=== PATIENT | male | born 1945 ===

== ENCOUNTER 2020-02-23 07:32 | Outpatient (REF) | payer MEDICARE, OTHER, SELFPAY ==
[2020-02-23 10:17] LABS: MANUAL DIFF FLAG NO
[2020-02-23 10:31] LABS: Basophils Percent Auto 0.5 % (0-2); Eosinophils Absolute Auto 0.3 X10*3/uL (0.0-0.4); Eosinophils Percent Auto 4.4 % (0-4); Hematocrit 40.8 % (42-52); Hemoglobin 14.1 g/dl (14.0-18.0); Imm Gran Abs Auto 0.03 X10*3/uL (0.00-0.03); Imm Gran Pct Auto 0.5 % (0.0-0.4); Lymphocytes Absolute Auto 1.1 X10*3/uL (1.2-4.9); Lymphocytes Percent Auto 17.1 % (20-40); Mean Corpuscular HGB Conc 34.6 g/dl (31.0-36.0); Mean Corpuscular Hemoglobin 36.5 pg (27.0-33.0); Mean Corpuscular Volume 105.7 fL (80-98); Mean Platelet Volume 10.1 fL (9.4-12.4); Monocytes Absolute Auto 0.6 X10*3/uL (0.1-1.2); Monocytes Percent Auto 8.9 % (2-11); Neutrophils Absolute Auto 4.4 X10*3/uL (2.0-8.3); Neutrophils Percent Auto 68.6 % (45-73); Platelet Count 221 X10*3/uL (160-400); Red Blood Count 3.86 X10*6/uL (4.60-5.80); Red Cell Distribution Width 12.3 % (11.0-16.0); White Blood Count 6.4 X10*3/uL (4.8-10.8)
[2020-02-23 10:49] LABS: Glucose Urine UA NEG (NEG); Leukocyte Esterase Urine NEG (NEG); Nitrite Urine NEG (NEG); Specific Gravity - Urine 1.025 (1.005-1.025); Urine Blood NEG (NEG); Urine Ketones NEG (NEG); Urine Protein NEG (NEG-TRACE)
[2020-02-23 10:52] LABS: Appearance Urine CLEAR; Color Urine YELLOW
[2020-02-23 10:55] LABS: Alanine Aminotransferase 16 U/L (0-40); Albumin Level 4.1 g/dL (3.5-5.0); Alkaline Phosphatase 52 U/L (39-117); Anion Gap 12 (12-20); Aspartate Amino Transferase 17 U/L (5-37); Bilirubin Total 0.7 mg/dL (0.0-1.0); Blood Urea Nitrogen 16 mg/dL (9-16); Calcium 8.4 mg/dL (8.4-10.2); Carbon Dioxide 27 mmol/L (22-29); Chloride 106 mmol/L (96-108); Cholesterol 116 mg/dL; Estimated Glomerular Filt Rate > 60; Glucose Fasting 90 mg/dL (60-99); HDL Cholesterol 57 mg/dL; LDL Cholesterol Calculated 48 mg/dl; Sodium 141 mmol/L (135-145); Total Protein 6.4 g/dL (6.5-8.0); Triglycerides 58 mg/dL
[2020-02-23 11:16] LABS: Prostate Specific Antigen 1.11 ng/mL (<0.05-4.0)
== END 2020-02-23 07:33 | disposition home or self-care (01) ==
LOC: HO.10HDL 07:32
PROVIDERS: Visit Provider Internal Medicine
DX: I25.10 Atherosclerotic heart disease of native coronary artery without angina pectoris (principal); I10 Essential (primary) hypertension; E78.00 Pure hypercholesterolemia, unspecified; R35.1 Nocturia; M10.9 Gout, unspecified
CPT/HCPCS: 36415; 80053; 80061; 81003; 84153; 84550; 85025

== ENCOUNTER 2020-03-18 16:10 | Outpatient (REF) | payer MEDICARE, OTHER, SELFPAY ==
[2020-03-18 16:57] LABS: Influenza A PCR NEGATIVE (Negative); Influenza B PCR NEGATIVE (Negative); Resp Syncy Virus RNA Qual PCR NEGATIVE (Negative); SARS COV2 PCR INHOUSE NEGATIVE (Negative)
== END 2020-03-18 16:11 | disposition home or self-care (01) ==
LOC: HO.LNP 16:10
PROVIDERS: Visit Provider Internal Medicine
DX: R50.9 Fever, unspecified (principal)
CPT/HCPCS: 0241U

== ENCOUNTER 2020-05-20 09:36 | Outpatient (REF) | payer MEDICARE, OTHER, SELFPAY ==
[2020-05-20 14:01] LABS: MANUAL DIFF FLAG NO
[2020-05-20 14:11] LABS: Basophils Absolute Auto 0.1 X10*3/uL (0.0-0.2); Basophils Percent Auto 0.8 % (0-2); Eosinophils Absolute Auto 0.3 X10*3/uL (0.0-0.4); Eosinophils Percent Auto 4.7 % (0-4); Hematocrit 43.4 % (42-52); Hemoglobin 14.7 g/dl (14.0-18.0); Imm Gran Abs Auto 0.02 X10*3/uL (0.00-0.03); Imm Gran Pct Auto 0.3 % (0.0-0.4); Lymphocytes Absolute Auto 0.9 X10*3/uL (1.2-4.9); Lymphocytes Percent Auto 13.8 % (20-40); Mean Corpuscular HGB Conc 33.9 g/dl (31.0-36.0); Mean Corpuscular Hemoglobin 35.5 pg (27.0-33.0); Mean Corpuscular Volume 104.8 fL (80-98); Mean Platelet Volume 10.2 fL (9.4-12.4); Monocytes Absolute Auto 0.5 X10*3/uL (0.1-1.2); Monocytes Percent Auto 7.5 % (2-11); Neutrophils Absolute Auto 4.8 X10*3/uL (2.0-8.3); Neutrophils Percent Auto 72.9 % (45-73); Platelet Count 216 X10*3/uL (160-400); Red Blood Count 4.14 X10*6/uL (4.60-5.80); Red Cell Distribution Width 12.4 % (11.0-16.0); White Blood Count 6.5 X10*3/uL (4.8-10.8)
[2020-05-20 14:45] LABS: Alanine Aminotransferase 15 U/L (0-40); Alkaline Phosphatase 45 U/L (39-117); Anion Gap 11 (12-20); Aspartate Amino Transferase 16 U/L (5-37); Bilirubin Total 0.9 mg/dL (0.0-1.0); Blood Urea Nitrogen 14 mg/dL (9-16); Carbon Dioxide 28 mmol/L (22-29); Chloride 103 mmol/L (96-108); Estimated Glomerular Filt Rate > 60; Glucose Random 92 mg/dL (60-115); Magnesium 2.1 mg/dL (1.6-2.6); Potassium 4.3 mmol/L (3.3-5.1); Sodium 138 mmol/L (135-145); Total Protein 6.1 g/dL (6.5-8.0); Uric Acid 3.6 mg/dL (3.4-7.0)
== END 2020-05-20 09:37 | disposition home or self-care (01) ==
LOC: HO.10HDL 09:36
PROVIDERS: Visit Provider Internal Medicine
DX: M10.9 Gout, unspecified (principal); I25.10 Atherosclerotic heart disease of native coronary artery without angina pectoris; I42.9 Cardiomyopathy, unspecified
CPT/HCPCS: 36415; 80053; 83735; 84550; 85025

== ENCOUNTER → 2021-01-14 14:28 | Outpatient (BNVA) | payer MEDICARE, OTHER, SELFPAY | PROVIDERS: PCP Internal Medicine; Referring Provider Internal Medicine; Visit Provider Internal Medicine Cardiovascular Disease | DX: I25.10 Atherosclerotic heart disease of native coronary artery without angina pectoris (principal); I11.0 Hypertensive heart disease with heart failure; I50.20 Unspecified systolic (congestive) heart failure; I48.91 Unspecified atrial fibrillation | CPT/HCPCS: 93005; 99202 ==

== ENCOUNTER → 2021-01-15 10:11 | Outpatient (REF) | payer MEDICARE, OTHER, SELFPAY ==
--- NOTE | 2021-01-15 10:29 | CA_ITS ---
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 The visually estimated ejection fraction is between 40-45%. - The left atrium is severely dilated. - There is mild calcification of the aortic valve. - There is moderate mitral annular calcification. - There is mild dilatation of the ascending aorta measuring 4.00 cm. Findings Procedure Information Contrast agent, definity, is being given per protocol without apparent complications. Left Ventricle Normal left ventricular cavity size. There is mildly increased left ventricular wall thickness. The left ventricular systolic function is mild to moderately decreased. The visually estimated ejection fraction is between 40-45%. There is moderate global hypokinesis. Right Ventricle Mildly increased right ventricular cavity size. There is normal right ventricular systolic function. Atria The left atrium is severely dilated. The right atrium is normal in size. Aortic Valve The aortic valve was not well visualized. There is mild calcification of the aortic valve. There is no aortic valve stenosis. The mean gradient is 7 mmHg. There is mild aortic valve regurgitation. Mitral Valve There is moderate mitral annular calcification. There is trace mitral valve regurgitation. There is no mitral valve stenosis. Pulmonic Valve The pulmonic valve was not well visualized. Tricuspid Valve Normal tricuspid valve structure. There is trace tricuspid valve regurgitation. The pulmonary artery systolic pressure is normal. Great Vessels The aortic arch is normal in size. There is mild dilatation of the ascending aorta measuring 4.00 cm. Venous The inferior vena cava is normal in size and collapses greater than 50% with inspiration. Pericardium/Pleural There is a trivial pericardial effusion. Prior Study Comparison No significant change compared to prior study dated: 01/18/2015. Measurements 2D Linear Measurements IVSd: 1.07 0.6-0.9/0.6-1.0 cm LVIDd: 5.60 3.9-5.3/4.2-5.9 cm LVIDd Index: 2.49 2.4-3.2/2.2-3.1 cm/m2 LVIDs: 4.14 2.0-3.6 cm LVPWd: 1.09 0.7-1.1 cm Ao Root: 4.20 2.1-3.5 cm LA Diam: 4.80 2.7-3.8/3.0-4.0 cm LAIDs Index: 2.13 1.5-2.3 cm/m2 LV Mass: 303.34 67-162/88-224 g LV Mass Index: 134.82 43-95/49-115 g/m2 LVOT Diam: 2.50 3.0+(-)1.3 cm 2D Systolic Function EF 4C: 41.30 >55% EF 2C: 36.40 >55% EF BiP: 40.30 >55% Aortic Valve AoV Pk Mendel: 1.64 AoV Mn Mendel: 1.27 AoV VTI: 0.31 AoV Pk Grad: 11.00 Aov Mn Grad: 7.00 GARCIA Cont.VTI: 2.96 LVOT LVOT Pk Mendel: 0.94 LVOT Mn Mendel: 0.68 LVOT VTI: 0.19 LVOT Pk Grad: 4.00 LVOT Mn Grad: 2.00 LVOT Diam: 2.50 LVOT Area: 4.91 Right Ventricle TAPSE (mm): 2.03 TVS' Mendel: 13.70 Tricuspid Valve TR Pk Mendel: 2.54 TR Pk Grad: 26.00 RA Press: 3.00 RVSP: 29.00 Great Vessels Aorta Ao Root-2D: 4.20 2.0-3.7 cm Ao Asc: 4.00 2.1-3.4 cm Ao Arch: 2.90 Updated in Other Vendor System with Status of Final Dillon Sandoval MD electronically signed on 01/16/2021 3:54:36 PM with status of Final
== END ==
LOC: HO.CARD 10:11
PROVIDERS: Visit Provider Internal Medicine Cardiovascular Disease
DX: I48.91 Unspecified atrial fibrillation (principal)
CPT/HCPCS: 93306

== ENCOUNTER → 2021-01-24 10:47 | Outpatient (REF) | payer MEDICARE, OTHER, SELFPAY ==
--- NOTE | 2021-01-24 10:52 | HM_ITS ---
Total monitoring time 2 days and 22 hours. Underlying rhythm is atrial fibrillation. Average 70/Min. Minimum 39/Min. Maximum 106/Min. Most rates are in normal range. Longest pause 2.8 seconds at 01:33am. 4 beat run of NSVT. Overall PVC burden 2.3%. 4 morphologies noted. 77 couplets noted. No patient events. Overall, adequate rate control of atrial fibrillation. MTDD
== END ==
LOC: HO.CARD 10:47
PROVIDERS: PCP Internal Medicine; Visit Provider Internal Medicine Cardiovascular Disease
DX: I48.91 Unspecified atrial fibrillation (principal)
CPT/HCPCS: 93242

== ENCOUNTER → 2021-02-12 08:53 | Outpatient (BNVA) | payer MEDICARE, OTHER, SELFPAY | PROVIDERS: PCP Internal Medicine; Referring Provider Internal Medicine; Visit Provider Internal Medicine Cardiovascular Disease | DX: I48.19 Other persistent atrial fibrillation (principal); I50.20 Unspecified systolic (congestive) heart failure; I25.10 Atherosclerotic heart disease of native coronary artery without angina pectoris | CPT/HCPCS: 99212 ==

== ENCOUNTER 2021-02-13 08:27 | Outpatient (REF) | payer MEDICARE, OTHER, SELFPAY ==
[2021-02-13 10:23] LABS: Anion Gap 10 (12-20); Blood Urea Nitrogen 13 mg/dL (9-16); Calcium 8.9 mg/dL (8.4-10.2); Carbon Dioxide 27 mmol/L (22-29); Chloride 105 mmol/L (96-108); Estimated Glomerular Filt Rate > 60; Glucose Random 110 mg/dL (60-115); Potassium 4.2 mmol/L (3.3-5.1); Sodium 138 mmol/L (135-145)
[2021-02-13 11:31] LABS: Digoxin 0.4 ng/mL (0.8-2.0)
== END 2021-02-13 08:28 | disposition home or self-care (01) ==
LOC: HO.10HDL 08:27
PROVIDERS: Visit Provider Internal Medicine Cardiovascular Disease
DX: I48.20 Chronic atrial fibrillation, unspecified (principal)
CPT/HCPCS: 36415; 80048; 80162

== ENCOUNTER 2021-03-06 08:47 | Outpatient (REF) | payer MEDICARE, OTHER, SELFPAY ==
[2021-03-06 10:15] LABS: MANUAL DIFF FLAG NO
[2021-03-06 10:19] LABS: Basophils Absolute Auto 0.1 X10*3/uL (0.0-0.2); Eosinophils Absolute Auto 0.3 X10*3/uL (0.0-0.4); Eosinophils Percent Auto 4.7 % (0-4); Hematocrit 42.1 % (42.0-52.0); Hemoglobin 14.4 g/dl (14.0-18.0); Imm Gran Abs Auto 0.05 X10*3/uL (0.00-0.03); Imm Gran Pct Auto 0.8 % (0.0-0.4); Lymphocytes Percent Auto 15.2 % (20-40); Mean Corpuscular HGB Conc 34.2 g/dl (31.0-36.0); Mean Corpuscular Hemoglobin 36.2 pg (27.0-33.0); Mean Corpuscular Volume 105.8 fL (80.0-98.0); Mean Platelet Volume 10.2 fL (9.4-12.4); Monocytes Absolute Auto 0.6 X10*3/uL (0.1-1.2); Monocytes Percent Auto 10.3 % (2-11); Neutrophils Absolute Auto 4.2 x10*3/uL (2.0-8.3); Platelet Count 213 X10*3/uL (160-400); Red Blood Count 3.98 X10*6/uL (4.60-5.80); Red Cell Distribution Width 12.8 % (11.0-16.0); White Blood Count 6.2 X10*3/uL (4.8-10.8)
[2021-03-06 11:04] LABS: Alanine Aminotransferase 19 U/L (0-40); Albumin Level 3.9 g/dL (3.5-5.0); Alkaline Phosphatase 49 U/L (39-117); Anion Gap 12 (12-20); Aspartate Amino Transferase 15 U/L (5-37); Bilirubin Total 0.9 mg/dL (0.0-1.0); Blood Urea Nitrogen 12 mg/dL (9-16); Calcium 9.1 mg/dL (8.4-10.2); Carbon Dioxide 26 mmol/L (22-29); Chloride 106 mmol/L (96-108); Cholesterol 91 mg/dL; Estimated Glomerular Filt Rate > 60; Glucose Fasting 96 mg/dL (60-99); HDL Cholesterol 42 mg/dL; LDL Cholesterol Calculated 36 mg/dl; Potassium 4.2 mmol/L (3.3-5.1); Sodium 140 mmol/L (135-145); Total Protein 6.1 g/dL (6.5-8.0); Triglycerides 68 mg/dL
[2021-03-06 11:32] LABS: Prostate Specific Antigen Scr 0.85 ng/mL (<0.05-4.0)
== END 2021-03-06 08:48 | disposition home or self-care (01) ==
LOC: HO.10HDL 08:47
PROVIDERS: Visit Provider Internal Medicine
DX: I42.9 Cardiomyopathy, unspecified (principal); I10 Essential (primary) hypertension; E78.00 Pure hypercholesterolemia, unspecified; R35.1 Nocturia; Z12.5 Encounter for screening for malignant neoplasm of prostate
CPT/HCPCS: 36415; 80053; 80061; 84153; 85025

== ENCOUNTER 2021-04-17 10:53 | Outpatient (REF) | payer MEDICARE, OTHER, SELFPAY ==
[2021-04-17 13:25] LABS: MANUAL DIFF FLAG NO
[2021-04-17 13:39] LABS: Basophils Absolute Auto 0.1 X10*3/uL (0.0-0.2); Basophils Percent Auto 0.6 % (0-2); Eosinophils Absolute Auto 0.2 X10*3/uL (0.0-0.4); Eosinophils Percent Auto 1.8 % (0-4); Hematocrit 42.7 % (42.0-52.0); Hemoglobin 14.4 g/dl (14.0-18.0); Imm Gran Pct Auto 1.1 % (0.0-0.4); Lymphocytes Absolute Auto 0.7 X10*3/uL (1.2-4.9); Lymphocytes Percent Auto 8.5 % (20-40); Mean Corpuscular HGB Conc 33.7 g/dl (31.0-36.0); Mean Corpuscular Volume 106.8 fL (80.0-98.0); Mean Platelet Volume 9.5 fL (9.4-12.4); Monocytes Absolute Auto 0.8 X10*3/uL (0.1-1.2); Monocytes Percent Auto 8.7 % (2-11); Neutrophils Absolute Auto 6.9 x10*3/uL (2.0-8.3); Neutrophils Percent Auto 79.3 % (45-73); Platelet Count 245 X10*3/uL (160-400); Red Cell Distribution Width 12.3 % (11.0-16.0); White Blood Count 8.7 X10*3/uL (4.8-10.8)
[2021-04-17 13:52] LABS: Alanine Aminotransferase 16 U/L (0-40); Albumin Level 3.7 g/dL (3.5-5.0); Alkaline Phosphatase 61 U/L (39-117); Anion Gap 11 (12-20); Aspartate Amino Transferase 13 U/L (5-37); Bilirubin Total 0.8 mg/dL (0.0-1.0); Blood Urea Nitrogen 14 mg/dL (9-16); C Reactive Protein 3.84 mg/dL (< or = 0.50); Calcium 9.4 mg/dL (8.4-10.2); Carbon Dioxide 30 mmol/L (22-29); Chloride 103 mmol/L (96-108); Estimated Glomerular Filt Rate > 60; Glucose Random 122 mg/dL (60-115); Potassium 4.6 mmol/L (3.3-5.1); Sodium 139 mmol/L (135-145); Total Protein 6.1 g/dL (6.5-8.0)
== END 2021-04-17 10:54 | disposition home or self-care (01) ==
LOC: HO.10HDL 10:53
PROVIDERS: PCP Internal Medicine; Visit Provider Internal Medicine
DX: I48.91 Unspecified atrial fibrillation (principal); I25.10 Atherosclerotic heart disease of native coronary artery without angina pectoris; I10 Essential (primary) hypertension; M79.10 Myalgia, unspecified site
CPT/HCPCS: 36415; 80053; 82550; 85025; 86140

== ENCOUNTER 2021-05-10 11:14 | Inpatient (IN) | payer MEDICARE, OTHER, SELFPAY ==
--- NOTE | ~2021-05-10 | CT_ITS ---
EXAMINATION: CT ABDOMEN AND PELVIS WITHOUT CONTRAST CLINICAL INFORMATION: Abdominal pain . COMPARISON: 08/08/2007. TECHNIQUE: Multidetector volumetric imaging was performed from the superior aspect of the liver through the pubic symphysis without contrast per request. Sagittal and coronal reformatted images were obtained on the technologist workstation. This CT examination was performed using dose optimization techniques as appropriate, variously including the following: *Automated exposure control *Adjustment of mA and/or kV according to patient size (this includes techniques or standardized protocols for targeted exams where dose is matched to indication/reason for exam; i.e. extremities or head) *Use of iterative reconstruction technique DLP: 1207 mGy-cm. FINDINGS: LUNG BASES: The visualized lung bases are unremarkable. Prominent coronary artery calcification. Small pericardial effusion partially seen. LIVER, GALLBLADDER, BILIARY TREE: The non-contrast liver is normal in size, shape, and attenuation. No focal hepatic lesion or biliary ductal dilatation is present. The gallbladder is unremarkable with no evidence of radiopaque gallstones, gallbladder wall thickening, or obvious pericholecystic inflammatory changes. PANCREAS: Unremarkable. SPLEEN: Unremarkable. ADRENAL GLANDS: Unremarkable. KIDNEYS AND URETERS: Multiple low-attenuation probable cortical cysts seen within the kidneys bilaterally the largest in the lower pole of the right kidney measuring up to 7.3 cm in diameter. These are difficult to define further on this noncontrast study. Tiny nonobstructing intrarenal calculi in the lower pole collecting system of the left kidney. BLADDER: Decompressed GASTROINTESTINAL TRACT: Colon is mostly decompressed with scattered colonic diverticulosis. No colonic wall thickening or pericolonic inflammatory change to suggest diverticulitis. Normal-appearing appendix in the right lower quadrant. Distal small bowel is decompressed. There are prominent loops of small bowel in the midabdomen measuring up to 5 cm in maximal diameter. There is no discrete or focal transition point. Small bowel in the midline lower abdominal wall ventral hernia is decompressed the bowel just proximal distal to the hernia are also decompressed. ABDOMINAL WALL: Nonobstructed small bowel extending into a midline periumbilical ventral hernia. There is skin thickening along the lower intra-abdominal wall possibly representing overlying cellulitis. This could be clinically correlated. LYMPHOVASCULAR STRUCTURES: Mild vascular calcification within the aorta iliac system. No bulky adenopathy.. PELVIC VISCERA: Unremarkable. OSSEUS STRUCTURES: Multilevel degenerative changes in the spine. Degenerative changes in the hips. CT/CT abdomen pelvis wo con IMPRESSION: Nonobstructed small bowel seen within a prominent periumbilical hernia. There are dilated loops of proximal small bowel measuring up to 5 cm in diameter however there is no discrete focal transition point with a gradual transition to more normal caliber bowel. Etiology of this is uncertain. Ileus would be favored. There is skin thickening along the anterior abdominal wall inferiorly possibly due to overlying cellulitis. This could be clinically correlated. Chronic appearing changes otherwise as described.
--- NOTE | ~2021-05-10 | XR_ITS ---
EXAMINATION: XR ABDOMEN WITH DECUBITUS VIEWS CLINICAL INDICATION: Follow-up ileus COMPARISON: CT abdomen and pelvis from 05/10/2021 TECHNIQUE: Abdomen, 2 views FINDINGS: Lung bases are unremarkable. Bowel gas pattern remains abnormal. Again noted are dilated small bowel loops with scattered air-fluid levels. There is gas within the nondilated colon extending to level the rectum. The overall pattern suggests distal small bowel obstruction. Note that the small bowel was dilated proximal to the level of the abdominal wall hernia sac seen on CT imaging of 05/10/2021, although transition did not occur immediately at the level of the hernia sac. The degree of small bowel distention is not significantly changed compared to 05/10/2021. No evidence of pneumatosis intestinalis or pneumoperitoneum. There is heterotopic ossification at the level of the proximal right rectus femoris. No acute osseous abnormality. XR/XR abdomen w decubitus IMPRESSION: Persistently abnormal bowel gas pattern. The radiographic findings suggest presence of a distal, partial small bowel obstruction. No pneumoperitoneum or other significant change.
[2021-05-10 11:57] VITALS: BP 167/75; PULSE 100; RESP 18; O2SAT 98; BMI 40.7
[2021-05-10 12:53] LABS: Hematocrit 44.5 % (42.0-52.0); Hemoglobin 15.6 g/dl (14.0-18.0); Mean Corpuscular HGB Conc 35.1 g/dl (31.0-36.0); Mean Corpuscular Hemoglobin 36.4 pg (27.0-33.0); Mean Corpuscular Volume 103.7 fL (80.0-98.0); Mean Platelet Volume 9.4 fL (9.4-12.4); Platelet Count 194 X10*3/uL (160-400); Red Blood Count 4.29 X10*6/uL (4.60-5.80); Red Cell Distribution Width 12.7 % (11.0-16.0); White Blood Count 10.5 X10*3/uL (4.8-10.8)
[2021-05-10 13:05] LABS: Lactic Acid 1.1 mmol/L (0.5-2.0)
[2021-05-10 13:10] LABS: Alanine Aminotransferase 16 U/L (0-40); Albumin Level 3.5 g/dL (3.5-5.0); Alkaline Phosphatase 52 U/L (39-117); Anion Gap 15 (12-20); Aspartate Amino Transferase 18 U/L (5-37); Bilirubin Total 1.8 mg/dL (0.0-1.0); Blood Urea Nitrogen 35 mg/dL (9-16); Calcium 9.3 mg/dL (8.4-10.2); Carbon Dioxide 24 mmol/L (22-29); Chloride 99 mmol/L (96-108); Creatinine Clr Calc Pharmacy 85.9; Estimated Glomerular Filt Rate > 60; Glucose Random 95 mg/dL (60-115); Lipase 8 U/L (8-78); Potassium 3.8 mmol/L (3.3-5.1); Sodium 134 mmol/L (135-145); Total Protein 5.8 g/dL (6.5-8.0)
[2021-05-10 13:15] LABS: COVID-19 Test Negative (Negative)
[2021-05-10 13:52] LABS: Band Neutrophils Percent 24 % (3-5); Lymphocytes Absolute Manual 0.1 X10*3/uL (1.2-4.9); Lymphocytes Percent Manual 1 % (20-40); Metamyelocytes Absolute 0.1 X10*3/uL; Metamyelocytes Percent 1 %; Monocytes Absolute Manual 0.5 X10*3/uL (0.1-1.2); Monocytes Percent Manual 5 % (2-11); Neutrophils Absolute Manual 9.8 X10*3/uL (2.0-8.3); Neutrophils Percent Manual 69 % (45-73)
[2021-05-10 13:54] LABS: RBC Morphology NOTED
[2021-05-10 13:55] LABS: Acanthocytes 1+ (0-2) /OIF; Platelet Estimate NORMAL (NORMAL)
[2021-05-10 13:56] LABS: Platelet Morphology Comment NORMAL
--- NOTE | 2021-05-10 16:27 | ED.ABDPAIN ---
HPI - Abdominal Pain General Chief Complaint: Abdominal Pain Stated Complaint: Abd pain Time Seen by Provider: 05/10/21 16:27 Source: patient Mode of arrival: ambulatory Limitations: no limitations History of Present Illness HPI narrative: 76-year-old male with past medical history of atrial fibrillation, hypertension, ischemic cardiomyopathy, heart failure with reduced EF, CAD is here today for abdominal pain, cramping, nausea and vomiting that started 4 days ago. Patient reports that 2 weeks ago he was put on prednisone for polyarthralgia. Patient reports that 4 days ago he took his prednisone without food in the next day he started with abdominal discomfort. Patient was feeling nauseous and was unable to eat any food, continue to take his Xarelto and prednisone on an empty stomach. 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 Colonoscopy in 2003 showed 2 hyperplastic polyps without any dysplasia or carcinoma. Patient has a history of cystoscopy in 2006, has a history of nonobstructing renal stones. Patient denies any urinary symptoms at this time. Reports that he had normal bowel movement yesterday followed by loose stool x1. Patient denies any melena, hematochezia, unintentional weight loss or ribbon like stools. Patient denies any dyspepsia, dysphagia or odynophagia. Reports to be feeling nauseous last time vomited was this morning. Patient has not been eating any solids, he does report that he has been drinking fluids, patient reports that he vomited liquid no solid. MD elicited complaint: abdominal pain Related Data Home Medications Medication Instructions Recorded Confirmed allopurinol 300 mg tablet 300 mg PO DAILY 01/14/21 05/10/21 atorvastatin 40 mg tablet 40 mg PO DAILY 01/14/21 05/10/21 carvedilol 25 mg tablet 25 mg PO BID 01/14/21 05/10/21 olmesartan 40 mg tablet 40 mg PO DAILY 01/14/21 05/10/21 multivitamin 1 tab PO DAILY 05/10/21 05/10/21 omeprazole 20 mg capsule,delayed 20 mg PO DAILY 05/10/21 05/10/21 release Previous Rx's Medication Instructions Recorded rivaroxaban 20 mg tablet (Xarelto) 20 mg PO DAILY #30 tab 01/14/21 furosemide 20 mg tablet 20 mg PO Q OTHER DAY 90 Days #45 04/07/21 tab digoxin 250 mcg (0.25 mg) tablet 250 mcg PO DAILY #30 tab 05/09/21 (Digox) Allergies Allergy/AdvReac Type Severity Reaction Status Date / Time bee pollen [BEE STINGS] Allergy Mild HIVES, SOB Unverified 01/04/20 15:33 LOBSTER Allergy Unknown HIVES Uncoded 01/04/20 15:33 Review of Systems Review of Systems Constitutional : No Weight loss, No Fever, No Chills, No Night Sweats, No Fatigue, No Malaise ENT/Mouth : No Hearing loss, No Ear Pain, No Nasal Congestion, No Sinus Pain, No Hoarseness, No sore throat, No Rhinorrhea, No Swallowing Difficulty Eyes: No Eye Pain, No Swelling, No Redness, No Foreign Body, No Discharge, No Vision Changes Cardiovascular : No Chest Pain, No SOB, No Dyspnea on Exertion, No Orthopnea, No Edema, No Palpitations Respiratory : No Cough, No Sputum, No Wheezing, No Smoke Exposure, No Dyspnea Gastrointestinal : Nausea, Vomiting, Diarrhea, No Constipation, abdominal Pain, No Hematochezia, No Melena Genitourinary : no irregular bleeding, No Dysuria, No Urinary Frequency, No Hematuria, No Urinary Incontinence, No Urgency, No Flank Pain, No Urinary Flow Changes, No Hesitancy Musculoskeletal : No joint pain, No Myalgias, No Joint Swelling Skin : No Skin Lesions, No rash Neuro : No Weakness, No Numbness, No Paresthesias, No Loss of Consciousness, No Dizziness, No Headache Psych : No Anxiety/Panic, No Depression, No SI/HI/AH/VH, No Social Issues, Yes all other systems are reviewed and are negative Physical Exam Vital Signs: Vital Signs: Last Vital Signs Temp 99.0 F 05/10/21 20:17 Pulse 81 05/10/21 20:17 Resp 19 05/10/21 20:17 BP 100/54 L 05/10/21 20:17 Pulse Ox 96 05/10/21 20:17 BMI result Body Mass Index 40.7 Const: General: healthy appearing, no acute distress and well developed Nutritional Appearance: well nourished Orientation/consciousness: patient oriented x3 HENMT: Head: Yes normal to inspection, Yes normocephalic and Yes atraumatic Face and sinus: Yes normal facial exam Mouth: Normal oral and palatal mucosa present Throat: Yes posterior oropharynx normal, Yes tonsils normal and Yes uvula midline Eyes: General: appearance normal, both eyes and all related structures Neck: Neck: Yes normal visual inspection, Yes full ROM and Yes trachea midline Thyroid: Thyroid normal Resp: Effort & Inspection: normal respiratory effort, able to speak in complete sentences, no tracheal deviation and symmetric chest movement Auscultation: clear to auscultation bilaterally Cardio: Rate: Other (Irregular rate) Heart sounds: S1 normal heart sound present, S2 normal heart sound present, no gallops and no murmurs GI: Other: Umbilical hernia Inspection: Yes normal to inspection, No distended and Yes obesity Palpation (GI): Soft to palpation, not firm, nontender and No hepatosplenomegaly present Auscultation: normal bowel sounds : General: Yes no CVA tenderness Back/Spine/Pelvis: Back: no CVA tenderness Skin: General skin exam: elasticity normal, turgor normal and dry skin Neuro: General: patient oriented x3 Psych: Appearance: grossly normal Mental Status: mental status grossly normal Speech and movement: Normal speech and movement present Affect: normal affect Attitude: cooperative Thought process: Normal thought process present Thought content: Normal thought content present Insight: Good insight present (Psych) Judgement: Good judgement present (Psych) Course Course Course Narrative: 76-year-old male with past medical history of atrial fibrillation, hypertension, ischemic cardiomyopathy, heart failure with reduced EF, CAD is here today for abdominal pain, cramping, nausea and vomiting that started 4 days ago. Patient reports that 2 weeks ago he was put on prednisone for polyarthralgia. Patient reports that 4 days ago he took his prednisone without food in the next day he started with abdominal discomfort. Patient was feeling nauseous and was unable to eat any food, continue to take his Xarelto and prednisone on an empty stomach. 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 Colonoscopy in 2003 showed 2 hyperplastic polyps without any dysplasia or carcinoma. Patient has a history of cystoscopy in 2006, has a history of nonobstructing renal stones. Patient denies any urinary symptoms at this time. Reports that he had normal bowel movement 2 days ago followed by loose stool x1. Patient reports that he has passing flatus. Patient denies any melena, hematochezia, unintentional weight loss or ribbon like stools. Patient denies any dyspepsia, dysphagia or odynophagia. Reports to be feeling nauseous last time vomited was this morning. Patient has not been eating any solids, he does report that he has been drinking fluids, patient reports that he vomited liquid. IV, Zofran, abdominal CT scan to rule out diverticulitis, colitis, incarcerated hernia, ileus. Reevaluation(s) Reevaluation #1: CT scan back, suspicion for ileus, will call on-call surgery and admit patient. Will start fluids. Patient has a history of LVEF 40-45%, will do gentle hydration Reevaluation #2: Spoke with Dr. Love, suspicion for gastroenteritis due to prednisone and Xarelto. Patient's last bowel movement was 2 days ago and it was normal. Patient is passing gas, has active bowels. Will admit patient to hospital services with diagnosis of gastritis/ gastroenteritis. Patient is agreeable to this plan MDM - Abdominal Pain Lab Data Result diagrams: 05/10/21 12:45 05/10/21 12:45 Labs: Lab Results 05/10/21 05/10/21 05/10/21 Range/Units 12:45 12:45 12:45 WBC 10.5 (4.8-10.8) X10*3/uL RBC 4.29 L (4.60-5.80) X10*6/uL Hgb 15.6 (14.0-18.0) g/dl Hct 44.5 (42.0-52.0) % MCV 103.7 H (80.0-98.0) fL MCH 36.4 H (27.0-33.0) pg MCHC 35.1 (31.0-36.0) g/dl RDW 12.7 (11.0-16.0) % Plt Count 194 (160-400) X10*3/uL MPV 9.4 (9.4-12.4) fL Immature Gran % (Auto) Cancelled Neut % (Auto) Cancelled Lymph % (Auto) Cancelled Rogers % (Auto) Cancelled Eos % (Auto) Cancelled Baso % (Auto) Cancelled Lymph # (Auto) Cancelled Rogers # (Auto) Cancelled Eos # (Auto) Cancelled Baso # (Auto) Cancelled Abs Immat Gran (auto) Cancelled Absolute Neuts (auto) Cancelled Absolute Nucleated RBC 0.000 (0.0-0.012) X10*3/uL Nucleated RBC % (auto) 0.0 (0.0-0.2) /100WBC Neutrophils % (Manual) 69 (45-73) % Band Neutrophils % 24 H (3-5) % Lymphocytes % (Manual) 1 L (20-40) % Monocytes % (Manual) 5 (2-11) % Metamyelocytes % 1 % Abs Neuts (Manual) 9.8 H (2.0-8.3) X10*3/uL Lymphocytes # (Manual) 0.1 L (1.2-4.9) X10*3/uL Monocytes # (Manual) 0.5 (0.1-1.2) X10*3/uL Metamyelocytes # 0.1 X10*3/uL Platelet Estimate NORMAL (NORMAL) Plt Morphology Comment NORMAL RBC Morphology NOTED Acanthocytes (Spur) 1+ (0-2) /OIF Sodium 134 L (135-145) mmol/L Potassium 3.8 (3.3-5.1) mmol/L Chloride 99 (96-108) mmol/L Carbon Dioxide 24 (22-29) mmol/L Anion Gap 15 (12-20) BUN 35 H D (9-16) mg/dL Creatinine 0.87 (0.5-1.4) mg/dL Estim Creat Clear Calc 85.9 Estimated GFR > 60 Random Glucose 95 (60-115) mg/dL Lactic Acid (0.5-2.0) mmol/L Calcium 9.3 (8.4-10.2) mg/dL Total Bilirubin 1.8 H (0.0-1.0) mg/dL Direct Bilirubin 1.0 H (0.0-0.5) mg/dL AST 18 (5-37) U/L ALT 16 (0-40) U/L Alkaline Phosphatase 52 (39-117) U/L Total Protein 5.8 L (6.5-8.0) g/dL Albumin 3.5 (3.5-5.0) g/dL Lipase 8 (8-78) U/L Urine Color Urine Appearance Urine pH (5.0-8.0) Ur Specific [place] (1.005-1.025) Urine Protein (NEG-TRACE) MG/DL Urine Glucose (UA) (NEG) MG/DL Urine Ketones (NEG) MG/DL Urine Blood (NEG) Urine Nitrite (NEG) Ur Leukocyte Esterase (NEG) COVID-19 (YAMILKA) Negative (Negative) COVID-19 Clin Com See Note 05/10/21 05/10/21 Range/Units 12:46 16:48 WBC (4.8-10.8) X10*3/uL RBC (4.60-5.80) X10*6/uL Hgb (14.0-18.0) g/dl Hct (42.0-52.0) % MCV (80.0-98.0) fL MCH (27.0-33.0) pg MCHC (31.0-36.0) g/dl RDW (11.0-16.0) % Plt Count (160-400) X10*3/uL MPV (9.4-12.4) fL Immature Gran % (Auto) Neut % (Auto) Lymph % (Auto) Rogers % (Auto) Eos % (Auto) Baso % (Auto) Lymph # (Auto) Rogers # (Auto) Eos # (Auto) Baso # (Auto) Abs Immat Gran (auto) Absolute Neuts (auto) Absolute Nucleated RBC (0.0-0.012) X10*3/uL Nucleated RBC % (auto) (0.0-0.2) /100WBC Neutrophils % (Manual) (45-73) % Band Neutrophils % (3-5) % Lymphocytes % (Manual) (20-40) % Monocytes % (Manual) (2-11) % Metamyelocytes % % Abs Neuts (Manual) (2.0-8.3) X10*3/uL Lymphocytes # (Manual) (1.2-4.9) X10*3/uL Monocytes # (Manual) (0.1-1.2) X10*3/uL Metamyelocytes # X10*3/uL Platelet Estimate (NORMAL) Plt Morphology Comment RBC Morphology Acanthocytes (Spur) /OIF Sodium (135-145) mmol/L Potassium (3.3-5.1) mmol/L Chloride (96-108) mmol/L Carbon Dioxide (22-29) mmol/L Anion Gap (12-20) BUN (9-16) mg/dL Creatinine (0.5-1.4) mg/dL Estim Creat Clear Calc Estimated GFR Random Glucose (60-115) mg/dL Lactic Acid 1.1 (0.5-2.0) mmol/L Calcium (8.4-10.2) mg/dL Total Bilirubin (0.0-1.0) mg/dL Direct Bilirubin (0.0-0.5) mg/dL AST (5-37) U/L ALT (0-40) U/L Alkaline Phosphatase (39-117) U/L Total Protein (6.5-8.0) g/dL Albumin (3.5-5.0) g/dL Lipase (8-78) U/L Urine Color ORANGE A Urine Appearance CLEAR Urine pH 5.5 (5.0-8.0) Ur Specific [place] 1.025 (1.005-1.025) Urine Protein TRACE (NEG-TRACE) MG/DL Urine Glucose (UA) NEG (NEG) MG/DL Urine Ketones 15 (NEG) MG/DL Urine Blood NEG (NEG) Urine Nitrite NEG (NEG) Ur Leukocyte Esterase NEG (NEG) COVID-19 (YAMILKA) (Negative) COVID-19 Clin Com Imaging Data CT scan - abdomen: Attestation: I personally reviewed and interpreted this imaging study as follows: Radiologist's impression: FINDINGS: LUNG BASES: The visualized lung bases are unremarkable. Prominent coronary artery calcification. Small pericardial effusion partially seen. LIVER, GALLBLADDER, BILIARY TREE: The non-contrast liver is normal in size, shape, and attenuation. No focal hepatic lesion or biliary ductal dilatation is present.? The gallbladder is unremarkable with no evidence of radiopaque gallstones, gallbladder wall thickening, or obvious pericholecystic inflammatory changes. PANCREAS: Unremarkable. SPLEEN: Unremarkable. ADRENAL GLANDS: Unremarkable. KIDNEYS AND URETERS: Multiple low-attenuation probable cortical cysts seen within the kidneys bilaterally the largest in the lower pole of the right kidney measuring up to 7.3 cm in diameter. These are difficult to define further on this noncontrast study. Tiny nonobstructing intrarenal calculi in the lower pole collecting system of the left kidney. BLADDER: Decompressed GASTROINTESTINAL TRACT: Colon is mostly decompressed with scattered colonic diverticulosis. No colonic wall thickening or pericolonic inflammatory change to suggest diverticulitis. Normal-appearing appendix in the right lower quadrant. Distal small bowel is decompressed. There are prominent loops of small bowel in the midabdomen measuring up to 5 cm in maximal diameter. There is no discrete or focal transition point. Small bowel in the midline lower abdominal wall ventral hernia is decompressed the bowel just proximal distal to the hernia are also decompressed. ABDOMINAL WALL: Nonobstructed small bowel extending into a midline periumbilical ventral hernia. There is skin thickening along the lower intra-abdominal wall possibly representing overlying cellulitis. This could be clinically correlated. LYMPHOVASCULAR STRUCTURES: Mild vascular calcification within the aorta iliac system. No bulky adenopathy.. PELVIC VISCERA: Unremarkable. OSSEUS STRUCTURES: Multilevel degenerative changes in the spine. Degenerative changes in the hips. Discharge Plan Discharge Clinical Impression: Gastroenteritis Patient Disposition: Admitted As Inpatient [facility] Past Medical History Medical History (Updated 05/10/21 @ 20:12 by Burke Su MD) CAD (coronary artery disease) Heart failure with reduced ejection fraction HTN (hypertension) Ischemic cardiomyopathy Persistent atrial fibrillation Umbilical hernia Surgical History Stented coronary artery Family History Family History Father CHF (congestive heart failure) Mother No problems noted. Brother CHF (congestive heart failure) Social History Social History Patient Tobacco Use Status: Never used Tobacco Advance Directives: No Advance Directives Information Provided: No
[2021-05-10 16:36] VITALS: BP 102/72; PULSE 98; RESP 17; TEMP 36.4; O2SAT 95
[2021-05-10 17:08] LABS: Appearance Urine CLEAR; Color Urine ORANGE; Glucose Urine UA NEG (NEG); Leukocyte Esterase Urine NEG (NEG); Nitrite Urine NEG (NEG); PH 5.5 (5.0-8.0); Specific Gravity - Urine 1.025 (1.005-1.025); Urine Blood NEG (NEG); Urine Ketones 15 MG/DL (NEG); Urine Protein TRACE MG/DL (NEG-TRACE)
[2021-05-10] MEDS: ondansetron HCL 4 MG/2 ML VIAL IVPUSH (18:17)
--- NOTE | 2021-05-10 19:49 | PHA.MEDREC ---
Pharmacy Consult ? Medication Reconciliation Pharmacy has completed the medication reconciliation. Pt seemed concerned because he hasn't taken his medications today 05/10/21 and wanted to make sure he received his evening medications. Other than that no remarkable issues. Jacki Fierro, RavindraD
--- NOTE | 2021-05-10 20:11 | P.HPHOSP_ITS ---
History of Present Illness Date of Service: 05/10/21 Chief Complaint: Nausea/vomiting 76-year-old male with a past medical history of hypertension, hyperlipidemia, CAD, ischemic cardiomyopathy -HFrEF -EF 45%; persistent AFib, chronic umbilical hernia- uses abdominal guard; polyarthralgia - on prednisone until recently; presented to the hospital today with a chief complaint of nausea vomiting. Patient reports that over the past 4 days he has been having nausea vomiting and decreased oral intake. Unable to tolerate p.o.. Denies any abdominal discomfort. Mentioned that he had loose stools couple days ago. Currently denies any. Has been passing gas. Denies any chest pain palpitations lightheadedness or dizziness. Denies any urinary symptoms. Denies any fever chills cough. Patient reports that he was recently started prednisone for his polyarthralgia by his PCP. Few days ago he has taken the prednisone on empty stomach and since then he has been having this abdominal symptoms of nausea and vomiting. Denies any blood in the vomitus. Mentions that he has chronic umbilical hernia- use abdominal guard; also mentions he has chronic abdominal wall mild redness. Review of all other systems is negative except mentioned above ER course: Per ER team patient noted to have umbilical hernia, mild and redness on the skin noted - not concern for cellulitis; CT abdomen showed multiple hernia with dilated loops; no signs of obstruction but noted to have possible ileus. ER team spoke to General surgery on-call who recommended admission to the medicine service for conservative management. [facility] Medical History (Updated 05/10/21 @ 20:12 by Burke Su MD) CAD (coronary artery disease) Heart failure with reduced ejection fraction HTN (hypertension) Ischemic cardiomyopathy Persistent atrial fibrillation Umbilical hernia Family History Father CHF (congestive heart failure) Mother No problems noted. Brother CHF (congestive heart failure) Surgical History Stented coronary artery Social History Patient Tobacco Use Status: Never used Tobacco Advance Directives: No Advance Directives Information Provided: No Meds Allergies Allergy/AdvReac Type Severity Reaction Status Date / Time bee pollen [BEE Allergy Mild HIVES, SOB Unverified 01/04/20 15:33 STINGS] LOBSTER Allergy Unknown HIVES Uncoded 01/04/20 15:33 Active Medications: Current Medications Acetaminophen (Acetaminophen 325 Mg Tablet) 650 mg PO Q6H PRN PRN Reason: Pain, Mild (Pain Scale 1-3) Melatonin (Melatonin 3 Mg Tablet) 6 mg PO BEDTIME PRN PRN Reason: Insomnia Pharmacy Consult (Consult Rx Perform Med Rec) 1 each MISCELLANE ONCE PRN PRN Reason: Consult order Senna (Sennosides 8.6 Mg Tablet) 17.2 mg PO BEDTIME PRN PRN Reason: Constipation Sodium Chloride (0.9 % Sodium Chloride Flush 3 Ml Syringe) 3 ml [facility]'S Home Medications Medication Instructions Recorded Confirmed Last Taken Type allopurinol 300 mg 300 mg PO DAILY 01/14/21 05/10/21 05/09/21 History tablet atorvastatin 40 mg 40 mg PO DAILY 01/14/21 05/10/21 05/09/21 History tablet carvedilol 25 mg 25 mg PO BID 01/14/21 05/10/21 05/09/21 History tablet olmesartan 40 mg 40 mg PO DAILY 01/14/21 05/10/21 05/09/21 History tablet multivitamin 1 tab PO DAILY 05/10/21 05/10/21 05/09/21 History omeprazole 20 mg 20 mg PO DAILY 05/10/21 05/10/21 Unknown History capsule,delayed release Physical Exam Verdana 4l Vital Signs and Narrative: Verdana 4d Verdana 4d Vital Signs: Verdana 4d Verdana 4Bd Last Vital Signs Verdana 4d Boat Tender New 4d Boat Tender New 4d Temp 97.6 F 05/10/21 16:36 Boat Tender New 4d Pulse 98 05/10/21 16:36 Boat Tender NewNew 4d Resp 17 05/10/21 16:36 BP 102/72 05/10/21 16:36 Pulse Ox 95 05/10/21 16:36 BMI result Body Mass Index 40.7 Gen: Appears be in no acute distress HEENT: NCAT, Moist mucosa. Pulmonary: Vesicular breath sounds, fair air entry CVS: Normal S1-S2 Abdomen: BS+, Soft, Nontender; umbilical hernia noted; mild hyperemia of the skin-nontender. Extremities: Warm well perfused Neuro: Alert and awake. Results Labs CBC and Chem 7: 05/10/21 12:45 05/10/21 12:45 Labs: Laboratory Results - last 24 hr 05/10/21 05/10/21 05/10/21 12:45 12:45 12:45 MCV 103.7 H MCH 36.4 H MCHC 35.1 RDW 12.7 Plt Count 194 MPV 9.4 Immature Gran % (Auto) Cancelled Neut % (Auto) Cancelled Lymph % (Auto) Cancelled [place] % (Auto) Cancelled Eos % (Auto) Cancelled Baso % (Auto) Cancelled Lymph # (Auto) Cancelled [place] # (Auto) Cancelled Eos # (Auto) Cancelled Baso # (Auto) Cancelled Abs Immat Gran (auto) Cancelled Absolute Neuts (auto) Cancelled Absolute Nucleated RBC 0.000 Nucleated RBC % (auto) 0.0 Neutrophils % (Manual) 69 Band Neutrophils % 24 H Lymphocytes % (Manual) 1 L Monocytes % (Manual) 5 Metamyelocytes % 1 Abs Neuts (Manual) 9.8 H Lymphocytes # (Manual) 0.1 L Monocytes # (Manual) 0.5 Metamyelocytes # 0.1 Platelet Estimate NORMAL Plt Morphology Comment NORMAL RBC Morphology NOTED Acanthocytes (Spur) 1+ (0-2) Anion Gap 15 Estim Creat Clear Calc 85.9 Estimated GFR > 60 Random Glucose 95 Lactic Acid Calcium 9.3 Total Bilirubin 1.8 H Direct Bilirubin 1.0 H AST 18 ALT 16 Alkaline Phosphatase 52 Total Protein 5.8 L Albumin 3.5 Lipase 8 Urine Color Urine Appearance Urine pH Ur Specific [place] Urine Protein Urine Glucose (UA) Urine Ketones Urine Blood Urine Nitrite Ur Leukocyte Esterase COVID-19 (YAMILKA) Negative COVID-19 Clin Com See Note 05/10/21 05/10/21 12:46 16:48 MCV MCH MCHC RDW Plt Count MPV Immature Gran % (Auto) Neut % (Auto) Lymph % (Auto) [place] % (Auto) Eos % (Auto) Baso % (Auto) Lymph # (Auto) [place] # (Auto) Eos # (Auto) Baso # (Auto) Abs Immat Gran (auto) Absolute Neuts (auto) Absolute Nucleated RBC Nucleated RBC % (auto) Neutrophils % (Manual) Band Neutrophils % Lymphocytes % (Manual) Monocytes % (Manual) Metamyelocytes % Abs Neuts (Manual) Lymphocytes # (Manual) Monocytes # (Manual) Metamyelocytes # Platelet Estimate Plt Morphology Comment RBC Morphology Acanthocytes (Spur) Anion Gap Estim Creat Clear Calc Estimated GFR Random Glucose Lactic Acid 1.1 Calcium Total Bilirubin Direct Bilirubin AST ALT Alkaline Phosphatase Total Protein Albumin Lipase Urine Color ORANGE A Urine Appearance CLEAR Urine pH 5.5 Ur Specific [place] 1.025 Urine Protein TRACE Urine Glucose (UA) NEG Urine Ketones 15 Urine Blood NEG Urine Nitrite NEG Ur Leukocyte Esterase NEG COVID-19 (YAMILKA) COVID-19 Clin Com Imaging Radiologist's Impressions: Impressions Abdomen/Pelvis CT 05/10/21 17:15 IMPRESSION: Nonobstructed small bowel seen within a prominent periumbilical hernia. There are dilated loops of proximal small bowel measuring up to 5 cm in diameter however there is no discrete focal transition point with a gradual transition to more normal caliber bowel. Etiology of this is uncertain. Ileus would be favored. There is skin thickening along the anterior abdominal wall inferiorly possibly due to overlying cellulitis. This could be clinically correlated. Chronic appearing changes otherwise as described. Assessment and Plan (1) Gastritis: Status: Acute (2) Persistent atrial fibrillation: Status: Acute (3) Ischemic cardiomyopathy: Status: Acute (4) Ileus: Status: Acute (5) Umbilical hernia: Status: Acute 76-year-old male with a past medical history of hypertension, hyperlipidemia, CAD, ischemic cardiomyopathy -HFrEF -EF 45%; persistent AFib, chronic umbilical hernia- uses abdominal guard; polyarthralgia - on prednisone until recently; presented to the hospital today with a chief complaint of nausea vomiting. noted to have ileus. Admitted for further management. Ileus: Supportive care. NPO. gentle IV fluids. General surgery follow-up. Umbilical hernia: No signs of obstruction per CT scan. Mild abdominal wall erythema- patient reports chronic. Will monitor. Less concern for cellulitis. Hold antibiotics for now. Gastritis: Patient was on prednisone until recently. IV ppi. gastroenterology follow-up CHF: Not in fluid overload. Hold home Lasix for now. hypertension: Patient blood pressure on the soft side. Hold home carvedilol 25 mg BD. History of persistent AFib: Rate controlled. Continue home digoxin, Xarelto. Digoxin levels pending. DVT prophylaxis: Patient on Xarelto Code status: Full code Quality Stroke Does the patient have a stroke diagnosis?: No VTE Prior VTE?: No VTE Risk Level:: Medical - moderate - high VTE Device Contraindication: Treatment Not Indicated VTE Drug Contraindication: N/A - Med Ordered
[2021-05-10 20:17] VITALS: BP 100/54; PULSE 81; RESP 19; TEMP 37.2; O2SAT 96
[2021-05-10] MEDS: 0.9 % Sodium Chloride 500 ML IV (20:19)
[2021-05-10] MEDS: Atorvastatin Calcium 40 MG TABLET PO (21:28)
[2021-05-10] MEDS: allopurinoL 300 MG TABLET PO (21:28)
[2021-05-10] MEDS: Rivaroxaban 20 MG TABLET PO (21:28)
[2021-05-10] MEDS: Digoxin 0.25 MG TABLET PO (22:16)
[2021-05-11] VITALS (7 sets, daily range): BP systolic 105–160; BP diastolic 59–78; PULSE 71–90; RESP 15–20; TEMP 36.3–37.5; O2SAT 93–98
[2021-05-11] MEDS: Pantoprazole Sodium 40 MG/10 ML VIAL IVPUSH ×2 (05:21→15:41)
[2021-05-11] MEDS: allopurinoL 300 MG TABLET PO (07:52)
[2021-05-11] MEDS: Multivitamin TABLET 1 TAB PO (07:53)
[2021-05-11] MEDS: 0.9 % Sodium Chloride Flush 3 ML SYRINGE IVFLUSH ×3 (07:54→21:54)
[2021-05-11] MEDS: Digoxin 0.25 MG TABLET PO (07:58)
[2021-05-11 10:30] LABS: Hematocrit 44.9 % (42.0-52.0); Mean Corpuscular HGB Conc 33.4 g/dl (31.0-36.0); Mean Corpuscular Hemoglobin 35.5 pg (27.0-33.0); Mean Corpuscular Volume 106.4 fL (80.0-98.0); Mean Platelet Volume 9.6 fL (9.4-12.4); Platelet Count 196 X10*3/uL (160-400); Red Blood Count 4.22 X10*6/uL (4.60-5.80); Red Cell Distribution Width 12.6 % (11.0-16.0); White Blood Count 9.7 X10*3/uL (4.8-10.8)
[2021-05-11 10:44] LABS: Anion Gap 13 (12-20); Blood Urea Nitrogen 38 mg/dL (9-16); Calcium 8.9 mg/dL (8.4-10.2); Carbon Dioxide 28 mmol/L (22-29); Chloride 101 mmol/L (96-108); Creatinine Clr Calc Pharmacy 78.7; Estimated Glomerular Filt Rate > 60; Glucose Random 80 mg/dL (60-115); Potassium 4.3 mmol/L (3.3-5.1); Sodium 138 mmol/L (135-145)
[2021-05-11 10:49] LABS: Band Neutrophils Percent 27 % (3-5); Lymphocytes Absolute Manual 0.9 X10*3/uL (1.2-4.9); Lymphocytes Percent Manual 9 % (20-40); Metamyelocytes Absolute 0.1 X10*3/uL; Metamyelocytes Percent 1 %; Monocytes Absolute Manual 0.4 X10*3/uL (0.1-1.2); Monocytes Percent Manual 4 % (2-11); Neutrophils Absolute Manual 8.3 X10*3/uL (2.0-8.3); Neutrophils Percent Manual 59 % (45-73)
[2021-05-11 10:50] LABS: Digoxin 1.5 ng/mL (0.8-2.0)
--- NOTE | 2021-05-11 10:50 | P.PNIM_ITS ---
Subjective Subjective Date of Service: 05/11/21 Interval History: pt seen and examined at bedside. no overnight events. pt reports improved abd pain, he is passing gas. last BM last night. he denies any nausea or vomiting. no urinary sx. no leg swelling. Review of Systems Review of Systems: Yes all other systems are reviewed and are negative Physical Exam Vital Signs: Vital Signs: Last Vital Signs Temp 97.7 F 05/11/21 07:49 Pulse 90 05/11/21 07:49 Resp 15 05/11/21 07:49 BP 133/66 05/11/21 07:49 Pulse Ox 94 05/11/21 07:49 BMI result Body Mass Index 40.7 Const: General: cooperative and no acute distress Orientation/consciousness: patient oriented x3 Resp: Effort & Inspection: normal respiratory effort Auscultation: clear to auscultation bilaterally Cardio: Rate: regular rate Rhythm: regular rhythm GI: Other: obese abd no tenderness no guarding Palpation (GI): Soft to palpation Auscultation: normal bowel sounds Neuro: General: patient oriented x3 Extrem: General: Yes normal to inspection and Yes no pedal edema Objective Data Active Medications Acetaminophen (Acetaminophen 325 Mg Tablet) 650 mg PO Q6H PRN PRN Reason: Pain, Mild (Pain Scale 1-3) Allopurinol (Allopurinol 300 Mg Tablet) 300 mg PO DAILY [facility] Last Admin: 05/11/21 07:52 Dose: 300 mg Documented by: CAROLA Atorvastatin Calcium (Atorvastatin Calcium 40 Mg Tablet) 40 mg PO BEDTIME [facility] Last Admin: 05/10/21 21:28 Dose: 40 mg Documented by: IZABEL Digoxin (Digoxin 0.25 Mg Tablet) 0.25 mg PO DAILY [facility] Last Admin: 05/11/21 07:58 Dose: 0.25 mg Documented by: CAROLA Furosemide (Furosemide 20 Mg Tablet) 20 mg PO Q48H [facility]; Protocol Last Admin: 05/10/21 21:28 Dose: Not Given Documented by: IZABEL Non-Admin Reason: Physician Held Med Melatonin (Melatonin 3 Mg Tablet) 6 mg PO BEDTIME PRN PRN Reason: Insomnia Multivitamins/Vitamin C (Multivitamin Tablet) 1 tab PO DAILY [facility] Last Admin: 05/11/21 07:53 Dose: 1 tab Documented by: CAROLA Pantoprazole Sodium (Pantoprazole Sodium 40 Mg/10 Ml Vial) 40 mg IVPUSH BID@[id number] [facility] Last Admin: 05/11/21 05:21 Dose: 40 mg Documented by: ROLAND Pharmacy Consult (Consult Rx Perform Med Rec) 1 each MISCELLANE ONCE PRN PRN Reason: Consult order Rivaroxaban (Rivaroxaban 20 Mg Tablet) 20 mg PO DAILY [facility] Last Admin: 05/11/21 07:55 Dose: Not Given Documented by: CAROLA Non-Admin Reason: Patient Refused Senna (Sennosides 8.6 Mg Tablet) 17.2 mg PO BEDTIME PRN PRN Reason: Constipation Sodium Chloride (0.9 % Sodium Chloride Flush 3 Ml Syringe) 3 ml IVFLUSH QSHIFT [facility] Last Admin: 05/11/21 07:54 Dose: 3 ml Documented by: CAROLA Labs CBC & Chem 7: 05/11/21 09:58 05/11/21 09:58 Labs: Laboratory Results - last 24 hr 05/10/21 05/10/21 05/10/21 12:45 12:45 12:45 MCV 103.7 H MCH 36.4 H MCHC 35.1 RDW 12.7 Plt Count 194 MPV 9.4 Immature Gran % (Auto) Cancelled Neut % (Auto) Cancelled Lymph % (Auto) Cancelled [place] % (Auto) Cancelled Eos % (Auto) Cancelled Baso % (Auto) Cancelled Lymph # (Auto) Cancelled [place] # (Auto) Cancelled Eos # (Auto) Cancelled Baso # (Auto) Cancelled Abs Immat Gran (auto) Cancelled Absolute Neuts (auto) Cancelled Absolute Nucleated RBC 0.000 Nucleated RBC % (auto) 0.0 Neutrophils % (Manual) 69 Band Neutrophils % 24 H Lymphocytes % (Manual) 1 L Monocytes % (Manual) 5 Metamyelocytes % 1 Abs Neuts (Manual) 9.8 H Lymphocytes # (Manual) 0.1 L Monocytes # (Manual) 0.5 Metamyelocytes # 0.1 Platelet Estimate NORMAL Plt Morphology Comment NORMAL RBC Morphology NOTED Acanthocytes (Spur) 1+ (0-2) Anion Gap 15 Estim Creat Clear Calc 85.9 Estimated GFR > 60 Random Glucose 95 Lactic Acid Calcium 9.3 Total Bilirubin 1.8 H Direct Bilirubin 1.0 H AST 18 ALT 16 Alkaline Phosphatase 52 Total Protein 5.8 L Albumin 3.5 Lipase 8 Urine Color Urine Appearance Urine pH Ur Specific [place] Urine Protein Urine Glucose (UA) Urine Ketones Urine Blood Urine Nitrite Ur Leukocyte Esterase COVID-19 (YAMILKA) Negative COVID-19 Clin Com See Note 05/10/21 05/10/21 05/11/21 12:46 16:48 09:58 MCV 106.4 H MCH 35.5 H MCHC 33.4 RDW 12.6 Plt Count 196 MPV 9.6 Immature Gran % (Auto) Cancelled Neut % (Auto) Cancelled Lymph % (Auto) Cancelled [place] % (Auto) Cancelled Eos % (Auto) Cancelled Baso % (Auto) Cancelled Lymph # (Auto) Cancelled [place] # (Auto) Cancelled Eos # (Auto) Cancelled Baso # (Auto) Cancelled Abs Immat Gran (auto) Cancelled Absolute Neuts (auto) Cancelled Absolute Nucleated RBC 0.000 Nucleated RBC % (auto) 0.0 Neutrophils % (Manual) Band Neutrophils % Lymphocytes % (Manual) Monocytes % (Manual) Metamyelocytes % Abs Neuts (Manual) Lymphocytes # (Manual) Monocytes # (Manual) Metamyelocytes # Platelet Estimate Plt Morphology Comment RBC Morphology Acanthocytes ([place]) Anion Gap Estim Creat Clear Calc Estimated GFR Random Glucose Lactic Acid 1.1 Calcium Total Bilirubin Direct Bilirubin AST ALT Alkaline Phosphatase Total Protein Albumin Lipase Urine Color ORANGE A Urine Appearance CLEAR Urine pH 5.5 Ur Specific [place] 1.025 Urine Protein TRACE Urine Glucose (UA) NEG Urine Ketones 15 Urine Blood NEG Urine Nitrite NEG Ur Leukocyte Esterase NEG COVID-19 (YAMILKA) COVID-19 Clin Com 05/11/21 09:58 MCV MCH MCHC RDW Plt Count MPV Immature Gran % (Auto) Neut % (Auto) Lymph % (Auto) [place] % (Auto) Eos % (Auto) Baso % (Auto) Lymph # (Auto) [place] # (Auto) Eos # (Auto) Baso # (Auto) Abs Immat Gran (auto) Absolute Neuts (auto) Absolute Nucleated RBC Nucleated RBC % (auto) Neutrophils % (Manual) Band Neutrophils % Lymphocytes % (Manual) Monocytes % (Manual) Metamyelocytes % Abs Neuts (Manual) Lymphocytes # (Manual) Monocytes # (Manual) Metamyelocytes # Platelet Estimate Plt Morphology Comment RBC Morphology Acanthocytes ([place]) Anion Gap 13 Estim Creat Clear Calc 78.7 Estimated GFR > 60 Random Glucose 80 Lactic Acid Calcium 8.9 Total Bilirubin Direct Bilirubin AST ALT Alkaline Phosphatase Total Protein Albumin Lipase Urine Color Urine Appearance Urine pH Ur Specific [place] Urine Protein Urine Glucose (UA) Urine Ketones Urine Blood Urine Nitrite Ur Leukocyte Esterase COVID-19 (YAMILKA) COVID-19 Clin Com Assessment and Plan (1) Ileus: Status: Acute (2) Umbilical hernia: Status: Acute (3) Gastritis: Status: Acute Assessment and Plan: 76-year-old male with a past medical history of hypertension, hyperlipidemia, CAD, ischemic cardiomyopathy -HFrEF -EF 45%;? persistent AFib, chronic umbilical hernia- uses abdominal guard; polyarthralgia - on prednisone until recently; presented to the hospital today with a chief complaint of nausea vomiting. ? noted to have ileus.? Admitted for further management.? #Ileus - passing gas, and last BM 05/10 - General surgery consulted - will keep NPO until evelauated by surgery then if appropriate with start on clear liquids - gentle IV fluids ? # Umbilical hernia:? No signs of obstruction per CT scan. ? - Mild abdominal wall erythema- patient reports chronic.? Will monitor.? Less concern for cellulitis.? Hold antibiotics for now. # Gastritis:? - Possibly in the setting of prednisone for which he was using for polyarthralgia - gastroenterology consulted #? CHF:? - Not in fluid overload.? - resume home Lasix #?hypertension:? - BP stable - resume home meds #? History of persistent AFib:? - Rate controlled.? - Continue home digoxin, Xarelto.? - digoxin level 1.5 ? DVT prophylaxis:? Patient on Xarelto Code status: Full code Quality Stroke Does the patient have a stroke diagnosis?: No VTE Prior VTE?: No VTE Risk Level:: Medical - moderate - high VTE Device Contraindication: Treatment Not Indicated VTE Drug Contraindication: N/A - Med Ordered
[2021-05-11 10:53] LABS: Burr Cells 1+ (0-2) /OIF; Dohle Bodies PRESENT; Macrocytosis 1+ (5-14) /OIF; Platelet Estimate NORMAL (NORMAL); Platelet Morphology Comment NORMAL; RBC Morphology NOTED
--- NOTE | 2021-05-11 11:50 | P.CNGI_ITS ---
History of Present Illness Data of Consult Service Date: 05/11/21 Requesting physician: Burke Su Primary Care Provider: Brandon Disla MD HPI Reason for consult: Nausea and vomiting 76 YM seen at [facility] [place]21: HPI narrative: 76-year-old male with past medical history of atrial fibrillation, hypertension, ischemic cardiomyopathy, heart failure with reduced EF, CAD is here today for abdominal pain, cramping, nausea and vomiting that started 4 days ago.? Patient reports that 2 weeks ago he was put on prednisone for polyarthralgia.? Patient reports that 4 days ago he took his prednisone without food in the next day he started with abdominal discomfort.? Patient was feeling nauseous and was unable to eat any food, continue to take his Xarelto and prednisone on an empty stomach.? 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 Colonoscopy in 2003 showed 2 hyperplastic polyps without any dysplasia or carcinoma.? Patient has a history of cystoscopy in 2006, has a history of nonobstructing renal stones.? Patient denies any urinary symptoms at this time.? Reports that he had normal bowel movement yesterday followed by loose stool x1.? Patient denies any melena, hematochezia, unintentional weight loss or ribbon like stools.? Patient denies any dyspepsia, dysphagia or odynoph agia.? Reports to be feeling nauseous last time vomited was this morning.? Patient has not been eating any solids, he does report that he has been drinking fluids, patient reports that he vomited liquid no solid. elicited complaint: abdominal pain Patient gives a history of abdominal pain, nausea and vomiting for the past 3 days. Patient has not been able to eat for the past 3-4 days He had a solid bowel movement 3 days ago and has been having diarrhea with to loose to watery bowel movements a day without blood or mucus. Patient denies fever chills or sweating. He admits to having heartburn and was prescribed Prilosec by his PCP with improvement in his symptoms. Pt denies past abdominal surgeries and denies any history of similar episodes in the past. Patient is on Xarelto 20 mg daily for AFib Patient denies EtOH abuse. He quitted smoking in 1975. 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 patient is and has 4 children. 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 Family history - non-contributory due to advanced age IMAGING STUDIES: 05/10/[address] SCAN ( PERSONALLY REVIEWED) SHOWED: Nonobstructed small bowel seen within a prominent periumbilical hernia. There are dilated loops of proximal small bowel measuring up to 5 cm in diameter however there is no discrete focal transition point with a gradual transition to more normal caliber bowel. Etiology of this is uncertain. Ileus would be favored. There is skin thickening along the anterior abdominal wall inferiorly possibly due to overlying cellulitis. This could be clinically correlated. Chronic appearing changes otherwise as described. ENDOSCOPIC STUDIES: 2003 [address] BERGMAN: To hyperplastic polyps measuring less than 5 mm were removed. A 1 x 1.5 cm yellowish appearing submucosal lesion was seen consistent with the submucosal lipoma. Review of Systems Constitutional: Constitutional: Denies fever(s), Denies headache(s) and Denies weight loss Eyes: Eyes: Denies eye discharge and Denies irritation ENT: Reports Normal hearing present, Denies dysphagia, Denies dizziness and Denies headache(s) Cardiovascular: Cardiovascular: Denies chest pain, Denies leg edema and Denies dyspnea on exertion Respiratory: Respiratory: Denies cough, Denies dyspnea on exertion and Denies wheezing Gastrointestinal: Gastrointestinal: Reports abdominal pain, Denies change in bowel habits, Denies dysphagia, Denies heartburn, Reports diarrhea, Reports nausea and Reports vomiting Genitourinary: Genitourinary: Denies dysuria Musculoskeletal: Musculoskeletal: Denies back pain and Denies arthralgias Integumentary/Breasts: Skin/Breast: Denies pruritus, Denies rash and Denies jaundice Neurologic: Reports Normal hearing present, Denies Abnormal speech present, Denies dizziness, Denies headache(s) and Denies seizure-like activity Psychiatric: Psychiatric: Denies anxiety, Denies depression and Denies panic attacks Endocrine: Endocrine: Denies cold intolerance, Denies flushing and Denies heat intolerance Hematologic/Lymphatic: Hematologic/Lymphatic: Denies easy bleeding and Denies easy bruising Allergic/Immunologic: Allergic/Immunologic: Denies wheezing PMFSH Past Medical History Medical History CAD (coronary artery disease) COVID-19 vaccine series completed Gastritis Gastroenteritis Heart failure with reduced ejection fraction HTN (hypertension) Ischemic cardiomyopathy Persistent atrial fibrillation Umbilical hernia Ventral hernia Family History Family History Father CHF (congestive heart failure) Mother No problems noted. Brother CHF (congestive heart failure) Surgical History Surgical History Stented coronary artery Social History Social History Household Members: Spouse Housing: House Do you presently have visiting nurse or other home services: No Patient Tobacco Use Status: Former Tobacco user Quit Date: 1975 Tobacco use type: Cigarette Use of substances other than those prescribed or required for medical reasons: No Have you been hit, kicked, punched, or otherwise hurt by someone within the past year? If so, by whom?: No Advance Directives: Yes Advance Directives Information Provided: Yes Advance Directives on File: Yes Advance Directives Date on File: 12/21/13 Nutrition Risks: Surgical patient >75years service: No Current occupational status: retired Meds Allergies Allergy/AdvReac Type Severity Reaction Status Date / Time bee pollen [BEE STINGS] Allergy Intermediate HIVES, SOB Verified 05/28/21 11:17 LOBSTER Allergy Intermediate HIVES Uncoded 05/26/21 11:50 Active Medications: Current Medications Acetaminophen (Acetaminophen 325 Mg Tablet) 650 mg PO Q6H PRN PRN Reason: Pain, Mild (Pain Scale 1-3) Allopurinol (Allopurinol 300 Mg Tablet) 300 mg PO DAILY TR Last Admin: 05/11/21 07:52 Dose: 300 mg Documented by: Atorvastatin Calcium (Atorvastatin Calcium 40 Mg Tablet) 40 mg PO BEDTIME TR Last Admin: 05/10/21 21:28 Dose: 40 mg Documented by: Carvedilol (Carvedilol 25 Mg Tablet) 25 mg PO BID TR; Protocol Digoxin (Digoxin 0.25 Mg Tablet) 0.25 mg PO DAILY TR Last Admin: 05/11/21 07:58 Dose: 0.25 mg Documented by: Furosemide (Furosemide 20 Mg Tablet) 20 mg PO Q48H TR; Protocol Last Admin: 05/10/21 21:28 Dose: Not Given Documented by: Melatonin (Melatonin 3 Mg Tablet) 6 mg PO BEDTIME PRN PRN Reason: Insomnia Multivitamins/Vitamin C (Multivitamin Tablet) 1 tab PO DAILY [facility] Last Admin: 05/11/21 07:53 Dose: 1 tab Documented by: Pantoprazole Sodium (Pantoprazole Sodium 40 Mg/10 Ml Vial) 40 mg IVPUSH BID@0630,1630 [facility] Last Admin: 05/11/21 05:21 Dose: 40 mg Documented by: Pharmacy Consult (Consult Rx Perform Med Rec) 1 each MISCELLANE ONCE PRN PRN Reason: Consult order Rivaroxaban (Rivaroxaban 20 Mg Tablet) 20 mg PO DAILY [facility] Last Admin: 05/11/21 07:55 Dose: Not Given Documented by: Senna (Sennosides 8.6 Mg Tablet) 17.2 mg PO BEDTIME PRN PRN Reason: Constipation Sodium Chloride (0.9 % Sodium Chloride Flush 3 Ml Syringe) 3 ml IVFLUSH QSHIFT [facility] Last Admin: 05/11/21 07:54 Dose: 3 ml Documented by: Home Medications Medication Instructions Recorded Confirmed Last Taken Type allopurinol 300 mg tablet 300 mg PO DAILY 01/14/21 05/28/21 05/09/21 History atorvastatin 40 mg tablet 40 mg PO DAILY 01/14/21 05/28/21 05/09/21 History carvedilol 25 mg tablet 25 mg PO BID 01/14/21 05/28/21 05/30/21 History olmesartan 40 mg tablet 40 mg PO DAILY 01/14/21 05/28/21 05/09/21 History multivitamin 1 tab PO DAILY 05/10/21 05/28/21 05/09/21 History omeprazole 20 mg capsule,delayed 20 mg PO DAILY 05/10/21 05/28/21 Unknown History release Physical Exam Vital Signs: Vital Signs: Last Vital Signs Temp 97.7 F 05/11/21 07:49 Pulse 90 05/11/21 07:49 Resp 15 05/11/21 07:49 BP 133/66 05/11/21 07:49 Pulse Ox 94 05/11/21 07:49 BMI result Body Mass Index 40.7 Const: General: no acute distress and ill appearing Nutritional Appearance: obese Orientation/consciousness: patient oriented x3 Limitations: no limitations HENMT: Head: Yes normal to inspection Ears: hearing grossly normal bilaterally Mouth: Normal oral and palatal mucosa present Eyes: Sclerae: sclerae normal Pupils: Equal, round and reactive pupils pre sent Neck: Neck: Yes normal visual inspection Chest: Chest palpation & inspection: normal inspection of the chest Resp: Effort & Inspection: normal respiratory effort Auscultation: clear to auscultation bilaterally Cardio: Palpation: normal PMI Rhythm: abnormal rhythm ( Irregularly irregular) Heart sounds: S1 normal heart sound present, S2 normal heart sound present and no murmurs GI: Inspection: Yes distended, Yes obesity and Yes visible herniation (umblical hernia) Palpation (GI): Soft to palpation, nontender and No hepatosplenomegaly present Auscultation: normal bowel sounds Rectal Exam - Male: Yes deferred Skin: General skin exam: no rashes or lesions noted Neuro: General: patient oriented x3, gait normal and moves all extremities Cranial nerves: Yes Equal, round and reactive pupils present and Yes Normal hearing present Speech: No Abnormal speech present Psych: Appearance: grossly normal Mental Status: mental status grossly normal Results Labs CBC & Chem 7: 05/13/21 05:40 05/13/21 05:40 Labs: Short CBC 05/10/21 05/11/21 Range/Units 12:45 09:58 WBC 10.5 9.7 (4.8-10.8) X10*3/uL Hgb 15.6 15.0 (14.0-18.0) g/dl Hct 44.5 44.9 (42.0-52.0) % Plt Count 194 196 (160-400) X10*3/uL BMP 05/10/21 05/11/21 12:45 09:58 Sodium 134 L 138 Potassium 3.8 4.3 Chloride 99 101 Carbon Dioxide 24 28 BUN 35 H D 38 H Creatinine 0.87 0.95 Calcium 9.3 8.9 Liver Function 05/10/21 Range/Units 12:45 Total Bilirubin 1.8 H (0.0-1.0) mg/dL Direct Bilirubin 1.0 H (0.0-0.5) mg/dL AST 18 (5-37) U/L ALT 16 (0-40) U/L Alkaline Phosphatase 52 (39-117) U/L Albumin 3.5 (3.5-5.0) g/dL Urine 05/10/21 Range/Units 16:48 Urine Color ORANGE A Urine Appearance CLEAR Urine pH 5.5 (5.0-8.0) Ur Specific Dolliver 1.025 (1.005-1.025) Urine Protein TRACE (NEG-TRACE) MG/DL Urine Glucose (UA) NEG (NEG) MG/DL Assessment and Plan (1) Umbilical hernia: (2) Ileus: Status: Resolved (3) Gastroenteritis: Plan 76-year-old male with atrial fibrillation, hypertension, ischemic cardiomyopathy, heart failure with reduced EF, CAD admitted with abdominal pain, cramping, nausea and vomiting. Lactic acid was normal. Abd CT scan showed nonobstructed small bowel seen within a prominent periumbilical hernia. There are dilated loops of proximal small bowel measuring up to 5 cm in diameter without discrete focal transition point with a gradual transition to more normal caliber bowel. Etiology of this is uncertain. Ileus would be favored. His symptoms are likely due to gastroenteritis. Small bowel ischemia is less likely given normal lactic acid. Pt notes improvement in his symptoms today. RECOMMENDATIONS: 1. Repeat KUB today. 2. Once ileus improves, pt can be started on a clear liquid diet. Since last colonoscopy was 18 yrs ago, he will need to schedule a colonoscopy as an outpatient for colon cancer screening once ileus has resolved. Procedures Date of Service Date of Service: 05/11/21
[2021-05-11] MEDS: carvediloL 25 MG TABLET PO ×2 (12:16→21:54)
[2021-05-11] MEDS: Atorvastatin Calcium 40 MG TABLET PO (21:54)
[2021-05-12 04:00] VITALS: BP 128/50; PULSE 78; RESP 17; TEMP 36.2; O2SAT 97
[2021-05-12] MEDS: Pantoprazole Sodium 40 MG/10 ML VIAL IVPUSH ×2 (06:28→16:19)
[2021-05-12 08:14] VITALS: BP 122/57; PULSE 76; RESP 18; TEMP 36; O2SAT 95
[2021-05-12] MEDS: allopurinoL 300 MG TABLET PO (08:18)
[2021-05-12] MEDS: Rivaroxaban 20 MG TABLET PO (08:18)
[2021-05-12] MEDS: carvediloL 25 MG TABLET PO ×2 (08:18→20:02)
[2021-05-12] MEDS: Digoxin 0.25 MG TABLET PO (08:19)
[2021-05-12] MEDS: 0.9 % Sodium Chloride Flush 3 ML SYRINGE IVFLUSH (08:19)
[2021-05-12] MEDS: Multivitamin TABLET 1 TAB PO (08:19)
[2021-05-12 10:07] LABS: Folate > 20.0 ng/mL (> or = 4.0); Vitamin B12 1628 pg/mL (200-900)
--- NOTE | 2021-05-12 11:04 | HO.PM.IMPN ---
Subjective Subjective Date of Service: 05/12/21 Review of Systems Follow up ileus, SBO No abd pain at this time passing gas, small BM Physical Exam Vital Signs: Vital Signs: Last Vital Signs Temp 96.8 F 05/12/21 08:14 Pulse 76 05/12/21 08:14 Resp 18 05/12/21 08:14 BP 122/57 L 05/12/21 08:14 Pulse Ox 95 05/12/21 08:14 BMI result Body Mass Index 40.7 Appearing in no acute distress lung sounds are clear to auscultation heart regular rate rhythm, clear S1, S2 positive bowel sounds, abdomen is soft, nontender neuro patient is alert x3, no focal deficits Objective Data Active Medications Acetaminophen (Acetaminophen 325 Mg Tablet) 650 mg PO Q6H PRN PRN Reason: Pain, Mild (Pain Scale 1-3) Allopurinol (Allopurinol 300 Mg Tablet) 300 mg PO DAILY [facility] Last Admin: 05/12/21 08:18 Dose: 300 mg Documented by: NURA Atorvastatin Calcium (Atorvastatin Calcium 40 Mg Tablet) 40 mg PO BEDTIME [facility] Last Admin: 05/11/21 21:54 Dose: 40 mg Documented by: ANGEL Carvedilol (Carvedilol 25 Mg Tablet) 25 mg PO BID [facility]; Protocol Last Admin: 05/12/21 08:18 Dose: 25 mg Documented by: NURA Digoxin (Digoxin 0.25 Mg Tablet) 0.25 mg PO DAILY [facility] Last Admin: 05/12/21 08:19 Dose: 0.25 mg Documented by: NURA Furosemide (Furosemide 20 Mg Tablet) 20 mg PO Q48H [facility]; Protocol Last Admin: 05/10/21 21:28 Dose: Not Given Documented by: IZABEL Non-Admin Reason: Physician Held Med Melatonin (Melatonin 3 Mg Tablet) 6 mg PO BEDTIME PRN PRN Reason: Insomnia Multivitamins/Vitamin C (Multivitamin Tablet) 1 tab PO DAILY [facility] Last Admin: 05/12/21 08:19 Dose: 1 tab Documented by: NURA Pantoprazole Sodium (Pantoprazole Sodium 40 Mg/10 Ml Vial) 40 mg IVPUSH BID@0630,1630 [facility] Last Admin: 05/12/21 06:28 Dose: 40 mg Documented by: HO.RAINAS Pharmacy Consult (Consult Rx Perform Med Rec) 1 each MISCELLANE ONCE PRN PRN Reason: Consult order Rivaroxaban (Rivaroxaban 20 Mg Tablet) 20 mg PO DAILY [facility] Last Admin: 05/12/21 08:18 Dose: 20 mg Documented by: NURA Senna (Sennosides 8.6 Mg Tablet) 17.2 mg PO BEDTIME PRN PRN Reason: Constipation Sodium Chloride (0.9 % Sodium Chloride Flush 3 Ml Syringe) 3 ml IVFLUSH QSHIFT [facility] Last Admin: 05/12/21 08:19 Dose: 3 ml Documented by: NURA Labs CBC & Chem 7: 05/11/21 09:58 05/11/21 09:58 Labs: Laboratory Results - last 24 hr 05/12/21 05:36 Vitamin B12 1628 H Folate > 20.0 Assessment and Plan (1) Ileus: Status: Acute Assessment and Plan: 76-year-old male with a past medical history of hypertension, hyperlipidemia, CAD, ischemic cardiomyopathy -HFrEF -EF 45%;? persistent AFib, chronic umbilical hernia- uses abdominal guard; polyarthralgia - on prednisone until recently; presented to the hospital today with a chief complaint of nausea vomiting. ? noted to have ileus.? Admitted for further management.? Ileus passing gas, and last BM 05/10 General surgery consulted will keep NPO until evaluated by surgery then if appropriate with start on clear liquids gentle IV fluids ? Umbilical hernia. No signs of obstruction per CT scan. Mild abdominal wall erythema- patient reports chronic.? Will monitor.? Less concern for cellulitis.? Hold antibiotics for now. Gastritis Possibly in the setting of prednisone for which he was using for polyarthralgia gastroenterology consulted CHF Not in fluid overload.? resume home Lasix hypertension? BP stable resume home meds History of persistent AFib Rate controlled.? Continue home digoxin, Xarelto.? digoxin level 1.5 DVT prophylaxis:? Patient on Xarelto Code status: Full code Attending Dr. Hopkins Quality Stroke Does the patient have a stroke diagnosis?: No VTE Prior VTE?: No VTE Risk Level:: Medical - moderate - high VTE Device Contraindication: Treatment Not Indicated VTE Drug Contraindication: N/A - Med Ordered
--- NOTE | 2021-05-12 11:47 | P.CONGS_ITS ---
History of Present Illness Consult details Consult date: 05/12/21 Requesting physician: Nirmala Hastings Narrative: 76 year old male patient presenting with complaints of abdominal pain, constipation followed by diarrhea, nausea and vomiting of 4 days duration. The pain is described as episodic and sharp, initially 10/10, later decreased to 3/10. He denies a previous history of similar symptoms. He has a known umbilical hernia and wears an abdominal binder. He is due to see Dr. Johnson in the office next week to discuss repair. 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 He denies a previous history of abdominal surgery. His last colonoscopy was in 2003 (Dr. Alvarado). He denies any rectal bleeding. He was admitted to the hospitalist service and placed on bowel rest. A CT of the abdomen and pelvis on admission reveals: Nonobstructed small bowel seen within a prominent periumbilical hernia. There are dilated loops of proximal small bowel measuring up to 5 cm in diameter however there is no discrete focal transition point with a gradual transition to more normal caliber bowel. Etiology of this is uncertain. Ileus would be favored. ? There is skin thickening along the anterior abdominal wall inferiorly possibly due to overlying cellulitis. This could be clinically correlated. ? Chronic appearing changes otherwise as described. Review of Systems Review of Systems: Yes all other systems are reviewed and are negative Constitutional: Constitutional: Denies chills, Denies fever(s), Denies headache(s) and Denies poor appetite ENT: Denies dizziness and Denies headache(s) Cardiovascular: Cardiovascular: Denies chest pain, Denies rapid heart rate, Denies palpitations and Denies slow heart rate Respiratory: Respiratory: Denies chest congestion, Denies cough, Denies pain on inspiration and Denies wheezing Gastrointestinal: Gastrointestinal: Reports abdominal pain, Reports bloating, Denies change in stool character, Reports constipation, Reports diarrhea, Reports nausea, Reports vomiting and Denies hematemesis Musculoskeletal: Musculoskeletal: Denies back pain, Denies arthralgias, Denies joint swelling and Denies numbness Integumentary/Breasts: Skin/Breast: Denies change in pigmentation, Denies erythema and Denies rash Neurologic: Denies dizziness, Denies headache(s) and Denies numbness Psychiatric: Psychiatric: Denies anxiety and Denies depression Endocrine: Endocrine: Denies palpitations Hematologic/Lymphatic: Hematologic/Lymphatic: Denies easy bleeding, Denies easy bruising and Denies lymphadenopathy Allergic/Immunologic: Allergic/Immunologic: Denies wheezing PMFSH Past Medical History Medical History (Updated 05/10/21 @ 20:12 by Burke Su MD) CAD (coronary artery disease) Heart failure with reduced ejection fraction HTN (hypertension) Ischemic cardiomyopathy Persistent atrial fibrillation Umbilical hernia Family History Family History Father CHF (congestive heart failure) Mother No problems noted. Brother CHF (congestive heart failure) Surgical History Surgical History Stented coronary artery Social History Social History Household Members: Spouse Housing: House Do you presently have visiting nurse or other home services: No Patient Tobacco Use Status: Never used Tobacco Use of substances other than those prescribed or required for medical reasons: No Currently Displaying Signs/Symptoms of Drug Intoxication Withdrawal: No Have you been hit, kicked, punched, or otherwise hurt by someone within the past year? If so, by whom?: No Do you feel safe in your current relationship?: No Is there a partner from a previous relationship who is making you feel unsafe now?: No Are you made to feel afraid or neglected: No Advance Directives: No Advance Directives Information Provided: No Do you have thoughts of harming others: None Do you have a plan to hurt others: No Plan Recently lost weight without trying: Unsure Meds Allergies Allergy/AdvReac Type Severity Reaction Status Date / Time bee pollen [BEE STINGS] Allergy Mild HIVES, SOB Verified 05/12/21 08:16 LOBSTER Allergy Unknown HIVES Uncoded 01/04/20 15:33 Active Medications: Current Medications Acetaminophen (Acetaminophen 325 Mg Tablet) 650 mg PO Q6H PRN PRN Reason: Pain, Mild (Pain Scale 1-3) Allopurinol (Allopurinol 300 Mg Tablet) 300 mg PO DAILY [facility] Last Admin: 05/12/21 08:18 Dose: 300 mg Documented by: Atorvastatin Calcium (Atorvastatin Calcium 40 Mg Tablet) 40 mg PO BEDTIME [facility] Last Admin: 05/11/21 21:54 Dose: 40 mg Documented by: Carvedilol (Carvedilol 25 Mg Tablet) 25 mg PO BID [facility]; Protocol Last Admin: 05/12/21 08:18 Dose: 25 mg Documented by: Digoxin (Digoxin 0.25 Mg Tablet) 0.25 mg PO DAILY [facility] Last Admin: 05/12/21 08:19 Dose: 0.25 mg Documented by: Furosemide (Furosemide 20 Mg Tablet) 20 mg PO Q48H [facility]; Protocol Last Admin: 05/10/21 21:28 Dose: Not Given Documented by: Sodium Chloride (Ns) 1,000 mls @ 100 mls/hr IVCONT .Q10H [facility] Melatonin (Melatonin 3 Mg Tablet) 6 mg PO BEDTIME PRN PRN Reason: Insomnia Multivitamins/Vitamin C (Multivitamin Tablet) 1 tab PO DAILY [facility] Last Admin: 05/12/21 08:19 Dose: 1 tab Documented by: Pantoprazole Sodium (Pantoprazole Sodium 40 Mg/10 Ml Vial) 40 mg IVPUSH BID@0630,1630 [facility] Last Admin: 05/12/21 06:28 Dose: 40 mg Documented by: Pharmacy Consult (Consult Rx Perform Med Rec) 1 each MISCELLANE ONCE PRN PRN Reason: Consult order Rivaroxaban (Rivaroxaban 20 Mg Tablet) 20 mg PO DAILY [facility] Last Admin: 05/12/21 08:18 Dose: 20 mg Documented by: Senna (Sennosides 8.6 Mg Tablet) 17.2 mg PO BEDTIME PRN PRN Reason: Constipation Sodium Chloride (0.9 % Sodium Chloride Flush 3 Ml Syringe) 3 ml IVFLUSH QSHIFT [facility] Last Admin: 05/12/21 08:19 Dose: 3 ml Documented by: Home Medications Medication Instructions Recorded Confirmed Last Taken Type allopurinol 300 mg tablet 300 mg PO DAILY 01/14/21 05/10/21 05/09/21 History atorvastatin 40 mg tablet 40 mg PO DAILY 01/14/21 05/10/21 05/09/21 History carvedilol 25 mg tablet 25 mg PO BID 01/14/21 05/10/21 05/09/21 History olmesartan 40 mg tablet 40 mg PO DAILY 01/14/21 05/10/21 05/09/21 History multivitamin 1 tab PO DAILY 05/10/21 05/10/21 05/09/21 History omeprazole 20 mg capsule,delayed 20 mg PO DAILY 05/10/21 05/10/21 Unknown History release Physical Exam Vital Signs: Vital Signs: Last Vital Signs Temp 96.8 F 05/12/21 08:14 Pulse 76 05/12/21 08:14 Resp 18 05/12/21 08:14 BP 122/57 L 05/12/21 08:14 Pulse Ox 95 05/12/21 08:14 BMI result Body Mass Index 40.7 Const: General: cooperative, comfortable and well developed Nutritional Appearance: well nourished Orientation/consciousness: patient oriented x3 Eyes: Sclerae: sclerae normal EOM: EOMs intact bilaterally Neck: Neck: Yes normal visual inspection Resp: Effort & Inspection: normal respiratory effort, no cough, no respiratory distress and no stridor Cardio: Jugular venous distension: no JVD GI: Inspection: Yes normal to inspection Palpation (GI): Soft to palpation, nontender, no guarding, not rigid and Hernia present umbilical (soft and reduced, nontender) Percussion: Yes normal to percussion Auscultation: normal bowel sounds Rectal Exam - Male: Yes deferred Skin: General skin exam: dry skin Rashes: no rashes Neuro: General: patient oriented x3 and no focal motor deficits Extrem: General: Yes full ROM and Yes no clubbing, cyanosis or edema Psych: Appearance: grossly normal Results Labs Result diagrams: 05/11/21 09:58 05/11/21 09:58 Labs: Abnormal lab results 05/12/21 Range/Units 05:36 Vitamin B12 1628 H (200-900) pg/mL Urine 05/10/21 Range/Units 16:48 Urine Color ORANGE A Urine Appearance CLEAR Urine pH 5.5 (5.0-8.0) Ur Specific [place] 1.025 (1.005-1.025) Urine Protein TRACE (NEG-TRACE) MG/DL Urine Glucose (UA) NEG (NEG) MG/DL All other labs normal. Assessment and Plan (1) Umbilical hernia: Status: Acute (2) Ileus: Status: Acute 76 year old male patient with umbilical hernia, and dilated proximal small bowel but no particular transition point. Findings are suggestive of ileus which appears to be improving. Recommend advancing diet as tolerated. He will be following up as an outpatient for a colonoscopy and evaluation of an umbilical hernia repair. No surgical interventions is required at this time. Procedures Date of Service Date of Service: 05/12/21
[2021-05-12 12:00] VITALS: BP 136/62; PULSE 72; RESP 18; TEMP 36.4; O2SAT 97
[2021-05-12] MEDS: 0.9 % Sodium Chloride 1,000 ML 100 ML IVCONT ×2 (12:13→22:43)
[2021-05-12 16:00] VITALS: BP 141/72; PULSE 79; RESP 17; TEMP 37.2; O2SAT 95
[2021-05-12 19:26] VITALS: BP 136/66; PULSE 71; RESP 18; TEMP 36.4; O2SAT 96
[2021-05-12] MEDS: Furosemide 20 MG TABLET PO (19:58)
[2021-05-12] MEDS: Atorvastatin Calcium 40 MG TABLET PO (20:00)
[2021-05-13] VITALS: BP 108/55; PULSE 68; RESP 16; TEMP 36.8; O2SAT 98
[2021-05-13 02:45] VITALS: BP 150/72; PULSE 80; RESP 16; TEMP 36.4; O2SAT 98
[2021-05-13] MEDS: 0.9 % Sodium Chloride Flush 3 ML SYRINGE IVFLUSH (06:02)
[2021-05-13] MEDS: Pantoprazole Sodium 40 MG/10 ML VIAL IVPUSH (06:03)
[2021-05-13 06:17] LABS: Hematocrit 42.3 % (42.0-52.0); Mean Corpuscular HGB Conc 33.1 g/dl (31.0-36.0); Mean Corpuscular Hemoglobin 35.4 pg (27.0-33.0); Mean Corpuscular Volume 106.8 fL (80.0-98.0); Mean Platelet Volume 9.7 fL (9.4-12.4); Platelet Count 186 X10*3/uL (160-400); Red Blood Count 3.96 X10*6/uL (4.60-5.80); Red Cell Distribution Width 12.3 % (11.0-16.0); White Blood Count 9.1 X10*3/uL (4.8-10.8)
[2021-05-13 06:37] LABS: Anion Gap 11 (12-20); Blood Urea Nitrogen 29 mg/dL (9-16); Calcium 8.3 mg/dL (8.4-10.2); Carbon Dioxide 28 mmol/L (22-29); Chloride 104 mmol/L (96-108); Creatinine Clr Calc Pharmacy 80.4; Estimated Glomerular Filt Rate > 60; Glucose Random 107 mg/dL (60-115); Sodium 139 mmol/L (135-145)
[2021-05-13 07:36] VITALS: BP 134/64; PULSE 75; RESP 18; TEMP 36.4; O2SAT 97
[2021-05-13] MEDS: Rivaroxaban 20 MG TABLET PO (08:15)
[2021-05-13] MEDS: Digoxin 0.25 MG TABLET PO (08:15)
[2021-05-13] MEDS: carvediloL 25 MG TABLET PO (08:15)
[2021-05-13] MEDS: Multivitamin TABLET 1 TAB PO (08:15)
[2021-05-13] MEDS: allopurinoL 300 MG TABLET PO (08:15)
--- NOTE | 2021-05-13 09:15 | MHC.CM.PN ---
Addendum entered by Dian Brown 05/13/21 09:52: COVID VACCINATED X3 MODERNA SERIES AND IS UNABLE TO RECALL THE DATES COPY OF VACCINATION CARD REQUESTED Original Note: PATIENT IS IN FROM HOME HE USES NO DME OR [facility] SERVICES. NO [facility] SERVICES IN HOME. HE IS FULLY INDEPENDENT IF PATIENT IS ABLE TO TOLERATE DIET ADVANCEMENT, HE WILL RETURN HOME TODAY WITH NO SERVICES. HCP AGENTS ARE 2 DAUGHTERS 9JEBRIANAIFER AND SIRI) COPY REQUESTED. IMM 05/13 IN CHART.
[2021-05-13 11:32] VITALS: BP 106/62; PULSE 74; RESP 18; TEMP 36.6; O2SAT 96
--- NOTE | 2021-05-13 12:13 | P.DS_ITS ---
DS: Providers Provider Date of Service: 05/13/21 Date of admission: 05/10/21 20:03 Primary care physician: Brandon Disla MD Consults: 05/10/21 20:02 Consult to Gastroenterology Routine Consulting Provider: Cuate Fiore Reason for consultation: Nausea/vomiting 05/10/21 20:07 Consult to General Surgery Routine Consulting Provider: Jacqueline Love Reason for consultation: ileus; umbellical hernia Attending physician on discharge: Arnav Hopkins Discharging clinician: Mary Calvert DS: Diagnosis Discharge Diagnosis (1) Ileus: Status: Acute (2) Umbilical hernia: Status: Acute DS: Summary Hospital Course Hospital Course: HP as per admitting provider 76-year-old male with a past medical history of hypertension, hyperlipidemia, CAD, ischemic cardiomyopathy -HFrEF -EF 45%;? persistent AFib, chronic umbilical hernia- uses abdominal guard; polyarthralgia - on prednisone until recently; presented to the hospital today with a chief complaint of nausea vomiting.?Patient reports that over the past 4 days he has been having nausea vomiting and decreased oral intake.? Unable to tolerate p .o..? Denies any abdominal discomfort.? Mentioned that he had loose stools couple days ago.? Currently denies any.? Has been passing gas.?Denies any chest pain palpitations lightheadedness or dizziness.? Denies any urinary symptoms.? Denies any fever chills cough.?Patient reports that he was recently started prednisone for his polyarthralgia by his PCP.? Few days ago he has taken the prednisone on empty stomach and since then he has been having this abdominal symptoms of nausea and vomiting.? Denies any blood in the vomitus.?Mentions that he has? chronic umbilical hernia- use abdominal guard; also mentions? he has chronic abdominal wall mild redness. Review of all other systems is negative except mentioned above ER course:Per ER team patient noted to have? umbilical hernia, mild and redness on the skin noted - not concern for cellulitis; CT abdomen showed multiple hernia with dilated loops; no signs of obstruction but noted to have possible ileus.? ER team spoke to General surgery on-call who recommended admission to the medicine service for conservative management . Ileus. Resolved. Passing gas and having bowel movements. Denied abdominal pain. General surgery consulted no recommendation for surgical intervention. Also seen by gastroenterology with recommendation for outpatient colonoscopy once ileus fully resolved. Advanced diet from clears to regular with good result. ? Umbilical hernia. No signs of obstruction per CT scan. Mild abdominal wall erythema- patient reports chronic.?Follow with general surgery for further treatment for hernia. Time Spent with Patient Time attestation: Total time spent providing and/or coordinating discharge services: Discharge coordination time: Greater than 30 minutes Quality: Stroke Does the patient have a stroke diagnosis?: No Physical Exam Verdana 4l Vital Signs: Verdana 4d Verdana 4d Vital Signs: Verdana 4d Verdana 4Bd Last Vital Signs Verdana 4d [employer] Consultant New 4d [employer] And Sales Consultant New 4d Temp 97.8 F 05/13/21 11:32 Design And Sales Consultant New 4d Pulse 74 05/13/21 11:32 Design And Sales Consultant New 4d Resp 18 05/13/21 11:32 BP 106/62 05/13/21 11:32 Pulse Ox 96 05/13/21 11:32 BMI result Body Mass Index 40.7 Appearing in no acute distress head is normocephalic atraumatic eyes pupils are PERRLA sclera is anicteric mouth throat mucous membranes are intact and moist neck is supple no lymphadenopathy, no JVD noted lung sounds are clear to auscultation heart regular rate rhythm, clear S1, S2 positive bowel sounds, abdomen is soft, nontender neuro patient is alert x3, no focal deficits DS: Data Data Completed and Pending Labs on day of discharge: Laboratory Results - last 24 hr 05/13/21 05/13/21 05:40 05:40 WBC 9.1 RBC 3.96 L Hgb 14.0 Hct 42.3 MCV 106.8 H MCH 35.4 H MCHC 33.1 RDW 12.3 Plt Count 186 MPV 9.7 Absolute Nucleated RBC 0.000 Nucleated RBC % (auto) 0.0 Sodium 139 Potassium 4.0 Chloride 104 Carbon Dioxide 28 Anion Gap 11 L BUN 29 H Creatinine 0.93 Estim Creat Clear Calc 80.4 Estimated GFR > 60 Random Glucose 107 Calcium 8.3 L D Discharge Plan Discharge Anticipated Discharge Date/Time: 05/13/21 12:12 Patient Disposition: Home, Self-Care Discharge Diagnosis: Ileus Umbilical hernia Referrals: Terrence Alvarado [Physician] - None (Screening colonoscopy ) Brandon Disla MD [Primary Care Provider] - 1 Week Cuate Fiore MD [Physician] - None (May consider following up with Dr. Fiore if your unable to make an appointment with Dr. Alvarado) Gomez Meza MD [Physician] - None (Hernia management ) Discharge Medications: Continued furosemide 20 mg tablet 20 mg PO Q OTHER DAY 90 Days Qty: 45 3RF digoxin [Digox] 250 mcg (0.25 mg) tablet 250 mcg PO DAILY Qty: 30 1RF multivitamin Tablet 1 tab PO DAILY 0RF omeprazole 20 mg Capsule,Delayed Release(Dr/Ec) 20 mg PO DAILY 0RF carvedilol 25 mg tablet 25 mg PO BID 0RF allopurinol 300 mg tablet 300 mg PO DAILY 0RF olmesartan 40 mg tablet 40 mg PO DAILY 0RF atorvastatin 40 mg tablet 40 mg PO DAILY 0RF Xarelto 20 mg tablet 20 mg PO DAILY Qty: 30 5RF Rx Instructions: must administer with evening meal No Action bisacodyl [Dulcolax (bisacodyl)] 5 mg tablet,delayed release (DR/EC) 10 mg PO ONCE 1 Days Qty: 2 0RF Rx Instructions: Take 2 tablets at 12:00pm the day before your procedure, bowel prep polyethylene glycol 3350 [Miralax] 17 gram/dose powder 238 g PO ONCE 1 Days Qty: 238 0RF Rx Instructions: Take as directed by mouth, bowel prep Discharge Orders: Discharge Order (Routine); Ordered 05/13/21 Ordered By: Mary Calvert Diet: advance to usual diet Activity on Discharge: As tolerated Stand Alone Forms: Patient Portal Discharge page Care Plan Goals: Complete resolution of ileus Health Concerns: Ileus Umbilical hernia Plan of Treatment: Follow up with general surgeon as needed for treatment of hernia Schedule outpatient non emergent screening colonoscopy, see referrals above If pain returns or symptoms worsen return to the emergency department for evaluation Assessment: See discharge summary Discharge Date/Time: 05/13/21 18:41
--- NOTE | 2021-05-13 14:16 | HO.PM.IMPN ---
Subjective Subjective Date of Service: 05/13/21 Review of Systems Follow up ileus, SBO No abd pain at this time passing gas, small BM eating solid foods Physical Exam Vital Signs: Vital Signs: Last Vital Signs Temp 97.8 F 05/13/21 11:32 Pulse 74 05/13/21 11:32 Resp 18 05/13/21 11:32 BP 106/62 05/13/21 11:32 Pulse Ox 96 05/13/21 11:32 BMI result Body Mass Index 40.7 Appearing in no acute distress lung sounds are clear to auscultation heart regular rate rhythm, clear S1, S2 positive bowel sounds, abdomen is soft, nontender neuro patient is alert x3, no focal deficits Objective Data Active Medications Acetaminophen (Acetaminophen 325 Mg Tablet) 650 mg PO Q6H PRN PRN Reason: Pain, Mild (Pain Scale 1-3) Allopurinol (Allopurinol 300 Mg Tablet) 300 mg PO DAILY [facility] Last Admin: 05/13/21 08:15 Dose: 300 mg Documented by: JAMESEMA Atorvastatin Calcium (Atorvastatin Calcium 40 Mg Tablet) 40 mg PO BEDTIME TR Last Admin: 05/12/21 20:00 Dose: 40 mg Documented by: ANGEL Carvedilol (Carvedilol 25 Mg Tablet) 25 mg PO BID TR; Protocol Last Admin: 05/13/21 08:15 Dose: 25 mg Documented by: WILLY Digoxin (Digoxin 0.25 Mg Tablet) 0.25 mg PO DAILY TR Last Admin: 05/13/21 08:15 Dose: 0.25 mg Documented by: WILLY Furosemide (Furosemide 20 Mg Tablet) 20 mg PO Q48H TR; Protocol Last Admin: 05/12/21 19:58 Dose: 20 mg Documented by: ANGEL Sodium Chloride (Ns) 1,000 mls @ 100 mls/hr IVCONT .Q10H TR Last Infusion: 05/13/21 08:30 Dose: 0 mls/hr Documented by: JAMESEMA Melatonin (Melatonin 3 Mg Tablet) 6 mg PO BEDTIME PRN PRN Reason: Insomnia Multivitamins/Vitamin C (Multivitamin Tablet) 1 tab PO DAILY [facility] Last Admin: 05/13/21 08:15 Dose: 1 tab Documented by: JAMESEMA Pantoprazole Sodium (Pantoprazole Sodium 40 Mg/10 Ml Vial) 40 mg IVPUSH BID@0630,1630 [facility] Last Admin: 05/13/21 06:03 Dose: 40 mg Documented by: ANGEL Pharmacy Consult (Consult Rx Perform Med Rec) 1 each MISCELLANE ONCE PRN PRN Reason: Consult order Senna (Sennosides 8.6 Mg Tablet) 17.2 mg PO BEDTIME PRN PRN Reason: Constipation Sodium Chloride (0.9 % Sodium Chloride Flush 3 Ml Syringe) 3 ml IVFLUSH QSHIFT [facility] Last Admin: 05/13/21 06:02 Dose: 3 ml Documented by: ANGEL Labs CBC & Chem 7: 05/13/21 05:40 05/13/21 05:40 Labs: Laboratory Results - last 24 hr 05/13/21 05/13/21 05:40 05:40 MCV 106.8 H MCH 35.4 H MCHC 33.1 RDW 12.3 Plt Count 186 MPV 9.7 Absolute Nucleated RBC 0.000 Nucleated RBC % (auto) 0.0 Anion Gap 11 L Estim Creat Clear Calc 80.4 Estimated GFR > 60 Random Glucose 107 Calcium 8.3 L D Assessment and Plan (1) Ileus: Status: Acute Assessment and Plan: 76-year-old male with a past medical history of hypertension, hyperlipidemia, CAD, ischemic cardiomyopathy -HFrEF -EF 45%;? persistent AFib, chronic umbilical hernia- uses abdominal guard; polyarthralgia - on prednisone until recently; presented to the hospital today with a chief complaint of nausea vomiting. ? noted to have ileus.? Admitted for further management.? Ileus. Resolving passing gas and having BM's General surgery consulted Diet advanced to regular with good effect. screening colonoscopy tomorrow. Start clear liquid diet now and NPO after midnight Golytely prep tonight ? Umbilical hernia. No signs of obstruction per CT scan. Mild abdominal wall erythema- patient reports chronic.? O/P surgical follow up Gastritis Possibly in the setting of prednisone for which he was using for polyarthralgia gastroenterology consulted CHF Not in fluid overload.? resume home Lasix hypertension? BP stable resume home meds History of persistent AFib Rate controlled.? Continue home digoxin, Xarelto.? digoxin level 1.5 DVT prophylaxis:? Patient on Xarelto Code status: Full code Attending Dr. Hopkins Quality Stroke Does the patient have a stroke diagnosis?: No VTE Prior VTE?: No VTE Risk Level:: Medical - moderate - high VTE Device Contraindication: Treatment Not Indicated VTE Drug Contraindication: N/A - Med Ordered
--- NOTE | 2021-05-13 14:18 | MHC.CM.PN ---
ORIGINAL PLAN WAS DC TODAY PATIENT NOW AGREES TO COLONOSCOPY TOMORROW RN AND UNIT AWARE.
[2021-05-13 16:00] VITALS: BP 133/67; PULSE 84; RESP 18; TEMP 36.4; O2SAT 97
[2021-05-13 18:28] LABS: COVID-19 Test Negative (Negative); IDNOW Serial# 9DD0AD1C
== END 2021-05-13 18:41 | disposition home or self-care (01) | DRG 389 ==
LOC: HO.ED 18:49 → HO.EDOVER 20:13 → HO.S3 22:58
PROVIDERS: Internal Medicine Gastroenterology; Admitting Provider Hospitalist; Emergency Provider Emergency Medicine Emergency Medical Services; PCP Internal Medicine; Visit Provider Nurse Practitioner Acute Care
DX: K56.7 Ileus, unspecified (principal); I50.22 Chronic systolic (congestive) heart failure; I48.19 Other persistent atrial fibrillation; K29.70 Gastritis, unspecified, without bleeding; K42.9 Umbilical hernia without obstruction or gangrene; I25.10 Atherosclerotic heart disease of native coronary artery without angina pectoris; I25.5 Ischemic cardiomyopathy; T38.0X5A Adverse effect of glucocorticoids and synthetic analogues, initial encounter; Y92.9 Unspecified place or not applicable; I11.0 Hypertensive heart disease with heart failure; E78.5 Hyperlipidemia, unspecified; Z20.822 Contact with and (suspected) exposure to COVID-19; Z95.5 Presence of coronary angioplasty implant and graft; Z79.01 Long term (current) use of anticoagulants; Z79.899 Other long term (current) drug therapy
CPT/HCPCS: 36415; 74021; 74176; 80048; 80076; 80162; 81003; 82607; 82746; 83605; 83690; 85007; 85025; 85027; 87635; 96361; 96374; 99285; J2405

== ENCOUNTER 2021-05-20 11:41 | Outpatient (REF) | payer MEDICARE, OTHER, SELFPAY ==
[2021-05-20 14:13] LABS: Anion Gap 10 (12-20); Blood Urea Nitrogen 12 mg/dL (9-16); Calcium 8.5 mg/dL (8.4-10.2); Carbon Dioxide 28 mmol/L (22-29); Chloride 101 mmol/L (96-108); Estimated Glomerular Filt Rate > 60; Glucose Random 124 mg/dL (60-115); Potassium 4.2 mmol/L (3.3-5.1); Sodium 135 mmol/L (135-145)
[2021-05-20 14:46] LABS: Erythrocyte Sedimentation Rate 28 MM/HR (0-15)
== END 2021-05-20 11:42 | disposition home or self-care (01) ==
LOC: HO.10HDL 11:41
PROVIDERS: Visit Provider Internal Medicine
DX: M79.10 Myalgia, unspecified site (principal); K56.609 Unspecified intestinal obstruction, unspecified as to partial versus complete obstruction
CPT/HCPCS: 36415; 80048; 85652; 86140

== ENCOUNTER → 2021-05-22 14:34 | Outpatient (BNVA) | payer MEDICARE, OTHER, SELFPAY | PROVIDERS: PCP Internal Medicine; Referring Provider Internal Medicine; Visit Provider Nurse Practitioner Family | DX: Z01.810 Encounter for preprocedural cardiovascular examination (principal); I48.19 Other persistent atrial fibrillation; I25.10 Atherosclerotic heart disease of native coronary artery without angina pectoris; I25.5 Ischemic cardiomyopathy; I10 Essential (primary) hypertension; I25.2 Old myocardial infarction; Z79.899 Other long term (current) drug therapy | CPT/HCPCS: 93005; 99212; Q3014 ==

== ENCOUNTER → 2021-05-28 10:58 | Outpatient (BNVA) | payer MEDICARE, OTHER, SELFPAY | PROVIDERS: PCP Internal Medicine; Referring Provider Internal Medicine; Visit Provider Surgery | DX: K43.9 Ventral hernia without obstruction or gangrene (principal) | CPT/HCPCS: 99202 ==

== ENCOUNTER 2021-05-30 08:58 | Day surgery (SDC) | payer MEDICARE, OTHER, SELFPAY ==
[2021-05-26 11:55] VITALS: BMI 41.1
--- NOTE | 2021-05-29 09:20 | HO.ANESPROP2 ---
Documented by User: Christel Abbasi NP 05/29/21 09:25 HPI - Anesthesia Eval Consult details Narrative: 76yo M for Colonoscopy Xarelto for afib Cardiac cleared: Preop for colonoscopy on 05/30/2021.? Patient is intermediate cardiac risk.? He has persistent atrial fibrillation, history of CAD with LAD stent and EF 40-45%.? Avoid fluid overload.? EKG if he reports chest discomfort.? Recommend hold Xarelto for 48 hours prior to procedure and restart as soon as cleared by surgeon to do so.? Continue all other cardiac medications without interruption. [facility] Active Problems Active Problems: All Active Problems (Updated 05/28/21 @ 13:28 by Brandon Johnson MD) Ventral hernia (Acute) Preop cardiovascular exam (Acute) Persistent atrial fibrillation (Acute) Ischemic cardiomyopathy (Acute) HTN (hypertension) (Acute) Heart failure with reduced ejection fraction (Acute) CAD (coronary artery disease) (Acute) Past Medical History Medical History CAD (coronary artery disease) COVID-19 vaccine series completed Gastritis Gastroenteritis Heart failure with reduced ejection fraction HTN (hypertension) Ischemic cardiomyopathy Persistent atrial fibrillation Umbilical hernia Ventral hernia Family History Family History Father CHF (congestive heart failure) Mother No problems noted. Brother CHF (congestive heart failure) Surgical History Surgical History Stented coronary artery Social History Social History Household Members: Spouse Housing: House Do you presently have visiting nurse or other home services: No Patient Tobacco Use Status: Former Tobacco user Quit Date: 1975 Tobacco use type: Cigarette Use of substances other than those prescribed or required for medical reasons: No Have you been hit, kicked, punched, or otherwise hurt by someone within the past year? If so, by whom?: No Advance Directives: Yes Advance Directives Information Provided: Yes Advance Directives on File: Yes Advance Directives Date on File: 12/21/13 Nutrition Risks: Surgical patient >75years service: No Current occupational status: retired Meds Allergies Allergy/AdvReac Type Severity Reaction Status Date / Time bee pollen [BEE STINGS] Allergy Intermediate HIVES, SOB Verified 05/28/21 11:17 LOBSTER Allergy Intermediate HIVES Uncoded 05/26/21 11:50 Home Medications Medication Instructions Recorded Confirmed Last Taken Type allopurinol 300 mg tablet 300 mg PO DAILY 01/14/21 05/28/21 05/09/21 History atorvastatin 40 mg tablet 40 mg PO DAILY 01/14/21 05/28/21 05/09/21 History carvedilol 25 mg tablet 25 mg PO BID 01/14/21 05/28/21 05/30/21 History olmesartan 40 mg tablet 40 mg PO DAILY 01/14/21 05/28/21 05/09/21 History multivitamin 1 tab PO DAILY 05/10/21 05/28/21 05/09/21 History omeprazole 20 mg capsule,delayed 20 mg PO DAILY 05/10/21 05/28/21 Unknown History release Exam Exam Date and Time: May 29, 2021 0920 Height,Weight and Vital Signs: Height 5 ft 7 in Weight 119 kg Pertinent Lab Results Pertinent Lab Results: Laboratory Tests 05/13/21 05/20/21 05:40 11:58 WBC 9.1 Hgb 14.0 Hct 42.3 Plt Count 186 Sodium 135 Potassium 4.2 Chloride 101 Carbon Dioxide 28 BUN 12 D Creatinine 0.75 Narrative Narrative: EKG 05/2021 trial fibrillation with nonspecific ST and T-waves abnormalities, similar to prior EKG, QTC 373 milliseconds, rate 71 ECHO 12/2020 Conclusions: - The left ventricular systolic function is mild to moderately ? decreased.? The visually estimated ejection fraction is between? 40-45%.? - The left atrium is severely dilated. ? - There is mild calcification of the aortic valve. ? - There is moderate mitral annular calcification.? - There is mild dilatation of the ascending aorta measuring 4.00 cm.? Holter 01/2021 Total monitoring time 2 days and 22 hours.? Underlying rhythm is atrial fibrillation.? Average 70/Min.? Minimum 39/Min.? Maximum 106/Min.? Most rates are in normal range.? Longest pause 2.8 seconds at 01:33am.? 4 beat run of NSVT.? Overall PVC burden 2.3%.? 4 morphologies noted. 77 couplets noted.? No patient events.? Overall, adequate rate control of atrial fibrillation. Assessment and Plan Assessment Anesthesia Assessment: Chart Reviewed Documented by User: Genevieve Magana MD 05/30/21 10:48 PMFSH Past Medical History Medical History CAD (coronary artery disease) COVID-19 vaccine series completed Gastritis Gastroenteritis Heart failure with reduced ejection fraction HTN (hypertension) Ischemic cardiomyopathy Persistent atrial fibrillation Umbilical hernia Ventral hernia Family History Family History Father CHF (congestive heart failure) Mother No problems noted. Brother CHF (congestive heart failure) Surgical History Surgical History Stented coronary artery History of Problems with Anesthesia: No Social History Social History Household Members: Spouse Housing: House Do you presently have visiting nurse or other home services: No Patient Tobacco Use Status: Former Tobacco user Quit Date: 1975 Tobacco use type: Cigarette Use of substances other than those prescribed or required for medical reasons: No Have you been hit, kicked, punched, or otherwise hurt by someone within the past year? If so, by whom?: No Advance Directives: Yes Advance Directives Information Provided: Yes Advance Directives on File: Yes Advance Directives Date on File: 12/21/13 Nutrition Risks: Surgical patient >75years service: No Current occupational status: retired Meds Allergies Allergy/AdvReac Type Severity Reaction Status Date / Time bee pollen [BEE STINGS] Allergy Intermediate HIVES, SOB Verified 05/28/21 11:17 LOBSTER Allergy Intermediate HIVES Uncoded 05/26/21 11:50 Home Medications Medication Instructions Recorded Confirmed Last Taken Type allopurinol 300 mg tablet 300 mg PO DAILY 01/14/21 05/28/21 05/09/21 History atorvastatin 40 mg tablet 40 mg PO DAILY 01/14/21 05/28/21 05/09/21 History carvedilol 25 mg tablet 25 mg PO BID 01/14/21 05/28/21 05/30/21 History olmesartan 40 mg tablet 40 mg PO DAILY 01/14/21 05/28/21 05/09/21 History multivitamin 1 tab PO DAILY 05/10/21 05/28/21 05/09/21 History omeprazole 20 mg capsule,delayed 20 mg PO DAILY 05/10/21 05/28/21 Unknown History release Exam Airway Mallampati Class: III TM Dist: >3cm Neck ROM: Limited Loose/Missing/Broken Teeth: No Heart: IRREG IRREG RHYTHM Lungs: CTA Assessment and Plan Assessment Anesthesia Assessment: Anesthesia Plan Discussed Final Anesthetic Review History of Problems with Anesthesia: No NPO: Yes ASA Class: III Final Preanesthetic Review: Meds/Allgs Chart Reviewed, Consent Obtained/Reviewed and Anes Risks/Benef Reviewed Patient Risk: Intermediate Procedure Risk: Low Anesthetic Plan Anesthetic Plan: MAC: Disposition: Standard PACU
[2021-05-30 09:23] VITALS: BP 164/89; PULSE 77; RESP 18; TEMP 36.6; O2SAT 96
--- NOTE | 2021-05-30 09:55 | MHC.SHP ---
Pre-Procedural Eval Section A Date of Service: 05/30/21 The patient is an INPATIENT: No Changes since office visit: Yes Patient answered all questions; No Cold of Flu in the past 2 weeks, No New Medical Problems and No Changes in Medication The History & Physical has been completed within 30 days and I have reviewed it.: Yes Section B Chief Complaint: Screening Allergies: Allergies Allergy/AdvReac Type Severity Reaction Status Date / Time bee pollen [BEE STINGS] Allergy Intermediate HIVES, SOB Verified 05/28/21 11:17 LOBSTER Allergy Intermediate HIVES Uncoded 05/26/21 11:50 Plan I have reviewed the history and physical and performed a pertinent physical examination on my patient. No changes have occurred unless specified.
[2021-05-30] MEDS: Lactated Ringers 500 ML 20 ML IVCONT (10:04)
--- NOTE | 2021-05-30 10:37 | PM.OP ---
Brief Operative Note Date of Service: 05/30/21 Pre-op diagnosis: Colon cancer screening Post-op diagnosis: other (Colon polyps, diverticulosis, rectal nodule) Procedure: COLONOSCOPY TILL CECUM WITH BIOPSIES AND SNARE POLYPECTOMY Consent: Indications for the procedure and potential complications of bleeding, perforation, reaction to medications and missed diagnosis were discussed with the patient and informed consent was obtained. Instrument: Olympus PCF H 190 L variable stiffness pediatric colonoscope Monitoring: Vital signs and clinical assessment, intermittent blood pressure monitoring, continuous EKG monitoring, Pulse oximetry and Carbon Dioxide monitoring were done throughout the procedure. Colon withdrawl time was 37 minutes. Procedure: The patient was placed in the left lateral decubitis position and pre-procedure medications were administered. After a digital rectal examination of the ano-rectum, the video colonoscope was inserted into the rectum and advanced through the colon to the cecum. The colonoscope was slowly withdrawn in a retrograde panoramic fashion and the colon mucosa was carefully examined including a retroflexed view of the rectum. Findings and interventions are described below. Procedure Difficulty: Without difficulty Findings: Terminal Ileum: Not evaluated Cecum: Normal Ascending Colon: Two 12-15 mm sessile polyps removed with a hot snare. Larger polyp retrieved with a Queen Net. A 6-7 mm sessile polyp removed with the cold snare. Transverse Colon: A 5-6 mm sessile polyp removed with a cold bx. A 10-12 mm sessile polyp removed with a hot snare. Descending Colon: Scattered moderate diverticulosis throughout the colon. Sigmoid Colon: Scattered moderate diverticulosis throughout the colon. Rectum: A 2 cms yellowish nodule in the rectum at 10 cms with normal overlying mucosa - biopsied. Ano-rectum: Normal Colon preparation: Good after copious irrigation Impression and Post Procedure Diagnosis: Colonoscopy Findings: Five small to medium sized polyps removed Moderate diverticulosis seen in the entire colon A 1.5 cms yellowish nodule in the rectum at 10 cms with normal overlying mucosa - likely submucosal lipoma (without significant change from previous colonoscopy in 2003). Plan: Resume Xarelto on 06/05/21 Letter will be sent to the patient with pathology results Patient has an appointment on 08/21/21 in the GI Clinic with Cuate Fiore M.D. Repeat Colonoscopy interval based on path results - in 2-3 years if polyps are adenomatous and pt remains in stable health and discontinue colon cancer screening if polyps are hyperplastic. Above findings were reviewed with the patient and colon polyps and diverticulosis handouts were given in the discharge area Surgeon: Cuate Fiore MD Anesthesia: MAC (Dr Magana) Was an Chief Diversity Officer used for this Procedure?: Yes Chief Diversity Officer: Malgorzata Jackson Estimated blood loss (mL): 0 Pathology: other (A. transverse colon polyps (2) B. ascending colon polyps (3) C. rectal nodule, R/O lipoma) Condition: stable Disposition: PACU
--- NOTE | 2021-05-30 10:47 | W.PM.OPN ---
Operative Note Operative Note Date of Service: 05/30/21 Narrative: Pre-op diagnosis: Colon cancer screening Post-op diagnosis:?other (Colon polyps, diverticulosis, rectal nodule) Procedure: COLONOSCOPY TILL CECUM WITH BIOPSIES AND SNARE POLYPECTOMY Consent: Indications for the procedure and potential complications of bleeding, perforation, reaction to medications and missed diagnosis were discussed with the patient and informed consent was obtained. Instrument: Olympus PCF H 190 L variable stiffness pediatric colonoscope Monitoring: Vital signs and clinical assessment, intermittent blood pressure monitoring, continuous EKG monitoring, Pulse oximetry and Carbon Dioxide monitoring were done throughout the procedure. Colon withdrawl time was 37 minutes. Procedure: The patient was placed in the left lateral decubitis position and pre-procedure medications were administered. After a digital rectal examination of the ano-rectum, the video colonoscope was inserted into the rectum and advanced through the colon to the cecum. The colonoscope was slowly withdrawn in a retrograde panoramic fashion and the colon mucosa was carefully examined including a retroflexed view of the rectum. Findings and interventions are described below. Procedure Difficulty: Without difficulty Findings: Terminal Ileum: Not evaluated Cecum:? Normal Ascending Colon:? Two 12-15 mm sessile polyps removed with a hot snare.? Larger polyp retrieved with a Queen Net. A 6-7 mm sessile polyp removed with the cold snare. Transverse Colon:? A 5-6 mm sessile polyp removed with a cold bx.? A 10-12 mm sessile polyp removed with a hot snare. Descending Colon:? Scattered moderate diverticulosis throughout the colon. Sigmoid Colon:? Scattered moderate diverticulosis throughout the colon. Rectum:? A 2 cms yellowish nodule in the rectum at 10 cms with normal overlying mucosa - biopsied. Ano-rectum:? Normal Colon preparation:? Good after copious irrigation Impression and Post Procedure Diagnosis: Colonoscopy Findings: Five small to medium sized polyps removed Moderate diverticulosis seen in the entire colon A 1.5 cms yellowish nodule in the rectum at 10 cms with normal overlying mucosa - likely submucosal lipoma (without significant change from previous colonoscopy in 2003). Plan: Resume Xarelto on 06/05/21 Letter will be sent to the patient with pathology results Patient has an appointment on 08/21/21 in the GI Clinic with? Cuate Fiore M.D. Repeat Colonoscopy interval based on path results - in 2-3 years if polyps are adenomatous and pt remains in stable health and discontinue colon cancer screening if polyps are hyperplastic. Above findings were reviewed with the patient and colon polyps and diverticulosis handouts were given in the discharge area Surgeon: Cuate Fiore MD Anesthesia:?MAC (Dr Magana) Was an Technology Advisor used for this Procedure?:?Yes Technology Advisor:?Malgorzata Jackson Estimated blood loss (mL):?0 Pathology:?other (A. transverse colon polyps (2)? B. ascending colon polyps (3)? C. rectal nodule, R/O lipoma) Condition:?stable Disposition:?PACU
--- NOTE | 2021-05-30 11:02 | P.CONAN_ITS ---
[facility] Active Problems Active Problems: All Active Problems (Updated 05/28/21 @ 13:28 by Brandon Johnson MD) Ventral hernia (Acute) Preop cardiovascular exam (Acute) Persistent atrial fibrillation (Acute) Ischemic cardiomyopathy (Acute) HTN (hypertension) (Acute) Heart failure with reduced ejection fraction (Acute) CAD (coronary artery disease) (Acute) Past Medical History Medical History CAD (coronary artery disease) COVID-19 vaccine series completed Gastritis Gastroenteritis Heart failure with reduced ejection fraction HTN (hypertension) Ischemic cardiomyopathy Persistent atrial fibrillation Umbilical hernia Ventral hernia Family History Family History Father CHF (congestive heart failure) Mother No problems noted. Brother CHF (congestive heart failure) Surgical History Surgical History Stented coronary artery History of Problems with Anesthesia: No Social History Social History Household Members: Spouse Housing: House Do you presently have visiting nurse or other home services: No Patient Tobacco Use Status: Former Tobacco user Quit Date: 1975 Tobacco use type: Cigarette Use of substances other than those prescribed or required for medical reasons: No Have you been hit, kicked, punched, or otherwise hurt by someone within the past year? If so, by whom?: No Advance Directives: Yes Advance Directives Information Provided: Yes Advance Directives on File: Yes Advance Directives Date on File: 12/21/13 Nutrition Risks: Surgical patient >75years service: No Current occupational status: retired Meds Allergies Allergy/AdvReac Type Severity Reaction Status Date / Time bee pollen [BEE STINGS] Allergy Intermediate HIVES, SOB Verified 05/28/21 11:17 LOBSTER Allergy Intermediate HIVES Uncoded 05/26/21 11:50 Active Medications: Current Medications Lactated Ringer's (Lr) 500 mls @ 20 mls/hr IVCONT .Q24H TR Last Admin: 05/30/21 10:04 Dose: 20 mls/hr Documented by: Home Medications Medication Instructions Recorded Confirmed Last Taken Type allopurinol 300 mg tablet 300 mg PO DAILY 01/14/21 05/28/21 05/09/21 History atorvastatin 40 mg tablet 40 mg PO DAILY 01/14/21 05/28/21 05/09/21 History carvedilol 25 mg tablet 25 mg PO BID 01/14/21 05/28/21 05/30/21 History olmesartan 40 mg tablet 40 mg PO DAILY 01/14/21 05/28/21 05/09/21 History multivitamin 1 tab PO DAILY 05/10/21 05/28/21 05/09/21 History omeprazole 20 mg capsule,delayed 20 mg PO DAILY 05/10/21 05/28/21 Unknown History release Exam Exam Date and Time: May 30, 2021 1102 Height,Weight and Vital Signs: Height 5 ft 7 in Weight 119 kg Last Vital Signs Temp 98 F 05/30/21 09:23 Pulse 77 05/30/21 09:23 Resp 18 05/30/21 09:23 BP 164/89 H 05/30/21 09:23 Pulse Ox 96 05/30/21 09:23 Airway Mallampati Class: III Neck ROM: Limited Loose/Missing/Broken Teeth: No Heart: irregularly irregular Lungs: CTA Assessment and Plan Final Anesthetic Review History of Problems with Anesthesia: No NPO: Yes ASA Class: III Final Preanesthetic Review: Meds/Allgs Chart Reviewed, Consent Obtained/Reviewed and Anes Risks/Benef Reviewed Patient Risk: Intermediate Procedure Risk: Low Anesthetic Plan Anesthetic Plan: MAC: Disposition: Standard PACU
[2021-05-30 11:47] VITALS: BP 164/61; PULSE 91; RESP 18; TEMP 36.6; O2SAT 96
[2021-05-30 12:02] VITALS: BP 142/86; PULSE 82; RESP 18; TEMP 36.6; O2SAT 96
== END 2021-05-30 12:41 | disposition home or self-care (01) ==
PROVIDERS: PCP Internal Medicine; Visit Provider Internal Medicine Gastroenterology
PROC: 0DJD8ZZ Inspection of Lower Intestinal Tract, Via Natural or Artificial Opening Endoscopic (ICD-10-PCS; CPT 45378; principal; 2021-05-30 10:10)
DX: Z12.11 Encounter for screening for malignant neoplasm of colon (principal); D12.2 Benign neoplasm of ascending colon; D12.3 Benign neoplasm of transverse colon; K62.9 Disease of anus and rectum, unspecified; K57.30 Diverticulosis of large intestine without perforation or abscess without bleeding; I10 Essential (primary) hypertension; I25.10 Atherosclerotic heart disease of native coronary artery without angina pectoris; Z98.61 Coronary angioplasty status; I25.5 Ischemic cardiomyopathy; I11.0 Hypertensive heart disease with heart failure; I50.9 Heart failure, unspecified; I48.19 Other persistent atrial fibrillation; Z79.01 Long term (current) use of anticoagulants; Z79.899 Other long term (current) drug therapy; Z87.891 Personal history of nicotine dependence
CPT/HCPCS: 45385; 45380; 88305

== ENCOUNTER → 2021-08-12 08:48 | Outpatient (BNVA) | payer MEDICARE, OTHER, SELFPAY | PROVIDERS: PCP Internal Medicine; Referring Provider Internal Medicine; Visit Provider Internal Medicine Cardiovascular Disease | DX: I50.20 Unspecified systolic (congestive) heart failure (principal); I25.10 Atherosclerotic heart disease of native coronary artery without angina pectoris; I48.19 Other persistent atrial fibrillation; I25.2 Old myocardial infarction; Z79.01 Long term (current) use of anticoagulants; Z79.899 Other long term (current) drug therapy | CPT/HCPCS: 99212 ==

== ENCOUNTER 2021-08-13 09:34 | Outpatient (REF) | payer MEDICARE, OTHER, SELFPAY ==
[2021-08-13 10:56] LABS: Anion Gap 11 (12-20); Blood Urea Nitrogen 15 mg/dL (9-16); Calcium 9.2 mg/dL (8.4-10.2); Carbon Dioxide 28 mmol/L (22-29); Chloride 106 mmol/L (96-108); Estimated Glomerular Filt Rate > 60; Glucose Random 90 mg/dL (60-115); Sodium 141 mmol/L (135-145)
[2021-08-13 15:06] LABS: Digoxin < 0.3 ng/mL (0.8-2.0)
== END 2021-08-13 09:35 | disposition home or self-care (01) ==
LOC: HO.10HDL 09:34
PROVIDERS: Visit Provider Internal Medicine Cardiovascular Disease
DX: I48.19 Other persistent atrial fibrillation (principal)
CPT/HCPCS: 36415; 80048; 80162

== ENCOUNTER → 2021-08-21 11:25 | Outpatient (BNVA) | payer MEDICARE, OTHER, SELFPAY | PROVIDERS: PCP Internal Medicine; Referring Provider Internal Medicine; Visit Provider Internal Medicine Gastroenterology | DX: Z86.010 Personal history of colon polyps (principal) | CPT/HCPCS: 99212 ==

== ENCOUNTER 2021-09-19 18:56 | Observation (INO) | payer MEDICARE, OTHER, SELFPAY ==
--- NOTE | ~2021-09-19 | CT_ITS ---
EXAMINATION: CT ABDOMEN AND PELVIS WITHOUT CONTRAST CLINICAL INFORMATION: Abdominal pain. Question small bowel obstruction COMPARISON: CT abdomen and pelvis 05/10/2021 TECHNIQUE: Multidetector volumetric imaging was performed from the superior aspect of the liver through the pubic symphysis. Sagittal and coronal reformatted images were obtained on the technologist's workstation. This CT examination was performed using dose optimization techniques as appropriate, variously including the following: *Automated exposure control *Adjustment of mA and/or kV according to patient size (this includes techniques or standardized protocols for targeted exams where dose is matched to indication/reason for exam; i.e. extremities or head) *Use of iterative reconstruction technique DLP: 1041 mGy-cm FINDINGS: LUNG BASES: Minimal bibasilar subsegmental atelectasis and or scarring. Prominent heart size. Coronary calcifications mild calcifications of the aortic valve. LIVER, GALLBLADDER, AND BILIARY TREE: The liver is normal in size, shape, and attenuation. No focal hepatic lesion or biliary ductal dilatation is present. The gallbladder is unremarkable with no evidence of radiopaque gallstones, gallbladder wall thickening, or obvious pericholecystic inflammatory changes. PANCREAS: Small 1.7 cm lipoma or invagination of adjacent fat into the pancreatic head, unchanged. No other pancreatic lesion. No ductal dilation or peripancreatic inflammatory change. Small duodenal diverticulum as the head of the pancreas as on prior. SPLEEN: Unremarkable. ADRENAL GLANDS: Unremarkable. KIDNEYS AND URETERS: Small 1.8 cm left upper pole simple renal cyst and larger 7.6 cm exophytic right lower pole simple cyst. Small 1.5 cm left lower pole low-density exophytic lesion, likely a cyst, also unchanged. A 4-5 mm nonobstructing left lower pole renal calculus redemonstrated. No hydronephrosis. Similar appearance of mild bilateral perirenal fascial stranding. BLADDER: Unremarkable. GASTROINTESTINAL TRACT: Large ventral abdominal wall /umbilical hernia with the hernia orifice measuring approximately 4.4 x 4.1 cm in size. There is a loop of small bowel within the hernia sac that is dilated and fluid-filled with mesenteric edema small amount of free fluid in the hernia sac as well as multiple adjacent nondilated small bowel loops. Focal transition point at the right margin of the hernia orifice on axial image 58 and then a second transition point more inferiorly on image 62. At the more superiorly located transition point, there is dilation of more proximal small bowel loops in the central and left hemiabdomen. The distal ileum and colon is decompressed. Colonic diverticulosis. No evidence of acute diverticulitis. No appreciable bowel wall thickening. No pneumatosis. Stomach is moderately distended with fluid. ABDOMINAL WALL: Ventral/umbilical abdominal wall hernia, as above. Possible small fat-containing inguinal hernias. LYMPH NODES: No lymphadenopathy. VASCULAR: Tortuous abdominal aorta. Moderate vascular calcifications. No abdominal aortic aneurysm. PELVIC VISCERA: Unremarkable. OSSEOUS STRUCTURES: No acute fracture or suspicious osseous lesion. Moderate multilevel degenerative disc disease in the thoracolumbar spine. CT/CT abdomen pelvis wo con IMPRESSION: 1. Small bowel obstruction with closed loop type physiology. Large ventral abdominal wall/umbilical hernia containing fat and dilated loop of small bowel with two discrete transition points at the entrance and exit of the dilated herniated bowel loop into the hernia orifice suspicious for closed loop type of obstruction. Accompanyingmesenteric stranding in small amount of free fluid in the hernia sac. Additional decompressed more distal nondilated loops small bowel loops are also present within the hernia sac. Recommend surgical consultation. 2. At the proximal transition point at the upper hernia orifice there are additional dilated/obstructed small bowel loops located in the abdominal cavity. 3. No pneumatosis or intra-abdominal free air.
[2021-09-19 19:11] VITALS: BP 96/72; PULSE 98; RESP 16; TEMP 36.8; O2SAT 94; BMI 41.9
[2021-09-19 19:28] LABS: MANUAL DIFF FLAG NO
[2021-09-19 19:30] LABS: Basophils Absolute Auto 0.1 X10*3/uL (0.0-0.2); Basophils Percent Auto 0.4 % (0-2); Eosinophils Percent Auto 0.3 % (0-4); Hematocrit 46.5 % (42.0-52.0); Hemoglobin 16.2 g/dl (14.0-18.0); Imm Gran Abs Auto 0.14 X10*3/uL (0.00-0.03); Imm Gran Pct Auto 1.1 % (0.0-0.4); Lymphocytes Percent Auto 7.4 % (20-40); Mean Corpuscular HGB Conc 34.8 g/dl (31.0-36.0); Mean Corpuscular Hemoglobin 36.1 pg (27.0-33.0); Mean Corpuscular Volume 103.6 fL (80.0-98.0); Mean Platelet Volume 8.6 fL (9.4-12.4); Monocytes Absolute Auto 0.7 X10*3/uL (0.1-1.2); Monocytes Percent Auto 5.5 % (2-11); Neutrophils Absolute Auto 11.3 x10*3/uL (2.0-8.3); Neutrophils Percent Auto 85.3 % (45-73); Platelet Count 217 X10*3/uL (160-400); Red Blood Count 4.49 X10*6/uL (4.60-5.80); Red Cell Distribution Width 13.2 % (11.0-16.0); White Blood Count 13.2 X10*3/uL (4.8-10.8)
[2021-09-19 19:42] VITALS: BP 160/81; PULSE 94; RESP 16; O2SAT 96
[2021-09-19 19:45] LABS: Alanine Aminotransferase 23 U/L (0-40); Alkaline Phosphatase 59 U/L (39-117); Anion Gap 15 (12-20); Aspartate Amino Transferase 17 U/L (5-37); Bilirubin Total 1.3 mg/dL (0.0-1.0); Blood Urea Nitrogen 13 mg/dL (9-16); Calcium 10.1 mg/dL (8.4-10.2); Carbon Dioxide 27 mmol/L (22-29); Chloride 101 mmol/L (96-108); Creatinine Clr Calc Pharmacy 86.5; Estimated Glomerular Filt Rate > 60; Glucose Random 121 mg/dL (60-115); Potassium 4.6 mmol/L (3.3-5.1); Sodium 138 mmol/L (135-145); Total Protein 6.7 g/dL (6.5-8.0)
[2021-09-19 19:52] LABS: Lipase 11 U/L (8-78)
--- NOTE | 2021-09-19 19:58 | ED.ABDPAIN ---
HPI - Abdominal Pain General Chief Complaint: Abdominal Pain Stated Complaint: Abd pain/vomiting Time Seen by Provider: 09/19/21 19:58 Source: patient Mode of arrival: ambulatory Limitations: no limitations History of Present Illness HPI narrative: Patient with history of large umbilical hernia with history of SBO in 05/10 comes here for similar pain started earlier 11:00 today at his umbilical area, gradually progressed to whole abdomen with bloating , nausea vomited few times not passing much flatus no bowel movement today. No fever Related Data Home Medications Medication Instructions Recorded Confirmed allopurinol 300 mg tablet 300 mg PO DAILY 01/14/21 09/20/21 atorvastatin 40 mg tablet 40 mg PO DAILY 01/14/21 09/20/21 carvedilol 25 mg tablet 25 mg PO BID 01/14/21 09/20/21 olmesartan 40 mg tablet 40 mg PO DAILY 01/14/21 09/20/21 multivitamin 1 tab PO DAILY 05/10/21 09/20/21 furosemide 20 mg tablet 20 mg PO Q OTHER DAY tab 08/12/21 09/20/21 Previous Rx's Medication Instructions Recorded digoxin 250 mcg (0.25 mg) tablet 250 mcg PO DAILY #30 tab 07/14/21 (Digox) rivaroxaban 20 mg tablet (Xarelto) 20 mg PO DAILY #30 tab 07/23/21 Allergies Allergy/AdvReac Type Severity Reaction Status Date / Time bee pollen [BEE STINGS] Allergy Intermediate HIVES, SOB Verified 09/19/21 19:18 LOBSTER Allergy Intermediate HIVES Uncoded 09/19/21 19:18 Review of Systems Review of Systems Yes all other systems are reviewed and are negative [facility] Past Medical History Medical History CAD (coronary artery disease) COVID-19 vaccine series completed Gastritis Gastroenteritis Heart failure with reduced ejection fraction HTN (hypertension) Ischemic cardiomyopathy Persistent atrial fibrillation Umbilical hernia Ventral hernia Surgical History Hx of colonoscopy Stented coronary artery Family History Family History Father CHF (congestive heart failure) Mother No problems noted. Brother CHF (congestive heart failure) Social History Social History Household Members: Spouse Housing: House Do you presently have visiting nurse or other home services: No Alcohol intake: former Patient Tobacco Use Status: Former Tobacco user Quit Date: 1975 Years Smoked: 20 +/- Advance Directives: Yes Advance Directives on File: Yes Advance Directives Date on File: 12/21/13 service: No Current occupational status: retired Physical Exam ED Vital Signs: Vital Signs - 24 hr 09/19/21 19:11 09/19/21 19:42 09/19/21 20:44 Temperature 98.3 F Pulse Rate 98 94 Respiratory Rate 16 16 16 Blood Pressure 96/72 160/81 H Pulse Oximetry 94 96 BMI result Body Mass Index 41.9 Appearance: Alert. Oriented X3. In moderate distress obese patient Eyes: No pallor/ icterus ENT: Pharynx normal. Oral Mucosa moist Neck: Normal inspection. Neck supple. CVS: Normal heart rate and rhythm. Pulses normal. Respiratory: No respiratory distress. Equal air entry bilateral, no wheezing/rales/rhonchi Abdomen: Gaseous distended, large tender umbilical hernia, Bowel sounds are sluggish no CVA tenderness Skin: Skin warm and dry. Normal skin color. Normal skin turgor. Extremities: No lower extremity edema. No calf tenderness Neuro: Oriented X 3. No motor deficit. MDM - Abdominal Pain MDM Narrative Medical decision making narrative: 2300 patient with large umbilical hernia with hernia or if is 4.4 x 4.51 cm with small bowel obstruction with closed loop type physiology per CT scan lactic acid 1.2, I was able to manage to reduce the hernia without significant discomfort patient is comfortable at this time. Because of large orifice and surrounding with mesentric edema will call surgeon for admission for observation Medical Records Attestation: I reviewed the patient's medical records. Lab Data Attestation: I reviewed the patient's lab results. Result diagrams: 09/19/21 19:20 09/19/21 19:20 Labs: Lab Results 09/19/21 09/19/21 09/19/21 Range/Units 19:20 19:20 19:56 WBC 13.2 H (4.8-10.8) X10*3/uL RBC 4.49 L (4.60-5.80) X10*6/uL Hgb 16.2 (14.0-18.0) g/dl Hct 46.5 (42.0-52.0) % MCV 103.6 H (80.0-98.0) fL MCH 36.1 H (27.0-33.0) pg MCHC 34.8 (31.0-36.0) g/dl RDW 13.2 (11.0-16.0) % Plt Count 217 (160-400) X10*3/uL MPV 8.6 L (9.4-12.4) fL Immature Gran % (Auto) 1.1 H (0.0-0.4) % Neut % (Auto) 85.3 H (45-73) % Lymph % (Auto) 7.4 L (20-40) % [place] % (Auto) 5.5 (2-11) % Eos % (Auto) 0.3 (0-4) % Baso % (Auto) 0.4 (0-2) % Lymph # (Auto) 1.0 L (1.2-4.9) X10*3/uL [place] # (Auto) 0.7 (0.1-1.2) X10*3/uL Eos # (Auto) 0.0 (0.0-0.4) X10*3/uL Baso # (Auto) 0.1 (0.0-0.2) X10*3/uL Abs Immat Gran (auto) 0.14 H (0.00-0.03) X10*3/uL Absolute Neuts (auto) 11.3 H (2.0-8.3) x10*3/uL Absolute Nucleated RBC 0.000 (0.0-0.012) X10*3/uL Nucleated RBC % (auto) 0.0 (0.0-0.2) /100WBC Sodium 138 (135-145) mmol/L Potassium 4.6 (3.3-5.1) mmol/L Chloride 101 (96-108) mmol/L Carbon Dioxide 27 (22-29) mmol/L Anion Gap 15 (12-20) BUN 13 (9-16) mg/dL Creatinine 0.85 (0.5-1.4) mg/dL Estim Creat Clear Calc 86.5 Estimated GFR > 60 Random Glucose 121 H (60-115) mg/dL Lactic Acid (0.5-2.0) mmol/L Calcium 10.1 D (8.4-10.2) mg/dL Total Bilirubin 1.3 H (0.0-1.0) mg/dL AST 17 (5-37) U/L ALT 23 (0-40) U/L Alkaline Phosphatase 59 (39-117) U/L Total Protein 6.7 (6.5-8.0) g/dL Albumin 4.0 (3.5-5.0) g/dL Lipase 11 (8-78) U/L Urine Color YELLOW Urine Appearance CLEAR Urine pH 7.5 (5.0-8.0) Ur Specific [place] 1.025 (1.005-1.025) Urine Protein 2+ H (NEG-TRACE) MG/DL Urine Glucose (UA) NEG (NEG) MG/DL Urine Ketones 5 (NEG) MG/DL Urine Blood NEG (NEG) Urine Nitrite NEG (NEG) Ur Leukocyte Esterase NEG (NEG) Urine RBC 0-2 (0) /HPF Urine WBC 0 (0-4) /HPF Ur Squamous Epith Cells NONE /LPF Urine Bacteria TRACE /LPF COVID-19 (YAMILKA) (Negative) COVID-19 Clin Com 09/19/21 09/19/21 Range/Units 20:16 20:16 WBC (4.8-10.8) X10*3/uL RBC (4.60-5.80) X10*6/uL Hgb (14.0-18.0) g/dl Hct (42.0-52.0) % MCV (80.0-98.0) fL MCH (27.0-33.0) pg MCHC (31.0-36.0) g/dl RDW (11.0-16.0) % Plt Count (160-400) X10*3/uL MPV (9.4-12.4) fL Immature Gran % (Auto) (0.0-0.4) % Neut % (Auto) (45-73) % Lymph % (Auto) (20-40) % [place] % (Auto) (2-11) % Eos % (Auto) (0-4) % Baso % (Auto) (0-2) % Lymph # (Auto) (1.2-4.9) X10*3/uL [place] # (Auto) (0.1-1.2) X10*3/uL Eos # (Auto) (0.0-0.4) X10*3/uL Baso # (Auto) (0.0-0.2) X10*3/uL Abs Immat Gran (auto) (0.00-0.03) X10*3/uL Absolute Neuts (auto) (2.0-8.3) x10*3/uL Absolute Nucleated RBC (0.0-0.012) X10*3/uL Nucleated RBC % (auto) (0.0-0.2) /100WBC Sodium (135-145) mmol/L Potassium (3.3-5.1) mmol/L Chloride (96-108) mmol/L Carbon Dioxide (22-29) mmol/L Anion Gap (12-20) BUN (9-16) mg/dL Creatinine (0.5-1.4) mg/dL Estim Creat Clear Calc Estimated GFR Random Glucose (60-115) mg/dL Lactic Acid 1.2 (0.5-2.0) mmol/L Calcium (8.4-10.2) mg/dL Total Bilirubin (0.0-1.0) mg/dL AST (5-37) U/L ALT (0-40) U/L Alkaline Phosphatase (39-117) U/L Total Protein (6.5-8.0) g/dL Albumin (3.5-5.0) g/dL Lipase (8-78) U/L Urine Color Urine Appearance Urine pH (5.0-8.0) Ur Specific [place] (1.005-1.025) Urine Protein (NEG-TRACE) MG/DL Urine Glucose (UA) (NEG) MG/DL Urine Ketones (NEG) MG/DL Urine Blood (NEG) Urine Nitrite (NEG) Ur Leukocyte Esterase (NEG) Urine RBC (0) /HPF Urine WBC (0-4) /HPF Ur Squamous Epith Cells /LPF Urine Bacteria /LPF COVID-19 (YAMILKA) Negative (Negative) COVID-19 Clin Com See Note Discharge Plan Discharge Clinical Impression: Hernia, umbilical, with obstruction Patient Disposition: Admitted As Inpatient
[2021-09-19 20:01] LABS: Appearance Urine CLEAR; Color Urine YELLOW; Glucose Urine UA NEG (NEG); Leukocyte Esterase Urine NEG (NEG); Nitrite Urine NEG (NEG); PH 7.5 (5.0-8.0); Specific Gravity - Urine 1.025 (1.005-1.025); UACC Culture Trigger NO; Urine Blood NEG (NEG); Urine Ketones 5 MG/DL (NEG); Urine Protein 2+ MG/DL (NEG-TRACE)
[2021-09-19 20:13] LABS: Bacteria Urine TRACE /LPF; RBC Urine 0-2 /HPF (0); WBC Urine 0 /HPF (0-4)
[2021-09-19 20:42] LABS: Lactic Acid 1.2 mmol/L (0.5-2.0)
[2021-09-19 20:43] LABS: COVID-19 Test Negative (Negative)
[2021-09-19 20:44] VITALS: RESP 16
[2021-09-19] MEDS: Morphine Sulfate 4 MG/ML CARTRIDGE IVPUSH (20:44)
[2021-09-19] MEDS: 0.9 % Sodium Chloride 1,000 ML 999 ML IV (20:45)
[2021-09-19] MEDS: ondansetron HCL 4 MG/2 ML VIAL IVPUSH (20:45)
--- NOTE | 2021-09-19 23:35 | ECG_ITS ---
Test Reason : ABDOMINAL PAIN Blood Pressure : / mmHG Vent. Rate : 108 BPM Atrial Rate : 000 BPM P-R Int : 000 ms QRS Dur : 082 ms QT Int : 310 ms P-R-T Axes : 000 -18 153 degrees QTc Int : 415 ms Atrial fibrillation with rapid ventricular response Possible Anterior infarct , age undetermined ST & T wave abnormality, consider lateral ischemia Abnormal ECG When compared with ECG of 04-SEP-2017 15:30, Atrial fibrillation has replaced Sinus rhythm Borderline criteria for Anterior infarct are now Present T wave inversion now evident in Lateral leads Referred By: Ezequiel Blankenship Electronically Signed By:FRANDY MESSER MD
--- NOTE | 2021-09-20 00:35 | PM.IMHP ---
History of Present Illness Date of Service: 09/19/21 Chief Complaint: abd pain This is a 76-year-old male with past medical history of hypertension, HLD, CAD, ischemic cardiomyopathy, with ejection fraction of 45%, AFib, and history of chronic umbilical hernia who presents to the hospital with complaints of nausea vomiting as well as abdominal pain. Of note patient was admitted to the hospital on 05/13 with umbilical hernia and SBO. Patient was treated conservatively and sent home and followed with general surgery. Due to his extensive past medical history patient was found to be high risk for surgery, and was to be followed and treated conservatively for his umbilical hernia which likely cause his SBO. He returns today with similar complaints of abdominal pain, bloating, nausea vomiting, and constipation. Patient reports that he has not passed any BM or gas since the day prior to admission in the a.m.. On further workup patient was found to have a large umbilical hernia around 4.4 x 4.5 cm with small-bowel obstruction and closed loop type physiology per CT scan, ED physician was able to reduce the hernia without significant discomfort. Because of the large or 30s and surrounding with mesenteric edema surgery was consulted, recommended admission to medical service for conservative management and further observation. On review of vitals, unremarkable Labs are significant for WBC count of 13.2, otherwise unremarkable. Patient will be admitted for further evaluation Review of Systems Review of Systems: Yes all other systems are reviewed and are negative [facility] Medical History CAD (coronary artery disease) COVID-19 vaccine series completed Gastritis Gastroenteritis Heart failure with reduced ejection fraction HTN (hypertension) Ischemic cardiomyopathy Persistent atrial fibrillation Umbilical hernia Ventral hernia Family History Father CHF (congestive heart failure) Mother No problems noted. Brother CHF (congestive heart failure) Surgical History Hx of colonoscopy Stented coronary artery Social History Household Members: Spouse Housing: House Do you presently have visiting nurse or other home services: No Alcohol intake: former Patient Tobacco Use Status: Former Tobacco user Quit Date: 1975 Years Smoked: 20 +/- Advance Directives: Yes Advance Directives on File: Yes Advance Directives Date on File: 12/21/13 service: No Current occupational status: retired Meds Allergies Allergy/AdvReac Type Severity Reaction Status Date / Time bee pollen [BEE STINGS] Allergy Intermediate HIVES, SOB Verified 09/19/21 19:18 LOBSTER Allergy Intermediate HIVES Uncoded 09/19/21 19:18 Active Medications: Current Medications Acetaminophen (Acetaminophen 325 Mg Tablet) 650 mg PO Q6H PRN PRN Reason: Pain, Mild (Pain Scale 1-3) Morphine Sulfate (Morphine Sulfate 4 Mg/Ml Cartridge) 4 mg IVPUSH Q4H PRN; Protocol PRN Reason: Pain, Severe (Pain Scale 7-10) Ondansetron HCl (Ondansetron Hcl 4 Mg/2 Ml Vial) 4 mg IVPUSH Q8H PRN PRN Reason: Nausea and Vomiting Sodium Chloride (0.9 % Sodium Chloride Flush 3 Ml Syringe) 3 ml IVFLUSH [facility] Home Medications Medication Instructions Recorded Confirmed Last Taken Type allopurinol 300 mg tablet 300 mg PO DAILY 01/14/21 09/20/21 05/09/21 History atorvastatin 40 mg tablet 40 mg PO DAILY 01/14/21 09/20/21 05/09/21 History carvedilol 25 mg tablet 25 mg PO BID 01/14/21 09/20/21 05/30/21 History olmesartan 40 mg tablet 40 mg PO DAILY 01/14/21 09/20/21 05/09/21 History multivitamin 1 tab PO DAILY 05/10/21 09/20/21 05/09/21 History furosemide 20 mg tablet 20 mg PO Q OTHER DAY tab 08/12/21 09/20/21 Unknown History Physical Exam Vital Signs and Narrative: Vital Signs: Last Vital Signs Temp 98.3 F 09/19/21 19:11 Pulse 94 09/19/21 19:42 Resp 16 09/19/21 20:44 BP 160/81 H 09/19/21 19:42 Pulse Ox 96 09/19/21 19:42 BMI result Body Mass Index 41.9 Const: General: cooperative and no acute distress Orientation/consciousness: patient oriented x3 Eyes: General: appearance normal, both eyes and all related structures Pupils: Equal, round and reactive pupils present Resp: Effort & Inspection: normal respiratory effort Auscultation: clear to auscultation bilaterally Cardio: Rate: regular rate Rhythm: regular rhythm GI: Other: No guarding, tender on deep palpation Palpation (GI): Soft to palpation Skin: General skin exam: no rashes or lesions noted Neuro: General: patient oriented x3 Cranial nerves: Yes Equal, round and reactive pupils present Cognition (Neuro): normal cognition Extrem: General: Yes normal to inspection and Yes no pedal edema Results Labs CBC and Chem 7: 09/20/21 06:14 09/19/21 19:20 Labs: Laboratory Results - last 24 hr 09/19/21 09/19/21 09/19/21 19:20 19:20 19:56 MCV 103.6 H MCH 36.1 H MCHC 34.8 RDW 13.2 Plt Count 217 MPV 8.6 L Immature Gran % (Auto) 1.1 H Neut % (Auto) 85.3 H Lymph % (Auto) 7.4 L [place] % (Auto) 5.5 Eos % (Auto) 0.3 Baso % (Auto) 0.4 Lymph # (Auto) 1.0 L [place] # (Auto) 0.7 Eos # (Auto) 0.0 Baso # (Auto) 0.1 Abs Immat Gran (auto) 0.14 H Absolute Neuts (auto) 11.3 H Absolute Nucleated RBC 0.000 Nucleated RBC % (auto) 0.0 Anion Gap 15 Estim Creat Clear Calc 86.5 Estimated GFR > 60 Random Glucose 121 H Lactic Acid Calcium 10.1 D Total Bilirubin 1.3 H AST 17 ALT 23 Alkaline Phosphatase 59 Total Protein 6.7 Albumin 4.0 Lipase 11 Urine Color YELLOW Urine Appearance CLEAR Urine pH 7.5 Ur Specific [place] 1.025 Urine Protein 2+ H Urine Glucose (UA) NEG Urine Ketones 5 Urine Blood NEG Urine Nitrite NEG Ur Leukocyte Esterase NEG Urine RBC 0-2 Urine WBC 0 Ur Squamous Epith Cells NONE Urine Bacteria TRACE COVID-19 ([facility]KA) COVID-19 Clin Com 09/19/21 09/19/21 20:16 20:16 MCV MCH MCHC RDW Plt Count MPV Immature Gran % (Auto) Neut % (Auto) Lymph % (Auto) [place] % (Auto) Eos % (Auto) Baso % (Auto) Lymph # (Auto) [place] # (Auto) Eos # (Auto) Baso # (Auto) Abs Immat Gran (auto) Absolute Neuts (auto) Absolute Nucleated RBC Nucleated RBC % (auto) Anion Gap Estim Creat Clear Calc Estimated GFR Random Glucose Lactic Acid 1.2 Calcium Total Bilirubin AST ALT Alkaline Phosphatase Total Protein Albumin Lipase Urine Color Urine Appearance Urine pH Ur Specific [place] Urine Protein Urine Glucose (UA) Urine Ketones Urine Blood Urine Nitrite Ur Leukocyte Esterase Urine RBC Urine WBC Ur Squamous Epith Cells Urine Bacteria COVID-19 ([facility]ILKA) Negative COVID-19 Clin Com See Note Assessment and Plan (1) Hernia, umbilical, with obstruction: Status: Acute Plan 76-year-old male with past medical history of umbilical hernia presents to the hospital with severe abdominal plain found to have for treating large umbilical hernia with small-bowel obstruction with closed loop type physiology per CT scan. # obstructed umbilical hernia - The hernia was reduced by ED physician and now patient is significantly improved. General surgery is consulted, pending their further review. Due to his extensive past medical history patient is not a candidate for surgery at this time, will admit for further evaluation, pain control, and monitoring BM, will keep NPO at this time. # history of schema cardiomyopathy - not in exacerbation - continue carvedilol, digoxin, furosemide # history of AFib - continue Xarelto # hypertension - stable - continue home medications DVT prophylaxis: Xarelto Quality Stroke Does the patient have a stroke diagnosis?: No VTE Prior VTE?: No VTE Risk Level:: Medical - low VTE Device Contraindication: Treatment Not Indicated VTE Drug Contraindication: Treatment Not Indicated
[2021-09-20 01:09] VITALS: BP 147/61; PULSE 89; RESP 15; TEMP 36.7; O2SAT 98
[2021-09-20] MEDS: 0.9 % Sodium Chloride Flush 3 ML SYRINGE IVFLUSH ×2 (01:11→11:05)
--- NOTE | 2021-09-20 01:53 | PC.NURSE ---
Report called to TERESITA Cleary in overflow unit.
[2021-09-20 02:18] VITALS: BP 100/50; PULSE 90; RESP 16; TEMP 36.9; O2SAT 95
--- NOTE | 2021-09-20 02:19 | PC.NURSE ---
PATIENT CAME OVER FROM MAIN ED TO OVERFLOW, USE THE REST ROOM ,VOID LARGE AMOUNT ,GOT SETTLE IN BED VITALS TAKEN ,WATER ,TISSUE ,URINAL AND REMOTE GIVEN ,OFFER PATIENT SNACK OR DRINKS ,REFUSED ,PATIENT WATCHING TELEVISION .
[2021-09-20 06:55] LABS: MANUAL DIFF FLAG NO
[2021-09-20 07:00] LABS: Basophils Percent Auto 0.3 % (0-2); Eosinophils Absolute Auto 0.1 X10*3/uL (0.0-0.4); Eosinophils Percent Auto 0.8 % (0-4); Hematocrit 42.5 % (42.0-52.0); Hemoglobin 14.7 g/dl (14.0-18.0); Imm Gran Pct Auto 0.9 % (0.0-0.4); Lymphocytes Absolute Auto 1.1 X10*3/uL (1.2-4.9); Lymphocytes Percent Auto 9.1 % (20-40); Mean Corpuscular HGB Conc 34.6 g/dl (31.0-36.0); Mean Corpuscular Hemoglobin 36.8 pg (27.0-33.0); Mean Corpuscular Volume 106.3 fL (80.0-98.0); Mean Platelet Volume 9.1 fL (9.4-12.4); Monocytes Absolute Auto 0.9 X10*3/uL (0.1-1.2); Monocytes Percent Auto 7.7 % (2-11); Neutrophils Absolute Auto 9.4 x10*3/uL (2.0-8.3); Neutrophils Percent Auto 81.2 % (45-73); Platelet Count 193 X10*3/uL (160-400); Red Cell Distribution Width 13.2 % (11.0-16.0); White Blood Count 11.5 X10*3/uL (4.8-10.8)
--- NOTE | 2021-09-20 07:18 | PHA.MEDREC ---
Pharmacy Consult ? Medication Reconciliation Pharmacy has completed the medication reconciliation. Check overnight nursing med rec
[2021-09-20 07:28] VITALS: BP 155/81; PULSE 81; RESP 16; TEMP 36.4; O2SAT 95
[2021-09-20 07:44] LABS: Anion Gap 19 (12-20); Blood Urea Nitrogen 14 mg/dL (9-16); Carbon Dioxide 19 mmol/L (22-29); Chloride 104 mmol/L (96-108); Creatinine Clr Calc Pharmacy 100.8; Estimated Glomerular Filt Rate > 60; Glucose Random 101 mg/dL (60-115); Potassium 4.7 mmol/L (3.3-5.1); Sodium 137 mmol/L (135-145)
[2021-09-20] MEDS: Rivaroxaban 20 MG TABLET PO (11:05)
[2021-09-20] MEDS: Digoxin 0.25 MG TABLET PO (11:05)
[2021-09-20] MEDS: allopurinoL 300 MG TABLET PO (11:06)
[2021-09-20] MEDS: carvediloL 25 MG TABLET PO (11:06)
[2021-09-20] MEDS: Atorvastatin Calcium 40 MG TABLET PO (11:06)
[2021-09-20] MEDS: Multivitamin TABLET 1 TAB PO (11:06)
[2021-09-20] MEDS: Furosemide 20 MG TABLET PO (11:21)
--- NOTE | 2021-09-20 11:33 | HO.PM.IMPN ---
Subjective Subjective Date of Service: 09/20/21 Interval History: the patient was seen and evaluated this morning Laying in bed, feels much improvement since yesterday but still having abdominal discomfort Denies any fever, chills , nausea or vomiting No reported other overnight events. Systemic review: No fever, chills or weakness No chest pain, palpitation No shortness of breath or coughing nonausea or vomiting, reporting abdominal discomfort around the hernia No urinary symptoms No any rash or wounds Physical Exam Vital Signs: Vital Signs: Last Vital Signs Temp 97.6 F 09/20/21 07:28 Pulse 81 09/20/21 07:28 Resp 16 09/20/21 07:28 BP 155/81 H 09/20/21 07:28 Pulse Ox 95 09/20/21 07:28 BMI result Body Mass Index 41.9 Const: Other: Constitutional : Alert, oriented, not in distress Neck : Normal inspection, Supple Cardiovascular : RRR, no JVP, no lower extremity edema Respiratory : fair bilateral air entry, no crackles, wheezes or rhonchi Gastrointestinal: soft, lax, decreased bowel sounds, mild generalized tenderness but no surgical signs or incarcerated hernia Skin : Warm, Dry Neurological : Alert & oriented x3, No focal deficit , CN 2-12 within normal Objective Data Active Medications Acetaminophen (Acetaminophen 325 Mg Tablet) 650 mg PO Q6H PRN PRN Reason: Pain, Mild (Pain Scale 1-3) Allopurinol (Allopurinol 300 Mg Tablet) 300 mg PO DAILY [facility] Last Admin: 09/20/21 11:06 Dose: 300 mg Documented by: JUSTIN Atorvastatin Calcium (Atorvastatin Calcium 40 Mg Tablet) 40 mg PO DAILY [facility] Last Admin: 09/20/21 11:06 Dose: 40 mg Documented by: JUSTIN Carvedilol (Carvedilol 25 Mg Tablet) 25 mg PO BID [facility]; Protocol Last Admin: 09/20/21 11:06 Dose: 25 mg Documented by: JUSTIN Digoxin (Digoxin 0.25 Mg Tablet) 0.25 mg PO DAILY [facility] Last Admin: 09/20/21 11:05 Dose: 0.25 mg Documented by: JUSTIN Furosemide (Furosemide 20 Mg Tablet) 20 mg PO Q2D [facility]; Protocol Last Admin: 09/20/21 11:21 Dose: 20 mg Documented by: HARLAN Morphine Sulfate (Morphine Sulfate 4 Mg/Ml Cartridge) 4 mg IVPUSH Q4H PRN; Protocol PRN Reason: Pain, Severe (Pain Scale 7-10) Multivitamins/Vitamin C (Multivitamin Tablet) 1 tab PO DAILY [facility] Last Admin: 09/20/21 11:06 Dose: 1 tab Documented by: JUSTIN Ondansetron HCl (Ondansetron Hcl 4 Mg/2 Ml Vial) 4 mg IVPUSH Q8H PRN PRN Reason: Nausea and Vomiting Rivaroxaban (Rivaroxaban 20 Mg Tablet) 20 mg PO DAILY [facility] Last Admin: 09/20/21 11:05 Dose: 20 mg Documented by: JUSTIN Sodium Chloride (0.9 % Sodium Chloride Flush 3 Ml Syringe) 3 ml IVFLUSH QSHIFT [facility] Last Admin: 09/20/21 11:05 Dose: 3 ml Documented by: JUSTIN Valsartan (Valsartan 160 Mg Tablet) 160 mg PO DAILY [facility] Labs CBC & Chem 7: 09/20/21 06:14 09/20/21 06:14 Labs: Laboratory Results - last 24 hr 09/19/21 09/19/21 09/19/21 19:20 19:20 19:56 MCV 103.6 H MCH 36.1 H MCHC 34.8 RDW 13.2 Plt Count 217 MPV 8.6 L Immature Gran % (Auto) 1.1 H Neut % (Auto) 85.3 H Lymph % (Auto) 7.4 L [place] % (Auto) 5.5 Eos % (Auto) 0.3 Baso % (Auto) 0.4 Lymph # (Auto) 1.0 L [place] # (Auto) 0.7 Eos # (Auto) 0.0 Baso # (Auto) 0.1 Abs Immat Gran (auto) 0.14 H Absolute Neuts (auto) 11.3 H Absolute Nucleated RBC 0.000 Nucleated RBC % (auto) 0.0 Anion Gap 15 Estim Creat Clear Calc 86.5 Estimated GFR > 60 Random Glucose 121 H Lactic Acid Calcium 10.1 D Total Bilirubin 1.3 H AST 17 ALT 23 Alkaline Phosphatase 59 Total Protein 6.7 Albumin 4.0 Lipase 11 Urine Color YELLOW Urine Appearance CLEAR Urine pH 7.5 Ur Specific [place] 1.025 Urine Protein 2+ H Urine Glucose (UA) NEG Urine Ketones 5 Urine Blood NEG Urine Nitrite NEG Ur Leukocyte Esterase NEG Urine RBC 0-2 Urine WBC 0 Ur Squamous Epith Cells NONE Urine Bacteria TRACE COVID-19 ([facility]) COVID-19 Clin Com 09/19/21 09/19/21 09/20/21 20:16 20:16 06:14 MCV 106.3 H MCH 36.8 H MCHC 34.6 RDW 13.2 Plt Count 193 MPV 9.1 L Immature Gran % (Auto) 0.9 H Neut % (Auto) 81.2 H Lymph % (Auto) 9.1 L [place] % (Auto) 7.7 Eos % (Auto) 0.8 Baso % (Auto) 0.3 Lymph # (Auto) 1.1 L [place] # (Auto) 0.9 Eos # (Auto) 0.1 Baso # (Auto) 0.0 Abs Immat Gran (auto) 0.10 H Absolute Neuts (auto) 9.4 H Absolute Nucleated RBC 0.000 Nucleated RBC % (auto) 0.0 Anion Gap Estim Creat Clear Calc Estimated GFR Random Glucose Lactic Acid 1.2 Calcium Total Bilirubin AST ALT Alkaline Phosphatase Total Protein Albumin Lipase Urine Color Urine Appearance Urine pH Ur Specific [place] Urine Protein Urine Glucose (UA) Urine Ketones Urine Blood Urine Nitrite Ur Leukocyte Esterase Urine RBC Urine WBC Ur Squamous Epith Cells Urine Bacteria COVID-19 (YAMILKA) Negative COVID-19 Clin Com See Note 09/20/21 06:14 MCV MCH MCHC RDW Plt Count MPV Immature Gran % (Auto) Neut % (Auto) Lymph % (Auto) [place] % (Auto) Eos % (Auto) Baso % (Auto) Lymph # (Auto) [place] # (Auto) Eos # (Auto) Baso # (Auto) Abs Immat Gran (auto) Absolute Neuts (auto) Absolute Nucleated RBC Nucleated RBC % (auto) Anion Gap 19 Estim Creat Clear Calc 100.8 Estimated GFR > 60 Random Glucose 101 Lactic Acid Calcium 9.0 D Total Bilirubin AST ALT Alkaline Phosphatase Total Protein Albumin Lipase Urine Color Urine Appearance Urine pH Ur Specific [place] Urine Protein Urine Glucose (UA) Urine Ketones Urine Blood Urine Nitrite Ur Leukocyte Esterase Urine RBC Urine WBC Ur Squamous Epith Cells Urine Bacteria COVID-19 ([facility]) COVID-19 Clin Com Assessment and Plan Plan 76-year-old male with past medical history of umbilical hernia presents to the hospital with severe abdominal plain found to have for treating large umbilical hernia with small-bowel obstruction with closed loop type physiology per CT scan. # recurrent umbilical hernia # SBO The hernia was reduced by ED physician patient is significantly improved. Still did not pass gas or had a marycruz General surgery is consulted, pending their further review. Due to his extensive past medical history patient is not a candidate for surgery at this time, will admit for further evaluation, pain control, and monitoring BM, will keep NPO at this time. # history of schema cardiomyopathy - not in exacerbation - continue carvedilol, digoxin, furosemide # history of AFib - continue Xarelto # hypertension - stable - continue home medications DVT prophylaxis: Xarelto Quality Stroke Does the patient have a stroke diagnosis?: No VTE Prior VTE?: No VTE Risk Level:: Medical - low VTE Device Contraindication: Treatment Not Indicated VTE Drug Contraindication: Treatment Not Indicated
[2021-09-20] MEDS: Valsartan 160 MG TABLET PO (11:53)
[2021-09-20 12:06] VITALS: BP 132/71; PULSE 73; RESP 16; TEMP 36.6; O2SAT 94
--- NOTE | 2021-09-20 12:16 | PC.NURSE ---
some morning meds were not loaded in overflow pyxis. this bid writer spoke with Ernesto in pharmacy. meds loaded past scheduled administration time. meds given late
--- NOTE | 2021-09-20 13:30 | PM.CNGS ---
History of Present Illness Consult details Consult date: 09/20/21 Reason for consult: hernia Requesting physician: Kathy Hampton Narrative: The pt is a 76 year old male who is known to gen surgery with umbilical hernia. had a psbo secondary to this earlier year but ? he was too ill to undergo repair. has been wearing a binder but now had some constipation issues and was straining and thinks he pushed out the hernia even more and it became incarcerated. He now was feeling nauseated and came to the ER where Ct scan showed findings consistent with incarcerated small bowel loops with transition point. In the ER the doc was able to reduce but pt kept overnight for clearance of med issues and observe to make sure all ok. Today feeling much better, had breakfast and that has gone down well. no nausea and abdomen much less tender Review of Systems Constitutional: Constitutional: Reports as per HPI [facility] Past Medical History Medical History CAD (coronary artery disease) COVID-19 vaccine series completed Gastritis Gastroenteritis Heart failure with reduced ejection fraction HTN (hypertension) Ischemic cardiomyopathy Persistent atrial fibrillation Umbilical hernia Ventral hernia Family History Family History Father CHF (congestive heart failure) Mother No problems noted. Brother CHF (congestive heart failure) Surgical History Surgical History Hx of colonoscopy Stented coronary artery Social History Social History Household Members: Spouse Housing: House Do you presently have visiting nurse or other home services: No Alcohol intake: former Patient Tobacco Use Status: Former Tobacco user Quit Date: 1975 Years Smoked: 20 +/- Advance Directives Date on File: 12/21/13 service: No Current occupational status: retired Meds Allergies Allergy/AdvReac Type Severity Reaction Status Date / Time bee pollen [BEE STINGS] Allergy Intermediate HIVES, SOB Verified 09/19/21 19:18 LOBSTER Allergy Intermediate HIVES Uncoded 09/19/21 19:18 Active Medications: Current Medications Acetaminophen (Acetaminophen 325 Mg Tablet) 650 mg PO Q6H PRN PRN Reason: Pain, Mild (Pain Scale 1-3) Allopurinol (Allopurinol 300 Mg Tablet) 300 mg PO DAILY [facility] Last Admin: 09/20/21 11:06 Dose: 300 mg Documented by: Atorvastatin Calcium (Atorvastatin Calcium 40 Mg Tablet) 40 mg PO DAILY [facility] BY [facility] Last Admin: 09/20/21 11:06 Dose: 40 mg Documented by: Carvedilol (Carvedilol 25 Mg Tablet) 25 mg PO BID [facility]PLACED BY [facility]; Protocol Last Admin: 09/20/21 11:06 Dose: 25 mg Documented by: Digoxin (Digoxin 0.25 Mg Tablet) 0.25 mg PO DAILY [facility] Last Admin: 09/20/21 11:05 Dose: 0.25 mg Documented by: Furosemide (Furosemide 20 Mg Tablet) 20 mg PO Q2D [facility]PLACED BY [facility]; Protocol Last Admin: 09/20/21 11:21 Dose: 20 mg Documented by: Morphine Sulfate (Morphine Sulfate 4 Mg/Ml Cartridge) 4 mg IVPUSH Q4H PRN; Protocol PRN Reason: Pain, Severe (Pain Scale 7-10) Multivitamins/Vitamin C (Multivitamin Tablet) 1 tab PO DAILY [facility] Last Admin: 09/20/21 11:06 Dose: 1 tab Documented by: Ondansetron HCl (Ondansetron Hcl 4 Mg/2 Ml Vial) 4 mg IVPUSH Q8H PRN PRN Reason: Nausea and Vomiting Rivaroxaban (Rivaroxaban 20 Mg Tablet) 20 mg PO DAILY [facility] Last Admin: 09/20/21 11:05 Dose: 20 mg Documented by: Sodium Chloride (0.9 % Sodium Chloride Flush 3 Ml Syringe) [facility] Last Admin: 09/20/21 11:05 Dose: 3 ml Documented by: Valsartan (Valsartan 160 Mg Tablet) 160 mg PO DAILY [facility] Last Admin: 09/20/21 11:53 Dose: 160 mg Documented by: Home Medications Medication Instructions Recorded Confirmed Last Taken Type allopurinol 300 mg tablet 300 mg PO DAILY 01/14/21 09/20/21 05/09/21 History atorvastatin 40 mg tablet 40 mg PO DAILY 01/14/21 09/20/21 05/09/21 History carvedilol 25 mg tablet 25 mg PO BID 01/14/21 09/20/21 05/30/21 History olmesartan 40 mg tablet 40 mg PO DAILY 01/14/21 09/20/21 05/09/21 History multivitamin 1 tab PO DAILY 05/10/21 09/20/21 05/09/21 History furosemide 20 mg tablet 20 mg PO Q OTHER DAY tab 08/12/21 09/20/21 Unknown History Physical Exam Vital Signs: Vital Signs: Last Vital Signs Temp 97.8 F 09/20/21 12:06 Pulse 73 09/20/21 12:06 Resp 16 09/20/21 12:06 BP 132/71 09/20/21 12:06 Pulse Ox 94 09/20/21 12:06 BMI result Body Mass Index 41.9 Const: General: cooperative, healthy appearing and comfortable Nutritional Appearance: obese HEENT: Head: Yes normal to inspection Neck: Neck: Yes full ROM Resp: Effort & Inspection: normal respiratory effort and able to speak in complete sentences Cardio: Rate: regular rate Rhythm: regular rhythm GI: Other: abdo soft nontender except for mid tenderness over umbilical area. most of the hernia is reduced and fine. pt has active bowel sounds there is still some fullness at the umbilical area but not firm Extrem: General: Yes normal to inspection Psych: Appearance: grossly normal Mental Status: mental status grossly normal Speech and movement: Normal speech and movement present Affect: normal affect Results Labs Result diagrams: 09/20/21 06:14 09/20/21 06:14 Labs: Abnormal lab results 09/19/21 09/19/21 09/19/21 Range/Units 19:20 19:20 19:56 WBC 13.2 H (4.8-10.8) X10*3/uL RBC 4.49 L (4.60-5.80) X10*6/uL MCV 103.6 H (80.0-98.0) fL MCH 36.1 H (27.0-33.0) pg MPV 8.6 L (9.4-12.4) fL Immature Gran % (Auto) 1.1 H (0.0-0.4) % Neut % (Auto) 85.3 H (45-73) % Lymph % (Auto) 7.4 L (20-40) % Lymph # (Auto) 1.0 L (1.2-4.9) X10*3/uL Abs Immat Gran (auto) 0.14 H (0.00-0.03) X10*3/uL Absolute Neuts (auto) 11.3 H (2.0-8.3) x10*3/uL Carbon Dioxide (22-29) mmol/L Random Glucose 121 H (60-115) mg/dL Total Bilirubin 1.3 H (0.0-1.0) mg/dL Urine Protein 2+ H (NEG-TRACE) MG/DL 09/20/21 09/20/21 Range/Units 06:14 06:14 WBC 11.5 H (4.8-10.8) X10*3/uL RBC 4.00 L (4.60-5.80) X10*6/uL MCV 106.3 H (80.0-98.0) fL MCH 36.8 H (27.0-33.0) pg MPV 9.1 L (9.4-12.4) fL Immature Gran % (Auto) 0.9 H (0.0-0.4) % Neut % (Auto) 81.2 H (45-73) % Lymph % (Auto) 9.1 L (20-40) % Lymph # (Auto) 1.1 L (1.2-4.9) X10*3/uL Abs Immat Gran (auto) 0.10 H (0.00-0.03) X10*3/uL Absolute Neuts (auto) 9.4 H (2.0-8.3) x10*3/uL Carbon Dioxide 19 L (22-29) mmol/L Random Glucose (60-115) mg/dL Total Bilirubin (0.0-1.0) mg/dL Urine Protein (NEG-TRACE) MG/DL Short CBC 09/19/21 09/20/21 Range/Units 19:20 06:14 WBC 13.2 H 11.5 H (4.8-10.8) X10*3/uL Hgb 16.2 14.7 (14.0-18.0) g/dl Hct 46.5 42.5 (42.0-52.0) % Plt Count 217 193 (160-400) X10*3/uL BMP 09/19/21 09/20/21 19:20 06:14 Sodium 138 137 Potassium 4.6 4.7 Chloride 101 104 Carbon Dioxide 27 19 L BUN 13 14 Creatinine 0.85 0.73 Calcium 10.1 D 9.0 D Liver Function 06/03/22 Range/Units 19:20 Total Bilirubin 1.3 H (0.0-1.0) mg/dL AST 17 (5-37) U/L ALT 23 (0-40) U/L Alkaline Phosphatase 59 (39-117) U/L Albumin 4.0 (3.5-5.0) g/dL Urine 09/19/21 Range/Units 19:56 Urine Color YELLOW Urine Appearance CLEAR Urine pH 7.5 (5.0-8.0) Ur Specific [place] 1.025 (1.005-1.025) Urine Protein 2+ H (NEG-TRACE) MG/DL Urine Glucose (UA) NEG (NEG) MG/DL All other labs normal. Imaging Abdomen CT scan report/results: report reviewed and image reviewed CT scan - pelvis: report reviewed and image reviewed Assessment and Plan (1) Hernia, umbilical, with obstruction: Status: Acute 76 year old male with umbilical hernia for a long time goes in and out. he wears a binder and that works for him. He had an obstructive episode earlier this year and was determined too high a med risk after it was reduced to undergo repair. however now its happend again and pt anticoagulated. abdo at this time is ok, not at risk. however i think we should seriously consider having it repaired and reinforced with mesh. Ok to dc home today, wearing binder almost all times nd not heavy lifting or straining. then get cardiac clearance for surgery and fu with surgery team in the office extensive discussion had with his son and patient and they understand and agree with the plan Procedures Date of Service Date of Service: 09/20/21
--- NOTE | 2021-09-20 15:06 | PM.DS ---
DS: Providers Provider Date of Service: 09/20/21 Date of admission: 09/19/21 23:57 Primary care physician: Brandon Disla MD Consults: 09/20/21 07:34 Consult to General Surgery Routine Consulting Provider: Jacqueline Love Reason for consultation: SBOP, umbilical hernia Has provider been notified: Yes DS: Diagnosis Discharge Diagnosis (1) Hernia, umbilical, with obstruction: Status: Acute DS: Summary Hospital Course Hospital Course: Admission note HPI This is a 76-year-old male with past medical history of hypertension, HLD, CAD, ischemic cardiomyopathy, with ejection fraction of 45%, AFib, and history of chronic umbilical hernia who presents to the hospital with complaints of nausea vomiting as well as abdominal pain.? Of note patient was admitted to the hospital on 05/13 with umbilical hernia and SBO.? Patient was treated conservatively and sent home and followed with general surgery.? Due to his extensive past medical history patient was found to be high risk for surgery, and was to be followed and treated conservatively for his umbilical hernia which likely cause his SBO. He returns today with similar complaints of abdominal pain, bloating, nausea vomiting, and constipation.? Patient reports that he has not passed any BM or gas since the day prior to admission in the a.m..? On further workup patient was found to have a large umbilical hernia around 4.4 x 4.5 cm with small-bowel obstruction and closed loop type physiology per CT scan, ED physician was able to reduce the hernia without significant discomfort.? Because of the large or 30s and surrounding with mesenteric edema surgery was consulted, recommended admission to medical service for conservative management and further observation. Hospital course The patient was admitted to the hospital for monitoring after obstructed umbilical hernia was reduced by the emergency physician. Patient was able to tolerate diet and start passing gas as he was evaluated by general surgeon who recommended outpatient follow-up after medical clearance been done by his PCP. Suggested to decrease straining and to treat constipation. Metamucil added to his home MiraLax. Follow up with dr Coughlin as outpatient to plan surgery To follow-up with primary care physician for medical clearance before the surgery Continue to wear the binder, Avoid straining Start Metamucil Time Spent with Patient Time attestation: Total time spent providing and/or coordinating discharge services: Discharge coordination time: Less than 30 minutes Quality: Safe Use of Opioids Does Pt have an Active Cancer Diagnosis on the Problem List?: No Quality: Stroke Does the patient have a stroke diagnosis?: No Physical Exam Vital Signs: Vital Signs: Last Vital Signs Temp 97.8 F 09/20/21 12:06 Pulse 73 09/20/21 12:06 Resp 16 09/20/21 12:06 BP 132/71 09/20/21 12:06 Pulse Ox 94 09/20/21 12:06 BMI result Body Mass Index 41.9 Const: Other: Constitutional : Alert, oriented, not in distress Neck : Normal inspection, Supple Cardiovascular : RRR, no JVP, no lower extremity edema Respiratory : fair bilateral air entry, no crackles, wheezes or rhonchi Gastrointestinal: soft, lax, decreased bowel sounds, no generalized tenderness, umbilical hernia can be pushed back with minimal tenderness noted. Skin : Warm, Dry Neurological : Alert & oriented x3, No focal deficit , CN 2-12 within normal DS: Data Data Completed and Pending Labs on day of discharge: Laboratory Results - last 24 hr 09/19/21 09/19/21 09/19/21 19:20 19:20 19:56 WBC 13.2 H RBC 4.49 L Hgb 16.2 Hct 46.5 MCV 103.6 H MCH 36.1 H MCHC 34.8 RDW 13.2 Plt Count 217 MPV 8.6 L Immature Gran % (Auto) 1.1 H Neut % (Auto) 85.3 H Lymph % (Auto) 7.4 L [place] % (Auto) 5.5 Eos % (Auto) 0.3 Baso % (Auto) 0.4 Lymph # (Auto) 1.0 L [place] # (Auto) 0.7 Eos # (Auto) 0.0 Baso # (Auto) 0.1 Abs Immat Gran (auto) 0.14 H Absolute Neuts (auto) 11.3 H Absolute Nucleated RBC 0.000 Nucleated RBC % (auto) 0.0 Sodium 138 Potassium 4.6 Chloride 101 Carbon Dioxide 27 Anion Gap 15 BUN 13 Creatinine 0.85 Estim Creat Clear Calc 86.5 Estimated GFR > 60 Random Glucose 121 H Lactic Acid Calcium 10.1 D Total Bilirubin 1.3 H AST 17 ALT 23 Alkaline Phosphatase 59 Total Protein 6.7 Albumin 4.0 Lipase 11 Urine Color YELLOW Urine Appearance CLEAR Urine pH 7.5 Ur Specific [place] 1.025 Urine Protein 2+ H Urine Glucose (UA) NEG Urine Ketones 5 Urine Blood NEG Urine Nitrite NEG Ur Leukocyte Esterase NEG Urine RBC 0-2 Urine WBC 0 Ur Squamous Epith Cells NONE Urine Bacteria TRACE COVID-19 ([facility]) COVID-19 Clin Com 09/19/21 09/19/21 09/20/21 20:16 20:16 06:14 WBC 11.5 H RBC 4.00 L Hgb 14.7 Hct 42.5 MCV 106.3 H MCH 36.8 H MCHC 34.6 RDW 13.2 Plt Count 193 MPV 9.1 L Immature Gran % (Auto) 0.9 H Neut % (Auto) 81.2 H Lymph % (Auto) 9.1 L [place] % (Auto) 7.7 Eos % (Auto) 0.8 Baso % (Auto) 0.3 Lymph # (Auto) 1.1 L [place] # (Auto) 0.9 Eos # (Auto) 0.1 Baso # (Auto) 0.0 Abs Immat Gran (auto) 0.10 H Absolute Neuts (auto) 9.4 H Absolute Nucleated RBC 0.000 Nucleated RBC % (auto) 0.0 Sodium Potassium Chloride Carbon Dioxide Anion Gap BUN Creatinine Estim Creat Clear Calc Estimated GFR Random Glucose Lactic Acid 1.2 Calcium Total Bilirubin AST ALT Alkaline Phosphatase Total Protein Albumin Lipase Urine Color Urine Appearance Urine pH Ur Specific [place] Urine Protein Urine Glucose (UA) Urine Ketones Urine Blood Urine Nitrite Ur Leukocyte Esterase Urine RBC Urine WBC Ur Squamous Epith Cells Urine Bacteria COVID-19 ([facility]ILKA) Negative COVID-19 Clin Com See Note 09/20/21 06:14 WBC RBC Hgb Hct MCV MCH MCHC RDW Plt Count MPV Immature Gran % (Auto) Neut % (Auto) Lymph % (Auto) [place] % (Auto) Eos % (Auto) Baso % (Auto) Lymph # (Auto) [place] # (Auto) Eos # (Auto) Baso # (Auto) Abs Immat Gran (auto) Absolute Neuts (auto) Absolute Nucleated RBC Nucleated RBC % (auto) Sodium 137 Potassium 4.7 Chloride 104 Carbon Dioxide 19 L Anion Gap 19 BUN 14 Creatinine 0.73 Estim Creat Clear Calc 100.8 Estimated GFR > 60 Random Glucose 101 Lactic Acid Calcium 9.0 D Total Bilirubin AST ALT Alkaline Phosphatase Total Protein Albumin Lipase Urine Color Urine Appearance Urine pH Ur Specific [place] Urine Protein Urine Glucose (UA) Urine Ketones Urine Blood Urine Nitrite Ur Leukocyte Esterase Urine RBC Urine WBC Ur Squamous Epith Cells Urine Bacteria COVID-19 ([facility]) COVID-19 Clin Com Discharge Plan Discharge Patient Disposition: Home, Self-Care Discharge Diagnosis: Umbilical hernia with obstruction Referrals: Brandon Disla MD [Primary Care Provider] - 1 Week Discharge Medications: New psyllium husk [Daily Fiber] 0.4 gram capsule 0.4 g PO DAILY Qty: 30 0RF Continued digoxin [Digox] 250 mcg (0.25 mg) tablet 250 mcg PO DAILY Qty: 30 3RF Xarelto 20 mg tablet 20 mg PO DAILY Qty: 30 5RF Hold Instructions: Resume on 06/05/21. Rx Instructions: must administer with evening meal multivitamin Tablet 1 tab PO DAILY 0RF carvedilol 25 mg tablet 25 mg PO BID 0RF allopurinol 300 mg tablet 300 mg PO DAILY 0RF olmesartan 40 mg tablet 40 mg PO DAILY 0RF atorvastatin 40 mg tablet 40 mg PO DAILY 0RF furosemide 20 mg tablet 20 mg PO Q OTHER DAY 0RF Discharge Orders: Discharge Order (Routine); Ordered 09/20/21 Ordered By: Rhiannon Rodriguez Diet: advance to usual diet Activity on Discharge: As tolerated Stand Alone Forms: Patient Portal Discharge page Care Plan Goals: Read below Health Concerns: Read below Plan of Treatment: Read below Assessment: You were admitted to the hospital for evaluation of abdominal pain. Found to have umbilical hernia with associated bowel obstruction that was reduced in the emergency. You were evaluated by a surgeon who recommended no intervention needed at this point as he started to pass gas and tolerating diet. Follow up with dr Coughlin as outpatient to plan surgery To follow-up with primary care physician for medical clearance before the surgery Continue to wear the binder, Avoid straining Start Metamucil Please come back to the hospital for any recurrence of the pain
--- NOTE | 2021-09-20 15:58 | MHC.CM.PN ---
Addendum entered by Yamilex Fitch 09/20/21 16:00: Patient instructed to follow up out patient with surgeon. Original Note: GORMAN 09/20/21 Male DX Ventral hernia. Patient lives with . He is discharged today home family transport.
== END 2021-09-20 15:50 | disposition home or self-care (01) ==
LOC: HO.ED 09-20 00:15 → HO.EDOVER 09-20 00:22 → HO.S3 09-20 11:30 → HO.EDOVER 09-20 12:52
PROVIDERS: Admitting Provider Internal Medicine; Emergency Provider Internal Medicine; PCP Internal Medicine; Visit Provider Student in an Organized Health Care Education/Training Program
DX: K42.0 Umbilical hernia with obstruction, without gangrene (principal); R10.9 Unspecified abdominal pain; I48.19 Other persistent atrial fibrillation; I25.10 Atherosclerotic heart disease of native coronary artery without angina pectoris; I11.0 Hypertensive heart disease with heart failure; I50.20 Unspecified systolic (congestive) heart failure; I25.5 Ischemic cardiomyopathy; Q25.46 Tortuous aortic arch; E78.5 Hyperlipidemia, unspecified; E66.9 Obesity, unspecified; Z87.891 Personal history of nicotine dependence; Z20.822 Contact with and (suspected) exposure to COVID-19; Z68.41 Body mass index [BMI] 40.0-44.9, adult; Z91.030 Bee allergy status; Z91.013 Allergy to seafood; Z79.899 Other long term (current) drug therapy
CPT/HCPCS: 36415; 74176; 80048; 80053; 81001; 81003; 83605; 83690; 85025; 87635; 93005; 96361; 96374; 96375; 96376; 99218; 99285; J2270; J2405

== ENCOUNTER → 2021-09-23 12:44 | Outpatient (BNVA) | payer MEDICARE, OTHER, SELFPAY | PROVIDERS: PCP Internal Medicine; Visit Provider Internal Medicine Cardiovascular Disease | DX: Z01.810 Encounter for preprocedural cardiovascular examination (principal); I50.20 Unspecified systolic (congestive) heart failure; I48.19 Other persistent atrial fibrillation; I25.10 Atherosclerotic heart disease of native coronary artery without angina pectoris | CPT/HCPCS: 99212 ==

== ENCOUNTER → 2021-10-06 09:54 | Outpatient (REF) | payer MEDICARE, OTHER, SELFPAY ==
--- NOTE | ~2021-10-06 | NM_ITS ---
Myocardial perfusion study Indication: Atherosclerotic heart disease to evaluate for myocardial ischemia Technique: The patient was brought in for a Lexiscan perfusion study on 10/06/2021. Patient performed low-level exercise and was injected 0.4 mg of Lexiscan intravenously. Within a minute of injection, 45 mCi of sestamibi was given intravenously. Images were obtained using the SPECT gamma camera interlaced with the gating device. Images were obtained in supine position. Resting perfusion study was performed on 10/08/2021. Patient was administered 45 mCi of sestamibi intravenously at rest. Images were then obtained in supine position. Images obtained with and without CT attenuation. Total DLP 122 mGy-cm. Images were processed with the software and compared side to side in short axis, horizontal long axis and vertical long axis views. Findings: The stress perfusion study showed non attenuated images show normal uptake of radiotracer in all segments of LV myocardium. Attenuated corrected images show mildly reduced uptake in the apex of the LV myocardium. The gated study shows normal LV systolic function with calculated LVEF of 60%. LV cavity is mildly dilated size. The gated study shows normal systolic wall thickening and contraction of segments. Resting study shows no change in perfusion pattern compared to stress perfusion study. Gating at rest reveals normal systolic wall motion with ejection fraction at 62%. The findings are consistent with normal myocardial perfusion. NM/NM cardiolite stress test Impression: 1. Myocardial perfusion imaging study shows normal myocardial perfusion 2. Gated LVEF is 60% 3. Transient ischemic dilatation not present EKG is nondiagnostic for ischemia
--- NOTE | 2021-10-06 09:56 | CA_ITS ---
Acquisition Time: 2021-10-06 10:48:37 Total Exercise Time: 00:02:00 Test Indications: CAD PREOP Medications: ALLOPRINOL ATROVASTATIN Protocol: LEXISCAN Max HR: 114 BPM 80% of Pred: 142 BPM Max BP: 134/070 mmHG Max Work Load: 1.0 METS Pharmacological stress test with Lexiscan injection, while sitting and kicking his legs, without anginal symptoms, with frequent isolated PVCs, one cuplet and one triplet, with normotensive response to injection, with nondiagnostic EKG for ischemia. In recovery his afib rate was elevated up to 110 and he was treated with Aminophylline 75mg IVP to reverse Lexiscan with improvement in heart rate. Nuclear images pending. Test reviewed with Dr Orozco. Referred By: Dorian Orozco Overread By: SALBADOR ROYAL
== END ==
LOC: HO.CARD 09:54
PROVIDERS: Visit Provider Internal Medicine Cardiovascular Disease
DX: Z01.818 Encounter for other preprocedural examination (principal); I25.10 Atherosclerotic heart disease of native coronary artery without angina pectoris
CPT/HCPCS: 78452; 93017; A9500; J0280; J2785

== ENCOUNTER 2021-10-14 15:11 | Emergency (ER) | payer MEDICARE, OTHER, SELFPAY ==
--- NOTE | ~2021-10-14 | XR_ITS ---
EXAMINATION: XR ABDOMEN KUB CLINICAL INDICATION: Status post hernia reduction with question of obstruction COMPARISON: CT abdomen pelvis 09/19/2021, KUB 05/11/2021 TECHNIQUE: AP view of the abdomen. FINDINGS: Compared to prior studies, there is been significant improvement in appearances. Previously seen clustered dilated small bowel loops in the left abdomen most prominent in the left upper quadrant are improved, with one dilated small bowel loop seen remaining measuring about 6 cm. Moderate stool is present throughout the colon whereas previously there was a paucity. XR/XR KUB IMPRESSION: Improved appearances with dilatation of a single small bowel loop in the left abdomen.
[2021-10-14 17:09] VITALS: BP 171/85; PULSE 82; RESP 18; TEMP 36.8; O2SAT 95; BMI 39.1
[2021-10-14] MEDS: Ondansetron ODT 4 MG TAB.RAPDIS TRANSLINGU (17:14)
[2021-10-14 17:25] LABS: MANUAL DIFF FLAG NO
[2021-10-14 17:27] LABS: Basophils Percent Auto 0.3 % (0-2); Eosinophils Absolute Auto 0.1 X10*3/uL (0.0-0.4); Eosinophils Percent Auto 0.5 % (0-4); Hemoglobin 15.5 g/dl (14.0-18.0); Imm Gran Abs Auto 0.19 X10*3/uL (0.00-0.03); Imm Gran Pct Auto 1.3 % (0.0-0.4); Lymphocytes Percent Auto 6.8 % (20-40); Mean Corpuscular HGB Conc 35.2 g/dl (31.0-36.0); Mean Corpuscular Hemoglobin 36.3 pg (27.0-33.0); Mean Platelet Volume 9.3 fL (9.4-12.4); Monocytes Percent Auto 6.8 % (2-11); Neutrophils Absolute Auto 12.3 x10*3/uL (2.0-8.3); Neutrophils Percent Auto 84.3 % (45-73); Platelet Count 224 X10*3/uL (160-400); Red Blood Count 4.27 X10*6/uL (4.60-5.80); Red Cell Distribution Width 13.2 % (11.0-16.0); White Blood Count 14.6 X10*3/uL (4.8-10.8)
[2021-10-14 17:50] LABS: Anion Gap 14 (12-20); Blood Urea Nitrogen 16 mg/dL (9-16); Calcium 9.5 mg/dL (8.4-10.2); Carbon Dioxide 24 mmol/L (22-29); Chloride 105 mmol/L (96-108); Estimated Glomerular Filt Rate > 60; Glucose Random 114 mg/dL (60-115); Potassium 4.5 mmol/L (3.3-5.1); Sodium 138 mmol/L (135-145)
--- NOTE | 2021-10-14 19:06 | PC.NURSE ---
patient a&ox3, vss, pt c/o abd pain 8-9/10 pain, family at bedside, pt awaiting provider
--- NOTE | 2021-10-14 19:24 | ED_ITS ---
HPI - Abdominal Pain General Chief Complaint: Abdominal Pain Stated Complaint: severe abd pain, ambilocal hernia Time Seen by Provider: 10/14/21 19:09 Source: patient Mode of arrival: ambulatory Limitations: no limitations History of Present Illness HPI narrative: Patient comes emergency room complaining of umbilical hernia pain. Patient states that he will be getting surgery for umbilical hernia either on October 27 or the at [facility]. Patient has been cleared by surgery. However, patient states that today, the pain became unbearable and has gradually been getting worse throughout the day. Related Data Home Medications Medication Instructions Recorded Confirmed allopurinol 300 mg tablet 300 mg PO DAILY 01/14/21 09/23/21 atorvastatin 40 mg tablet 40 mg PO DAILY 01/14/21 09/23/21 carvedilol 25 mg tablet 25 mg PO BID 01/14/21 09/23/21 olmesartan 40 mg tablet 40 mg PO DAILY 01/14/21 09/23/21 multivitamin 1 tab PO DAILY 05/10/21 09/23/21 furosemide 20 mg tablet 20 mg PO Q OTHER DAY 08/12/21 09/23/21 prednisone 5 mg tablet 10 mg PO DAILY 09/23/21 09/23/21 Previous Rx's Medication Instructions Recorded digoxin 250 mcg (0.25 mg) tablet 250 mcg PO DAILY #30 tabs 07/14/21 (Digox) rivaroxaban 20 mg tablet (Xarelto) 20 mg PO DAILY #30 tabs 07/23/21 psyllium husk 0.4 gram capsule 0.4 g PO DAILY #30 caps 09/20/21 (Daily Fiber) Allergies Allergy/AdvReac Type Severity Reaction Status Date / Time bee pollen [BEE STINGS] Allergy Intermediate HIVES, SOB Verified 09/19/21 19:18 LOBSTER Allergy Intermediate HIVES Uncoded 09/19/21 19:18 Review of Systems Review of Systems Constitutional : No Weight loss, No Fever, No Chills, No Night Sweats, No Fatigue, No Malaise ENT/Mouth : No Hearing loss, No Ear Pain, No Nasal Congestion, No Sinus Pain, No Hoarseness, No sore throat, No Rhinorrhea, No Swallowing Difficulty Eyes: No Eye Pain, No Swelling, No Redness, No Foreign Body, No Discharge, No Vision Changes Cardiovascular : No Chest Pain, No SOB, No Dyspnea on Exertion, No Orthopnea, No Edema, No Palpitations Respiratory : No Cough, No Sputum, No Wheezing, No Smoke Exposure, No Dyspnea Gastrointestinal : No Nausea, No Vomiting, No Diarrhea, No Constipation, complaining of worsening abdominal pain, abdominal hernia seems to be entrapped Genitourinary : no irregular bleeding, No Dysuria, No Urinary Frequency, No Hematuria, No Urinary Incontinence, No Urgency, No Flank Pain, No Urinary Flow Changes, No Hesitancy Musculoskeletal : No joint pain, No Myalgias, No Joint Swelling Skin : No Skin Lesions, No rash Neuro : No Weakness, No Numbness, No Paresthesias, No Loss of Consciousness, No Dizziness, No Headache Psych : No Anxiety/Panic, No Depression, No SI/HI/AH/VH, No Social Issues, Heme/Lymph: No Bruising, No Bleeding,No Lymphadenopathy Endocrine : No Polyuria, No Polydipsia, No Temperature Intolerance PMFSH Past Medical History Medical History COVID-19 vaccine series completed Gastritis Gastroenteritis Paroxysmal A-fib Umbilical hernia Surgical History Hx of colonoscopy Stented coronary artery Family History Family History Father CHF (congestive heart failure) Mother No problems noted. Brother CHF (congestive heart failure) Social History Social History Household Members: Spouse Housing: House Do you presently have visiting nurse or other home services: No Alcohol intake: former Patient Tobacco Use Status: Former Tobacco user Quit Date: 1975 Years Smoked: 20 +/- Use of substances other than those prescribed or required for medical reasons: No Advance Directives: Yes Advance Directives on File: Yes Advance Directives Date on File: 12/21/13 service: No Current occupational status: retired Physical Exam ED Vital Signs: Vital Signs - 24 hr 10/14/21 17:09 10/14/21 20:00 Temperature 98.3 F 98.4 F Pulse Rate 82 90 Respiratory Rate 18 18 Blood Pressure 171/85 H 157/77 H Pulse Oximetry 95 95 Oxygen Delivery Method Room Air Room Air Nasal Cannula Oxygen Flow Rate 2 BMI result Body Mass Index 39.1 Const Other: Appearance: Alert. Oriented X3. No acute distress. Eyes: Pupils equal, round and reactive to light. ENT: Pharynx normal. Neck: Normal inspection. Neck supple. No lymph nodes noted. No crepitus CVS: Normal heart rate and rhythm. Pulses normal. Normal S1 and S2 Respiratory: No respiratory distress. Breath sounds normal. No Wheezing. No rales Abdomen: Soft, large umbilical hernia present, painful to touch. Skin: Skin warm and dry. Normal skin color. Normal skin turgor. Extremities: No lower extremity edema. No Lacerations. No Rash Neuro: Oriented X 3. No motor deficit. No sensory deficit. Moving all extremities. No slurred speech. CN 2 through 12 grossly intact Psych: calm, cooperative, normal affect Course Course Course Narrative: Patient will be receiving IV Dilaudid and Ativan to relax the patient. We will try to reduce the hernia manually. I was able to manually reduce the umbilical hernia. Patient states that he felt immediate relief. KUB pending to rule out of obstruction pattern. Patient instructed to call his surgeon at [facility], hopefully they will be able to move up his surgery to avoid any reoccurring incidences. I discussed with the patient that if he has recurring incarcerated hernia, he needs to return to the emergency room immediately. KUB does not show any pattern of obstruction. It has been over an hours since the umbilical hernia was reduced, patient states that he feels very well, no abdominal pain. MDM - Abdominal Pain Lab Data Result diagrams: 10/14/21 17:20 10/14/21 17:20 Labs: Lab Results 10/14/21 10/14/21 Range/Units 17:20 17:20 WBC 14.6 H (4.8-10.8) X10*3/uL RBC 4.27 L (4.60-5.80) X10*6/uL Hgb 15.5 (14.0-18.0) g/dl Hct 44.0 (42.0-52.0) % MCV 103.0 H (80.0-98.0) fL MCH 36.3 H (27.0-33.0) pg MCHC 35.2 (31.0-36.0) g/dl RDW 13.2 (11.0-16.0) % Plt Count 224 (160-400) X10*3/uL MPV 9.3 L (9.4-12.4) fL Immature Gran % (Auto) 1.3 H (0.0-0.4) % Neut % (Auto) 84.3 H (45-73) % Lymph % (Auto) 6.8 L (20-40) % [place]acken % (Auto) 6.8 (2-11) % Eos % (Auto) 0.5 (0-4) % Baso % (Auto) 0.3 (0-2) % Lymph # (Auto) 1.0 L (1.2-4.9) X10*3/uL [place] # (Auto) 1.0 (0.1-1.2) X10*3/uL Eos # (Auto) 0.1 (0.0-0.4) X10*3/uL Baso # (Auto) 0.0 (0.0-0.2) X10*3/uL Abs Immat Gran (auto) 0.19 H (0.00-0.03) X10*3/uL Absolute Neuts (auto) 12.3 H (2.0-8.3) x10*3/uL Absolute Nucleated RBC 0.000 (0.0-0.012) X10*3/uL Nucleated RBC % (auto) 0.0 (0.0-0.2) /100WBC Sodium 138 (135-145) mmol/L Potassium 4.5 (3.3-5.1) mmol/L Chloride 105 (96-108) mmol/L Carbon Dioxide 24 (22-29) mmol/L Anion Gap 14 (12-20) BUN 16 (9-16) mg/dL Creatinine 0.77 (0.5-1.4) mg/dL Estim Creat Clear Calc 95.0 Estimated GFR > 60 Random Glucose 114 (60-115) mg/dL Calcium 9.5 (8.4-10.2) mg/dL Imaging Data KUB: Radiologist's impression: FINDINGS: Compared to prior studies, there is been significant improvement in appearances. Previously seen clustered dilated small bowel loops in the left abdomen most prominent in the left upper quadrant are improved, with one dilated small bowel loop seen remaining measuring about 6 cm. Moderate stool is present throughout the colon whereas previously there was a paucity. XR/XR KUB IMPRESSION: Improved appearances with dilatation of a single small bowel loop in the left abdomen. Discharge Plan Discharge Clinical Impression: Hernia, umbilical Patient Disposition: Home, Self-Care Instructions: Umbilical Hernia (ED) Additional Instructions: Please follow-up with your primary care physician tomorrow. If you have any worsening or new symptoms, please return to the emergency room or call 911 Prescriptions: No Action digoxin [Digox] 250 mcg (0.25 mg) tablet 250 mcg PO DAILY Qty: 30 3RF Xarelto 20 mg tablet 20 mg PO DAILY Qty: 30 5RF Hold Instructions: Resume on 06/05/21. Rx Instructions: must administer with evening meal multivitamin Tablet 1 tab PO DAILY psyllium husk [Daily Fiber] 0.4 gram capsule 0.4 g PO DAILY Qty: 30 0RF carvedilol 25 mg tablet 25 mg PO BID allopurinol 300 mg tablet 300 mg PO DAILY olmesartan 40 mg tablet 40 mg PO DAILY atorvastatin 40 mg tablet 40 mg PO DAILY furosemide 20 mg tablet 20 mg PO Q OTHER DAY prednisone 5 mg tablet 10 mg PO DAILY
[2021-10-14] MEDS: HYDROmorphone HCl 1 MG/ML SYRINGE IVPUSH (19:39)
[2021-10-14] MEDS: LORazepam 2 MG/ML VIAL 1 MG IVPUSH (19:39)
[2021-10-14 20:00] VITALS: BP 157/77; PULSE 90; RESP 18; TEMP 36.9; O2SAT 95
--- NOTE | 2021-10-14 20:16 | PC.NURSE ---
pt a&ox4, plastic surgery specialist intact, family member at bedside, denies any pain or discomfort, call ortiz at reach, will continue to monitor.
--- NOTE | 2021-10-14 21:18 | PC.NURSE ---
patient a&ox3, pt states since hernia was reduced and he got the pain medications that he now has 0/10 pain, family at bedside, will continue to monitor
== END 2021-10-14 21:35 | disposition home or self-care (01) ==
PROVIDERS: Emergency Provider Emergency Medicine; PCP Internal Medicine
DX: K42.9 Umbilical hernia without obstruction or gangrene (principal)
CPT/HCPCS: 36415; 74018; 80048; 85025; 96374; 96375; 99284; J1170; J2060

== ENCOUNTER 2021-12-26 09:07 | Outpatient (REF) | payer MEDICARE, OTHER, SELFPAY ==
[2021-12-26 10:54] LABS: MANUAL DIFF FLAG NO
[2021-12-26 10:59] LABS: Basophils Absolute Auto 0.1 X10*3/uL (0.0-0.2); Basophils Percent Auto 0.7 % (0-2); Eosinophils Absolute Auto 0.2 X10*3/uL (0.0-0.4); Eosinophils Percent Auto 2.5 % (0-4); Hematocrit 37.9 % (42.0-52.0); Imm Gran Abs Auto 0.16 X10*3/uL (0.00-0.03); Imm Gran Pct Auto 1.8 % (0.0-0.4); Lymphocytes Absolute Auto 1.1 X10*3/uL (1.2-4.9); Lymphocytes Percent Auto 12.7 % (20-40); Mean Corpuscular HGB Conc 34.3 g/dl (31.0-36.0); Mean Corpuscular Hemoglobin 36.9 pg (27.0-33.0); Mean Corpuscular Volume 107.7 fL (80.0-98.0); Mean Platelet Volume 9.5 fL (9.4-12.4); Monocytes Absolute Auto 0.8 X10*3/uL (0.1-1.2); Monocytes Percent Auto 9.1 % (2-11); Neutrophils Absolute Auto 6.5 x10*3/uL (2.0-8.3); Neutrophils Percent Auto 73.2 % (45-73); Platelet Count 244 X10*3/uL (160-400); Red Blood Count 3.52 X10*6/uL (4.60-5.80); Red Cell Distribution Width 13.1 % (11.0-16.0); White Blood Count 8.8 X10*3/uL (4.8-10.8)
[2021-12-26 11:14] LABS: Appearance Urine Clear; Color Urine Yellow; Glucose Urine UA Negative (Negative); Leukocyte Esterase Urine Trace (Negative); Nitrite Urine Negative (Negative); PH 6.5 (5.0-9.0); Specific Gravity - Urine 1.015 (1.005-1.025); Urine Blood Negative (Negative); Urine Ketones Negative (Negative); Urine Protein Trace mg/dL (Neg-Trace)
[2021-12-26 11:20] LABS: Bacteria Urine None Seen (None Seen); Hyaline Casts Urine 0-2 /LPF (0-2); RBC Urine 0-2 /HPF (0-2); Squamous Epithelial Cell Urine 0-2 /HPF (0-2); WBC Urine 0-5 /HPF (0-5)
[2021-12-26 11:35] LABS: Creatinine Urine 98.78 mg/dL; Microalbum/Creatinine Ratio Ur 67.8 ug/mg cr; Prostate Specific Antigen Scr 1.05 ng/mL (<0.05-4.0)
[2021-12-26 11:39] LABS: Estimated Average Glucose 108 mg/dL; Hemoglobin A1c % 5.4 %
[2021-12-26 11:50] LABS: Cholesterol 91 mg/dL; HDL Cholesterol 37 mg/dL; LDL Cholesterol Calculated 35 mg/dl; Triglycerides 98 mg/dL
== END 2021-12-26 09:08 | disposition home or self-care (01) ==
LOC: HO.10HDL 09:07
PROVIDERS: Visit Provider Internal Medicine
DX: I25.10 Atherosclerotic heart disease of native coronary artery without angina pectoris (principal); I48.91 Unspecified atrial fibrillation; E78.00 Pure hypercholesterolemia, unspecified; R73.03 Prediabetes; R35.1 Nocturia; Z12.5 Encounter for screening for malignant neoplasm of prostate
CPT/HCPCS: 36415; 80061; 81001; 81003; 82043; 83036; 84153; 85025

== ENCOUNTER → 2022-01-19 10:34 | Outpatient (REF) | payer MEDICARE, OTHER, SELFPAY ==
--- NOTE | 2022-01-19 10:36 | CA_ITS ---
Transthoracic Echocardiogram Patient (Last, First, Middle): Ron Costello B Gender: Male Date of : 1945 Age: 76 Procedure Date: 01/19/2022 Procedure Type: Transthoracic Echocardiogram Location: OP Height: 167.64 cm Weight: 113.4 kg BSA: 2.20 m2 Heart Rate: 67 bpm BP: 130 / 60 mmHg Performance Test Engineer: TRE Referring MD: Dorian Orozco MD Tower Climber: Dorian Orozco MD Symptoms: I50.20 - Unspecified systolic (congestive) heart failure Study Quality: Fair ECG Rhythm: Atrial Fibrillation Conclusions: - 1. Mildly reduced LV ejection fraction with LVEF of 45-50% with mild LVH next 2. Severely dilated left atrium 3. Mild aortic regurgitation with moderate mitral calcification 4. Mildly dilated ascending aorta at 3.9 cm 5. Normal RV systolic pressure 6. No pericardial effusion Findings Left Ventricle Normal left ventricular cavity size. There is mildly increased left ventricular wall thickness. The left ventricular systolic function is mildly decreased. The visually estimated ejection fraction is between 45-50%. Regional wall motion abnormalities can not be excluded due to suboptimal endocardial definition. E/E prime ratio is between 8 and 15 consistent with indeterminate filling pressures. Right Ventricle Normal right ventricular cavity size and systolic function. Atria The left atrium is severely dilated. There is no evidence of interatrial shunt. The right atrium is mildly dilated. Aortic Valve There is mild calcification of the aortic valve. There is mild thickening of the aortic valve. There is no aortic valve stenosis. There is mild aortic valve regurgitation. Mitral Valve There is mild anterior and moderate posterior mitral leaflet thickening. There is moderate mitral annular calcification. There is trace mitral valve regurgitation. There is no mitral valve stenosis. Pulmonic Valve The pulmonic valve was not well visualized. Tricuspid Valve Likely normal tricuspid valve structure and function. There is trace tricuspid valve regurgitation. The right ventricular systolic pressure is normal. The right ventricular systolic pressure is 27 mmHg. Normal right atrial pressure. There is no evidence of pulmonary hypertension. Great Vessels The pulmonary artery was not well visualized. There is mild dilatation of the ascending aorta measuring 3.90 cm. Venous The inferior vena cava is normal in size and collapses greater than 50% with inspiration. Pericardium/Pleural There is no evidence of pericardial effusion. Prior Study Comparison Changes noted compared to prior study dated: 01/15/2021. LV systolic function has marginally improved Measurements 2D Linear Measurements IVSd: 1.40 0.6-0.9/0.6-1.0 cm LVIDd: 3.75 3.9-5.3/4.2-5.9 cm LVIDd Index: 1.70 2.4-3.2/2.2-3.1 cm/m2 LVIDs: 3.23 2.0-3.6 cm LVPWd: 1.41 0.7-1.1 cm LA Diam: 3.60 2.7-3.8/3.0-4.0 cm LAIDs Index: 1.64 1.5-2.3 cm/m2 LV Mass: 238.75 67-162/88-224 g LV Mass Index: 108.52 43-95/49-115 g/m2 LVOT Diam: 2.90 3.0+(-)1.3 cm 2D Systolic Function EF 4C: 57.70 >55% EF 2C: 52.20 >55% Mitral Valve MV Pk E: 1.26 MV Decel Time: 158.00 E'Lateral: 11.20 E'Medial: 10.00 E/E' Med: 12.60 E/E' Lat: 11.30 PHT: 46.00 MVA PHT: 4.78 Decel [place]: 7.96 Aortic Valve AoV Pk Mendel: 1.60 AoV Mn Mendel: 1.12 AoV VTI: 0.33 AoV Pk Grad: 10.00 Aov Mn Grad: 6.00 GARCIA Cont.VTI: 3.19 LVOT LVOT Pk Mendel: 0.80 LVOT Mn Mendel: 0.55 LVOT VTI: 0.16 LVOT Pk Grad: 3.00 LVOT Mn Grad: 1.00 LVOT Diam: 2.90 LVOT Area: 6.61 Diastolic Function MV Pk E: 1.26 E'Medial: 10.00 E/E' Med: 12.60 E' Laterial: 11.20 E/E' Lat: 11.30 Right Ventricle TAPSE (mm): 18.00 TVS' Mendel: 13.10 Tricuspid Valve TR Pk Mendel: 2.46 TR Pk Grad: 24.00 RA Press: 3.00 RVSP: 27.00 Great Vessels Aorta Sinus of Valsalva: 4.20 2.0-3.5 cm Ao Asc: 3.90 2.1-3.4 cm Pulmonary Valve PV Pk Mendel: 0.83 Peak PV Grad: 3.00 Updated in Other Vendor System with Status of Final Dorian Orozco MD electronically signed on 01/19/2022 6:14:18 PM with status of Final
== END ==
LOC: HO.CARD 10:34
PROVIDERS: PCP Internal Medicine; Visit Provider Internal Medicine Cardiovascular Disease
DX: I50.20 Unspecified systolic (congestive) heart failure (principal)
CPT/HCPCS: 93306

== ENCOUNTER → 2022-02-18 09:45 | Outpatient (BNVA) | payer MEDICARE, OTHER, SELFPAY | PROVIDERS: PCP Internal Medicine; Referring Provider Internal Medicine; Visit Provider Internal Medicine Cardiovascular Disease | DX: Z01.810 Encounter for preprocedural cardiovascular examination (principal); I50.20 Unspecified systolic (congestive) heart failure; I25.10 Atherosclerotic heart disease of native coronary artery without angina pectoris; I48.20 Chronic atrial fibrillation, unspecified | CPT/HCPCS: 99212 ==

== ENCOUNTER 2022-03-19 11:33 | Outpatient (REF) | payer MEDICARE, OTHER, SELFPAY ==
[2022-03-19 13:40] LABS: MANUAL DIFF FLAG NO
[2022-03-19 13:44] LABS: Basophils Absolute Auto 0.1 X10*3/uL (0.0-0.2); Basophils Percent Auto 0.6 % (0-2); Eosinophils Absolute Auto 0.2 X10*3/uL (0.0-0.4); Eosinophils Percent Auto 1.7 % (0-4); Hemoglobin 14.5 g/dl (14.0-18.0); Imm Gran Abs Auto 0.08 X10*3/uL (0.00-0.03); Imm Gran Pct Auto 0.9 % (0.0-0.4); Mean Corpuscular HGB Conc 33.7 g/dl (31.0-36.0); Mean Corpuscular Hemoglobin 35.6 pg (27.0-33.0); Mean Corpuscular Volume 105.7 fL (80.0-98.0); Mean Platelet Volume 9.6 fL (9.4-12.4); Monocytes Absolute Auto 0.8 X10*3/uL (0.1-1.2); Monocytes Percent Auto 8.2 % (2-11); Neutrophils Absolute Auto 7.3 x10*3/uL (2.0-8.3); Neutrophils Percent Auto 77.6 % (45-73); Platelet Count 186 X10*3/uL (160-400); Red Blood Count 4.07 X10*6/uL (4.60-5.80); Red Cell Distribution Width 13.3 % (11.0-16.0); White Blood Count 9.4 X10*3/uL (4.8-10.8)
[2022-03-19 13:53] LABS: Estimated Average Glucose 117 mg/dL; Hemoglobin A1C 148.4091 umol/L; Hemoglobin A1c % 5.7 %
[2022-03-19 14:24] LABS: Alanine Aminotransferase 14 U/L (0-40); Albumin Level 3.9 g/dL (3.5-5.0); Alkaline Phosphatase 63 U/L (39-117); Aspartate Amino Transferase 13 U/L (5-37); Bilirubin Total 1.2 mg/dL (0.0-1.0); Blood Urea Nitrogen 17 mg/dL (9-16); Calcium 9.4 mg/dL (8.4-10.2); Estimated Glomerular Filt Rate > 60; Glucose Random 90 mg/dL (60-115); Iron 120 mcg/dL (45-160); Percent Iron Saturation 38 % (15-50); Total Iron Binding Capacity 314 mcg/dL (228-428); Unsaturated Iron Binding 194 ug/dL
[2022-03-19 14:31] LABS: Anion Gap 14 (12-20); Carbon Dioxide 28 mmol/L (22-29); Chloride 102 mmol/L (96-108); Potassium 4.2 mmol/L (3.3-5.1); Sodium 140 mmol/L (135-145)
== END 2022-03-19 11:34 | disposition home or self-care (01) ==
LOC: HO.10HDL 11:33
PROVIDERS: Visit Provider Internal Medicine
DX: I48.91 Unspecified atrial fibrillation (principal); I25.10 Atherosclerotic heart disease of native coronary artery without angina pectoris; I10 Essential (primary) hypertension; E11.9 Type 2 diabetes mellitus without complications
CPT/HCPCS: 36415; 80053; 83036; 83540; 85025

== ENCOUNTER → 2022-08-27 10:19 | Outpatient (BNVA) | payer MEDICARE, OTHER, SELFPAY | PROVIDERS: PCP Internal Medicine; Referring Provider Internal Medicine; Visit Provider Internal Medicine Cardiovascular Disease | DX: I50.20 Unspecified systolic (congestive) heart failure (principal); I48.19 Other persistent atrial fibrillation; I48.0 Paroxysmal atrial fibrillation; I25.10 Atherosclerotic heart disease of native coronary artery without angina pectoris; I10 Essential (primary) hypertension; Z95.5 Presence of coronary angioplasty implant and graft; Z79.52 Long term (current) use of systemic steroids; Z79.01 Long term (current) use of anticoagulants | CPT/HCPCS: 93005; 99212 ==

== ENCOUNTER 2022-08-31 11:16 | Outpatient (REF) | payer MEDICARE, OTHER, SELFPAY ==
[2022-08-31 13:53] LABS: Anion Gap 13 (12-20); Blood Urea Nitrogen 14 mg/dL (9-16); Carbon Dioxide 26 mmol/L (22-29); Chloride 104 mmol/L (96-108); Estimated Glomerular Filt Rate > 60; Glucose Random 103 mg/dL (60-115); Potassium 4.1 mmol/L (3.3-5.1); Sodium 139 mmol/L (135-145)
[2022-08-31 14:26] LABS: Digoxin 0.5 ng/mL (0.8-2.0)
== END 2022-08-31 11:17 | disposition home or self-care (01) ==
LOC: HO.10HDL 11:16
PROVIDERS: Visit Provider Internal Medicine Cardiovascular Disease
DX: I48.20 Chronic atrial fibrillation, unspecified (principal)
CPT/HCPCS: 36415; 80048; 80162

== ENCOUNTER 2022-10-15 12:52 | Outpatient (REF) | payer MEDICARE, OTHER, SELFPAY ==
[2022-10-15 13:34] LABS: MANUAL DIFF FLAG NO
[2022-10-15 13:37] LABS: Basophils Absolute Auto 0.1 X10*3/uL (0.0-0.2); Basophils Percent Auto 0.5 % (0-2); Eosinophils Absolute Auto 0.2 X10*3/uL (0.0-0.4); Eosinophils Percent Auto 1.3 % (0-4); Hematocrit 42.8 % (42.0-52.0); Hemoglobin 14.9 g/dl (14.0-18.0); Imm Gran Abs Auto 0.12 X10*3/uL (0.00-0.03); Lymphocytes Absolute Auto 0.8 X10*3/uL (1.2-4.9); Lymphocytes Percent Auto 6.5 % (20-40); Mean Corpuscular HGB Conc 34.8 g/dl (31.0-36.0); Mean Corpuscular Volume 106.2 fL (80.0-98.0); Mean Platelet Volume 9.3 fL (9.4-12.4); Monocytes Absolute Auto 0.6 X10*3/uL (0.1-1.2); Monocytes Percent Auto 5.4 % (2-11); Neutrophils Percent Auto 85.3 % (45-73); Platelet Count 214 X10*3/uL (160-400); Red Blood Count 4.03 X10*6/uL (4.60-5.80); Red Cell Distribution Width 12.9 % (11.0-16.0); White Blood Count 11.7 X10*3/uL (4.8-10.8)
[2022-10-15 13:50] LABS: Estimated Average Glucose 111 mg/dL; Hemoglobin A1c % 5.5 %
[2022-10-15 14:32] LABS: Alanine Aminotransferase 14 U/L (0-40); Albumin Level 3.7 g/dL (3.5-5.0); Alkaline Phosphatase 59 U/L (39-117); Anion Gap 13 (12-20); Aspartate Amino Transferase 15 U/L (5-37); Bilirubin Total 1.4 mg/dL (0.0-1.0); Blood Urea Nitrogen 16 mg/dL (9-16); Calcium 9.6 mg/dL (8.4-10.2); Carbon Dioxide 26 mmol/L (22-29); Chloride 105 mmol/L (96-108); Estimated Glomerular Filt Rate > 60; Glucose Random 133 mg/dL (60-115); Potassium 3.9 mmol/L (3.3-5.1); Sodium 140 mmol/L (135-145); Total Protein 6.2 g/dL (6.5-8.0); Uric Acid 4.6 mg/dL (3.4-7.0)
== END 2022-10-15 12:53 | disposition home or self-care (01) ==
LOC: HO.10HDL 12:52
PROVIDERS: Visit Provider Internal Medicine
DX: I48.0 Paroxysmal atrial fibrillation (principal); I25.10 Atherosclerotic heart disease of native coronary artery without angina pectoris; I10 Essential (primary) hypertension; E78.00 Pure hypercholesterolemia, unspecified; R73.03 Prediabetes; Z87.39 Personal history of other diseases of the musculoskeletal system and connective tissue
CPT/HCPCS: 36415; 80053; 83036; 84550; 85025

== ENCOUNTER 2022-12-03 11:25 | Outpatient (AMB) | payer MEDICARE, OTHER, SELFPAY ==
--- NOTE | 2022-12-03 11:41 | A.OFFVIS_ITS ---
Intake Vital Signs 12/03/22 11:42 Height 5 ft 7 in Weight 264 lb BMI 41.3 BP 135/78 Blood Pressure Location Lt brachial Position Sitting Pulse 88 Intake Visit Reasons: 1 yr follow up colon polyps Afternoon Nanny Required: No Accompanied by: Spouse Allergies bee pollen [BEE STINGS] Allergy (Intermediate, Verified 12/03/22 11:39) HIVES, SOB LOBSTER Allergy (Intermediate, Uncoded 09/19/21 19:18) HIVES Medication List - Last Reconciled 12/03/22 by Cuate Fiore MD allopurinol 300 mg PO DAILY atorvastatin 40 mg PO DAILY carvedilol 25 mg PO BID digoxin 250 mcg PO DAILY furosemide 20 mg PO DAILY multivitamin 1 tab PO DAILY olmesartan 40 mg PO DAILY prednisone 5 mg PO DAILY psyllium husk (Daily Fiber) 0.4 grams PO DAILY rivaroxaban (Xarelto) 20 mg PO DAILY 90 days HPI 1 yr follow up colon polyps HPI Details GI clinic visit for this 77 YM for fu after hospitalization at [facility] in apr, 2021 for SBO related to ventral hernia ENDOSCOPIC STUDIES: 05/2021 COLONOSCOPY SHOWED: Five small to medium sized polyps (most were tubular adenomas) removed Moderate diverticulosis seen in the entire colon A 1.5 cms yellowish nodule in the rectum at 10 cms with normal overlying mucosa - likely submucosal lipoma (without significant change from previous colonoscopy in 2003). Plan:? Repeat Colonoscopy interval based on path results - in 2-3 years if polyp s are adenomatous and pt remains in stable health and discontinue colon cancer screening if polyps are hyperplastic. TODAY'S VISIT: Pt is accompanied by his . Had hernia surgery and is trying to loose weight. No problems with blockages Intermittent constipation and takes stool softeners or metamucil prn. Denies heartburn or dysphagia PAST VISITS: Colonoscopy results reviewed. On Prednisone for PMR - on 10 mg now Takes a stool softener and half dose of Miralax daily for prevention of constipation. Has a craving for chocolate. Patient denies symptoms of heartburn, dysphagia, nausea, vomiting, change in appetite or weight.? Denies recent change in bowel habits, constipation, diarrhea, black stools or rectal bleeding. Patient denies major cardiac or pulmonary problems, loud snoring or sleep apnea Denies problems with anesthesia in the past. Patient is on Xarelto 20 mg daily for AFib Patient denies EtOH abuse.? He quitted smoking in 1975.? Patient is? retired -? 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 ?patient is and has 4 children.? ? 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 Family history -? non-contributory due to advanced age PAST GI HISTORY BY REVIEW OF MEDICAL RECORDS: Reason for consult: Nausea and vomiting 76 YM seen at [facility] ED on 05/10/21: HPI narrative: 76-year-old male with past medical history of atrial fibrillation, hypertension, ischemic cardiomyopathy, heart failure with reduced EF, CAD is here today for abdominal pain, cramping, nausea and vomiting that started 4 days ago.? Patient reports that 2 weeks ago he was put on prednisone for polyarthralgia.? Patient reports that 4 days ago he took his prednisone w ithout food in the next day he started with abdominal discomfort.? Patient was feeling nauseous and was unable to eat any food, continue to take his Xarelto and prednisone on an empty stomach.? 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 Colonoscopy in 2003 showed 2 hyperplastic polyps without any dysplasia or carcinoma.? Patient has a history of cystoscopy in 2006, has a history of nonobstructing renal stones.? Patient denies any urinary symptoms at this time.? Reports that he had normal bowel movement yesterday followed by loose stool x1.? Patient denies any melena, hematochezia, unintentional weight loss or ribbon like stools.? Patient denies any dyspepsia, dysphagia or odynophagia.? Reports to be feeling nauseous last time vomited was this morning.? Patient has not been eating any solids, he does report that he has been drinking fluids, patient reports that he vomited liquid no solid. MD elicited complaint: abdominal pain Patient gives a history of abdominal pain, nausea and vomiting for the past 3 days. Patient has not been able to eat for the past 3-4 days He had a solid bowel movement 3 days ago and has been having diarrhea with to loose to watery bowel movements a day without blood or mucus. Patient denies fever chills or sweating. He admits to having heartburn and was prescribed Prilosec by his PCP with improvement in his symptoms. Pt denies past abdominal surgeries and denies any history of similar episodes in the past. IMAGING STUDIES:? 05/10/[address] SCAN ( PERSONALLY REVIEWED) SHOWED: Nonobstructed small bowel seen within a prominent periumbilical hernia. There are dilated loops of proximal small bowel measuring up to 5 cm in diameter however there is no discrete focal transition point with a gradual transition to more normal caliber bowel. Etiology of this is uncertain. Ileus would be favored. There is skin thickening along the anterior abdominal wall inferiorly possibly due to overlying cellulitis. This could be clinically correlated. Chronic appearing changes otherwise as described [facility] Medical History CAD (coronary artery disease) COVID-19 vaccine series completed Gastritis Gastroenteritis Heart failure with reduced ejection fraction HTN (hypertension) Ischemic cardiomyopathy Paroxysmal A-fib Persistent atrial fibrillation Umbilical hernia Ventral hernia Surgical History Hx of colonoscopy Stented coronary artery Family History Father CHF (congestive heart failure) Mother No problems noted. Brother CHF (congestive heart failure) Social History Household Members: Spouse Housing: House Do you presently have visiting nurse or other home services: No Alcohol intake: former Patient Tobacco Use Status: Former Tobacco user Quit Date: 1975 Years Smoked: 20 +/- Advance Directives Date on File: 12/21/13 service: No Current occupational status: retired Review of Systems Const All systems reviewed & are unremarkable except as noted in HPI and below Physical Exam Vital Signs: Last Vital Signs Pulse 88 12/03/22 11:42 BP 135/78 12/03/22 11:42 BMI result Body Mass Index 41.3 Const General: healthy appearing and no acute distress Nutritional Appearance: obese Orientation/consciousness: patient oriented x3 Limitations: no limitations HEENT Head: Yes normal to inspection Ears: hearing grossly normal bilaterally Mouth: Normal oral and palatal mucosa present Eyes Sclerae: sclerae normal Pupils: Equal, round and reactive pupils present Neck Neck: Yes normal visual inspection Chest Chest palpation & inspection: normal inspection of the chest Resp Effort & Inspection: normal respiratory effort Auscultation: clear to auscultation bilaterally Cardio Palpation: normal PMI Rate: Other Rhythm: abnormal rhythm (Irregularly irregular due to AFib) Heart sounds: S1 normal heart sound present, S2 normal heart sound present and no murmurs GI Palpation (GI): Soft to palpation, nontender and No hepatosplenomegaly present Auscultation: normal bowel sounds Rectal Exam - Male: Yes deferred Skin General skin exam: no rashes or lesions noted Neuro General: patient oriented x3, gait normal and moves all extremities Cranial nerves: Yes Equal, round and reactive pupils present Extrem General: Yes pedal edema (1+ pitting edema) Psych Appearance: grossly normal Mental Status: mental status grossly normal Assessment & Plan Assessment & Plan (1) History of colon polyps: Comment: 05/2021 COLONOSCOPY SHOWED: Five small to medium sized polyps (most were tubular adenomas) removed Moderate diverticulosis seen in the entire colon A 1.5 cms yellowish nodule in the rectum at 10 cms with normal overlying mucosa - likely submucosal lipoma (without significant change from previous colonoscopy in 2003). Plan: Repeat Colonoscopy in 2 years if patient remains stable health. Code(s): Z86.010 - Personal history of colonic polyps Plan 77-year-old male with atrial fibrillation, hypertension, ischemic cardiomyopathy, heart failure with reduced EF, CAD seen for FU after hositalization in Apr, 2021 with?abdominal pain, cramping, nausea and vomiting. Lactic acid was normal. Abd CT scan showed?nonobstructed small bowel seen within a prominent periumbilical hernia. There are dilated loops of proximal small bowel measuring up to 5 cm in diameter without discrete focal transition point with a gradual transition to more normal caliber bowel. Symptoms were attributed to gastroenteritis and have resolved completely. Pt had subsequent hernia repair. 05/2021 COLONOSCOPY SHOWED: Five small to medium sized polyps (most were tubular adenomas) removed Moderate diverticulosis seen in the entire colon A 1.5 cms yellowish nodule in the rectum at 10 cms with normal overlying mucosa - likely submucosal lipoma (without significant change from previous colonoscopy in 2003). Plan: Repeat Colonoscopy in 2 years if patient is stable from cardiac standpoint to undergo a colonoscopy. Colon cancer screening can be discontinued if he is deemed high risk for anesthesia.. Of note patient has CAD with prior myocardial infarction, heart failure with reduced ejection fraction (45 to 50% on Echo in 02/07) and persistent chronic atrial fibrillation (rate controlled on dual therapy with digoxin carvedilol) and is on oral anticoagulation (Xarelto 20 mg daily) and is followed by Dr Orozco.Luz Maria MCKEON in 9 months (earlier prn). Coding Level of Care Code Est Pt Level 4 (37835) Diagnoses History of colon polyps Z86.010 Time Spent (min) 23
[2022-12-03 11:42] VITALS: BP 135/78; PULSE 88; BMI 41.3
== END 2022-12-03 12:14 | disposition home or self-care (01) ==
PROVIDERS: PCP Internal Medicine; Referring Provider Internal Medicine; Visit Provider Internal Medicine Gastroenterology
DX: Z71.2 Person consulting for explanation of examination or test findings (principal); K44.9 Diaphragmatic hernia without obstruction or gangrene; Z86.010 Personal history of colon polyps
CPT/HCPCS: 99213

== ENCOUNTER → 2022-12-03 11:25 | Outpatient (BNVA) | payer MEDICARE, OTHER, SELFPAY | PROVIDERS: PCP Internal Medicine; Referring Provider Internal Medicine; Visit Provider Internal Medicine Gastroenterology ==

== ENCOUNTER → 2023-03-01 10:46 | Outpatient (REF) | payer MEDICARE, OTHER, SELFPAY ==
--- NOTE | 2023-03-01 10:50 | CA_ITS ---
Transthoracic Echocardiogram Patient (Last, First, Middle): Ron Costello B Gender: Male Date of : 1945 Age: 78 Procedure Date: 03/01/2023 Procedure Type: Transthoracic Echocardiogram Location: OP Height: 167.64 cm Weight: 120.2 kg BSA: 2.25 m2 Heart Rate: 86 bpm BP: 152 / 70 mmHg Automobile Rental Clerk: TRE Referring MD: Dorian Orozco MD Symptoms: I50.20 - Unspecified systolic (congestive) heart failure Study Quality: Fair ECG Rhythm: Atrial Fibrillation Conclusions: - The left ventricular systolic function is normal. The visually estimated ejection fraction is between 55-60%. - The left atrium is severely dilated. - There is moderate calcification of the aortic valve. - There is mild aortic valve regurgitation. - There is mild mitral annular calcification. - There is mild dilatation of the ascending aorta measuring 4.00 cm. Findings Left Ventricle Normal left ventricular cavity size. There is mildly increased left ventricular wall thickness. The left ventricular systolic function is normal. The visually estimated ejection fraction is between 55-60%. There is no evidence of regional wall motion abnormalities. Diastolic function is indeterminate on the basis of available data. LV peak GLS -12.6%. Focal hypertrophy noted in the basal septum. Right Ventricle Mildly increased right ventricular cavity size. There is normal right ventricular systolic function. Atria The left atrium is severely dilated. The right atrium is normal in size. Aortic Valve There is moderate calcification of the aortic valve. There is no aortic valve stenosis. There is mild aortic valve regurgitation. Mitral Valve There is mild mitral annular calcification. There is trace mitral valve regurgitation. There is no mitral valve stenosis. Pulmonic Valve The pulmonic valve is likely normal. Tricuspid Valve Normal tricuspid valve structure. There is trace tricuspid valve regurgitation. There is no evidence of pulmonary hypertension. Great Vessels There is mild dilatation of the ascending aorta measuring 4.00 cm. Venous The inferior vena cava is dilated and collapses less than 50% with inspiration. Pericardium/Pleural There is no evidence of pericardial effusion. Prior Study Comparison No significant change compared to prior study dated: 01/19/2022. (images reviewed) Measurements 2D Linear Measurements IVSd: 1.14 0.6-0.9/0.6-1.0 cm LVIDd: 5.23 3.9-5.3/4.2-5.9 cm LVIDd Index: 2.32 2.4-3.2/2.2-3.1 cm/m2 LVIDs: 3.29 2.0-3.6 cm LVPWd: 1.22 0.7-1.1 cm LA Diam: 4.70 2.7-3.8/3.0-4.0 cm LAIDs Index: 2.09 1.5-2.3 cm/m2 LV Mass: 305.96 67-162/88-224 g LV Mass Index: 135.98 43-95/49-115 g/m2 LVOT Diam: 2.50 3.0+(-)1.3 cm 2D Systolic Function EF 4C: 46.90 >55% EF 2C: 53.10 >55% EF BiP: 51.30 >55% Mitral Valve MV VTI: 0.22 MV Pk Mendel: 1.09 MV Mn Mendel: 0.72 MV Pk Grad: 5.00 MV Mn Grad: 2.00 MV Pk E: 1.18 MV Decel Time: 219.00 E'Lateral: 11.20 E'Medial: 9.03 E/E' Med: 13.10 E/E' Lat: 10.50 PHT: 64.00 MVA PHT: 3.44 MVA Continuity: 3.90 Decel [place]: 5.37 Aortic Valve AoV Pk Mendel: 2.02 AoV Mn Mendel: 1.42 AoV VTI: 0.39 AoV Pk Grad: 16.00 Aov Mn Grad: 9.00 GARCIA Cont.VTI: 2.20 LVOT LVOT Pk Mendel: 0.97 LVOT Mn Mendel: 0.67 LVOT VTI: 0.17 LVOT Pk Grad: 4.00 LVOT Mn Grad: 2.00 LVOT Diam: 2.50 LVOT Area: 4.91 Diastolic Function MV Pk E: 1.18 E'Medial: 9.03 E/E' Med: 13.10 E' Laterial: 11.20 E/E' Lat: 10.50 Right Ventricle TAPSE (mm): 23.10 TVS' Mendel: 14.40 Tricuspid Valve TR Pk Mendel: 2.16 TR Pk Grad: 19.00 RA Press: 15.00 RVSP: 34.00 Great Vessels Aorta Sinus of Valsalva: 4.40 2.0-3.5 cm Ao Asc: 4.00 2.1-3.4 cm Pulmonary Valve PV Pk Mendel: 0.84 Peak PV Grad: 3.00 Updated in Other Vendor System with Status of Final Dillon Sandoval MD electronically signed on 03/02/2023 10:53:40 AM with status of Final
[2023-03-01 10:58] LABS: MANUAL DIFF FLAG NO
[2023-03-01 11:38] LABS: Basophils Absolute Auto 0.1 X10*3/uL (0.0-0.2); Basophils Percent Auto 0.8 % (0-2); Eosinophils Absolute Auto 0.2 X10*3/uL (0.0-0.4); Eosinophils Percent Auto 2.6 % (0-4); Hematocrit 42.5 % (42.0-52.0); Hemoglobin 14.1 g/dl (14.0-18.0); Imm Gran Abs Auto 0.09 X10*3/uL (0.00-0.03); Lymphocytes Absolute Auto 0.9 X10*3/uL (1.2-4.9); Lymphocytes Percent Auto 9.5 % (20-40); Mean Corpuscular HGB Conc 33.2 g/dl (31.0-36.0); Mean Corpuscular Hemoglobin 36.2 pg (27.0-33.0); Mean Platelet Volume 9.7 fL (9.4-12.4); Monocytes Absolute Auto 0.7 X10*3/uL (0.1-1.2); Monocytes Percent Auto 7.4 % (2-11); Neutrophils Absolute Auto 7.2 x10*3/uL (2.0-8.3); Neutrophils Percent Auto 78.7 % (45-73); Platelet Count 218 X10*3/uL (160-400); White Blood Count 9.2 X10*3/uL (4.8-10.8)
[2023-03-01 11:40] LABS: Estimated Average Glucose 114 mg/dL; Hemoglobin A1c % 5.6 % (<6.0)
[2023-03-01 12:03] LABS: Alanine Aminotransferase 13 U/L (0-40); Albumin Level 3.7 g/dL (3.5-5.0); Alkaline Phosphatase 54 U/L (39-117); Anion Gap 10 (12-20); Aspartate Amino Transferase 13 U/L (5-37); Bilirubin Total 0.8 mg/dL (0.0-1.0); Blood Urea Nitrogen 15 mg/dL (9-16); Calcium 9.6 mg/dL (8.4-10.2); Carbon Dioxide 33 mmol/L (22-29); Chloride 104 mmol/L (96-108); Estimated Glomerular Filt Rate > 60; Glucose Random 105 mg/dL (60-115); Potassium 4.9 mmol/L (3.3-5.1); Sodium 142 mmol/L (135-145); Total Protein 6.3 g/dL (6.5-8.0)
== END ==
LOC: HO.CARD 10:46
PROVIDERS: PCP Internal Medicine; Visit Provider Internal Medicine Cardiovascular Disease
DX: I50.20 Unspecified systolic (congestive) heart failure (principal)
CPT/HCPCS: 36415; 80053; 83036; 85025; 93306; 93356

== ENCOUNTER → 2023-03-01 10:50 | Outpatient (BNV) | payer MEDICARE, OTHER, SELFPAY | PROVIDERS: PCP Internal Medicine; Visit Provider Internal Medicine | DX: I35.1 Nonrheumatic aortic (valve) insufficiency (principal); I50.20 Unspecified systolic (congestive) heart failure | CPT/HCPCS: 93306 ==

== ENCOUNTER 2023-03-09 11:08 | Outpatient (AMB) | payer MEDICARE, OTHER, SELFPAY ==
[2023-03-09 11:12] VITALS: BP 126/78; PULSE 88; BMI 41.8
--- NOTE | 2023-03-09 11:12 | A.OFFVIS_ITS ---
Intake Vital Signs 03/09/23 11:12 Height 5 ft 7 in Weight 266 lb 12.149 oz BMI 41.8 BP 126/78 Blood Pressure Location Lt brachial Position Sitting Pulse 88 Intake Visit Reasons: 6 mth f/up Intake Note: 6 mth f/up, feels good Occupational Therapist Rehab Manager Required: No Allergies bee pollen [BEE STINGS] Allergy (Intermediate, Verified 12/03/22 11:39) HIVES, SOB LOBSTER Allergy (Intermediate, Uncoded 09/19/21 19:18) HIVES Medication List - Last Reviewed 03/09/23 by Jess Pelletier MA allopurinol 300 mg PO DAILY atorvastatin 40 mg PO DAILY carvedilol 25 mg PO BID digoxin 250 mcg PO DAILY furosemide 20 mg PO DAILY multivitamin 1 tab PO DAILY olmesartan 40 mg PO DAILY prednisone 5 mg PO DAILY psyllium husk (Daily Fiber) 0.4 grams PO DAILY rivaroxaban (Xarelto) 20 mg PO DAILY 90 days vitamins A,C,H-oopr-azbztx 2,148 mcg-113 mg-45 mg-17.4mg (PreserVision AREDS) 2 tabs PO BID HPI HPI Comments History of Present Illness Details Ron comes for follow-up. He is doing well from cardiac perspective. Denies any significant cardiac symptoms at this point time. He says limited because of bilateral arthritis. Otherwise he has no exertional chest pain, shortness of breath, palpitations. His most recent echocardiogram shows normalized LV ejection fraction. He is taking all his medications regularly. No bleeding issues or neurologic events. [facility] Medical History CAD (coronary artery disease) COVID-19 vaccine series completed Gastritis Gastroenteritis Heart failure with reduced ejection fraction HTN (hypertension) Ischemic cardiomyopathy Paroxysmal A-fib Persistent atrial fibrillation Umbilical hernia Ventral hernia Surgical History Hx of colonoscopy Stented coronary artery Family History Father CHF (congestive heart failure) Mother No problems noted. Brother CHF (congestive heart failure) Household Members: Spouse Housing: House Do you presently have visiting nurse or other home services: No Alcohol intake: former Patient Tobacco Use Status: Former Tobacco user Quit Date: 1975 Years Smoked: 20 +/- Advance Directives Date on File: 12/21/13 service: No Current occupational status: retired Review of Systems Const Denies chills, Denies fatigue, Denies fever(s), Denies frequent falls, Denies weakness, Denies weight gain and Denies weight loss ENT Denies dizziness Card Denies chest pain, Denies leg edema, Denies lightheadedness, Denies palpitations, Denies dyspnea, Denies dyspnea on exertion, Denies orthopnea and Denies other (loss of consciousness) Resp Denies cough, Denies dyspnea and Denies dyspnea on exertion GI Denies hematochezia and Denies change in stool character Musc Denies abnormal gait, Denies muscle weakness, Denies numbness, Denies radiating pain into limb and Denies tingling Neuro Denies Abnormal speech present, Denies abnormal gait, Denies dizziness, Denies frequent falls, Denies numbness, Denies tingling and Denies weakness Endo Denies fatigue and Denies palpitations Physical Exam Vital Signs: Last Vital Signs Pulse 88 03/09/23 11:12 BP 126/78 03/09/23 11:12 BMI result Body Mass Index 41.8 Const Orientation/consciousness: patient oriented x3 Neck Neck: Yes trachea midline, Yes supple and Yes no JVD Carotids: no bruits Chest Chest palpation & inspection: normal inspection of the chest Resp Effort & Inspection: normal respiratory effort Auscultation: clear to auscultation bilaterally Cardio Jugular venous distension: no JVD Rate: tachycardic Rhythm: abnormal rhythm irregularly irregular Heart sounds: S1 normal heart sound present, S2 normal heart sound present, no click, no gallops, no murmurs and no rubs GI Inspection: Yes obesity Auscultation: normal bowel sounds Skin General skin exam: no rashes or lesions noted Neuro General: patient oriented x3 and no focal motor deficits Speech: No Abnormal speech present Extrem General: Yes no clubbing, cyanosis or edema Psych Appearance: grossly normal Assessment & Plan Assessment & Plan (1) Heart failure with reduced ejection fraction: Code(s): I50.20 - Unspecified systolic (congestive) heart failure Plan: Patient with prior heart failure with reduced ejection fraction with normalized LV ejection fraction most 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 Continue aggressive rate control approach. Continue current neurohormonal modulation with carvedilol, olmesartan therapy. Continue current diuretic regimen. Daily weight monitoring avoidance of salt loading was discussed. He understands management of heart failure well. Improved prognosis with normalized LV ejection fraction was discussed with him. Although he continues to have mult iple comorbidities including obesity, reduced exercise capacity and chronic atrial fibrillation. (2) CAD (coronary artery disease): Code(s): I25.10 - Atherosclerotic heart disease of [place] coronary artery without angina pectoris Plan: CAD with drug-eluting stent to LAD in 2014. No recurrent anginal sounding chest discomfort. Continue high-intensity statin therapy with target goal LDL less than 70 mg/dL. Continue aggressive blood pressure control which is currently well optimized advised to monitor blood pressure at home maintain a log. Currently on full oral anticoagulation and therefore would avoid aspirin therapy. Advised to call me with any new symptoms. (3) Persistent atrial fibrillation: Comment: taking xarelto, carvedilol, digoxin Code(s): I48.19 - Other persistent atrial fibrillation Plan: Persistent chronic atrial fibrillation currently adequately rate control on dual therapy with carvedilol and digoxin. Continue the same. Digoxin assay and basic metabolic profile every 6 months should be pursued. Continue full oral anticoagulation, currently on Xarelto 20 mg daily. Will follow up in the clinic in 6 months time, sooner p.r.n.. Thank you for allowing me to partake in his care Coding Level of Care Code Est Pt Level 4 (13770) Diagnoses Heart failure with reduced ejection fraction I50.20 CAD (coronary artery disease) I25.10 Persistent atrial fibrillation I48.19
== END 2023-03-09 11:35 | disposition home or self-care (01) ==
PROVIDERS: Visit Provider Internal Medicine Cardiovascular Disease
DX: I50.20 Unspecified systolic (congestive) heart failure (principal); I25.10 Atherosclerotic heart disease of native coronary artery without angina pectoris; I48.19 Other persistent atrial fibrillation
CPT/HCPCS: 99214

== ENCOUNTER → 2023-03-09 11:08 | Outpatient (BNVA) | payer MEDICARE, OTHER, SELFPAY | PROVIDERS: Visit Provider Internal Medicine Cardiovascular Disease | DX: I50.20 Unspecified systolic (congestive) heart failure (principal); I25.10 Atherosclerotic heart disease of native coronary artery without angina pectoris; I48.19 Other persistent atrial fibrillation | CPT/HCPCS: 99212 ==

== ENCOUNTER 2023-09-02 11:16 | Outpatient (REF) | payer MEDICARE, OTHER, SELFPAY ==
[2023-09-02 16:46] LABS: Anion Gap 11 (12-20); Blood Urea Nitrogen 11 mg/dL (9-16); Calcium 9.1 mg/dL (8.4-10.2); Carbon Dioxide 29 mmol/L (22-29); Chloride 106 mmol/L (96-108); Estimated Glomerular Filt Rate > 60; Glucose Random 103 mg/dL (60-115); Potassium 4.2 mmol/L (3.3-5.1); Sodium 142 mmol/L (135-145)
[2023-09-02 16:48] LABS: Digoxin 0.9 ng/mL (0.8-2.0)
== END 2023-09-02 11:17 | disposition home or self-care (01) ==
LOC: HO.LAB 11:16
PROVIDERS: Absent Provider Internal Medicine Cardiovascular Disease; PCP Internal Medicine; Visit Provider Internal Medicine Gastroenterology
DX: I48.20 Chronic atrial fibrillation, unspecified (principal); I25.10 Atherosclerotic heart disease of native coronary artery without angina pectoris; I10 Essential (primary) hypertension; I25.5 Ischemic cardiomyopathy; I77.89 Other specified disorders of arteries and arterioles; Z86.010 Personal history of colon polyps
CPT/HCPCS: 36415; 80048; 80162; 93005; 99212

== ENCOUNTER 2023-09-02 11:16 | Outpatient (AMB) | payer MEDICARE, OTHER, SELFPAY ==
--- NOTE | 2023-09-02 11:19 | A.OFFVIS_ITS ---
Vital Signs 09/02/23 11:21 Height 5 ft 7 in Weight 260 lb BMI 40.7 BP 160/74 H Blood Pressure Location Lt brachial Position Sitting Pulse 67 Intake Visit Reasons: 9 month follow up Intake Note: Patient 9 month follow up for Colon Polyps Patient denies any GI issues. Patient Service Specialist Required: No Accompanied by: Spouse Allergies bee pollen [BEE STINGS] Allergy (Intermediate, Verified 09/02/23 11:19) HIVES, SOB LOBSTER Allergy (Intermediate, Uncoded 09/19/21 19:18) HIVES Medication List - Last Reconciled 09/02/23 by Cuate Fiore MD allopurinol 300 mg PO DAILY atorvastatin 40 mg PO DAILY carvedilol 25 mg PO BID digoxin 250 mcg PO DAILY furosemide 20 mg PO DAILY multivitamin 1 tab PO DAILY olmesartan 40 mg PO DAILY prednisone 5 mg PO DAILY psyllium husk (Daily Fiber) 0.4 grams PO DAILY rivaroxaban (Xarelto) 20 mg PO DAILY vitamins A,C,K-qdvw-aoevrg 2,148 mcg-113 mg-45 mg-17.4mg (PreserVision AREDS) 2 tabs PO BID HPI HPI 9 month follow up: Details: GI clinic visit for this 78 YM for fu of colon polyps Pt was hospitalized at [facility] in apr, 2021 for SBO related to ventral hernia ENDOSCOPIC STUDIES: 05/2021 COLONOSCOPY SHOWED: Five small to medium sized polyps (most were tubular adenomas) removed Moderate diverticulosis seen in the entire colon A 1.5 cms yellowish nodule in the rectum at 10 cms with normal overlying mucosa - likely submucosal lipoma (without significant change from previous colonoscopy in 2003). Plan:? Repeat Colonoscopy interval based on path results - in 2-3 years if polyps are adenomatous and pt remains in stable health and discontinue colon cancer screening if polyps are hyperplastic. TODAY'S VISIT: Pt is accompanied by his . Denies any episodes of bowel obstruction since hernia surgery Takes apple juice in the am and is able to have a BM Had hernia surgery and is trying to loose weight. No problems with blockages Intermittent constipation and takes stool softeners or metamucil prn. Denies heartburn or dysphagia He would like to wait another year for his next colonoscopy. PAST VISITS: Colonoscopy results reviewed. On Prednisone for PMR - on 10 mg now Takes a stool softener and half dose of Miralax daily for prevention of constipation. Has a craving for chocolate. Patient denies symptoms of heartburn, dysphagia, nausea, vomiting, change in appetite or weight.? Denies recent change in bowel habits, constipation, diarrhea, black stools or rectal bleeding. Patient denies major cardiac or pulmonary problems, loud snoring or sleep apnea Denies problems with anesthesia in the past. Patient is on Xarelto 20 mg daily for AFib Patient denies EtOH abuse.? He quitted smoking in 1975.? Patient is? retired -? 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 ?patient is and has 4 children.? ? He is the primary knitter machine for his who has a history of HAM STRINGER lymphoma since 1997 and is wheelchair-bound. Family history -? non-contributory due to advanced age PAST GI HISTORY BY REVIEW OF MEDICAL RECORDS: Reason for consult: Nausea and vomiting 76 YM seen at [facility] on 05/10/21: HPI narrative: 76-year-old male with past medical history of atrial fibrillation, hypertension, ischemic cardiomyopathy, heart failure with reduced EF, CAD is here today for abdominal pain, cramping, nausea and vomiting that started 4 days ago.? Patient reports that 2 weeks ago he was put on prednisone for polyarthralgia.? Patient reports that 4 days ago he took his prednisone without food in the next day he started with abdominal discomfort.? Patient was feeling nauseous and was unable to eat any food, continue to take his Xarelto and prednisone on an empty stomach.? Patient has a history of umbilical hernia, diagnosed 4 years ago, unable to go to surgery because he is the only knitter machine for his ill .? Colonoscopy in 2003 showed 2 hyperplastic polyps without any dysplasia or carcinoma.? Patient has a history of cystoscopy in 2006, has a history of nonobstructing renal stones.? Patient denies any urinary symptoms at this time.? Reports that he had normal bowel movement yesterday followed by loose stool x1.? Patient denies any melena, hematochezia, unintentional weight loss or ribbon like stools.? Patient denies any dyspepsia, dysphagia or odynophagia.? Reports to be feeling nauseous last time vomited was this morning.? Patient has not been eating any solids, he does report that he has been drinking fluids, patient reports that he vomited liquid no solid. MD elicited complaint: abdominal pain Patient gives a history of abdominal pain, nausea and vomiting for the past 3 days. Patient has not been able to eat for the past 3-4 days He had a solid bowel movement 3 days ago and has been having diarrhea with to loose to watery bowel movements a day without blood or mucus. Patient denies fever chills or sweating. He admits to having heartburn and was prescribed Prilosec by his PCP with improvement in his symptoms. Pt denies past abdominal surgeries and denies any history of similar episodes in the past. IMAGING STUDIES:? 05/10/[address] SCAN ( PERSONALLY REVIEWED) SHOWED: Nonobstructed small bowel seen within a prominent periumbilical hernia. There are dilated loops of proximal small bowel measuring up to 5 cm in diameter however there is no discrete focal transition point with a gradual transition to more normal caliber bowel. Etiology of this is uncertain. Ileus would be favored. There is skin thickening along the anterior abdominal wall inferiorly possibly due to overlying cellulitis. This could be clinically correlated. Chronic appearing changes otherwise as described [facility] Medical History CAD (coronary artery disease) COVID-19 vaccine series completed Gastritis Gastroenteritis Heart failure with reduced ejection fraction HTN (hypertension) Ischemic cardiomyopathy Paroxysmal A-fib Persistent atrial fibrillation Umbilical hernia Ventral hernia Surgical History Hx of colonoscopy Stented coronary artery Family History Father CHF (congestive heart failure) Mother No problems noted. Brother CHF (congestive heart failure) Social History Household Members: Spouse Housing: House Do you presently have visiting nurse or other home services: No Alcohol intake: former Patient Tobacco Use Status: Former Tobacco user Quit Date: 1975 Years Smoked: 20 +/- Advance Directives Date on File: 12/21/13 service: No Current occupational status: retired Review of Systems Const All systems reviewed & are unremarkable except as noted in HPI and below Neuro Denies Abnormal speech present Physical Exam Vital Signs: Last Vital Signs Pulse 67 09/02/23 11:21 BP 160/74 H 09/02/23 11:21 BMI result Body Mass Index 40.7 Const Nutritional Appearance: obese Orientation/consciousness: patient oriented x3 Neck Neck: Yes trachea midline, Yes supple and Yes no JVD Carotids: no bruits Chest Chest palpation & inspection: normal inspection of the chest Resp Effort & Inspection: normal respiratory effort Auscultation: clear to auscultation bilaterally Cardio Jugular venous distension: no JVD Rate: tachycardic Rhythm: abnormal rhythm irregularly irregular Heart sounds: S1 normal heart sound present, S2 normal heart sound present, no click, no gallops, no murmurs and no rubs GI Inspection: Yes obesity Auscultation: normal bowel sounds Skin General skin exam: no rashes or lesions noted Neuro General: patient oriented x3 and no focal motor deficits Speech: No Abnormal speech present Extrem General: Yes pedal edema (1+ pitting edema) Psych Appearance: grossly normal Assessment & Plan Assessment & Plan (1) History of colon polyps: Comment: 05/2021 COLONOSCOPY SHOWED: Five small to medium sized polyps (most were tubular adenomas) removed Moderate diverticulosis seen in the entire colon A 1.5 cms yellowish nodule in the rectum at 10 cms with normal overlying mucosa - likely submucosal lipoma (without significant change from previous colonoscopy in 2003). Plan: Repeat Colonoscopy in 2 years if patient remains stable health. Code(s): Z86.010 - Personal history of colonic polyps Category: Medical Plan 78-year-old male with atrial fibrillation, hypertension, ischemic cardiomyopathy, heart failure with reduced EF, CAD seen for FU after hositalization in Apr, 2021 with?abdominal pain, cramping, nausea and vomiting. Lactic acid was normal. Abd CT scan showed?nonobstructed small bowel seen within a prominent periumbilical hernia. There are dilated loops of proximal small bowel measuring up to 5 cm in diameter without discrete focal transition point with a gradual transition to more normal caliber bowel. Symptoms were attributed to gastroenteritis and have resolved completely. Pt had subsequent hernia repair. 05/2021 COLONOSCOPY SHOWED: Five small to medium sized polyps (most were tubular adenomas) removed Moderate diverticulosis seen in the entire colon A 1.5 cms yellowish nodule in the rectum at 10 cms with normal overlying mucosa - likely submucosal lipoma (without significant change from previous colonoscopy in 2003). Plan: Repeat Colonoscopy in 2 years if patient is stable from cardiac standpoint to undergo a colonoscopy. Colon cancer screening can be discontinued if he is deemed high risk for anesthesia.. Of note patient has CAD with prior myocardial infarction, heart failure with reduced ejection fraction (45 to 50% on Echo in 02/07) and persistent chronic atrial fibrillation (rate controlled on dual therapy with digoxin carvedilol) and is on oral anticoagulation (Xarelto 20 mg daily) and is followed by Dr Orozco.? FU in 9 months (earlier prn) Pt would like to wait another year for his next colonoscopy. FU in 5 months Coding Level of Care Code Est Pt Level 3 (19123) Diagnoses History of colon polyps Z86.010 Time Spent (min) 17
[2023-09-02 11:21] VITALS: BP 160/74; PULSE 67; BMI 40.7
== END 2023-09-02 11:55 | disposition home or self-care (01) ==
PROVIDERS: PCP Internal Medicine; Visit Provider Internal Medicine Gastroenterology
DX: K59.00 Constipation, unspecified (principal); Z86.010 Personal history of colon polyps
CPT/HCPCS: 99213

== ENCOUNTER 2023-09-02 14:34 | Outpatient (AMB) | payer MEDICARE, OTHER, SELFPAY ==
[2023-09-02 14:41] VITALS: BP 160/88; PULSE 79; BMI 40.4
--- NOTE | 2023-09-02 14:41 | A.OFFVIS_ITS ---
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 And Chief Technical Officer Required: No Station Mechanic Apprentice: Station Mechanic Apprentice Present Accompanied by: Spouse Allergies bee pollen [BEE STINGS] Allergy (Intermediate, Verified 09/02/23 11:19) HIVES, SOB LOBSTER Allergy (Intermediate, Uncoded 09/19/21 19:18) HIVES Medication List - Last Reconciled 09/02/23 by Dorian Orozco MD allopurinol 300 mg PO DAILY atorvastatin 40 mg PO DAILY carvedilol 25 mg PO BID cholecalciferol (vitamin D3) 250 mcg PO QWEEK digoxin 250 mcg PO DAILY furosemide 20 mg PO DAILY multivitamin 1 tab PO DAILY olmesartan 40 mg PO DAILY prednisone 5 mg PO DAILY psyllium husk (Daily Fiber) 0.4 grams PO DAILY rivaroxaban (Xarelto) 20 mg PO DAILY vitamins A,C,C-qxwe-nhyktp 2,148 mcg-113 mg-45 mg-17.4mg (PreserVision AREDS) 2 tabs PO BID HPI Comments Details: Ron comes for follow-up. Says he has increased stress related to multiple issues including taking care of his with her health issues and his own health issues and with the daughter's health issues. He has been taking all his medications although. He denies any worsening chest pain or shortness of breath or palpitations. No bleeding issues or neurologic events. No heart failure symptoms. No lightheadedness, syncope. Noted to have significantly elevated blood pressure although he says blood pressure is not that elevated other times. However it has not unusual that his blood pressure is elevated as per him. [facility] Medical History Paroxysmal A-fib Ventral hernia COVID-19 vaccine series completed Umbilical hernia Gastritis Gastroenteritis Persistent atrial fibrillation HTN (hypertension) Ischemic cardiomyopathy Heart failure with reduced ejection fraction CAD (coronary artery disease) Surgical History Hx of colonoscopy Stented coronary artery Family History Father CHF (congestive heart failure) Mother No problems noted. Brother CHF (congestive heart failure) Social History Household Members: Spouse Housing: House Do you presently have visiting nurse or other home services: No Alcohol intake: former Patient Tobacco Use Status: Former Tobacco user Quit Date: 1975 Years Smoked: 20 +/- Advance Directives Date on File: 12/21/13 service: No Current occupational status: retired Review of Systems Const Denies chills, Denies fatigue, Denies fever(s), Denies frequent falls, Denies weakness, Denies weight gain and Denies weight loss ENT Denies dizziness Card Denies chest pain, Denies leg edema, Denies lightheadedness, Denies palpitations, Denies dyspnea, Denies dyspnea on exertion, Denies orthopnea and Denies other (loss of consciousness) Resp Denies cough, Denies dyspnea and Denies dyspnea on exertion GI Denies hematochezia and Denies change in stool character Musc Denies abnormal gait, Denies muscle weakness, Denies numbness, Denies radiating pain into limb and Denies tingling Neuro Denies Abnormal speech present, Denies abnormal gait, Denies dizziness, Denies frequent falls, Denies numbness, Denies tingling and Denies weakness Endo Denies fatigue and Denies palpitations Physical Exam Vital Signs: Last Vital Signs Pulse 79 09/02/23 14:41 BP 160/88 H 09/02/23 14:41 BMI result Body Mass Index 40.4 Const Orientation/consciousness: patient oriented x3 Neck Neck: Yes trachea midline, Yes supple and Yes no JVD Carotids: no bruits Chest Chest palpation & inspection: normal inspection of the chest Resp Effort & Inspection: normal respiratory effort Auscultation: clear to auscultation bilaterally Cardio Jugular venous distension: no JVD Rate: tachycardic Rhythm: abnormal rhythm irregularly irregular Heart sounds: S1 normal heart sound present, S2 normal heart sound present, no click, no gallops, no murmurs and no rubs GI Inspection: Yes obesity Auscultation: normal bowel sounds Skin General skin exam: no rashes or lesions noted Neuro General: patient oriented x3 and no focal motor deficits Speech: No Abnormal speech present Extrem General: Yes no clubbing, cyanosis or edema Psych Appearance: grossly normal Office Procedures EKG Details: EKG shows atrial fibrillation with PVCs with nonspecific ST changes [id number], Complete Assessment & Plan Assessment & Plan (1) Persistent atrial fibrillation: Comment: taking xarelto, carvedilol, digoxin Code(s): I48.19 - Other persistent atrial fibrillation Category: Medical Plan: Chronic persistent atrial fibrillation, currently rate controlled on carvedilol and digoxin. Semi annually digoxin assay should be performed. Continue current therapy and importance of rate control was discussed. Given his significant left atrial enlargement and lack of symptoms related to atrial fibrillation no decompensated heart failure will continue pursue rate control approach and probably not possibility of pursuing rhythm control approach in the future. Continue full oral anticoagulation, currently on Xarelto 20 mg daily. Semi annual renal function test should be pursued. (2) CAD (coronary artery disease): Code(s): I25.10 - Atherosclerotic heart disease of [place] coronary artery without angina pectoris Category: Medical Plan: CAD with drug-eluting stent to LAD in 2014. Follow-up stress testing next year to check for progressive CAD as well as surveillance of stent patency. Continue aggressive risk factor modification. Aggressive blood pressure control is required. Continue high-intensity statin therapy. Currently on full oral anticoagulation with therefore avoid aspirin therapy to reduce bleeding risk. Target goal LDL less than 70 mg/dL. (3) Uncontrolled hypertension: Code(s): I10 - Essential (primary) hypertension Category: Medical Plan: Uncontrolled blood pressure, currently not well controlled. Advised to add amlodipine 2.5 mg to his regimen. Advised to monitor blood pressure at home maintain a log. Goal blood pressure less than 130/84. This was discussed with him. He understands and agrees. Advise low-salt diet. Advised stress mitigation strategies. (4) Ischemic cardiomyopathy: Comment: LVEF of 40-45% by echocardiogram, January 2019 Code(s): I25.5 - Ischemic cardiomyopathy Category: Medical Plan: Prior ischemic cardiomyopathy but most recent echocardiogram shows normalized LV ejection fraction related to neurohormonal modulation. Continue carvedilol and olmesartan therapy. Continue aggressive blood pressure control. Signs and symptoms of heart failure were discussed. (5) Enlarged thoracic aorta: Code(s): I77.89 - Other specified disorders of arteries and arterioles Category: Medical Plan: Mildly enlarged thoracic aorta. No interventions required surgically. Continue aggressive blood pressure control. Will follow up in 6 months with echocardiogram. Thank you for allowing me to partake in his care Orders: Orders Basic Metabolic Panel 09/02/23 I48.19 - Other persistent atrial fibrillation Digoxin 09/02/23 I48.20 - Chronic atrial fibrillation, unspecified CA echo transthoracic complete 6 Months I77.89 - Other specified disorders of arteries and arterioles Medications: New amlodipine 2.5 mg PO DAILY 30 tabs 5RF I48.19 - Other persistent atrial fibrillation Coding Level of Care Code Est Pt Level 4 (18711) Diagnoses Persistent atrial fibrillation I48.19 CAD (coronary artery disease) I25.10 Uncontrolled hypertension I10 Ischemic cardiomyopathy I25.5 Enlarged thoracic aorta I77.89 CPT Codes EKG - CPT: 95620-[id number], Complete ([id number])
== END 2023-09-02 15:20 | disposition home or self-care (01) ==
PROVIDERS: PCP Internal Medicine; Visit Provider Internal Medicine Cardiovascular Disease
DX: I48.19 Other persistent atrial fibrillation (principal); I25.10 Atherosclerotic heart disease of native coronary artery without angina pectoris; I10 Essential (primary) hypertension; I25.5 Ischemic cardiomyopathy; I77.89 Other specified disorders of arteries and arterioles
CPT/HCPCS: 93010; 99214

== ENCOUNTER 2024-02-03 11:27 | Outpatient (AMB) | payer MEDICARE, OTHER, SELFPAY ==
--- NOTE | 2024-02-03 11:30 | MHC.OFFVIS ---
Vital Signs 02/03/24 11:33 Height 5 ft 7 in Weight 256 lb BMI 40.1 BP 153/70 H Blood Pressure Location Lt brachial Position Sitting Pulse 69 Intake Visit Reasons: 5 month follow up Intake Note: Patient 5 month follow up for Hx of polyps. Patient denies any GI issues for today. 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 Accompanied by: Spouse Allergies bee pollen [BEE STINGS] Allergy (Intermediate, Verified 02/03/24 11:30) HIVES, SOB LOBSTER Allergy (Intermediate, Uncoded 09/19/21 19:18) HIVES Medication List - Last Reconciled 02/03/24 by Cuate Fiore MD allopurinol 300 mg PO DAILY amlodipine 2.5 mg PO DAILY atorvastatin 40 mg PO DAILY carvedilol 25 mg PO BID cholecalciferol (vitamin D3) 250 mcg PO QWEEK digoxin 250 mcg PO DAILY furosemide 20 mg PO DAILY multivitamin 1 tab PO DAILY olmesartan 40 mg PO DAILY prednisone 5 mg PO DAILY psyllium husk (Daily Fiber) 0.4 grams PO DAILY rivaroxaban (Xarelto) 20 mg PO DAILY vitamins A,C,U-jpwv-dlayhy 2,148 mcg-113 mg-45 mg-17.4mg (PreserVision AREDS) 2 tabs PO BID HPI HPI 5 month follow up: Details: GI clinic visit for this 79 YM for fu of colon polyps Pt was hospitalized at [facility] in apr, 2021 for SBO related to ventral hernia ENDOSCOPIC STUDIES: 05/2021 COLONOSCOPY SHOWED: Five small to medium sized polyps (most were tubular adenomas) removed Moderate diverticulosis seen in the entire colon A 1.5 cms yellowish nodule in the rectum at 10 cms with normal overlying mucosa - likely submucosal lipoma (without significant change from previous colonoscopy in 2003). Plan:? Repeat Colonoscopy interval based on path results - in 2-3 years if polyps are adenomatous and pt remains in stable health and discontinue colon cancer screening if polyps are hyperplastic. TODAY'S VISIT: Pt is accompanied by his . Complains of occasional constipation and takes some apple juice Denies any episodes of bowel obstruction since hernia surgery Takes apple juice in the am and is able to have a BM Had hernia surgery and is trying to loose weight. No problems with blockages Intermittent constipation and takes stool softeners or metamucil prn. Denies heartburn or dysphagia He would like to wait another year for his next colonoscopy. PAST VISITS: Colonoscopy results reviewed. On Prednisone for PMR - on 10 mg now Takes a stool softener and half dose of Miralax daily for prevention of constipation. Has a craving for chocolate. Patient denies symptoms of heartburn, dysphagia, nausea, vomiting, change in appetite or weight.? Denies recent change in bowel habits, constipation, diarrhea, black stools or rectal bleeding. Patient denies major cardiac or pulmonary problems, loud snoring or sleep apnea Denies problems with anesthesia in the past. Patient is on Xarelto 20 mg daily for AFib Patient denies EtOH abuse.? He quitted smoking in 1975.? Patient is? retired -? 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. ?patient is and has 4 children.? ? 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 Family history -? non-contributory due to advanced age PAST GI HISTORY BY REVIEW OF MEDICAL RECORDS: Reason for consult: Nausea and vomiting 76 YM seen at [facility] ED on 05/10/21: HPI narrative: 76-year-old male with past medical history of atrial fibrillation, hypertension, ischemic cardiomyopathy, heart failure with reduced EF, CAD is here today for abdominal pain, cramping, nausea and vomiting that started 4 days ago.? Patient reports that 2 weeks ago he was put on prednisone for polyarthralgia.? Patient reports that 4 days ago he took his prednisone without food in the next day he started with abdominal discomfort.? Patient was feeling nauseous and was unable to eat any food, continue to take his Xarelto and prednisone on an empty stomach.? 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 Colonoscopy in 2003 showed 2 hyperplastic polyps without any dysplasia or carcinoma.? Patient has a history of cystoscopy in 2006, has a history of nonobstructing renal stones.? Patient denies any urinary symptoms at this time.? Reports that he had normal bowel movement yesterday followed by loose stool x1.? Patient denies any melena, hematochezia, unintentional weight loss or ribbon like stools.? Patient denies any dyspepsia, dysphagia or odynophagia.? Reports to be feeling nauseous last time vomited was this morning.? Patient has not been eating any solids, he does report that he has been drinking fluids, patient reports that he vomited liquid no solid. MD elicited complaint: abdominal pain Patient gives a history of abdominal pain, nausea and vomiting for the past 3 days. Patient has not been able to eat for the past 3-4 days He had a solid bowel movement 3 days ago and has been having diarrhea with to loose to watery bowel movements a day without blood or mucus. Patient denies fever chills or sweating. He admits to having heartburn and was prescribed Prilosec by his PCP with improvement in his symptoms. Pt denies past abdominal surgeries and denies any history of similar episodes in the past. IMAGING STUDIES:? 05/10/[address] SCAN ( PERSONALLY REVIEWED) SHOWED: Nonobstructed small bowel seen within a prominent periumbilical hernia. There are dilated loops of proximal small bowel measuring up to 5 cm in diameter however there is no discrete focal transition point with a gradual transition to more normal caliber bowel. Etiology of this is uncertain. Ileus would be favored. There is skin thickening along the anterior abdominal wall inferiorly possibly due to overlying cellulitis. This could be clinically correlated. Chronic appearing changes otherwise as described [facility] Medical History Paroxysmal A-fib Ventral hernia COVID-19 vaccine series completed Umbilical hernia Gastritis Gastroenteritis Persistent atrial fibrillation HTN (hypertension) Ischemic cardiomyopathy Heart failure with reduced ejection fraction CAD (coronary artery disease) Surgical History Hx of colonoscopy Stented coronary artery Family History Father CHF (congestive heart failure) Mother No problems noted. Brother CHF (congestive heart failure) Social History Household Members: Spouse Housing: House Do you presently have visiting nurse or other home services: No Alcohol intake: former Patient Tobacco Use Status: Former Tobacco user Years Smoked: 20 +/- Advance Directives Date on File: 12/21/13 service: No Current occupational status: retired Review of Systems Const All systems reviewed & are unremarkable except as noted in HPI and below Physical Exam Vital Signs: Last Vital Signs Pulse 69 02/03/24 11:33 BP 153/70 H 02/03/24 11:33 BMI result Body Mass Index 40.1 Const General: no acute distress Nutritional Appearance: obese Orientation/consciousness: patient oriented x3 HEENT Head: Yes normal to inspection Ears: hearing grossly normal bilaterally Eyes Sclerae: sclerae normal Pupils: Equal, round and reactive pupils present Neck Neck: Yes normal visual inspection Chest Chest palpation & inspection: normal inspection of the chest Resp Effort & Inspection: normal respiratory effort Auscultation: clear to auscultation bilaterally Cardio Palpation: normal PMI Rate: regular rate Rhythm: regular rhythm Heart sounds: S1 normal heart sound present, S2 normal heart sound present and no murmurs GI Palpation (GI): Soft to palpation, nontender and No hepatosplenomegaly present Auscultation: normal bowel sounds Rectal Exam - Male: Yes deferred Skin General skin exam: no rashes or lesions noted Neuro General: patient oriented x3, gait normal and moves all extremities Cranial nerves: Yes Equal, round and reactive pupils present Extrem General: Yes pedal edema (1+ pitting edema bilaterally) Psych Appearance: grossly normal Mental Status: mental status grossly normal Assessment & Plan Assessment & Plan (1) History of colon polyps: Comment: 05/2021 COLONOSCOPY SHOWED: Five small to medium sized polyps (most were tubular adenomas) removed Moderate diverticulosis seen in the entire colon A 1.5 cms yellowish nodule in the rectum at 10 cms with normal overlying mucosa - likely submucosal lipoma (without significant change from previous colonoscopy in 2003). Plan: Repeat Colonoscopy in 2 years if patient remains stable health. Code(s): Z86.010 - Personal history of colon polyps Category: Medical Plan 78-year-old male with atrial fibrillation, hypertension, ischemic cardiomyopathy, heart failure with reduced EF, CAD seen for FU after hositalization in Apr, 2021 with?abdominal pain, cramping, nausea and vomiting. Lactic acid was normal. Abd CT scan showed?nonobstructed small bowel seen within a prominent periumbilical hernia. There are dilated loops of proximal small bowel measuring up to 5 cm in diameter without discrete focal transition point with a gradual transition to more normal caliber bowel. Symptoms were attributed to gastroenteritis and have resolved completely. Pt had subsequent hernia repair. 05/2021 COLONOSCOPY SHOWED: Five small to medium sized polyps (most were tubular adenomas) removed Moderate diverticulosis seen in the entire colon A 1.5 cms yellowish nodule in the rectum at 10 cms with normal overlying mucosa - likely submucosal lipoma (without significant change from previous colonoscopy in 2003). Plan: Repeat Colonoscopy in 2 years if patient is stable from cardiac standpoint to undergo a colonoscopy. Colon cancer screening can be discontinued if he is deemed high risk for anesthesia.. Of note patient has CAD with prior myocardial infarction, heart failure with reduced ejection fraction (45 to 50% on Echo in 02/07) and persistent chronic atrial fibrillation (rate controlled on dual therapy with digoxin carvedilol) and is on oral anticoagulation (Xarelto 20 mg daily) and is followed by Dr Orozco.? 02/03/24 Pt would like to hold off having a colonoscopy due to age and multiple comorbidities. He would like to continue following up in the GI clinic FU in 8 months (earlier prn) Coding Level of Care Code Tele Est Pt Level 3 (97919) Diagnoses History of colon polyps Z86.010 Time Spent (min) 18
[2024-02-03 11:33] VITALS: BP 153/70; PULSE 69; BMI 40.1
== END 2024-02-03 12:42 | disposition home or self-care (01) ==
PROVIDERS: PCP Internal Medicine; Visit Provider Internal Medicine Gastroenterology
DX: Z86.0101 Personal history of adenomatous and serrated colon polyps (principal)
CPT/HCPCS: 99024

== ENCOUNTER → 2024-02-03 11:27 | Outpatient (BNVA) | payer MEDICARE, OTHER, SELFPAY | PROVIDERS: PCP Internal Medicine; Visit Provider Internal Medicine Gastroenterology | DX: K59.00 Constipation, unspecified (principal); Z86.0100 Personal history of colon polyps, unspecified | CPT/HCPCS: 99212 ==

== ENCOUNTER → 2024-02-28 07:43 | Outpatient (REF) | payer MEDICARE, OTHER, SELFPAY ==
--- NOTE | 2024-02-28 07:46 | CA_ITS ---
Transthoracic Echocardiogram Patient (Last, First, Middle): Ron Costello B Gender: Male Date of : 1945 Age: 79 Procedure Date: 02/28/2024 Procedure Type: Transthoracic Echocardiogram Location: OP Height: 170.18 cm Weight: 117.94 kg BSA: 2.26 m2 Heart Rate: bpm BP: 132 / 62 mmHg Transportation Specialist: COREY Referring MD: Dorian Orozco MD Symptoms: I77.89 - Other specified disorders of arteries and arterioles Study Quality: Adequate w contrast ECG Rhythm: Atrial Fibrillation Conclusions: - The left ventricular systolic function is low normal. The visually estimated ejection fraction is between 50-55%. - Suggestion of basal inferior akinesis and basal inferolateral hypokinesis in some views, but not clear if this appearance is because of adjacent focal septal hypertrophy. - No obvious valvular pathology seen on this study. Findings Procedure Information Contrast agent, definity, is being given per protocol without apparent complications. The quality of the study was technically difficult. The study quality is limited by patients body habitus and lung artifact. Left Ventricle Normal left ventricular cavity size. The left ventricular systolic function is low normal. The visually estimated ejection fraction is between 50-55%. Diastolic function is indeterminate on the basis of available data. There is moderate septal asymmetric hypertrophy. Suggestion of basal inferior akinesis and basal inferolateral hypokinesis in some views, but not clear if this appearance is because of adjacent focal septal hypertrophy. Right Ventricle Moderately increased right ventricular cavity size. There is mild to moderately decreased right ventricular systolic function. Atria The left atrium is moderately dilated. The right atrium is normal in size. Aortic Valve There is mild calcification of the aortic valve. There is no aortic valve stenosis. There is trace (trivial) aortic valve regurgitation. Mitral Valve The mitral valve appears normal. There is no mitral valve regurgitation. There is no mitral valve stenosis. Pulmonic Valve The pulmonic valve is likely normal. Tricuspid Valve There is trace tricuspid valve regurgitation. There is no evidence of pulmonary hypertension. Great Vessels The asc aorta is normal in size. Small plaque is seen in the ascending aorta. Venous The inferior vena cava is mildly dilated and collapses less than 50% with inspiration. Pericardium/Pleural There is no evidence of pericardial effusion. Prior Study Comparison No significant change compared to prior study dated: 03/01/2023. Recommendations, Care & Conclusions No obvious valvular pathology seen on this study. Measurements 2D Linear Measurements IVSd: 1.39 0.6-0.9/0.6-1.0 cm LVIDd: 5.17 3.9-5.3/4.2-5.9 cm LVIDd Index: 2.29 2.4-3.2/2.2-3.1 cm/m2 LVIDs: 3.44 2.0-3.6 cm LVPWd: 1.01 0.7-1.1 cm LA Diam: 4.90 2.7-3.8/3.0-4.0 cm LAIDs Index: 2.17 1.5-2.3 cm/m2 LV Mass: 307.43 67-162/88-224 g LV Mass Index: 136.03 43-95/49-115 g/m2 LVOT Diam: 2.30 3.0+(-)1.3 cm 2D Systolic Function EF 4C: 45.30 >55% EF 2C: 56.70 >55% EF BiP: 51.00 >55% Mitral Valve MV Pk E: 1.01 MV Decel Time: 201.00 Aortic Valve AoV Pk Mendel: 1.57 AoV Pk Grad: 10.00 GARCIA: 1.88 LVOT LVOT Pk Mendel: 0.71 LVOT Mn Mendel: 0.53 LVOT VTI: 0.17 LVOT Pk Grad: 2.00 LVOT Mn Grad: 1.00 LVOT Diam: 2.30 LVOT Area: 4.15 Diastolic Function MV Pk E: 1.01 Right Ventricle TAPSE (mm): 11.30 TVS' Mendel: 9.00 Tricuspid Valve TR Pk Mendel: 2.39 TR Pk Grad: 23.00 RA Press: 15.00 RVSP: 38.00 Great Vessels Aorta Sinus of Valsalva: 4.10 2.0-3.5 cm Ao Asc: 3.70 2.1-3.4 cm Pulmonary Valve PV Pk Mendel: 0.66 Peak PV Grad: 2.00 Updated in Other Vendor System with Status of Final Dillon Sandoval MD electronically signed on 02/29/2024 12:42:23 PM with status of Final
== END ==
LOC: HO.CARD 07:43
PROVIDERS: PCP Internal Medicine; Visit Provider Specialist
DX: I77.89 Other specified disorders of arteries and arterioles (principal)
CPT/HCPCS: 93306; Q9957

== ENCOUNTER → 2024-02-28 07:46 | Outpatient (BNV) | payer MEDICARE, OTHER, SELFPAY | PROVIDERS: PCP Internal Medicine; Visit Provider Internal Medicine | DX: I42.2 Other hypertrophic cardiomyopathy (principal); I35.8 Other nonrheumatic aortic valve disorders | CPT/HCPCS: 93306 ==

== ENCOUNTER 2024-03-03 10:59 | Outpatient (AMB) | payer MEDICARE, OTHER, SELFPAY ==
[2024-03-03 11:00] VITALS: BP 132/78; PULSE 85; BMI 40.4
--- NOTE | 2024-03-03 11:00 | MHC.OFFVIS ---
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: No Allergies bee pollen [BEE STINGS] Allergy (Intermediate, Verified 02/03/24 11:30) HIVES, SOB LOBSTER Allergy (Intermediate, Uncoded 09/19/21 19:18) HIVES Medication List - Last Reconciled 03/03/24 by Dorian Orozco MD allopurinol 300 mg PO DAILY amlodipine 2.5 mg PO DAILY atorvastatin 40 mg PO DAILY carvedilol 25 mg PO BID cholecalciferol (vitamin D3) 250 mcg PO QWEEK digoxin 250 mcg PO DAILY furosemide 20 mg PO DAILY multivitamin 1 tab PO DAILY olmesartan 40 mg PO DAILY prednisone 5 mg PO DAILY psyllium husk (Daily Fiber) 0.4 grams PO DAILY rivaroxaban (Xarelto) 20 mg PO DAILY vitamins A,C,X-pnpz-hdsmjv 2,148 mcg-113 mg-45 mg-17.4mg (PreserVision AREDS) 2 tabs PO BID HPI Comments Details: Ron comes for follow-up. He is accompanied by his . He has been doing very well from cardiac perspective. Denies any progressive heart failure symptoms. Actually remaining very active. Denies any orthopnea, PND, leg edema. No weight gain. Denies any anginal symptoms. No bleeding issues or neurologic events. Takes all his medications. Blood pressure is generally well controlled. Recent echocardiogram shows low normal LVEF of 50-55% with severe left atrial enlargement without any significant pulmonary hypertension or valvular abnormalities [facility] Medical History Paroxysmal A-fib Ventral hernia COVID-19 vaccine series completed Umbilical hernia Gastritis Gastroenteritis Persistent atrial fibrillation HTN (hypertension) Ischemic cardiomyopathy Heart failure with reduced ejection fraction CAD (coronary artery disease) Surgical History Hx of colonoscopy Stented coronary artery Family History Father CHF (congestive heart failure) Mother No problems noted. Brother CHF (congestive heart failure) Social History Household Members: Spouse Housing: House Do you presently have visiting nurse or other home services: No Alcohol intake: former Patient Tobacco Use Status: Former Tobacco user Years Smoked: 20 +/- Advance Directives Date on File: 12/21/13 service: No Current occupational status: retired Review of Systems Const Denies chills, Denies fatigue, Denies fever(s), Denies frequent falls, Denies weakness, Denies weight gain and Denies weight loss ENT Denies dizziness Card Denies chest pain, Denies leg edema, Denies lightheadedness, Denies palpitations, Denies dyspnea, Denies dyspnea on exertion, Denies orthopnea and Denies other (loss of consciousness) Resp Denies cough, Denies dyspnea and Denies dyspnea on exertion GI Denies hematochezia and Denies change in stool character Musc Denies abnormal gait, Denies muscle weakness, Denies numbness, Denies radiating pain into limb and Denies tingling Neuro Denies Abnormal speech present, Denies abnormal gait, Denies dizziness, Denies frequent falls, Denies numbness, Denies tingling and Denies weakness Endo Denies fatigue and Denies palpitations Physical Exam Vital Signs: Last Vital Signs Pulse 85 03/03/24 11:00 BP 132/78 03/03/24 11:00 BMI result Body Mass Index 40.4 Const Orientation/consciousness: patient oriented x3 Neck Neck: Yes trachea midline, Yes supple and Yes no JVD Carotids: no bruits Chest Chest palpation & inspection: normal inspection of the chest Resp Effort & Inspection: normal respiratory effort Auscultation: clear to auscultation bilaterally Cardio Jugular venous distension: no JVD Rate: tachycardic Rhythm: abnormal rhythm irregularly irregular Heart sounds: S1 normal heart sound present, S2 normal heart sound present, no click, no gallops, no murmurs and no rubs GI Inspection: Yes obesity Auscultation: normal bowel sounds Skin General skin exam: no rashes or lesions noted Neuro General: patient oriented x3 and no focal motor deficits Speech: No Abnormal speech present Extrem General: Yes no clubbing, cyanosis or edema Psych Appearance: grossly normal Assessment & Plan Assessment & Plan (1) Heart failure with reduced ejection fraction: Code(s): I50.20 - Unspecified systolic (congestive) heart failure Category: Medical Plan: Prior history of heart failure with reduced ejection fraction with improved LV EF of 50-55% with maintained systolic function. Continue aggressive risk factor modification most likely due to aggressive rate control as well as neurohormonal modulation. Clinically euvolemic and well compensated. Continue current diuretic dose with Lasix 20 mg daily. Daily weight monitoring avoidance salt loading was discussed. Continue current rate control strategy. Encouraged to increase activity level and participate in some weight loss program. (2) CAD (coronary artery disease): Code(s): I25.10 - Atherosclerotic heart disease of [place] coronary artery without angina pectoris Category: Medical Plan: CAD stable without any symptoms of angina. No further workup is indicated. Continue aggressive vascular risk factor modification. Currently on high-intensity statin therapy with target goal LDL closer to 60 mg/dL. Blood pressure is well optimized. Continue current therapy. Importance of good blood pressure control was discussed. Maintain activity level as tolerated. Currently on full oral anticoagulation with Xarelto and will therefore avoid aspirin therapy to reduce bleeding risk. (3) Persistent atrial fibrillation: Comment: taking xarelto, carvedilol, digoxin Code(s): I48.19 - Other persistent atrial fibrillation Category: Medical Plan: Persistent/chronic atrial fibrillation, currently rate controlled. Continue rate control strategy with carvedilol and digoxin therapy. Digoxin assay is required every 6 months. Will suggest the same. Continue full oral anticoagulation, currently on Xarelto 20 mg daily. Semi annual renal function test should be pursued. (4) Enlarged thoracic aorta: Code(s): I77.89 - Other specified disorders of arteries and arterioles Category: Medical Plan: Mildly enlarged thoracic aorta without any change and most recent echocardiogram suboptimal to see any significant enlargement. Continue aggressive vascular risk factor modification blood pressure control as above. Will follow up in the clinic in 6 months time, sooner p.r.n.. Thank you for allowing me to partake in his care Orders: Orders Digoxin Today I48.19 - Other persistent atrial fibrillation Basic Metabolic Panel Today I48.19 - Other persistent atrial fibrillation Coding Level of Care Code Est Pt Level 4 (85163) Complex EM visit Add On G2211 Diagnoses Heart failure with reduced ejection fraction I50.20 CAD (coronary artery disease) I25.10 Persistent atrial fibrillation I48.19 Enlarged thoracic aorta I77.89
== END 2024-03-03 11:42 | disposition home or self-care (01) ==
PROVIDERS: PCP Internal Medicine; Visit Provider Internal Medicine Cardiovascular Disease
DX: I50.20 Unspecified systolic (congestive) heart failure (principal); I25.10 Atherosclerotic heart disease of native coronary artery without angina pectoris; I48.19 Other persistent atrial fibrillation; I77.89 Other specified disorders of arteries and arterioles
CPT/HCPCS: 99214; G2211

== ENCOUNTER → 2024-03-03 10:59 | Outpatient (BNVA) | payer MEDICARE, OTHER, SELFPAY | PROVIDERS: PCP Internal Medicine; Visit Provider Internal Medicine Cardiovascular Disease | DX: I50.20 Unspecified systolic (congestive) heart failure (principal); I25.10 Atherosclerotic heart disease of native coronary artery without angina pectoris; I48.19 Other persistent atrial fibrillation; I77.89 Other specified disorders of arteries and arterioles | CPT/HCPCS: 99212 ==

== ENCOUNTER 2024-03-06 09:46 | Outpatient (REF) | payer MEDICARE, OTHER, SELFPAY ==
[2024-03-06 10:14] LABS: MANUAL DIFF FLAG NO
[2024-03-06 10:38] LABS: Appearance Urine Clear; Color Urine Yellow; Glucose Urine UA Negative (Negative); Leukocyte Esterase Urine Negative (Negative); Nitrite Urine Negative (Negative); PH 6.5 (5.0-9.0); UMIC TRIGGER UA YES; Urine Blood Negative (Negative); Urine Ketones Negative (Negative); Urine Protein 100 (2+) mg/dL (Neg-Trace)
[2024-03-06 10:41] LABS: Basophils Percent Auto 0.4 % (0-2); Eosinophils Absolute Auto 0.2 X10*3/uL (0.0-0.4); Eosinophils Percent Auto 2.8 % (0-4); Hematocrit 41.3 % (42.0-52.0); Hemoglobin 14.4 g/dl (14.0-18.0); Imm Gran Abs Auto 0.06 X10*3/uL (0.00-0.03); Imm Gran Pct Auto 0.8 % (0.0-0.4); Lymphocytes Absolute Auto 0.9 X10*3/uL (1.2-4.9); Lymphocytes Percent Auto 11.7 % (20-40); Mean Corpuscular HGB Conc 34.9 g/dl (31.0-36.0); Mean Corpuscular Hemoglobin 36.5 pg (27.0-33.0); Mean Corpuscular Volume 104.8 fL (80.0-98.0); Mean Platelet Volume 9.7 fL (9.4-12.4); Monocytes Absolute Auto 0.7 X10*3/uL (0.1-1.2); Monocytes Percent Auto 9.2 % (2-11); Neutrophils Absolute Auto 5.5 x10*3/uL (2.0-8.3); Neutrophils Percent Auto 75.1 % (45-73); Platelet Count 196 X10*3/uL (160-400); Red Blood Count 3.94 X10*6/uL (4.60-5.80); Red Cell Distribution Width 12.9 % (11.0-16.0); White Blood Count 7.3 X10*3/uL (4.8-10.8)
[2024-03-06 10:45] LABS: Bacteria Urine None Seen (None Seen); Hyaline Casts Urine 0-2 /LPF (0-2); RBC Urine 0-2 /HPF (0-2); Squamous Epithelial Cell Urine 0-2 /HPF (0-2); WBC Urine 0-5 /HPF (0-5)
[2024-03-06 10:51] LABS: Estimated Average Glucose 120 mg/dL; Hemoglobin A1C 151.4476 umol/L; Hemoglobin A1c % 5.8 % (<6.0); Total Hemoglobin (HGBA1C) 3817.0299 umol/L
[2024-03-06 11:09] LABS: Digoxin 0.8 ng/mL (0.8-2.0)
[2024-03-06 11:18] LABS: Alanine Aminotransferase 18 U/L (0-40); Alkaline Phosphatase 69 U/L (39-117); Anion Gap 11 (12-20); Aspartate Amino Transferase 23 U/L (5-37); Bilirubin Total 1.1 mg/dL (0.0-1.0); Blood Urea Nitrogen 13 mg/dL (9-16); Calcium 9.4 mg/dL (8.4-10.2); Carbon Dioxide 27 mmol/L (22-29); Chloride 107 mmol/L (96-108); Cholesterol 87 mg/dL (<200); Estimated Glomerular Filt Rate > 60; Glucose Fasting 104 mg/dL (60-99); HDL Cholesterol 37 mg/dL (>40); LDL Cholesterol Calculated 28 mg/dL (<100); Potassium 3.9 mmol/L (3.3-5.1); Sodium 141 mmol/L (135-145); Total Protein 6.4 g/dL (6.5-8.0); Triglycerides 111 mg/dL (<150)
[2024-03-06 11:20] LABS: Prostate Specific Antigen 1.37 ng/mL (<0.05-4.0)
[2024-03-06 11:23] LABS: Thyroid Stimulating Hormone 2.21 uIU/mL (0.32-4.0)
[2024-03-06 11:48] LABS: Microalbum/Creatinine Ratio Ur 530.5 ug/mg cr (<30)
== END 2024-03-06 09:47 | disposition home or self-care (01) ==
LOC: HO.LAB 09:46
PROVIDERS: PCP Internal Medicine; Referring Provider Internal Medicine; Visit Provider Internal Medicine Cardiovascular Disease
DX: I48.19 Other persistent atrial fibrillation (principal); I10 Essential (primary) hypertension; I25.10 Atherosclerotic heart disease of native coronary artery without angina pectoris; Z87.442 Personal history of urinary calculi; Z12.5 Encounter for screening for malignant neoplasm of prostate; Z13.1 Encounter for screening for diabetes mellitus
CPT/HCPCS: 36415; 80053; 80061; 80162; 81001; 82043; 82570; 83036; 84153; 84443; 85025

== ENCOUNTER 2024-09-15 12:39 | Outpatient (AMB) | payer MEDICARE, OTHER, SELFPAY ==
--- NOTE | 2024-09-15 12:09 | A.OFFPC_ITS ---
Vital Signs 09/15/24 13:10 Height 5 ft 7 in Weight 264 lb BMI 41.3 BP 132/70 Blood Pressure Location Lt brachial Position Sitting Pulse 57 Pulse Source Pulse Oximeter Temp 97.5 F Temp Source Axillary Pulse Oximetry (%) 98 Oxygen Delivery Method Room Air Intake Visit Reasons: Routine Filler Operator Required: No Accompanied by: Self / Same As Patient Allergies bee pollen [BEE STINGS] Allergy (Intermediate, Verified 09/15/24 12:53) HIVES, SOB LOBSTER Allergy (Intermediate, Uncoded 09/19/21 19:18) HIVES Tobacco use date assessed: 09/15/24 Fall risk assessment: No Falls in past year Last assessed Fall Risk: 09/15/24 Dental Screening Dental Screen Date: 09/15/24 Did you have a dental visit in the last 12 months?: Yes Did you have a dental problem in the last 6 months where you did not have access to dental care?: No HPI HPI Comments History of Present Illness Details The patient is an 79 year old male with a past medical history of CAD s/p ACS, CHF, afib, htn, hld, gout, PMR, h/o polyps presenting for follow up. Last seen by pcp in May CV: folows with cardiology, Dr Orozco. On digoxin, xarelto, olmesartan, norvasc, coreg, lasix. Recent echocardiogram shows low normal LVEF of 50-55% with severe left atrial enlargement without any significant pulmonary hypertension or valvular abnormalities. The amlodipine 2.5 has increase LE edema Prediabetes: recheck a1C. on chronic prednisone PMR stable on 5mg prednisone ROS see HPI PHYSICAL EXAM: GENERAL: Alert and oriented x 3. NAD EYES: EOMI. Anicteric. HENT: Moist mucous membranes. No scleral icterus. No cervical lymphadenopathy. LUNGS: Clear to auscultation bilaterally. CARDIOVASCULAR: Regular rate and rhythm. No murmur. No JVD. ABDOMEN: Soft, non-tender +bs EXTREMITIES: No edema. Non-tender. SKIN: No rashes or lesions. Warm. NEUROLOGIC: No focal neurological deficits. CN II-XII grossly intact PSYCHIATRIC: Cooperative. Appropriate mood and affect [facility] Medical History Paroxysmal A-fib Ventral hernia COVID-19 vaccine series completed Umbilical hernia Gastritis Gastroenteritis Persistent atrial fibrillation HTN (hypertension) Ischemic cardiomyopathy Heart failure with reduced ejection fraction CAD (coronary artery disease) Surgical History Hx of colonoscopy Stented coronary artery Family History Father CHF (congestive heart failure) Mother No problems noted. Brother CHF (congestive heart failure) Social History Household Members: Spouse Housing: House Do you presently have visiting nurse or other home services: No Alcohol intake: former Patient Tobacco Use Status: Former Tobacco user Years Smoked: 20 +/- e-Cigarette/Vaping Use: Former Use Advance Directives Date on File: 12/21/13 service: No Current occupational status: retired Cognitive needs: No Hearing needs: No Vision needs: Yes (rx glasses) Questionnaire PHQ-9 Over the last 2 weeks, how often have you been bothered by any of the following problems? 1. Little interest or pleasure in doing things: not at all 2. Feeling down, depressed, or hopeless: not at all 3. Trouble falling or staying asleep, or sleeping too much: not at all 4. Feeling tired or having little energy: not at all 5. Poor appetite or overeating: not at all 6. Feeling bad about yourself - or that you are a failure or have let yourself or your family down: not at all 7. Trouble concentrating on things, such as reading the newspaper or watching television: not at all 8. Moving or speaking so slowly that other people could have noticed. Or the opposite - being so fidgety or restless that you have been moving around a lot more than usual: not at all 9. Thoughts that you would be better off or of hurting yourself in some way: not at all Total score: 0 Depression Screening Interpretation: Negative Depression Screening Done: Yes 14038 - PHQ-9 Billing: Yes Source: Developed by Drs. Lonnie Branch, Felecia Travis, Marc Garcia and colleagues, with an educational chanelle from [employer]. Thrive Questionnaire Date Thrive assessed: 05/30/25 I am a: Patient Within the past 12 months, did the food you bought not last and you didn't have the money to get more?: Never true Within the past 12 months, did you worry whether your food would run out before you got money to buy more?: Never true Do you have trouble paying for medicines?: No Do you have trouble getting transportation to medical appointments?: No Do you have trouble paying your heating and electricity bill?: No Do you have trouble taking care of your child, family member or friend?: No Do you have trouble with day-to-day activities such as bathing, preparing meals, shopping, managing finances, etc.?: No Are you currently unemployed and looking for a job?: No Are you interested in more education?: No THRIVE Score: 0 AUDIT C Alcohol Use Questionnaire (AUDIT-C) 1. How often do you have a drink containing alcohol?: Never 3. How often do you have six or more drinks on one occasion?: Never Total Score: 0 SANCHEZ-7 AMB Questionnaire SANCHEZ-7 Date SANCHEZ - 7 assessed: 09/15/24 Feeling nervous, anxious, or on edge: 0 = Not at all Not being able to stop or control worryin = Not at all Worrying too much about different things: 0 = Not at all Trouble relaxin = Not at all Being so restless that it is hard to sit still: 0 = Not at all Becoming easily annoyed or irritable: 0 = Not at all Feeling afraid as if something awful might happen: 0 = Not at all Total SANCHEZ-7 score (0-4 normal; 5-9 mild; 10-14 moderate; 15-21 severe): 0 Source: Developed by Drs. Lonnie Branch, Felecia Travis, Marc Garcia and colleagues, with an educational chanelle from [employer]. Physical exam (Primary Care) Vital Signs: Last Vital Signs Temp 97.5 F 09/15/24 13:10 Pulse 57 09/15/24 13:10 BP 132/70 09/15/24 13:10 Pulse Ox 98 09/15/24 13:10 Oxygen Delivery Method Room Air 09/15/24 13:10 BMI result Body Mass Index 41.3 Tobacco/Smoking Status: Tobacco use Status Tobacco use date assessed 09/15/24 09/15/24 12:59 Patient Tobacco Use Status Former Tobacco user 09/15/24 12:53 Tobacco use type 08/12/21 09:16 e-Cigarette/Vaping Use Former Use 09/15/24 12:59 PHQ-9: PHQ-9 Score PHQ-9: Total score 0 09/15/24 12:59 Depression Screening Interpretation: Negative Thrive Assessment: Date of Thrive Assessment Date Thrive assessed 09/15/24 09/15/24 12:59 Coding Level of Care Code New Pt Level 4 (70171) Complex EM visit Add On G2211 Diagnoses Macrocytosis D75.89 Prediabetes R73.03 Coronary artery disease with angina pectoris, unspecified vessel or lesion type, unspecified whether [place] or transplanted heart I25.119 Coronary Disease-Associated Artery/Lesion type: unspecified vessel or lesion type [place] vs. transplanted heart: unspecified whether [place] or transplanted heart Associated angina: with unspecified form of angina Ischemic cardiomyopathy I25.5 Persistent atrial fibrillation I48.19 Additional Codes PHQ-9 - 33621 - PHQ-9 Billing: Yes ([id number]) Assessment & Plan Assessment & Plan (1) Macrocytosis: Code(s): D75.89 - Other specified diseases of blood and blood-forming organs Category: Medical (2) Prediabetes: Code(s): R73.03 - Prediabetes Category: Medical (3) CAD (coronary artery disease): Code(s): I25.10 - Atherosclerotic heart disease of [place] coronary artery without angina pectoris Category: Medical Qualifiers: Coronary Disease-Associated Artery/Lesion type: unspecified vessel or lesion type [place] vs. transplanted heart: unspecified whether [place] or transplanted heart Associated angina: with unspecified form of angina Qualified Code(s): I25.119 - Atherosclerotic heart disease of [place] coronary artery with unspecified angina pectoris (4) Ischemic cardiomyopathy: Comment: LVEF of 40-45% by echocardiogram, January 2019 Code(s): I25.5 - Ischemic cardiomyopathy Category: Medical (5) Persistent atrial fibrillation: Comment: taking xarelto, carvedilol, digoxin Code(s): I48.19 - Other persistent atrial fibrillation Category: Medical Plan 79 y/o to establish care past medical, social surgical reviewed LE edema. consider holding norvasc 2-4 weeks prior to next visit Labs ordered HTN well controlled continue cardiology follow up Orders: Orders Complete Blood Count Auto Diff Today D75.89 - Other specified diseases of blood and blood-forming organs, I10 - Essential (primary) hypertension, I50.20 - Unspecified systolic (congestive) heart failure, R73.03 - Prediabetes Vitamin B12 and Folate Today D75.89 - Other specified diseases of blood and blood-forming organs Comprehensive Met. Panel Today D75.89 - Other specified diseases of blood and blood-forming organs, I10 - Essential (primary) hypertension, I50.20 - Unspecified systolic (congestive) heart failure, R73.03 - Prediabetes Lipid Panel Today D75.89 - Other specified diseases of blood and blood-forming organs, I10 - Essential (primary) hypertension, I50.20 - Unspecified systolic (congestive) heart failure, R73.03 - Prediabetes TSH reflex Free T4 Today D75.89 - Other specified diseases of blood and blood- forming organs, I10 - Essential (primary) hypertension, I50.20 - Unspecified systolic (congestive) heart failure, R73.03 - Prediabetes Hemoglobin A1c Today D75.89 - Other specified diseases of blood and blood- forming organs, I10 - Essential (primary) hypertension, I50.20 - Unspecified systolic (congestive) heart failure, R73.03 - Prediabetes Lyme IgG/IgM w/reflex to WB Today L98.9 - Disorder of the skin and subcutaneous tissue, unspecified
--- OUTSIDE RECORDS SUMMARY | 2024-09-15 13:00 | XMS_ITS | Patient Health Record ---
Author Organization [facility] Address [address] [address] Care Team Providers Care Building Engineer Name Role Phone Brandon Disla MD Primary Care Provider Bishop Donovan Unavailable [phone] Allergies Allergen (clinical drug ingredient) Drug/Non Drug Allergy documented on EMR Reaction Allergy Type Onset Date Status bee pollen Bee Pollen Unknown Drug Allergy Activ e Reason For Referral No Information Medications Medication SIG (Take, Route, Frequency, Duration) Notes Start Date End Date Status Vitamin D Active Prednisone Active Vitamin A Active Allopurinol Active Plavix Not-Taking Digoxin 25mg Active Aspirin 81 MG 1 tablet Orally Once a day for 30 day(s) Not-Taking PreserVision AREDS A ctive Xarelto 20 MG as directed Orally Active Atorvastatin Calcium 10 MG as directed Orally Active Carvedilol Not-Takin g Multivitamin Active Atenolol Not-Taking Hwrwvvcdgl-mcNRFRQagl-VQZ Z Active Felodipine ER Not-Ta puma Eucerin . as directed External ly Apply Twice a day to Feet for 30 days 11/06/2014 Active Valsartan Not-Taking Furosemide 20 MG as directed Orally Active Metoprolol & Diet Manage Prod Not-Taking Immunizations Vaccine Route Administration Date Status Comme nts COVID-19 Moderna Vaccine Unknown 09/02/2021 Administered 1st 06/04/2020 2nd 07/02/2020 3rd 02/21/2021 Influenza Unknown 12/25/2021 Administered Social History Tobacco Use: Social History Observation Description Date Details (start date - stop date) Never Smoker NA - NA Tobacco use other than smoking: Question Answer Notes Are you an other tobacco user? No Tobacco Control (Standard) Question Answer Notes Tobacco use: Nonsmoker Additional Findings: Tobacco non-user Current no nsmoker AUDIT-C (Standard) Question Answer Notes Did you have a drink containing alcohol in the p ast year? No Points 0 Interpretation Negative Problems Problem Type SNOMED Code ICD Code Onset Dates Problem Status W/U Status Risk Notes Problem Atherosclerosis of habematolel arteries of the extremities ([id number]) Atherosclerosis of habematolel artery of both lower extremities, with unspecified presence of clinical manifestation (I70.203) Active confirmed Vital Signs Blood pressure diastolic 65 mm Hg 08/01/2024 Height 5 ft 8 in in 08/01/2024 Blood pressure systolic 120 mm Hg 08/01/2024 Weight 250 lbs 08/01/2024 BMI 38.01 kg/m2 08/01/2024 Procedures Procedure Date Ordered Date Performed Result Body Sit e 09284-KDUOFDO NAIL, 6 OR MORE 10/12/2023 N/A 05286-MDSS SKIN LESIONS, OVER 4 10/12/2023 N/A 17114-IXDJSAD NAIL, 6 OR MORE 01/14/2024 N/A 52690-ZBDR SKIN LESIONS, OVER 4 01/14/2024 N/A 86776-ZRONPGR NAIL, 6 OR MORE 05/02/2024 N/A 26756-XCQH SKIN LESIONS, OVER 4 05/02/2024 N/A 17279-OJBTICI NAIL, 6 OR MORE 08/01/2024 N/A 35104-KZVG SKIN LESIONS, OVER 4 08/01/2024 N/A Encounters Encounter Location Date Provider Diagnosis [facility] [address] [address] 10/12/2023 Bishop Ismael Atherosclerosis of habematolel artery of both lower extremities, with unspecified presence of clinical manifestation I70.203 ; Tinea unguium B35.1 ; Pain in right toe(s) M79.674 and Pain in left toe(s) M79.[address] [facility] [address] 01/14/2024 Bishop Ismael Atherosclerosis of habematolel artery of both lower extremities, with unspecified presence of clinical manifestation I70.203 ; Tinea unguium B35.1 ; Pain in right toe(s) M79.674 and Pain in left toe(s) M79.[address] [address] 05/02/2024 Bishop Guevara Atherosclerosis of habematolel artery of both lower extremities, with unspecified presence of clinical manifestation I70.203 ; Tinea unguium B35.1 ; Pain in right toe(s) M79.674 and Pain in left toe(s) M79.[address] [address] 08/01/2024 Bishop Guevara Atherosclerosis of habematolel artery of both lower extremities, with unspecified presence of clinical manifestation I70.203 ; Tinea unguium B35.1 ; Pain in right toe(s) M79.674 and Pain in left toe(s) M79.675 Assessments Encounter Date Diagnosis (ICD Code) Assessment Notes Treatment Notes Treatment Clinical Notes Section Notes 10/12/2023 Tinea unguium (ICD-10 - B35.1) 10/12/2023 Atherosclerosis of habematolel artery of both lower extremities, with unspecified presence of clinical manifestation (ICD-10 - I70.203) 01/14/2024 Tinea unguium (ICD-10 - B35.1) 01/14/2024 Atherosclerosis of habematolel artery of both lower extremities, with unspecified presence of clinical manifestation (ICD-10 - I70.203) 05/02/2024 Tinea unguium (ICD-10 - B35.1) 05/02/2024 Atherosclerosis of habematolel artery of both lower extremities, with unspecified presence of clinical manifestation (ICD-10 - I70.203) 08/01/2024 Tinea unguium (ICD-10 - B35.1) 08/01/2024 Atherosclerosis of habematolel artery of both lower extremities, with unspecified presence of clinical manifestation (ICD-10 - I70.203) 05/02/2024 Pain in right toe(s) (ICD-10 - M79.674) 08/01/2024 Pain in right toe(s) (ICD-10 - M79.674) 10/12/2023 Pain in right toe(s) (ICD-10 - M79.674) 01/14/2024 Pain in right toe(s) (ICD-10 - M79.674) 10/12/2023 Pain in left toe(s) (ICD-10 - M79.675) 01/14/2024 Pain in left toe(s) (ICD-10 - M79.675) 08/01/2024 Pain in left toe(s) (ICD-10 - M79.675) 05/02/2024 Pain in left toe(s) (ICD-10 - M79.675) Plan Of Treatment Pending Test Test Name Order Date 91806-QZRTHCR NAIL, 6 OR MORE 05/14/2015 80023-QNSCKYO NAIL, 6 OR MORE 08/23/2015 62754-LGUKIVG NAIL, 6 OR MORE 11/26/2015 43698-IIBBJBE NAIL, 6 OR MORE 02/28/2016 16029-BGPOZHV NAIL, 6 OR MORE 06/05/2016 26312-LMGVMZL NAIL, 6 OR MORE 09/08/2016 06737-WTEGCMZ NAIL, 6 OR MORE 12/18/2016 72204-FEROPTS NAIL, 6 OR MORE 03/26/2017 78546-TSPDSMV NAIL, 6 OR MORE 07/02/2017 63197-KNIHUNI NAIL, 6 OR MORE 10/01/2017 67572-DCJFCDC NAIL, 6 OR MORE 01/04/2018 39211-JLHDYNR NAIL, 6 OR MORE 04/29/2018 57424-FANRTXB NAIL, 6 OR MORE 08/02/2018 40668-KYPSDEZ NAIL, 6 OR MORE 11/08/2018 50755-RTYMEJJ NAIL, 6 OR MORE 01/27/2019 38288-FTJPCGC NAIL, 6 OR MORE 05/09/2019 84719-WRWWDZX NAIL, 6 OR MORE 10/24/2019 19546-ZEUWXMU NAIL, 6 OR MORE 01/23/2020 09890-XGIXMPW NAIL, 6 OR MORE 04/30/2020 85896-TPQXSXJ NAIL, 6 OR MORE 07/30/2020 24338-KCQBKMX NAIL, 6 OR MORE 11/08/2020 44915-GXODIWP NAIL, 6 OR MORE 02/11/2021 15079-HRMGNCB NAIL, 6 OR MORE 07/01/2021 18176-KOSMEZB NAIL, 6 OR MORE 11/11/2021 62631-AMIJCXM NAIL, 6 OR MORE 02/17/2022 91545-VAVWOVT NAIL, 6 OR MORE 06/12/2022 72922-IIVLFBX NAIL, 6 OR MORE 10/14/2012 27492-PQTUGGO NAIL, 6 OR MORE 12/30/2012 92905-EPJWISJ NAIL, 6 OR MORE 04/04/2013 16106-VPECNOC NAIL, 6 OR MORE 07/11/2013 55450-KIIEYLG NAIL, 6 OR MORE 10/17/2013 26290-HRWBHMR NAIL, 6 OR MORE 01/23/2014 25831-MDQNXNP NAIL, 6 OR MORE 05/01/2014 38004-DWFLXPJ NAIL, 6 OR MORE 07/31/2014 39150-OCKDACL NAIL, 6 OR MORE 11/06/2014 77776-SHMZCYW NAIL, 6 OR MORE 02/05/2015 17806-PVGFISM NAIL, 6 OR MORE 09/18/2022 43618-HMJDDZF NAIL, 6 OR MORE 12/25/2022 31464-ERDGLEM NAIL, 6 OR MORE 04/06/2023 17975-NBIPEKM NAIL, 6 OR MORE 07/13/2023 96862-BYUFOXO NAIL, 6 OR MORE 10/12/2023 68536-WKHJRSU NAIL, 6 OR MORE 01/14/2024 38287-TAMDFGN NAIL, 6 OR MORE 05/02/2024 74282-EGWKOBS NAIL, 6 OR MORE 08/01/2024 39051-Gpww Destruction, 1-02/05/2015 24847-Kaob Destruction, 1-14 11/06/2014 74531-Zsns Destruction, 1-14 07/31/2014 94218-Pkcu Destruction, 1-14 05/01/2014 38218-DWUU SKIN LESIONS, OVER 4 09/19/19 23 62010-DEBO SKIN LESIONS, OVER 4 06/12/19 23 32666-NCBD SKIN LESIONS, OVER 4 08/02/19 23940-XGUJ SKIN LESIONS, OVER 4 05/02/19 32886-NLDO SKIN LESIONS, OVER 4 01/14/20 24 61590-TNQE SKIN LESIONS, OVER 4 10/12/19 24 50360-FHAY SKIN LESIONS, OVER 4 07/13/19 24 82115-TDNN SKIN LESIONS, OVER 4 04/06/20 03829-IAUS SKIN LESIONS, OVER 4 12/26/19 Next Appt Details Provider Name:Bishop Guevara 11/17/2024 09:00:00 AM, [address] [facility], [place], [address], Insurance Providers Payer Name Payer Address Payer Phone Subscriber Number Group Number Insured Name Patient Relationship to Insured Coverage Start Date Coverage End Date Medicare National [employer] [address] [place] [address] [id number] Ron Costello Jr Self - patient is the insured [employer] [address] [place] [address] [id number] Ron Costello Jr Self - patient is the insured Medical (General) History Medical History History ICD Code cancer gout hypertension Heart condition Surgical History Surgery Date(Month/Year) kidney stones 2010 hydrocele 1990 wide excision 1980 teeth extraction cardiac catheterization 12/23/2013 stent insertion 11/2014 colonoscopy 06/2021 umbilical hernia repair 10/2021 L cataract surgery 04/2022 Hospitalization History Reason Date(Month/Year) [facility] [place]el Obst[place] 4 days 2021 [facility] Heart Attack 11/2014
[2024-09-15 13:10] VITALS: BP 132/70; PULSE 57; TEMP 36.4; O2SAT 98; BMI 41.3
== END 2024-09-15 13:54 | disposition home or self-care (01) ==
LOC: HO.HMCHD 12:40
PROVIDERS: PCP Internal Medicine; Visit Provider Internal Medicine
DX: D75.89 Other specified diseases of blood and blood-forming organs (principal); R73.03 Prediabetes; I25.119 Atherosclerotic heart disease of native coronary artery with unspecified angina pectoris; I25.5 Ischemic cardiomyopathy; I48.19 Other persistent atrial fibrillation

== ENCOUNTER → 2024-09-15 12:39 | Outpatient (BNVA) | payer MEDICARE, OTHER, SELFPAY | PROVIDERS: PCP Internal Medicine; Visit Provider Internal Medicine | DX: D75.89 Other specified diseases of blood and blood-forming organs (principal); R73.03 Prediabetes; I25.119 Atherosclerotic heart disease of native coronary artery with unspecified angina pectoris; I25.5 Ischemic cardiomyopathy; I48.19 Other persistent atrial fibrillation; Z79.01 Long term (current) use of anticoagulants; Z79.52 Long term (current) use of systemic steroids; Z79.899 Other long term (current) drug therapy | CPT/HCPCS: 96127; 99202 ==

== ENCOUNTER 2024-10-05 11:25 | Outpatient (AMB) | payer MEDICARE, OTHER, SELFPAY ==
--- NOTE | 2024-10-05 11:26 | MHC.OFFVIS ---
Vital Signs 10/05/24 11:27 Height 5 ft 7 in Weight 264 lb 8.875 oz BMI 41.4 BP 145/67 H Blood Pressure Location Lt brachial Position Sitting Pulse 56 Pulse Oximetry (%) 95 Oxygen Delivery Method Room Air Intake Visit Reasons: 8 mo F/U of colon polyps Intake Note: Patient follow up for History of colon polyps. Patient denies any GI issues. 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 Accompanied by: Family/Other Allergies bee pollen (BEE STINGS) Allergy (Intermediate, Verified 10/05/24 11:26) HIVES, SOB LOBSTER Allergy (Intermediate, Uncoded 09/19/21 19:18) HIVES Medication List - Last Reconciled 10/05/24 by Cuate Fiore MD allopurinol 300 mg PO DAILY amlodipine 2.5 mg PO DAILY atorvastatin 40 mg PO DAILY carvedilol 25 mg PO BID cholecalciferol (vitamin D3) 250 mcg PO QWEEK digoxin 250 mcg PO DAILY furosemide 20 mg PO DAILY multivitamin 1 tab PO DAILY olmesartan 40 mg PO DAILY prednisone 5 mg PO DAILY rivaroxaban (Xarelto) 20 mg PO DAILY vitamins A,C,K-imic-xorrjj 2,148 mcg-113 mg-45 mg-17.4mg (PreserVision AREDS) 2 tabs PO BID HPI HPI 8 mo F/U of colon polyps: Details: GI clinic visit for this 79 YM for fu of colon polyps [place] [facility] [place] related to ventral hernia TODAY'S VISIT: Pt is accompanied by his . I feel very good and not having any problems at all Complains of occasional constipation and takes some apple juice - less than once a month Denies any episodes of bowel obstruction since hernia surgery Takes apple juice in the am and is able to have a BM Had hernia surgery and is trying to loose weight. No problems with blockages Intermittent constipation and takes stool softeners or metamucil prn. Denies heartburn or dysphagia PAST VISITS: Colonoscopy results reviewed. On Prednisone for PMR - on 10 mg now Takes a stool softener and half dose of Miralax daily for prevention of constipation. Has a craving for chocolate. Patient denies symptoms of heartburn, dysphagia, nausea, vomiting, change in appetite or weight.? Denies recent change in bowel habits, constipation, diarrhea, black stools or rectal bleeding. Patient denies major cardiac or pulmonary problems, loud snoring or sleep apnea Denies problems with anesthesia in the past. Patient is on Xarelto 20 mg daily for AFib Patient denies EtOH abuse.? He quitted smoking in 1975.? Patient is? retired -? 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 ?patient is and has 4 children.? ? 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 Family history -? non-contributory due to advanced age PAST GI HISTORY BY REVIEW OF MEDICAL RECORDS: Reason for consult: Nausea and vomiting 76 YM seen at [facility] [place]: HPI narrative: 76-year-old male with past medical history of atrial fibrillation, hypertension, ischemic cardiomyopathy, heart failure with reduced EF, CAD is here today for abdominal pain, cramping, nausea and vomiting that started 4 days ago.? Patient reports that 2 weeks ago he was put on prednisone for polyarthralgia.? Patient reports that 4 days ago he took his prednisone without food in the next day he started with abdominal discomfort.? Patient was feeling nauseous and was unable to eat any food, continue to take his Xarelto and prednisone on an empty stomach.? 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 Colonoscopy in 2003 showed 2 hyperplastic polyps without any dysplasia or carcinoma.? Patient has a history of cystoscopy in 2006, has a history of nonobstructing renal stones.? Patient denies any urinary symptoms at this time.? Reports that he had normal bowel movement yesterday followed by loose stool x1.? Patient denies any melena, hematochezia, unintentional weight loss or ribbon like stools.? Patient denies any dyspepsia, dysphagia or odynophagia.? Reports to be feeling nauseous last time vomited was this morning.? Patient has not been eating any solids, he does report that he has been drinking fluids, patient reports that he vomited liquid no solid. MD elicited complaint: abdominal pain Patient gives a history of abdominal pain, nausea and vomiting for the past 3 days. Patient has not been able to eat for the past 3-4 days He had a solid bowel movement 3 days ago and has been having diarrhea with to loose to watery bowel movements a day without blood or mucus. Patient denies fever chills or sweating. He admits to having heartburn and was prescribed Prilosec by his PCP with improvement in his symptoms. Pt denies past abdominal surgeries and denies any history of similar episodes in the past. ENDOSCOPIC STUDIES: 05/2021 COLONOSCOPY SHOWED: Five small to medium sized polyps (most were tubular adenomas) removed Moderate diverticulosis seen in the entire colon A 1.5 cms yellowish nodule in the rectum at 10 cms with normal overlying mucosa - likely submucosal lipoma (without significant change from previous colonoscopy in 2003). Plan:? Repeat Colonoscopy interval based on path results - in 2-3 years if polyps are adenomatous and pt remains in stable health and discontinue colon cancer screening if polyps are hyperplastic. IMAGING STUDIES:? 05/10/[address] SCAN ( PERSONALLY REVIEWED) SHOWED: Nonobstructed small bowel seen within a prominent periumbilical hernia. There are dilated loops of proximal small bowel measuring up to 5 cm in diameter however there is no discrete focal transition point with a gradual transition to more normal caliber bowel. Etiology of this is uncertain. Ileus would be favored. There is skin thickening along the anterior abdominal wall inferiorly possibly due to overlying cellulitis. This could be clinically correlated. Chronic appearing changes otherwise as described [facility] Medical History Paroxysmal A-fib Ventral hernia COVID-19 vaccine series completed Umbilical hernia Gastritis Gastroenteritis Persistent atrial fibrillation HTN (hypertension) Ischemic cardiomyopathy Heart failure with reduced ejection fraction CAD (coronary artery disease) Surgical History Hx of colonoscopy Stented coronary artery Family History Father CHF (congestive heart failure) Mother No problems noted. Brother CHF (congestive heart failure) Social History Household Members: Spouse Housing: House Do you presently have visiting nurse or other home services: No Alcohol intake: former Patient Tobacco Use Status: Former Tobacco user Years Smoked: 20 +/- e-Cigarette/Vaping Use: Former Use Advance Directives Date on File: 12/21/13 service: No Current occupational status: retired Cognitive needs: No Hearing needs: No Vision needs: Yes (rx glasses) Review of Systems Const All systems reviewed & are unremarkable except as noted in HPI and below Physical Exam Vital Signs: Last Vital Signs Pulse 56 10/05/24 11:27 BP 145/67 H 10/05/24 11:27 Pulse Ox 95 10/05/24 11:27 Oxygen Delivery Method Room Air 10/05/24 11:27 BMI result Body Mass Index 41.4 Const General: no acute distress Nutritional Appearance: obese Orientation/consciousness: patient oriented x3 Limitations: physical limitations HEENT Head: Yes normal to inspection Ears: hearing grossly normal bilaterally Eyes Sclerae: sclerae normal Pupils: Equal, round and reactive pupils present Neck Neck: Yes normal visual inspection Chest Chest palpation & inspection: normal inspection of the chest Resp Effort & Inspection: normal respiratory effort Auscultation: clear to auscultation bilaterally Cardio Palpation: normal PMI Rate: regular rate Rhythm: abnormal rhythm (Irregularly irregular) Heart sounds: S1 normal heart sound present, S2 normal heart sound present and no murmurs GI Inspection: Yes obesity Palpation (GI): Soft to palpation, nontender and No hepatosplenomegaly present Auscultation: normal bowel sounds Rectal Exam - Male: Yes deferred Skin General skin exam: no rashes or lesions noted Neuro General: patient oriented x3, gait normal and moves all extremities Cranial nerves: Yes Equal, round and reactive pupils present Extrem General: Yes pedal edema (1+ pitting edema bilaterally) Psych Appearance: grossly normal Mental Status: mental status grossly normal Assessment & Plan Assessment & Plan (1) History of colon polyps: Comment: 05/2021 COLONOSCOPY SHOWED: Five small to medium sized polyps (most were tubular adenomas) removed Moderate diverticulosis seen in the entire colon A 1.5 cms yellowish nodule in the rectum at 10 cms with normal overlying mucosa - likely submucosal lipoma (without significant change from previous colonoscopy in 2003). Plan: Pt would like to hold off having a colonoscopy due to age and multiple comorbidities.. Code(s): Z86.010 - Personal history of colon polyps Category: Medical Plan 79 year-old male with atrial fibrillation, hypertension, ischemic cardiomyopathy, heart failure with reduced EF, CAD seen for FU after hositalization in Apr, 2021 with?abdominal pain, cramping, nausea and vomiting. Lactic acid was normal. Abd CT scan showed?nonobstructed small bowel seen within a prominent periumbilical hernia. There are dilated loops of proximal small bowel measuring up to 5 cm in diameter without discrete focal transition point with a gradual transition to more normal caliber bowel. Symptoms were attributed to gastroenteritis and have resolved completely. Pt had subsequent hernia repair. 05/2021 COLONOSCOPY SHOWED: Five small to medium sized polyps (most were tubular adenomas) removed Moderate diverticulosis seen in the entire colon A 1.5 cms yellowish nodule in the rectum at 10 cms with normal overlying mucosa - likely submucosal lipoma (without significant change from previous colonoscopy in 2003). Plan: Repeat Colonoscopy in 2 years if patient is stable from cardiac standpoint to undergo a colonoscopy. Colon cancer screening can be discontinued if he is deemed high risk for anesthesia.. Of note patient has CAD with prior myocardial infarction, heart failure with reduced ejection fraction (45 to 50% on Echo in 02/07) and persistent chronic atrial fibrillation (rate controlled on dual therapy with digoxin carvedilol) and is on oral anticoagulation (Xarelto 20 mg daily) and is followed by Dr Orozco.? 02/03/24 Pt would like to hold off having a colonoscopy due to age and multiple comorbidities. He would like to continue following up in the GI clinic FU in 12 months (earlier prn) Coding Level of Care Code Est Pt Level 3 (78919) Diagnoses History of colon polyps Z86.010 Time Spent (min) 18
[2024-10-05 11:27] VITALS: BP 145/67; PULSE 56; O2SAT 95; BMI 41.4
--- OUTSIDE RECORDS SUMMARY | 2024-10-05 12:57 | XMS_ITS | Patient Health Record ---
[facility] Address [address] [address] Care Team Providers Care Client Program Manager Name Role Phone Brandon Disla MD Primary Care Provider Bishop Donovan Unavailable [phone] Allergies Allergen (clinical drug ingredient) Drug/Non Drug [...] Carvedilol Not-Takin g Multivitamin Active Atenolol Not-Taking Zmhgginzfn-uoYZZGAhoq-ARE Z Active Felodipine ER Not-Ta puma Eucerin [...] W/U Status Risk Notes Problem Atherosclerosis of iqugmiut arteries of the extremities ([id number]) Atherosclerosis of iqugmiut artery of both lower extremities, with unspecified presence of clinical manifestation (I70.203) Active confirmed Vital Signs Blood pressure diastolic 65 mm Hg 08/01/2024 Height 5 ft 8 in in 08/01/2024 Blood pressure systolic 120 mm Hg 08/01/2024 Weight 250 lbs 08/01/2024 BMI 38.01 kg/m2 08/01/2024 Procedures Procedure Date Ordered Date Performed Result Body Sit e 46659-XJVDFHY NAIL, 6 OR MORE 10/12/2023 N/A 49030-PTKC SKIN LESIONS, OVER 4 10/12/2023 N/A 97437-TAQXOLI NAIL, 6 OR MORE 01/14/2024 N/A 79404-DNIE SKIN LESIONS, OVER 4 01/14/2024 N/A 33918-NFTQQWP NAIL, 6 OR MORE 05/02/2024 N/A 24226-LJFV SKIN LESIONS, OVER 4 05/02/2024 N/A 58124-YJONSBF NAIL, 6 OR MORE 08/01/2024 N/A 84381-PPRS SKIN LESIONS, OVER 4 08/01/2024 N/A Encounters Encounter Location Date [facility] [address] [address] 10/12/2023 Bishop Ismael Atherosclerosis of iqugmiut artery of both lower extremities, with unspecified presence of clinical manifestation I70.203 ; Tinea unguium B35.1 ; Pain in right toe(s) M79.674 and Pain in left toe(s) M79.675 [facility] [address] 01/14/2024 Bishop Ismael Atherosclerosis of iqugmiut artery of both lower extremities, with unspecified presence of clinical manifestation I70.203 ; Tinea unguium B35.1 ; Pain in right toe(s) M79.674 and Pain in left toe(s) M79.[address] [address] 05/02/2024 Bishop Guevara Atherosclerosis of iqugmiut artery of both lower extremities, with unspecified presence of clinical manifestation I70.203 ; Tinea unguium B35.1 ; Pain in right toe(s) M79.674 and Pain in left toe(s) M79.[address] [address] 08/01/2024 Bishop Guevara Atherosclerosis of iqugmiut artery of both lower extremities, with unspecified presence of clinical manifestation I70.203 ; Tinea unguium B35.1 ; Pain in right toe(s) M79.674 and Pain in left toe(s) M79.675 Assessments Encounter Date Diagnosis (ICD Code) Assessment Notes Treatment Notes Treatment Clinical Notes Section Notes 10/12/2023 Tinea unguium (ICD-10 - B35.1) 10/12/2023 Atherosclerosis of iqugmiut artery of both lower extremities, with unspecified presence of clinical manifestation (ICD-10 - I70.203) 01/14/2024 Tinea unguium (ICD-10 - B35.1) 01/14/2024 Atherosclerosis of iqugmiut artery of both lower extremities, with unspecified presence of clinical manifestation (ICD-10 - I70.203) 05/02/2024 Tinea unguium (ICD-10 - B35.1) 05/02/2024 Atherosclerosis of iqugmiut artery of both lower extremities, with unspecified presence of clinical manifestation (ICD-10 - I70.203) 08/01/2024 Tinea unguium (ICD-10 - B35.1) 08/01/2024 Atherosclerosis of iqugmiut artery of both lower extremities, with unspecified [...] Treatment Pending Test Test Name Order Date 23728-ASPPNOQ NAIL, 6 OR MORE 05/14/2015 23036-YJXTLOI NAIL, 6 OR MORE 08/23/2015 91754-KSVFOVU NAIL, 6 OR MORE 11/26/2015 27817-CUMYCYG NAIL, 6 OR MORE 02/28/2016 36159-ADZZFDG NAIL, 6 OR MORE 06/05/2016 85689-OQWJGKY NAIL, 6 OR MORE 09/08/2016 88234-KSWKXNC NAIL, 6 OR MORE 12/18/2016 87390-PXOBBWH NAIL, 6 OR MORE 03/26/2017 66871-GBTFXXB NAIL, 6 OR MORE 07/02/2017 07486-OKCLUTB NAIL, 6 OR MORE 10/01/2017 20476-BIPBERM NAIL, 6 OR MORE 01/04/2018 46103-GZIODTM NAIL, 6 OR MORE 04/29/2018 39814-FNGIVBQ NAIL, 6 OR MORE 08/02/2018 37989-XRAXHEZ NAIL, 6 OR MORE 11/08/2018 97255-KHMBFFP NAIL, 6 OR MORE 01/27/2019 34835-OOINYZU NAIL, 6 OR MORE 05/09/2019 13842-QYKKHLH NAIL, 6 OR MORE 10/24/2019 17443-ISISFUT NAIL, 6 OR MORE 01/23/2020 13602-LCFAGZJ NAIL, 6 OR MORE 04/30/2020 04372-HYBWEBF NAIL, 6 OR MORE 07/30/2020 02032-DDVNVFP NAIL, 6 OR MORE 11/08/2020 24779-ZPXWVLL NAIL, 6 OR MORE 02/11/2021 59923-DLVRIGE NAIL, 6 OR MORE 07/01/2021 28445-VHOGMHF NAIL, 6 OR MORE 11/11/2021 71242-GXWREJE NAIL, 6 OR MORE 02/17/2022 16100-OAOZZSE NAIL, 6 OR MORE 06/12/2022 44981-DTYQVFK NAIL, 6 OR MORE 10/14/2012 04094-TSNAIIG NAIL, 6 OR MORE 12/30/2012 65014-SWSBSLM NAIL, 6 OR MORE 04/04/2013 65029-GSATNUG NAIL, 6 OR MORE 07/11/2013 88857-IWSWBGT NAIL, 6 OR MORE 10/17/2013 18518-YFDRBRZ NAIL, 6 OR MORE 01/23/2014 48228-APBWXOE NAIL, 6 OR MORE 05/01/2014 91213-YVRNJQI NAIL, 6 OR MORE 07/31/2014 78305-DVTUJIZ NAIL, 6 OR MORE 11/06/2014 90655-DYCXOYO NAIL, 6 OR MORE 02/05/2015 88907-BUJMSOS NAIL, 6 OR MORE 09/18/2022 38687-NZXZWOA NAIL, 6 OR MORE 12/25/2022 81345-LCBPURN NAIL, 6 OR MORE 04/06/2023 73947-XZRXUIN NAIL, 6 OR MORE 07/13/2023 48379-XKTLCWI NAIL, 6 OR MORE 10/12/2023 07220-UACILUV NAIL, 6 OR MORE 01/14/2024 27789-ZUUVWHR NAIL, 6 OR MORE 05/02/2024 13917-AFXUVAN NAIL, 6 OR MORE 08/01/2024 18923-Trzx Destruction, 1-02/05/2015 58445-Dale Destruction, 1-14 11/06/2014 63064-Ljbn Destruction, 1-14 07/31/2014 33655-Izmm Destruction, 1-14 05/01/2014 27639-AEMS SKIN LESIONS, OVER 4 09/19/19 23 50471-WZBI SKIN LESIONS, OVER 4 06/12/19 23 57675-HZFP SKIN LESIONS, OVER 4 08/02/19 79869-JTYI SKIN LESIONS, OVER 4 05/02/19 75252-XJQS SKIN LESIONS, OVER 4 01/14/20 24 93007-GRWU SKIN LESIONS, OVER 4 10/12/19 24 85966-YUZH SKIN LESIONS, OVER 4 07/13/19 24 42015-AUYE SKIN LESIONS, OVER 4 04/06/20 72195-MWWZ SKIN LESIONS, OVER 4 12/26/19 Next Appt Details Provider Name:Bishop Guevara 11/17/2024 09:00:00 AM, [address] [facility], [place], [address], Insurance Providers Payer Name Payer Address Payer Phone Subscriber Number Group Number Insured Name Patient Relationship to Insured Coverage Start Date Coverage End Date Medicare National [employer]t [employer] [address] [place] [address] [id number] Ron Costello Jr Self - patient is the insured [email or web address] [address] [place] [address] [id number] Ron Costello Jr Self - patient is the insured Medical (General) History Medical History History ICD Code cancer gout hypertension Heart condition Surgical History Surgery Date(Month/Year) kidney stones 2010 hydrocele 1990 wide excision 1980 teeth extraction cardiac catheterization 12/23/2013 stent insertion 11/2014 colonoscopy 06/2021 umbilical hernia repair 10/2021 L cataract surgery 04/2022 Hospitalization History Reason Date(Month/Year[place] [facility] [place]st[place] 4 days 2021 [facility] Medical Heart Attack 11/2014
== END 2024-10-05 12:13 | disposition home or self-care (01) ==
PROVIDERS: PCP Internal Medicine; Visit Provider Internal Medicine Gastroenterology
DX: Z86.0100 Personal history of colon polyps, unspecified (principal)
CPT/HCPCS: 99213

== ENCOUNTER → 2024-10-05 11:25 | Outpatient (BNVA) | payer MEDICARE, OTHER, SELFPAY | PROVIDERS: PCP Internal Medicine; Visit Provider Internal Medicine Gastroenterology | DX: Z09 Encounter for follow-up examination after completed treatment for conditions other than malignant neoplasm (principal); Z86.0101 Personal history of adenomatous and serrated colon polyps | CPT/HCPCS: 99212 ==

== ENCOUNTER 2024-10-17 09:34 | Outpatient (REF) | payer MEDICARE, OTHER, SELFPAY ==
[2024-10-17 13:24] LABS: MANUAL DIFF FLAG NO
[2024-10-17 13:30] LABS: Hematocrit 41.9 % (42.0-52.0); Hemoglobin 14.3 g/dl (14.0-18.0); Imm Gran Abs Auto 0.05 X10*3/uL (0.00-0.03); Imm Gran Pct Auto 0.6 % (0.0-0.4); Lymphocytes Absolute Auto 0.8 X10*3/uL (1.2-4.9); Mean Corpuscular HGB Conc 34.1 g/dl (31.0-36.0); Mean Corpuscular Hemoglobin 35.8 pg (27.0-33.0); Mean Corpuscular Volume 105.0 fL (80.0-98.0); NRBC Abs Auto 0.000 X10*3/uL (0.0-0.012); NRBC Pct Auto 0.0 /100WBC (0.0-0.2); Platelet Count 200 X10*3/uL (160-400); Red Blood Count 3.99 X10*6/uL (4.60-5.80); White Blood Count 7.7 X10*3/uL (4.8-10.8)
[2024-10-17 14:05] LABS: Digoxin 0.6 ng/mL (0.8-2.0)
[2024-10-17 14:08] LABS: Alanine Aminotransferase 19 U/L (0-40); Albumin Level 4.1 g/dL (3.5-5.0); Alkaline Phosphatase 64 U/L (39-117); Anion Gap 13 (12-20); Aspartate Amino Transferase 29 U/L (5-37); Blood Urea Nitrogen 12 mg/dL (9-16); Calcium 9.1 mg/dL (8.4-10.2); Carbon Dioxide 25 mmol/L (22-29); Chloride 105 mmol/L (96-108); Cholesterol 91 mg/dL (<200); Estimated Glomerular Filt Rate > 60; HDL Cholesterol 38 mg/dL (>40); Potassium 3.9 mmol/L (3.3-5.1); Sodium 139 mmol/L (135-145); Total Protein 6.3 g/dL (6.5-8.0); Triglycerides 116 mg/dL (<150)
[2024-10-17 14:11] LABS: Hemoglobin A1C 157.9266 umol/L; Total Hemoglobin (HGBA1C) 3817.7081 umol/L
[2024-10-17 14:31] LABS: Folate 14.4 ng/mL (> or = 4.0); Vitamin B12 699 pg/mL (200-900)
[2024-10-18 12:33] LABS: Lyme Abs Screen <0.90 index
== END 2024-10-17 09:35 | disposition home or self-care (01) ==
LOC: HO.10HDL 09:34
PROVIDERS: Internal Medicine; Internal Medicine Cardiovascular Disease; Visit Provider Internal Medicine Endocrinology, Diabetes & Metabolism
DX: R73.03 Prediabetes (principal); I50.20 Unspecified systolic (congestive) heart failure; D75.89 Other specified diseases of blood and blood-forming organs; L98.9 Disorder of the skin and subcutaneous tissue, unspecified; I48.19 Other persistent atrial fibrillation; I10 Essential (primary) hypertension
CPT/HCPCS: 36415; 80053; 80061; 80162; 82607; 82746; 83036; 84443; 85025; 86617; 86618

== ENCOUNTER 2024-10-23 13:26 | Outpatient (AMB) | payer MEDICARE, OTHER, SELFPAY ==
[2024-10-23 13:28] VITALS: BP 134/76; PULSE 61; BMI 40.4
--- NOTE | 2024-10-23 13:28 | MHC.OFFVIS ---
Vital Signs 10/23/24 13:28 Height 5 ft 7 in Weight 257 lb 15.053 oz BMI 40.4 BP 134/76 Blood Pressure Location Lt brachial Position Sitting Pulse 61 Intake Visit Reasons: 6m follow up r/s Intake Note: 6 month follow-up ekg feeling good c/o ankle swelling Fire Control Officer Required: No Instruction Librarian: Instruction Librarian Present (spouse) Accompanied by: Spouse Allergies bee pollen (BEE STINGS) Allergy (Intermediate, Verified 10/05/24 11:26) HIVES, SOB LOBSTER Allergy (Intermediate, Uncoded 09/19/21 19:18) HIVES Medication List - Last Reconciled 10/23/24 by Dorian Oorzco MD allopurinol 300 mg PO DAILY amlodipine 2.5 mg PO DAILY atorvastatin 40 mg PO DAILY carvedilol 25 mg PO BID cholecalciferol (vitamin D3) 250 mcg PO QWEEK digoxin 250 mcg PO DAILY furosemide 20 mg PO DAILY multivitamin 1 tab PO DAILY olmesartan 40 mg PO DAILY prednisone 5 mg PO DAILY rivaroxaban (Xarelto) 20 mg PO DAILY vitamins A,C,J-yqlr-ictgsb 2,148 mcg-113 mg-45 mg-17.4mg (PreserVision AREDS) 2 tabs PO BID HPI Comments Details: Ron comes for follow-up. He has been doing very well from cardiac perspective. He denies any cardiac symptoms except for feeling of leg swelling in the morning and he says gets better after takes Lasix but has mild leg swelling all the time. Denies any significant issues with it. Denies any orthopnea, PND, leg edema. No exertional chest pain, shortness of breath. No lightheadedness, syncope. No bleeding issues or neurologic events. Takes all his medications regularly. [facility] Medical History Heart failure with reduced ejection fraction Paroxysmal A-fib Ventral hernia COVID-19 vaccine series completed Umbilical hernia Gastritis Gastroenteritis Persistent atrial fibrillation HTN (hypertension) Ischemic cardiomyopathy CAD (coronary artery disease) Surgical History Hx of colonoscopy Stented coronary artery Family History Father CHF (congestive heart failure) Mother No problems noted. Brother CHF (congestive heart failure) Social History Household Members: Spouse Housing: House Do you presently have visiting nurse or other home services: No Alcohol intake: former Patient Tobacco Use Status: Former Tobacco user Years Smoked: 20 +/- e-Cigarette/Vaping Use: Former Use Advance Directives Date on File: 12/21/13 service: No Current occupational status: retired Cognitive needs: No Hearing needs: No Vision needs: Yes (rx glasses) Review of Systems Const Denies chills, Denies fatigue, Denies fever(s), Denies frequent falls, Denies weakness, Denies weight gain and Denies weight loss ENT Denies dizziness Card Denies chest pain, Denies leg edema, Denies lightheadedness, Denies palpitations, Denies dyspnea, Denies dyspnea on exertion, Denies orthopnea and Denies other (loss of consciousness) Resp Denies cough, Denies dyspnea and Denies dyspnea on exertion GI Denies hematochezia and Denies change in stool character Musc Denies abnormal gait, Denies muscle weakness, Denies numbness, Denies radiating pain into limb and Denies tingling Neuro Denies Abnormal speech present, Denies abnormal gait, Denies dizziness, Denies frequent falls, Denies numbness, Denies tingling and Denies weakness Endo Denies fatigue and Denies palpitations Physical Exam Vital Signs: Last Vital Signs Pulse 61 10/23/24 13:28 BP 134/76 10/23/24 13:28 BMI result Body Mass Index 40.4 Const Orientation/consciousness: patient oriented x3 Neck Neck: Yes trachea midline, Yes supple and Yes no JVD Carotids: no bruits Chest Chest palpation & inspection: normal inspection of the chest Resp Effort & Inspection: normal respiratory effort Auscultation: clear to auscultation bilaterally Cardio Jugular venous distension: no JVD Rate: tachycardic Rhythm: abnormal rhythm irregularly irregular Heart sounds: S1 normal heart sound present, S2 normal heart sound present, no click, no gallops, no murmurs and no rubs GI Inspection: Yes obesity Auscultation: normal bowel sounds Skin General skin exam: no rashes or lesions noted Neuro General: patient oriented x3 and no focal motor deficits Speech: No Abnormal speech present Extrem General: Yes no clubbing, cyanosis or edema Psych Appearance: grossly normal Office Procedures EKG Details: EKG shows atrial fibrillation with ST T wave changes suggestive of digoxin effect 37754-Dmlcqynrokskxxauj, Complete Assessment & Plan Assessment & Plan (1) Heart failure with recovered ejection fraction (HFrecEF): Code(s): I50.20 - Unspecified systolic (congestive) heart failure Category: Medical Plan: Heart failure with recovered ejection fraction with last echocardiogram showed LVEF of 50-55% current medical therapy. Continue aggressive medical therapy. Continue current diuretic dose. Daily weight monitoring avoidance salt loading was discussed. Management of heart failure was discussed. Importance of good blood pressure control was discussed. Continue current neurohormonal modulation with carvedilol and olmesartan. Continue current rate control approach. Advised to call me with any worsening symptoms. (2) CAD (coronary artery disease): Code(s): I25.10 - Atherosclerotic heart disease of [place] coronary artery without angina pectoris Category: Medical Qualifiers: Associated angina: with unspecified form of angina Coronary Disease-Associated Artery/Lesion type: unspecified vessel or lesion type [place] vs. transplanted heart: unspecified whether [place] or transplanted heart Qualified Code(s): I25.119 - Atherosclerotic heart disease of [place] coronary artery with unspecified angina pectoris Plan: CAD with prior myocardial infarction. Currently having no symptoms from that perspective. Continue full oral anticoagulation avoid antiplatelet therapy to reduce bleeding risk. Continue high-intensity statin therapy with target goal LDL less than 70 mg/dL. Blood pressure is currently well optimized. Advised to monitor blood pressure and maintain a log. Goal blood pressure less than 130/84. (3) Persistent atrial fibrillation: Comment: taking xarelto, carvedilol, digoxin Code(s): I48.19 - Other persistent atrial fibrillation Category: Medical Plan: Persistent and chronic atrial fibrillation has failed rhythm control approach. Doing well with no signs of worsening heart failure syndrome. Continue rate control with digoxin carvedilol. Digoxin assay should be performed every 6 months. Currently on full oral anticoagulation with Xarelto which he is tolerating well. Continue check renal function every 6 months. Follow up in the clinic in 6 months time, sooner p.r.n.. Thank you for allowing me to partake in his care Coding Level of Care Code Est Pt Level 4 (74375) Complex EM visit Add On G2211 Diagnoses Heart failure with recovered ejection fraction (HFrecEF) I50.20 Coronary artery disease with angina pectoris, unspecified vessel or lesion type, unspecified whether [place] or transplanted heart I25.119 Associated angina: with unspecified form of angina Coronary Disease-Associated Artery/Lesion type: unspecified vessel or lesion type [place] vs. transplanted heart: unspecified whether [place] or transplanted heart Persistent atrial fibrillation I48.19 CPT Codes EKG - CPT: 46244-Vlhauzbewsoxkwzce, Complete ([id number])
--- OUTSIDE RECORDS SUMMARY | 2024-10-23 13:51 | XMS_ITS | Patient Health Record ---
Author Organization [facility] Address [address] [place] [address] Care Team Providers Care Photogeologist Name Role Phone Brandon Disla MD Primary Care Provider Unavaila Terrence Buitrago Jr Unavailable Reason For Referral No Information Plan Of Treatment No Information
--- OUTSIDE RECORDS SUMMARY | 2024-10-23 13:51 | XMS_ITS | Patient Health Record ---
Author Organization [facility] Address [address] [place] [address] Care Team Providers Care Vice President Process Name Role Phone Brandon Disla MD Primary Care Provider Bishop Donovan Unavailable [phone] Allergies Allergen (clinical drug ingredient) Drug/Non Drug [...] 81 MG 1 tablet Orally Once a day; Duration: 30 day(s) Not-Taking PreserVision AREDS A ctive Xarelto 20 MG as directed Orally Active Atorvastatin Calcium 10 MG as directed Orally Active Carvedilol Not-Takin g Multivitamin Active Atenolol Not-Taking Okxnuuczir-zeUDKNLepi-NJX Z Active Felodipine ER Not-Ta puma Eucerin . as directed External ly Apply Twice a day to Feet; Duration: 30 days 11/06/2014 Active Valsartan Not-Taking Furosemide [...] Problem Status W/U Status Risk Notes Problem Bilateral atherosclerosis of arteries of lower limbs (disorder) ([id number] ) Atherosclerosis of [place] artery of both lower extremities, with unspecified presence of clinical manifestation (I70.203) Active confirmed Vital Signs Blood pressure diastolic 65 mm Hg 08/01/2024 Height 5 ft 8 in in 08/01/2024 Blood pressure systolic 120 mm Hg 08/01/2024 Weight 250 lbs 08/01/2024 BMI 38.01 kg/m2 08/01/2024 Procedures Procedure Date Ordered Date Performed Result Body Sit e 79899-FBBVCBA NAIL, 6 OR MORE 01/14/2024 N/A 61174-QPTF SKIN LESIONS, OVER 4 01/14/2024 N/A 84275-ONCJUSZ NAIL, 6 OR MORE 05/02/2024 N/A 28567-MFLE SKIN LESIONS, OVER 4 05/02/2024 N/A 94218-MGZHWGV NAIL, 6 OR MORE 08/01/2024 N/A 19572-ALNY SKIN LESIONS, OVER 4 08/01/2024 N/A Encounters Encounter Location Date Provider Diagnosis [address] [address] 01/14/2024 Bishop Ismael Atherosclerosis of [place] artery of both lower extremities, with unspecified presence of clinical manifestation I70.203 ; Tinea unguium B35.1 ; Pain in right toe(s) M79.674 and Pain in left toe(s) M79.[address] [address] 05/02/2024 Bishop Ismael Atherosclerosis of [place] artery of both lower extremities, with unspecified presence of clinical manifestation I70.203 ; Tinea unguium B35.1 ; Pain in right toe(s) M79.674 and Pain in left toe(s) M79.[address] [address] 08/01/2024 Bishop Guevara Atherosclerosis of [place] artery of both lower extremities, with unspecified presence of clinical manifestation I70.203 ; Tinea unguium B35.1 ; Pain in right toe(s) M79.674 and Pain in left toe(s) M79.675 Assessments Encounter Date Diagnosis (ICD Code) Assessment Notes Treatment Notes Treatment Clinical Notes Section Notes 01/14/2024 Tinea unguium (ICD-10 - B35.1) 01/14/2024 Atherosclerosis of [place] artery of both lower extremities, with unspecified presence of clinical manifestation (ICD-10 - I70.203) 05/02/2024 Tinea unguium (ICD-10 - B35.1) 05/02/2024 Atherosclerosis of [place] artery of both lower extremities, with unspecified presence of clinical manifestation (ICD-10 - I70.203) 08/01/2024 Tinea unguium (ICD-10 - B35.1) 08/01/2024 Atherosclerosis of [place] artery of both lower extremities, with unspecified presence of clinical manifestation (ICD-10 - I70.203) 05/02/2024 Pain in right toe(s) (ICD-10 - M79.674) 08/01/2024 Pain in right toe(s) (ICD-10 - M79.674) 01/14/2024 Pain in right toe(s) (ICD-10 - M79.674) 01/14/2024 Pain in left toe(s) (ICD-10 - M79.675) 08/01/2024 Pain in left toe(s) (ICD-10 - M79.675) 05/02/2024 Pain in left toe(s) (ICD-10 - M79.675) Plan Of Treatment Pending Test Test Name Order Date 09526-TKNCFRR NAIL, 6 OR MORE 05/14/2015 39330-LATHFKV NAIL, 6 OR MORE 08/23/2015 23892-YRKTARN NAIL, 6 OR MORE 11/26/2015 95861-OHZUMWI NAIL, 6 OR MORE 02/28/2016 56544-ZKDMVJS NAIL, 6 OR MORE 06/05/2016 23586-LFZOUFO NAIL, 6 OR MORE 09/08/2016 71383-TXYFFSJ NAIL, 6 OR MORE 12/18/2016 85267-SNAWUJH NAIL, 6 OR MORE 03/26/2017 23667-GQWDZSJ NAIL, 6 OR MORE 07/02/2017 13913-YIMGMIA NAIL, 6 OR MORE 10/01/2017 78368-OOMUPAN NAIL, 6 OR MORE 01/04/2018 20806-OZQVPFD NAIL, 6 OR MORE 04/29/2018 23320-SAFEOTD NAIL, 6 OR MORE 08/02/2018 81021-FTSOIOA NAIL, 6 OR MORE 11/08/2018 92074-TDGOMBB NAIL, 6 OR MORE 01/27/2019 39406-BNFWPWG NAIL, 6 OR MORE 05/09/2019 31833-SXUGPUE NAIL, 6 OR MORE 10/24/2019 62587-ODXJRFS NAIL, 6 OR MORE 01/23/2020 71136-CBODBQZ NAIL, 6 OR MORE 04/30/2020 40563-OJLBBOV NAIL, 6 OR MORE 07/30/2020 17258-FMUJVWI NAIL, 6 OR MORE 11/08/2020 82424-OIMWQFY NAIL, 6 OR MORE 02/11/2021 93958-JHRGXHS NAIL, 6 OR MORE 07/01/2021 81586-CZAQXTN NAIL, 6 OR MORE 11/11/2021 53672-XRFKJDO NAIL, 6 OR MORE 02/17/2022 25777-QZZUSAQ NAIL, 6 OR MORE 06/12/2022 45101-BPJVCJA NAIL, 6 OR MORE 10/14/2012 24836-BCMNKAV NAIL, 6 OR MORE 12/30/2012 50725-JBISEZI NAIL, 6 OR MORE 04/04/2013 11250-XAEPSGF NAIL, 6 OR MORE 07/11/2013 79948-FGWUYOY NAIL, 6 OR MORE 10/17/2013 45707-TAQZLVW NAIL, 6 OR MORE 01/23/2014 64858-DPOQOGJ NAIL, 6 OR MORE 05/01/2014 90483-YRFZORR NAIL, 6 OR MORE 07/31/2014 64740-CKLHRIF NAIL, 6 OR MORE 11/06/2014 69349-PAOMGHF NAIL, 6 OR MORE 02/05/2015 02132-DGOMZOF NAIL, 6 OR MORE 09/18/2022 10050-IXADAYX NAIL, 6 OR MORE 12/25/2022 15093-TZCYZGM NAIL, 6 OR MORE 04/06/2023 59876-ZWKFONM NAIL, 6 OR MORE 07/13/2023 09655-LNLFBRT NAIL, 6 OR MORE 10/12/2023 81410-NVIAZCP NAIL, 6 OR MORE 01/14/2024 09600-DUNFYRP NAIL, 6 OR MORE 05/02/2024 10009-WQDMMCI NAIL, 6 OR MORE 08/01/2024 75846-Sbam Destruction, 1-02/05/2015 34716-Knxh Destruction, -11/06/2014 92241-Nrxa Destruction, -07/31/2014 63066-Jqdo Destruction, -05/01/2014 70962-NBJY SKIN LESIONS, OVER 4 09/19/19 48932-GAUH SKIN LESIONS, OVER 4 06/12/19 23 70223-IMXT SKIN LESIONS, OVER 4 08/02/19 76602-FWTZ SKIN LESIONS, OVER 4 05/02/19 33472-QPTD SKIN LESIONS, OVER 4 01/14/20 24 94307-ERHQ SKIN LESIONS, OVER 4 10/12/19 24 85913-WXKL SKIN LESIONS, OVER 4 07/13/19 24 97860-TVFE SKIN LESIONS, OVER 4 04/06/20 23 84548-IIJN SKIN LESIONS, OVER 4 12/26/19 Next Appt Details Provider Name:Bishop Hyatt Ismael , 11/17/2024 09:00:00 AM, [address] [place], [address], Insurance Providers Payer Name Payer Address Payer Phone Subscriber Number Group Number Insured Name Patient Relationship to Insured Coverage Start Date Coverage End Date Medicare National [employer] [address] [place] [address] [id number] Ron Costello Jr Self - patient is the insured 8 [facility] [address] [place] [address] [id number] Ron Costello Jr Self - patient is the insured Medical (General) History Medical History History ICD Code cancer gout hypertension Heart condition Surgical History Surgery Date(Month/Year) kidney stones 2010 hydrocele 1990 wide excision 1979 teeth extraction cardiac catheterization 12/23/2013 stent insertion 11/2014 colonoscopy 06/2021 umbilical hernia repair 10/2021 L cataract surgery 04/2022 Hospitalization History Reason Date(Month/Year) [facility] -Bowel Obstruction 4 days 2021 [facility] Heart Attack 11/2014
== END 2024-10-23 13:53 | disposition home or self-care (01) ==
LOC: HO.HCS 13:26
PROVIDERS: PCP Internal Medicine; Visit Provider Internal Medicine Cardiovascular Disease
DX: I50.20 Unspecified systolic (congestive) heart failure (principal); I25.119 Atherosclerotic heart disease of native coronary artery with unspecified angina pectoris; I48.19 Other persistent atrial fibrillation
CPT/HCPCS: 93010; 99214; G2211

== ENCOUNTER → 2024-10-23 13:26 | Outpatient (BNVA) | payer MEDICARE, OTHER, SELFPAY | PROVIDERS: PCP Internal Medicine; Visit Provider Internal Medicine Cardiovascular Disease | DX: I48.19 Other persistent atrial fibrillation (principal); I25.119 Atherosclerotic heart disease of native coronary artery with unspecified angina pectoris; I50.20 Unspecified systolic (congestive) heart failure; R94.31 Abnormal electrocardiogram [ECG] [EKG]; Z79.52 Long term (current) use of systemic steroids; Z79.899 Other long term (current) drug therapy | CPT/HCPCS: 93005; 99212 ==

== ENCOUNTER 2024-12-14 13:05 | Outpatient (AMB) | payer MEDICARE, OTHER, SELFPAY ==
--- NOTE | 2024-12-14 13:11 | MHC.PC.OV ---
Vital Signs 12/14/24 13:12 Height 5 ft 7 in Weight 254 lb BMI 39.8 BP 132/70 Blood Pressure Location Lt brachial Position Sitting Pulse 67 Pulse Source Pulse Oximeter Temp 97.4 F Temp Source Temporal Artery Scan Pulse Oximetry (%) 96 Oxygen Delivery Method Room Air Intake Visit Reasons: 3 month f/u [employer] Required: No Accompanied by: Self / Same As Patient Allergies bee pollen (BEE STINGS) Allergy (Intermediate, Verified 12/14/24 13:12) HIVES, SOB LOBSTER Allergy (Intermediate, Uncoded 09/19/21 19:18) HIVES Tobacco use date assessed: 12/14/24 Fall risk assessment: No Falls in past year Last assessed Fall Risk: 12/14/24 Dental Screening Dental Screen Date: 12/14/24 Did you have a dental visit in the last 12 months?: Yes Did you have a dental problem in the last 6 months where you did not have access to dental care?: No HPI HPI Comments History of Present Illness Details The patient is an 79 year old male with a past medical history of CAD s/p ACS, CHF, afib, htn, hld, gout, PMR, h/o polyps presenting for follow up CV: Follows with cardiology, Dr Orozco. On digoxin, xarelto, olmesartan, norvasc, coreg, lasix 40mg daily (increased from 20mg daily). Recent echocardiogram shows low normal LVEF of 50-55% with severe left atrial enlargement without any significant pulmonary hypertension or valvular abnormalities. The increased lasix dose has decreased LE swelling. He developed a sore/ulcer on the posterior left leg which he has trouble covering/attending to because of the location. He is currently being on doxycycline for this lesion Prediabetes: 5.9% stable. PMR stable on 5mg prednisone ROS see HPI PHYSICAL EXAM: GENERAL: Alert and oriented x 3. NAD EYES: EOMI. Anicteric. HENT: Moist mucous membranes. No scleral icterus. No cervical lymphadenopathy. LUNGS: Clear to auscultation bilaterally. CARDIOVASCULAR: Regular rate and rhythm. No murmur. No JVD. ABDOMEN: Soft, non-tender +bs EXTREMITIES: No edema. Non-tender. SKIN: 2cm circular ulceration on the posterior lower left leg NEUROLOGIC: No focal neurological deficits. CN II-XII grossly intact PSYCHIATRIC: Cooperative. Appropriate mood and affect [facility] Medical History Heart failure with reduced ejection fraction Paroxysmal A-fib Ventral hernia COVID-19 vaccine series completed Umbilical hernia Gastritis Gastroenteritis Persistent atrial fibrillation HTN (hypertension) Ischemic cardiomyopathy CAD (coronary artery disease) Surgical History Hx of colonoscopy (~05/30/21) Stented coronary artery Family History Father CHF (congestive heart failure) Mother No problems noted. Brother CHF (congestive heart failure) Social History Household Members: Spouse Housing: House Do you presently have visiting nurse or other home services: No Alcohol intake: former Patient Tobacco Use Status: Former Tobacco user Years Smoked: 20 +/- e-Cigarette/Vaping Use: Former Use Advance Directives Date on File: 12/21/13 service: No Current occupational status: retired Cognitive needs: No Hearing needs: No Vision needs: Yes (rx glasses) Questionnaire PHQ-9 Over the last 2 weeks, how often have you been bothered by any of the following problems? 1. Little interest or pleasure in doing things: not at all 2. Feeling down, depressed, or hopeless: not at all 3. Trouble falling or staying asleep, or sleeping too much: not at all 4. Feeling tired or having little energy: not at all 5. Poor appetite or overeating: not at all 6. Feeling bad about yourself - or that you are a failure or have let yourself or your family down: not at all 7. Trouble concentrating on things, such as reading the newspaper or watching television: not at all 8. Moving or speaking so slowly that other people could have noticed. Or the opposite - being so fidgety or restless that you have been moving around a lot more than usual: not at all 9. Thoughts that you would be better off or of hurting yourself in some way: not at all Total score: 0 Depression Screening Interpretation: Negative Depression Screening Done: Yes 02551 - PHQ-9 Billing: Yes Source: Developed by Drs. Lonnie Branch, Marc Jamil and colleagues, with an educational chanelle from [employer]. Thrive Questionnaire Date Thrive assessed: 12/14/24 I am a: Patient Within the past 12 months, did the food you bought not last and you didn't have the money to get more?: Never true Within the past 12 months, did you worry whether your food would run out before you got money to buy more?: Never true Do you have trouble paying for medicines?: No Do you have trouble getting transportation to medical appointments?: No Do you have trouble paying your heating and electricity bill?: No Do you have trouble taking care of your child, family member or friend?: No Do you have trouble with day-to-day activities such as bathing, preparing meals, shopping, managing finances, etc.?: No Are you currently unemployed and looking for a job?: No Are you interested in more education?: No THRIVE Score: 0 AUDIT C Alcohol Use Questionnaire (AUDIT-C) 1. How often do you have a drink containing alcohol?: Never 3. How often do you have six or more drinks on one occasion?: Never Total Score: 0 SANCHEZ-7 AMB Questionnaire SANCHEZ-7 Date SANCHEZ - 7 assessed: 12/14/24 Feeling nervous, anxious, or on edge: 0 = Not at all Not being able to stop or control worryin = Not at all Worrying too much about different things: 0 = Not at all Trouble relaxin = Not at all Being so restless that it is hard to sit still: 0 = Not at all Becoming easily annoyed or irritable: 0 = Not at all Feeling afraid as if something awful might happen: 0 = Not at all Total SANCHEZ-7 score (0-4 normal; 5-9 mild; 10-14 moderate; 15-21 severe): 0 Source: Developed by Drs. Lonnie Branch, Marc Jamil and colleagues, with an educational chanelle from [employer]. Physical exam (Primary Care) Vital Signs: Last Vital Signs Temp 97.4 F 12/14/24 13:12 Pulse 67 12/14/24 13:12 BP 132/70 12/14/24 13:12 Pulse Ox 96 12/14/24 13:12 Oxygen Delivery Method Room Air 12/14/24 13:12 BMI result Body Mass Index 39.8 Tobacco/Smoking Status: Tobacco use Status Tobacco use date assessed 12/14/24 12/14/24 13:13 Patient Tobacco Use Status Former Tobacco user 12/14/24 13:13 Tobacco use type 08/12/21 09:16 e-Cigarette/Vaping Use Former Use 12/14/24 13:13 PHQ-9: PHQ-9 Score PHQ-9: Total score 0 12/14/24 16:10 Depression Screening Interpretation: Negative Thrive Assessment: Date of Thrive Assessment Date Thrive assessed 12/14/24 12/14/24 13:13 Coding Level of Care Code Est Pt Level 4 (91015) Diagnoses Ischemic cardiomyopathy I25.5 Primary hypertension I10 Hypertension type: primary hypertension Persistent atrial fibrillation I48.19 Prediabetes R73.03 Wound of left lower extremity, subsequent encounter S81.802D Encounter type: subsequent encounter Additional Codes PHQ-9 - 24360 - PHQ-9 Billing: Yes ([id number]) Assessment & Plan Assessment & Plan (1) Ischemic cardiomyopathy: Comment: LVEF of 40-45% by echocardiogram, January 2019 Code(s): I25.5 - Ischemic cardiomyopathy Category: Medical (2) HTN (hypertension): Code(s): I10 - Essential (primary) hypertension Category: Medical Qualifiers: Hypertension type: primary hypertension Qualified Code(s): I10 - Essential (primary) hypertension (3) Persistent atrial fibrillation: Comment: taking xarelto, carvedilol, digoxin Code(s): I48.19 - Other persistent atrial fibrillation Category: Medical (4) Prediabetes: Code(s): R73.03 - Prediabetes Category: Medical (5) Leg wound, left: Code(s): S81.802A - Unspecified open wound, left lower leg, initial encounter Category: Medical Qualifiers: Encounter type: subsequent encounter Qualified Code(s): S81.802D - Unspecified open wound, left lower leg, subsequent encounter Plan 79 year old for follow up LE swelling improved on increase lasix dose Left leg ulceration-referral home wound PMR-stable on prednisone Orders: Referrals Home Health Referral S81.802A - Unspecified open wound, left lower leg, initial encounter
[2024-12-14 13:12] VITALS: BP 132/70; PULSE 67; TEMP 36.3; O2SAT 96; BMI 39.8
--- OUTSIDE RECORDS SUMMARY | 2024-12-14 13:44 | XMS_ITS | Patient Health Record ---
[facility] Address [address] [facility] [place] [address] Care Team Providers Care Card Seller Name Role Phone Gloria Tapia Primary Care Provider Bishop Ruiz Unavailable [phone] Allergies Allergen (clinical drug ingredient) Drug/Non Drug Allergy documented on EMR Reaction Allergy Type Onset Date Status bee pollen Bee Pollen Unknown Drug Allergy Activ e Reason For Referral No Information Medications Medication SIG (Take, Route, Frequency, Duration) Notes Start Date End Date Status Prednisone Active Fjspptdouv-siECVQUorv-SUV Z Active Felodipine ER Not-Ta puma Multivitamin Active Atenolol Not-Taking Furosemide 20 MG as directed Orally Active Metoprolol & Diet Manage Prod Not-Taking Eucerin . as directed External ly Apply Twice a day to Feet; Duration: 30 days 11/06/2014 Active Valsartan Not-Taking Digoxin 25mg Active Aspirin 81 MG 1 tablet Orally Once a day; Duration: 30 day(s) Not-Taking Allopurinol Active Plavix Not-Taking Atorvastatin Calcium 10 MG as directed Orally Active Carvedilol Not-Takin g PreserVision AREDS A ctive Xarelto 20 MG as directed Orally Active Vitamin D Active Vitamin A Active Immunizations Vaccine Route Administration Date Status Comme nts Influenza Unknown 12/25/2021 Administered Influenza Unknown 01/19/2024 Administered COVID-19 Moderna Vaccine Unknown 09/02/2021 Administered 1st 06/04/2020 2nd 07/02/2020 3rd 02/21/2021 Social History Tobacco Use: Social History Observation [...] atherosclerosis of arteries of lower limbs (disorder) ([id number] ) Atherosclerosis of [place] artery of both lower extremities, with unspecified presence of clinical manifestation (I70.203) Active confirmed Vital Signs Blood pressure diastolic 65 mm Hg 11/17/2024 Height 5 ft 8 in in 11/17/2024 Blood pressure systolic 128 mm Hg 11/17/2024 Weight 250 lbs 11/17/2024 BMI 38.01 kg/m2 11/17/2024 Procedures Procedure Date Ordered Date Performed Result Body Sit e 97988-TFHTUYE NAIL, 6 OR MORE 01/14/2024 N/A 04879-WLEZ SKIN LESIONS, OVER 4 01/14/2024 N/A 87143-IIAIUQS NAIL, 6 OR MORE 05/02/2024 N/A 92169-YDYY SKIN LESIONS, OVER 4 05/02/2024 N/A 67915-TUJRFGV NAIL, 6 OR MORE 08/01/2024 N/A 85658-WKPS SKIN LESIONS, OVER 4 08/01/2024 N/A 35693-OYTUIVH NAIL, 6 OR MORE 11/17/2024 N/A 71621-HZEI SKIN LESIONS, OVER 4 11/17/2024 N/A Encounters Encounter Location Date Provider Diagnosis [facility] [address] [address] 01/14/2024 Bishop Ismael Atherosclerosis of [place] artery of both lower extremities, with unspecified presence of clinical manifestation I70.203 ; Tinea unguium B35.1 ; Pain in right toe(s) M79.674 and Pain in left toe(s) M79.675 [facility] [address] 05/02/2024 Bishop Ismael Atherosclerosis of [place] artery of both lower extremities, with unspecified presence of clinical manifestation I70.203 ; Tinea unguium B35.1 ; Pain in right toe(s) M79.674 and Pain in left toe(s) M79.[address] [address] 08/01/2024 Bishop Ismael Atherosclerosis of [place] artery of both lower extremities, with unspecified presence of clinical manifestation I70.203 ; Tinea unguium B35.1 ; Pain in right toe(s) M79.674 and Pain in left toe(s) M79.[address] [address] 11/17/2024 Bishop Ismael Atherosclerosis of [place] artery of [...] presence of clinical manifestation (ICD-10 - I70.203) 11/17/2024 Tinea unguium (ICD-10 - B35.1) 11/17/2024 Atherosclerosis of [place] artery of both lower extremities, with unspecified presence of clinical manifestation (ICD-10 - I70.203) 11/17/2024 Pain in right toe(s) (ICD-10 - M79.674) 05/02/2024 Pain in right toe(s) (ICD-10 - M79.674) 08/01/2024 Pain in right toe(s) (ICD-10 - M79.674) 01/14/2024 Pain in right toe(s) (ICD-10 - M79.674) 01/14/2024 Pain in left toe(s) (ICD-10 - M79.675) 11/17/2024 Pain in left toe(s) (ICD-10 - M79.675) 08/01/2024 Pain in left toe(s) (ICD-10 - M79.675) 05/02/2024 Pain in left toe(s) (ICD-10 - M79.675) Plan Of Treatment Pending Test Test Name Order Date 13477-OGMPXKE NAIL, 6 OR MORE 05/14/2015 89825-UDHZRSQ NAIL, 6 OR MORE 08/23/2015 86024-MLTNODB NAIL, 6 OR MORE 11/26/2015 34904-FXPHQYI NAIL, 6 OR MORE 02/28/2016 19127-GPPYAQG NAIL, 6 OR MORE 06/05/2016 77396-HBHMVGN NAIL, 6 OR MORE 09/08/2016 73678-OKXKNBD NAIL, 6 OR MORE 12/18/2016 07216-EQTFXVQ NAIL, 6 OR MORE 03/26/2017 77877-NIIYZTY NAIL, 6 OR MORE 07/02/2017 22605-OURRZYG NAIL, 6 OR MORE 10/01/2017 98505-DTZVJDZ NAIL, 6 OR MORE 01/04/2018 95900-UEHJUIE NAIL, 6 OR MORE 04/29/2018 88008-LFORNBD NAIL, 6 OR MORE 08/02/2018 41854-LTDRTRR NAIL, 6 OR MORE 11/08/2018 80711-TDPEIAP NAIL, 6 OR MORE 01/27/2019 82117-YUQYNAJ NAIL, 6 OR MORE 05/09/2019 75446-ZJDCLVC NAIL, 6 OR MORE 10/24/2019 19535-KSWYNDR NAIL, 6 OR MORE 01/23/2020 35636-TTNQFGT NAIL, 6 OR MORE 04/30/2020 82428-QMLGAFA NAIL, 6 OR MORE 07/30/2020 27052-GDQOEYV NAIL, 6 OR MORE 11/08/2020 23892-SRRHCXS NAIL, 6 OR MORE 02/11/2021 37263-DEEGSHZ NAIL, 6 OR MORE 07/01/2021 96781-ACZXRJM NAIL, 6 OR MORE 11/11/2021 70660-TOLUCSQ NAIL, 6 OR MORE 02/17/2022 50680-BEQOMZG NAIL, 6 OR MORE 06/12/2022 40729-ADOKIQV NAIL, 6 OR MORE 10/14/2012 27217-AFFZLMY NAIL, 6 OR MORE 12/30/2012 09893-JOXJEUA NAIL, 6 OR MORE 04/04/2013 20392-OWZBRYM NAIL, 6 OR MORE 07/11/2013 92193-NBDGRTP NAIL, 6 OR MORE 10/17/2013 94436-WJWLNMR NAIL, 6 OR MORE 01/23/2014 96758-VEAWZLT NAIL, 6 OR MORE 05/01/2014 84670-MDCLTAO NAIL, 6 OR MORE 07/31/2014 78964-QAIYKTZ NAIL, 6 OR MORE 11/06/2014 82761-XYKZONC NAIL, 6 OR MORE 02/05/2015 69362-LZWUJSC NAIL, 6 OR MORE 09/18/2022 62328-IOIFEWP NAIL, 6 OR MORE 12/25/2022 04769-ZZECKDP NAIL, 6 OR MORE 04/06/2023 47326-DVHBXKU NAIL, 6 OR MORE 07/13/2023 85172-QHKIPDN NAIL, 6 OR MORE 10/12/2023 41943-BIALZFW NAIL, 6 OR MORE 01/14/2024 93826-FQVPYPD NAIL, 6 OR MORE 05/02/2024 48850-FTZIZDJ NAIL, 6 OR MORE 08/01/2024 44349-YPRCEGU NAIL, 6 OR MORE 11/17/2024 73927-Wwza Destruction, 1-14 02/05/2015 87949-Axmb Destruction, 1-14 11/06/2014 68606-Acgk Destruction, 1-14 07/31/2014 22588-Ocif Destruction, 1-14 05/01/2014 21614-IMPR SKIN LESIONS, OVER 4 09/19/19 76423-OWFY SKIN LESIONS, OVER 4 06/12/19 23 71507-PHOW SKIN LESIONS, OVER 4 11/18/19 43363-XAKX SKIN LESIONS, OVER 4 08/02/19 09175-AMIQ SKIN LESIONS, OVER 4 05/02/19 65564-BDHH SKIN LESIONS, OVER 4 01/14/20 24 57477-DPSZ SKIN LESIONS, OVER 4 10/12/19 24 61864-APTR SKIN LESIONS, OVER 4 07/13/19 24 84851-HCSP SKIN LESIONS, OVER 4 04/06/20 23 46234-JDWP SKIN LESIONS, OVER 4 12/26/19 Next Appt Details Provider Name:Bishop Guevara , 03/09/2025 09:00:00 AM, [address] [place], [address], Insurance Providers Payer Name Payer Address Payer Phone Subscriber Number Group Number Insured Name Patient Relationship to Insured Coverage Start Date Coverage End Date Medicare National Govt Svcs Inc [address] [place] [address] [id number] Ron Costello Jr Self - patient is the insured 8 [employer] ([employer]) [address] [place] [address] [id number] Ron Costello Jr Self - patient is the insured Medical (General) History Medical History History ICD Code cancer gout hypertension Heart condition Surgical History Surgery Date(Month/Year) kidney stones 2010 hydrocele 1989 wide excision 1980 teeth extraction cardiac catheterization 12/23/2013 stent insertion 11/2014 colonoscopy 06/2021 umbilical hernia repair 10/2021 L cataract surgery 04/2022 Hospitalization History Reason Date(Month/Year) [facility] [place] 4 days 2021 [facility] Medical Heart Attack 11/2014
--- OUTSIDE RECORDS SUMMARY | 2024-12-14 13:44 | XMS_ITS | Clinical Summary ---
Author Organization [facility] Address [address] [place] [address] Phone Care Team Providers Care Cyber Forensic Specialist Name Role Phone Brandon Disla MD Primary Care Provider Social History Tobacco Use Types Packs/Day Years Used Date Smoking Tobacco: Never Assessed Education Answer Date Recorded Are you interested in more education? Not on irvin e 06/23/2023 Are you concerned about learning? Not on file 06/23/2023 No 06/23/2023 No 06/23/2023 Digital Access Answer Date Recorded No 06/23/2023 No 06/23/2023 Reliable internet access at home? Not on file 06/23/2023 Device with a working camera? Not on file Sex and Gender Information Value Date Recorded Sex Assigned at Not on file Legal Sex Male 8:51 AM EST Gender Identity Not on file Sexual Orientation Not on file Plan of Treatment Not on file Medical Devices [place] [id number] MEDICARE PART A & B [facility] EXTENSION MEDICARE SUPPLEMENT MEDICARE PART A & B [employer] MEDICARE SUPPLEMENT MEDICARE PART A & B MEDICARE SUPPLEMENT MEDICARE PART A & B MEDICARE SUPPLEMENT MEDICARE PART A & B Employee Benefit Plans MEDICARE SUPPLEMENT MEDICARE PART A & B Employee Benefit Plans MEDICARE SUPPLEMENT Care Teams Cyber Forensic Specialist Relationship Specialty Start Date End Date Brandon Disla MD [address] [place] [address] [place] [address] PCP - General Internal Medicine 06/23/23 Additional Source Comments The information contained in this document represents components of the legal health record. It is not the complete legal health record.[facility]
--- OUTSIDE RECORDS SUMMARY | 2024-12-14 13:44 | XMS_ITS | Patient Health Record ---
Author Organization [facility] Address [address] [place] [address] Care Team Providers Care Tool Sharpener Name Role Phone Nighat (RETIRED) Brandon ALANIS Primary Care Provide r Unavailable Terrence Alvarado Jr Unavailable Reason For Referral No Information Plan Of Treatment No Information
== END 2024-12-14 13:38 | disposition home or self-care (01) ==
LOC: HO.HMCHD 13:06
PROVIDERS: PCP Internal Medicine; Visit Provider Internal Medicine
DX: I25.5 Ischemic cardiomyopathy (principal); I10 Essential (primary) hypertension; I48.19 Other persistent atrial fibrillation; R73.03 Prediabetes; S81.802D Unspecified open wound, left lower leg, subsequent encounter

== ENCOUNTER → 2024-12-14 13:05 | Outpatient (BNVA) | payer MEDICARE, OTHER, SELFPAY | PROVIDERS: PCP Internal Medicine; Visit Provider Internal Medicine | DX: I25.5 Ischemic cardiomyopathy (principal); I10 Essential (primary) hypertension; I48.19 Other persistent atrial fibrillation; R73.03 Prediabetes; S81.802D Unspecified open wound, left lower leg, subsequent encounter; M35.3 Polymyalgia rheumatica; Z79.01 Long term (current) use of anticoagulants; Z79.52 Long term (current) use of systemic steroids; Z79.899 Other long term (current) drug therapy; Z13.31 Encounter for screening for depression; Z13.39 Encounter for screening examination for other mental health and behavioral disorders | CPT/HCPCS: 96127; 99212 ==

== ENCOUNTER 2024-12-20 09:47 | Outpatient (REF) | payer MEDICARE, OTHER, SELFPAY ==
[2024-12-20 10:23] LABS: B Type Natriuretic Peptide 263 pg/mL (<100)
[2024-12-20 10:48] LABS: Anion Gap 13 (12-20); Blood Urea Nitrogen 12 mg/dL (9-16); Calcium 9.2 mg/dL (8.4-10.2); Carbon Dioxide 25 mmol/L (22-29); Chloride 106 mmol/L (96-108); Estimated Glomerular Filt Rate > 60; Potassium 4.0 mmol/L (3.3-5.1); Sodium 140 mmol/L (135-145)
--- OUTSIDE RECORDS SUMMARY | 2024-12-20 10:52 | XMS_ITS | Clinical Summary ---
Author Organization [facility] Address [address] [place] [address] Phone Care Team Providers Care Weir Fisher Name Role Phone Brandon Disla MD Primary [...] Not on [place] [address] MEDICARE PART A & B [facility] EXTENSION MEDICARE SUPPLEMENT MEDICARE PART A & B EXTENSION MEDICARE SUPPLEMENT MEDICARE PART A & B MEDICARE SUPPLEMENT MEDICARE PART A & B MEDICARE SUPPLEMENT MEDICARE PART A & B [employer] MEDICARE SUPPLEMENT MEDICARE PART A & B [employer] MEDICARE SUPPLEMENT Care Teams Weir Fisher Relationship Specialty Start Date End Date Brandon Disla MD [address] [place] [address] [place] [address] PCP - General Internal Medicine 06/23/23 Additional Source Comments The information contained in this document represents components of the legal health record. It is not the complete legal health record.[facility]
--- OUTSIDE RECORDS SUMMARY | 2024-12-20 10:52 | XMS_ITS | Patient Health Record ---
[facility] Address [address] [facility] [place] [address] Care Team Providers Care Commutator Operator Name Role Phone Gloria Tapia Primary Care Provider Bishop Ruiz Unavailable [phone] Allergies Allergen (clinical drug ingredient) Drug/Non Drug Allergy documented on EMR Reaction Allergy Type Onset Date Status bee pollen Bee Pollen Unknown Drug Allergy Activ e Reason For Referral No Information Medications Medication SIG (Take, Route, Frequency, Duration) Notes Start Date End Date Status Prednisone Active Ybnctdzmsf-wmSVWJVyfw-UGS Z Active Felodipine ER Not-Ta puma Multivitamin [...] atherosclerosis of arteries of lower limbs (disorder) ([id number] ) Atherosclerosis of [place]ain[place] artery of both lower extremities, with unspecified presence of clinical manifestation (I70.203) Active confirmed Vital Signs Blood pressure diastolic 65 mm Hg 11/17/2024 Height 5 ft 8 in in 11/17/2024 Blood pressure systolic 128 mm Hg 11/17/2024 Weight 250 lbs 11/17/2024 BMI 38.01 kg/m2 11/17/2024 Procedures Procedure Date Ordered Date Performed Result Body Sit e 37351-PUYRVQA NAIL, 6 OR MORE 01/14/2024 N/A 58893-ADNR SKIN LESIONS, OVER 4 01/14/2024 N/A 08895-NZYARBN NAIL, 6 OR MORE 05/02/2024 N/A 79560-CVSA SKIN LESIONS, OVER 4 05/02/2024 N/A 46262-ZQTXIYY NAIL, 6 OR MORE 08/01/2024 N/A 90600-XYDJ SKIN LESIONS, OVER 4 08/01/2024 N/A 03953-IFGMZBJ NAIL, 6 OR MORE 11/17/2024 N/A 08481-YXLX SKIN LESIONS, OVER 4 11/17/2024 N/A Encounters Encounter Location Date Provider Diagnosis [facility] [address] [address] 01/14/2024 Bishop Ismael Atherosclerosis of wain[place] artery of both lower extremities, with unspecified presence of clinical manifestation I70.203 ; Tinea unguium B35.1 ; Pain in right toe(s) M79.674 and Pain in left toe(s) M79.[address] [facility] [address] 05/02/2024 Bishop Ismael Atherosclerosis of wainwright artery of both lower extremities, with unspecified presence of clinical manifestation I70.203 ; Tinea unguium B35.1 ; Pain in right toe(s) M79.674 and Pain in left toe(s) M79.[address] [address] 08/01/2024 Bishop Ismael Atherosclerosis of wainwright artery of both lower extremities, with unspecified presence of clinical manifestation I70.203 ; Tinea unguium B35.1 ; Pain in right toe(s) M79.674 and Pain in left toe(s) M79.[address] [address] 11/17/2024 Bishop Ismael Atherosclerosis of wainwright artery of both lower extremities, with unspecified presence of clinical manifestation I70.203 ; Tinea unguium B35.1 ; Pain in right toe(s) M79.674 and Pain in left toe(s) M79.675 Assessments Encounter Date Diagnosis (ICD Code) Assessment Notes Treatment Notes Treatment Clinical Notes Section Notes 01/14/2024 Tinea unguium (ICD-10 - B35.1) 01/14/2024 Atherosclerosis of wainwright artery of both lower extremities, with unspecified presence of clinical manifestation (ICD-10 - I70.203) 05/02/2024 Tinea unguium (ICD-10 - B35.1) 05/02/2024 Atherosclerosis of wainwright artery of both lower extremities, with unspecified presence of clinical manifestation (ICD-10 - I70.203) 08/01/2024 Tinea unguium (ICD-10 - B35.1) 08/01/2024 Atherosclerosis of wainwright artery of both lower extremities, with unspecified presence of clinical manifestation (ICD-10 - I70.203) 11/17/2024 Tinea unguium (ICD-10 - B35.1) 11/17/2024 Atherosclerosis of wainwright artery of both lower extremities, with unspecified [...] Treatment Pending Test Test Name Order Date 09831-MWQRWQJ NAIL, 6 OR MORE 05/14/2015 30518-CHHHUOV NAIL, 6 OR MORE 08/23/2015 70212-PBZBNIE NAIL, 6 OR MORE 11/26/2015 82868-FPLBQGY NAIL, 6 OR MORE 02/28/2016 28223-HSXAMPY NAIL, 6 OR MORE 06/05/2016 49950-AGSZVJX NAIL, 6 OR MORE 09/08/2016 46177-JLSGSNS NAIL, 6 OR MORE 12/18/2016 17320-NGSBWIR NAIL, 6 OR MORE 03/26/2017 27822-IBYMCZT NAIL, 6 OR MORE 07/02/2017 64263-ADIYJSG NAIL, 6 OR MORE 10/01/2017 59465-KDOZTCQ NAIL, 6 OR MORE 01/04/2018 76848-HNLVBRN NAIL, 6 OR MORE 04/29/2018 85179-IPFPYIH NAIL, 6 OR MORE 08/02/2018 85638-DGQAWOG NAIL, 6 OR MORE 11/08/2018 43550-PFESAZI NAIL, 6 OR MORE 01/27/2019 24856-EYABPKK NAIL, 6 OR MORE 05/09/2019 35148-MXXERGQ NAIL, 6 OR MORE 10/24/2019 60872-XVZNJGX NAIL, 6 OR MORE 01/23/2020 35703-CYQHPJF NAIL, 6 OR MORE 04/30/2020 56630-EWETSXN NAIL, 6 OR MORE 07/30/2020 18819-CMSHICQ NAIL, 6 OR MORE 11/08/2020 26621-BDDJPHW NAIL, 6 OR MORE 02/11/2021 46423-KUGGLBN NAIL, 6 OR MORE 07/01/2021 68230-NPOKHPV NAIL, 6 OR MORE 11/11/2021 28470-TOQMGUF NAIL, 6 OR MORE 02/17/2022 50945-LALCJLH NAIL, 6 OR MORE 06/12/2022 93543-TMKYRZT NAIL, 6 OR MORE 10/14/2012 03380-ZROZWCE NAIL, 6 OR MORE 12/30/2012 35184-KBYZJIG NAIL, 6 OR MORE 04/04/2013 72669-QUNHKYY NAIL, 6 OR MORE 07/11/2013 01313-RTWIWMF NAIL, 6 OR MORE 10/17/2013 36736-PLOOOCY NAIL, 6 OR MORE 01/23/2014 89201-JNFIZXS NAIL, 6 OR MORE 05/01/2014 77625-PEVQEMO NAIL, 6 OR MORE 07/31/2014 46389-RRHBHAH NAIL, 6 OR MORE 11/06/2014 09463-ZFMOIHZ NAIL, 6 OR MORE 02/05/2015 09103-CQNKLCM NAIL, 6 OR MORE 09/18/2022 65785-ZXXUPJL NAIL, 6 OR MORE 12/25/2022 98951-VNOANLQ NAIL, 6 OR MORE 04/06/2023 75697-IQBSUAV NAIL, 6 OR MORE 07/13/2023 51782-KQLILCR NAIL, 6 OR MORE 10/12/2023 48157-TIWSOGY NAIL, 6 OR MORE 01/14/2024 16623-ZAVMOUK NAIL, 6 OR MORE 05/02/2024 66737-DHSIIKP NAIL, 6 OR MORE 08/01/2024 16033-QKYBQNR NAIL, 6 OR MORE 11/17/2024 02559-Lkbk Destruction, 1-14 02/05/2015 68740-Sukz Destruction, 1-14 11/06/2014 98959-Mwtd Destruction, 1-14 07/31/2014 08615-Pxqw Destruction, 1-14 05/01/2014 33835-QJUL SKIN LESIONS, OVER 4 09/19/19 44052-LZVY SKIN LESIONS, OVER 4 06/12/19 23 72934-VVRM SKIN LESIONS, OVER 4 11/18/19 12218-YGKZ SKIN LESIONS, OVER 4 08/02/19 05694-COTS SKIN LESIONS, OVER 4 05/02/19 01830-KMZL SKIN LESIONS, OVER 4 01/14/20 24 06556-FDWH SKIN LESIONS, OVER 4 10/12/19 24 06082-VKZO SKIN LESIONS, OVER 4 07/13/19 24 80126-BKSA SKIN LESIONS, OVER 4 04/06/20 23 45346-DBOJ SKIN LESIONS, OVER 4 12/26/19 Next Appt Details Provider Name:Bishop Guevara , 03/09/2025 09:00:00 AM, [address] [place], [address], Insurance Providers Payer Name Payer Address Payer Phone Subscriber Number Group Number Insured Name Patient Relationship to Insured Coverage Start Date Coverage End Date Medicare National Govt Svcs Inc [address] [place] [address] [id number] Ron Costello Jr Self - patient is the insured 8 [employer] ([employer]) [address] [place] [address] [id number] Ron Costello Jr Self - patient is the insured Medical (General) History Medical History History ICD Code cancer gout hypertension Heart condition Surgical History Surgery Date(Month/Year) kidney stones 2010 hydrocele 1989 wide excision 1980 teeth extraction cardiac catheterization 12/23/2013 stent insertion 11/2014 colonoscopy 06/2021 umbilical hernia repair 10/2021 L cataract surgery 04/2022 Hospitalization History Reason Date(Month/Year) [facility] [place] 4 days 2021 [facility] Medical Heart Attack 11/2014
--- OUTSIDE RECORDS SUMMARY | 2024-12-20 10:52 | XMS_ITS | Patient Health Record ---
Author Organization [facility] Address [address] [place] [address] Care Team Providers Care Art Framing Manager Name Role Phone Nighat (RETIRED) Brandon ALANIS Primary Care Provide r Unavailable Terrence Alvarado Jr Unavailable [phone] Reason For Referral No Information Plan Of Treatment No Information
== END 2024-12-20 09:48 | disposition home or self-care (01) ==
LOC: HO.10HDL 09:47
PROVIDERS: Visit Provider Internal Medicine Cardiovascular Disease
DX: I48.19 Other persistent atrial fibrillation (principal); I50.20 Unspecified systolic (congestive) heart failure
CPT/HCPCS: 36415; 80048; 83880

== ENCOUNTER 2025-03-12 13:01 | Outpatient (AMB) | payer MEDICARE, OTHER, SELFPAY ==
--- NOTE | 2025-03-12 13:02 | A.OFFPC_ITS ---
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 Accompanied by: Self / Same As Patient Allergies bee pollen (BEE STINGS) Allergy (Intermediate, Verified 03/12/25 13:02) HIVES, SOB LOBSTER Allergy (Intermediate, Uncoded 09/19/21 19:18) HIVES Medication List - Last Reconciled 03/12/25 by LETTY Cruz allopurinol 300 mg PO DAILY 30 days amlodipine 2.5 mg PO DAILY atorvastatin 40 mg PO DAILY 90 days carvedilol 25 mg PO BID 30 days cholecalciferol (vitamin D3) 250 mcg PO QWEEK digoxin 250 mcg PO DAILY furosemide (Lasix) 40 mg PO DAILY ketoconazole 2% 1 appl topical multivitamin 1 tab PO DAILY olmesartan 40 mg PO DAILY prednisone 5 mg PO DAILY prednisone 2.5 mg PO DAILY rivaroxaban (Xarelto) 20 mg PO DAILY triamcinolone acetonide 0.1% 1 appl topical BID-TID vitamins A,C,A-vmkz-vruqcn 2,148 mcg-113 mg-45 mg-17.4mg (PreserVision AREDS) 2 tabs PO BID Tobacco use date assessed: 12/14/24 Dental Screening Dental Screen Date: 12/14/24 HPI HPI Comments History of Present Illness Details The patient is an 79 year old male with a past medical history of CAD s/p ACS, CHF, afib, htn, hld, gout, PMR, h/o polyps presenting for follow up CV: Follows with cardiology, Dr Orozco. On digoxin, xarelto, olmesartan, norvasc, coreg, lasix 40mg daily (increased from 20mg daily). Recent echocardiogram shows low normal LVEF of 50-55% with severe left atrial enlargement without any significant pulmonary hypertension or valvular abnormalities. The increased lasix dose has decreased LE swelling. History of cardiac arrest [facility] 2011. Not weighing himself daily but denies any dyspnea on exertion, orthopnea, or PND Hx alcohol use disorder- quit cold turkey following cardiac arrest Prediabetes: 5.9% stable. PMR stable on 5mg prednisone. Stopped altogether with recurrence of symptoms Gout- allopurinol OA- L knee wears brace. Tolerable right now Seborrheic keratosis/BCC scalp- NE Derm. Liquid nitrogen Concerns: None ROS: General: No fevers, malaise, unintentional weight loss HEENT: No blurred vision, diplopia. No sore throat, nasal congestion, rhinorrhea, sinus pain, ear pain Cardiovascular: No chest pain, palpitations, or leg edema Respiratory: No shortness of breath, wheezing, cough GI: No abdominal pain, nausea, vomiting, diarrhea, constipation, melena, hematochezia : No dysuria, hematuria, increased urinary frequency, decreased urinary output MSK: No myalgia, back pain Neuro: No headaches, weakness, paresthesias Skin: No rashes or lesions EXAM: Constitutional - Awake and Alert, No apparent distress Eyes - PERRL Cardiovascular - S1S2, RRR, No edema Respiratory - Normal lung expansion, Normal respiratory effort, No respiratory distress, CTA bilaterally Extremities - no calf tenderness bilaterally, no swelling Skin - Warm/Dry Neurological - Alert & oriented x3 Psychological - Appropriate affect [facility] Medical History (Updated 03/12/25 @ 13:38 by LETTY Cruz) Polymyalgia rheumatica Seborrheic keratosis Basal cell carcinoma Osteoarthritis of left knee Heart failure with reduced ejection fraction Paroxysmal A-fib Ventral hernia COVID-19 vaccine series completed Umbilical hernia Gastritis Gastroenteritis Persistent atrial fibrillation HTN (hypertension) Ischemic cardiomyopathy CAD (coronary artery disease) Surgical History Hx of colonoscopy (~05/30/21) Stented coronary artery Family History Father CHF (congestive heart failure) Mother No problems noted. Brother CHF (congestive heart failure) Social History Household Members: Spouse Housing: House Do you presently have visiting nurse or other home services: No Alcohol intake: former Patient Tobacco Use Status: Former Tobacco user Years Smoked: 20 +/- e-Cigarette/Vaping Use: Former Use Advance Directives Date on File: 12/21/13 service: No Current occupational status: retired Cognitive needs: No Hearing needs: No Vision needs: Yes (rx glasses) Questionnaire Thrive Questionnaire Date Thrive assessed: 12/14/24 SANCHEZ-7 AMB Questionnaire SANCHEZ-7 Date SANCHEZ - 7 assessed: 12/14/24 Source: Developed by Drs. Lonnie Branch, Felecia Travis, Marc Garcia and colleagues, with an educational chanelle from [employer]. Physical exam (Primary Care) Vital Signs: Last Vital Signs Temp 98.9 F 03/12/25 13:09 Pulse 81 03/12/25 13:09 Resp 18 03/12/25 13:09 BP 128/68 03/12/25 13:09 Pulse Ox 96 03/12/25 13:09 Oxygen Delivery Method Room Air 03/12/25 13:09 BMI result Body Mass Index 40.4 Tobacco/Smoking Status: Tobacco use Status Tobacco use date assessed 12/14/24 03/12/25 13:03 Patient Tobacco Use Status Former Tobacco user 03/12/25 13:03 Tobacco use type 08/12/21 09:16 e-Cigarette/Vaping Use Former Use 03/12/25 13:03 Thrive Assessment: Date of Thrive Assessment Date Thrive assessed 12/14/24 03/12/25 13:03 Coding Level of Care Code Est Pt Level 4 (72099) Complex visit Add On G2211 Diagnoses Osteoarthritis of left knee M17.12 Heart failure with recovered ejection fraction (HFrecEF) I50.20 Persistent atrial fibrillation I48.19 Coronary artery disease with angina pectoris, unspecified vessel or lesion type, unspecified whether [place] or transplanted heart I25.119 Coronary Disease-Associated Artery/Lesion type: unspecified vessel or lesion type [place] vs. transplanted heart: unspecified whether [place] or transplanted heart Associated angina: with unspecified form of angina Prediabetes R73.03 Polymyalgia rheumatica M35.3 Primary hypertension I10 Hypertension type: primary hypertension Assessment & Plan Assessment & Plan (1) Osteoarthritis of left knee: Code(s): M17.12 - Unilateral primary osteoarthritis, left knee Category: Medical Plan: Continue with analgesics as needed as well as knee brace. (2) Heart failure with recovered ejection fraction (HFrecEF): Code(s): I50.20 - Unspecified systolic (congestive) heart failure Category: Medical Plan: Clinically euvolemic. Continue Lasix (3) Persistent atrial fibrillation: Comment: taking xarelto, carvedilol, digoxin Code(s): I48.19 - Other persistent atrial fibrillation Category: Medical Plan: Rate controlled. Continue digoxin, carvedilol as well as Xarelto (4) CAD (coronary artery disease): Code(s): I25.10 - Atherosclerotic heart disease of [place] coronary artery without angina pectoris Category: Medical Qualifiers: Coronary Disease-Associated Artery/Lesion type: unspecified vessel or lesion type [place] vs. transplanted heart: unspecified whether [place] or tra nsplanted heart Associated angina: with unspecified form of angina Qualified Code(s): I25.119 - Atherosclerotic heart disease of [place] coronary artery with unspecified angina pectoris Plan: Asymptomatic. Continue following with Dr. Orozco. Continue current therapies (5) Prediabetes: Code(s): R73.03 - Prediabetes Category: Medical Plan: Counseled on diabetic diet as the chronic prednisone puts him at increased risk for progressing to diabetes (6) Polymyalgia rheumatica: Code(s): M35.3 - Polymyalgia rheumatica Category: Medical Plan: Reduce prednisone to 2.5 mg daily. If symptoms recur, can increase back to 5 mg (7) HTN (hypertension): Code(s): I10 - Essential (primary) hypertension Category: Medical Qualifiers: Hypertension type: primary hypertension Qualified Code(s): I10 - Essential (primary) hypertension Plan: Controlled. Continue current therapies Plan Follow-up in 4 months, sooner if needed. Should he change his mind about orthopedics referral for cortisone injection, he will contact the office Labs to be completed as ordered Orders: Orders Basic Metabolic Panel Today D75.89 - Other specified diseases of blood and blood-forming organs, I10 - Essential (primary) hypertension, I25.5 - Ischemic cardiomyopathy, I48.19 - Other persistent atrial fibrillation Complete Blood Count Auto Diff Today D75.89 - Other specified diseases of blood and blood-forming organs, I10 - Essential (primary) hypertension, I25.5 - Ischemic cardiomyopathy, I48.19 - Other persistent atrial fibrillation Lipid Panel Today D75.89 - Other specified diseases of blood and blood-forming organs, I10 - Essential (primary) hypertension, I25.5 - Ischemic cardiomyopathy, I48.19 - Other persistent atrial fibrillation Medications: New prednisone 2.5 mg PO DAILY 30 tabs 0RF Discontinued 2 prednisone Discontinued Reason: Doctor's Order 5 mg PO DAILY 30 tabs 0RF
[2025-03-12 13:09] VITALS: BP 128/68; PULSE 81; RESP 18; TEMP 37.2; O2SAT 96; BMI 40.4
--- OUTSIDE RECORDS SUMMARY | 2025-03-12 17:34 | XMS_ITS | Clinical Summary ---
Author Organization [facility] Address [address] [place] [id number] Phone Care Team Providers Care Core Shaper Top Name Role Phone Brandon Disla MD Primary [...] [place] [id number] MEDICARE PART A & B [facility] MEDICARE SUPPLEMENT MEDICARE PART A & B [employer] MEDICARE SUPPLEMENT MEDICARE PART A & B MEDICARE SUPPLEMENT MEDICARE PART A & B MEDICARE SUPPLEMENT MEDICARE PART A & B [employer] MEDICARE SUPPLEMENT MEDICARE PART A & B [employer] MEDICARE SUPPLEMENT Care Teams Core Shaper Top Relationship Specialty Start Date End Date Brandon Disla MD [address] [place] [address] [place] [id number] PCP - General Internal Medicine 06/23/23 Additional Source Comments The information contained in this document represents components of the legal health record. It is not the complete legal health record.[facility]
== END 2025-03-12 13:42 | disposition home or self-care (01) ==
PROVIDERS: PCP Physician Assistant; Visit Provider Physician Assistant
DX: M17.12 Unilateral primary osteoarthritis, left knee (principal); I50.20 Unspecified systolic (congestive) heart failure; I48.19 Other persistent atrial fibrillation; I25.119 Atherosclerotic heart disease of native coronary artery with unspecified angina pectoris; R73.03 Prediabetes; M35.3 Polymyalgia rheumatica; I10 Essential (primary) hypertension

== ENCOUNTER → 2025-03-12 13:01 | Outpatient (BNVA) | payer MEDICARE, OTHER, SELFPAY | PROVIDERS: PCP Internal Medicine; Visit Provider Physician Assistant | DX: R73.03 Prediabetes (principal); M10.9 Gout, unspecified; M17.12 Unilateral primary osteoarthritis, left knee; I50.20 Unspecified systolic (congestive) heart failure; I48.19 Other persistent atrial fibrillation; I25.119 Atherosclerotic heart disease of native coronary artery with unspecified angina pectoris; M35.3 Polymyalgia rheumatica; I10 Essential (primary) hypertension; D75.89 Other specified diseases of blood and blood-forming organs | CPT/HCPCS: 99212 ==